=== PATIENT | female | born 1960 | race Two or more races ===

== ENCOUNTER 2021-02-08 15:15 | Outpatient (REF) | payer OTHER, SELFPAY ==
--- NOTE | ~2021-02-08 | MM_ITS ---
EXAMINATION: MM SCREENING DIGITAL BREAST TOMOSYNTHESIS, BILATERAL CLINICAL INFORMATION: Screening. Asymptomatic. The lifetime risk of breast cancer based on the Tyrer-Cuzick Model is 4%. COMPARISON: Mammography: 12/29/2019, 12/23/2018, 11/23/2017 TECHNIQUE: Digital breast tomosynthesis is performed in both the craniocaudal and mediolateral oblique views along with computer-aided detection (CAD). Synthesized 2D images are generated from the tomosynthesis. FINDINGS: The breasts are almost entirely fatty (ACR BI-RADS breast composition Category a). There are no significant masses, abnormal calcifications, or other abnormalities. There is dermal lesion again seen overlying the posterior inferior left breast. Background stromal and fibroglandular densities are stable. The axilla are unremarkable. No significant changes. MM/MM tomosynthesis screening BI IMPRESSION: No mammographic evidence of malignancy. ASSESSMENT: BI-RADS 2: Benign RECOMMENDATION: Routine annual mammography screening. This patient's information was entered into a reminder system with a target due date for their next mammogram.
== END 2021-02-08 15:16 | disposition home or self-care (01) ==
LOC: HO.MAMMO 15:15
PROVIDERS: PCP Family Medicine; Visit Provider Family Medicine
DX: Z12.31 Encounter for screening mammogram for malignant neoplasm of breast (principal)
CPT/HCPCS: 77063; 77067

== ENCOUNTER 2021-08-21 09:47 | Outpatient (REF) | payer OTHER, SELFPAY ==
--- NOTE | 2021-08-21 09:51 | EMG_ITS ---
This is a 61-year-old woman with tingling in the left upper extremity. Neurological examination is normal. IMPRESSION: Rule out carpal tunnel syndrome, rule out cervical radiculopathy. Nerve conduction EMG study: Early carpal tunnel syndrome on the left. Normal EMG of the left C5-T1 innervated muscles. MD JACOBO Mora/SHAVON / [id number]
== END 2021-08-21 09:48 | disposition home or self-care (01) ==
LOC: HO.NEURO 09:47
PROVIDERS: PCP Family Medicine; Visit Provider Family Medicine
DX: M50.30 Other cervical disc degeneration, unspecified cervical region (principal); E11.9 Type 2 diabetes mellitus without complications; R20.0 Anesthesia of skin
CPT/HCPCS: 95885; 95910

== ENCOUNTER → 2022-01-06 13:12 | Outpatient (BNVA) | payer OTHER, SELFPAY | PROVIDERS: PCP Family Medicine; Visit Provider Physician Assistant | DX: Z01.818 Encounter for other preprocedural examination (principal); K21.9 Gastro-esophageal reflux disease without esophagitis; Z79.899 Other long term (current) drug therapy | CPT/HCPCS: 99202 ==

== ENCOUNTER 2022-01-21 07:36 | Day surgery (SDC) | payer OTHER, SELFPAY ==
--- NOTE | 2022-01-20 10:02 | P.CONAN_ITS ---
Documented by User: Ciara Abdullahi NP 01/20/22 10:03 HPI - Anesthesia Eval Consult details Narrative: 61yo F for Colonoscopy PMFSH Active Problems Active Problems: All Active Problems (Updated 01/06/22 @ 14:52 by Luba Yeager PA-C) Acid reflux (Acute) Encounter for screening colonoscopy (Acute) Past Medical History Medical History (Updated 01/21/22 @ 09:38 by Rubina Brambila RN) Diabetes Family History Family History Father Liver disease Alcoholic Mother Diabetes Kidney disease Surgical History Surgical History History of back surgery History of hysterectomy with bilateral oophorectomy Hx of appendectomy Hx of cholecystectomy Hx of tonsillectomy Social History Social History Household Members: Family Alcohol intake: current Alcohol intake frequency: holidays/special occasions only Patient Tobacco Use Status: Never used Tobacco Use of substances other than those prescribed or required for medical reasons: No Are you DNR?: No Advance Directives: No Advance Directives Information Provided: Yes Patient : No Meds Allergies Allergy/AdvReac Type Severity Reaction Status Date / Time cat dander [CATS] Allergy Unknown SNEEZING Verified 01/06/22 13:18 DUST Allergy Unknown ITCHY Uncoded 03/29/20 16:43 EYES, SNEEZING FRUIT Allergy Unknown ITCHY Uncoded 03/29/20 16:43 THROAT RAGWEED Allergy Unknown SNEEZING/ Uncoded 03/29/20 16:43 ITCHY EYES Home Medications Medication Instructions Recorded Confirmed Last Taken Type bupropion HCl 200 mg tablet,12 hr 200 mg PO BID 01/06/22 Unknown History sustained-release cholecalciferol (vitamin D3) 25 25 mcg PO DAILY 01/06/22 Unknown History mcg (1,000 unit) capsule dulaglutide 0.75 mg/0.5 mL 0.75 mg subcut QWEEK 01/06/22 Unknown History [facility] enalapril maleate 5 mg tablet 5 mg PO DAILY 01/06/22 Unknown History famotidine 20 mg tablet 20 mg PO DAILY 01/06/22 Unknown History loratadine 10 mg tablet 10 mg PO DAILY 01/06/22 Unknown History metformin 500 mg tablet,extended 1,000 mg PO BID 01/06/22 Unknown History release 24 hr oxybutynin chloride 15 mg 15 mg PO DAILY 01/06/22 Unknown History tablet,extended release 24 hr pravastatin 40 mg tablet 40 mg PO DAILY 01/06/22 Unknown History Exam Exam Date and Time: January 20, 2022 1002 Assessment and Plan Assessment Anesthesia Assessment: Chart Reviewed Documented by User: Sara Gimenez MD 01/21/22 09:44 HPI - Anesthesia Eval Consult details Narrative: 61yo F for EGD, Colonoscopy PMFSH Active Problems Active Problems: All Active Problems (Updated 01/06/22 @ 14:52 by Luba Yeager PA-C) Acid reflux (Acute) Encounter for screening colonoscopy (Acute) HTN Diabetes Anxiety/Depression VANDANA, on CPAP Environmental allergies Overactive bladder Increased BMI Past Medical History Medical History (Updated 01/21/22 @ 09:38 by Rubina Brambila RN) Diabetes Family History Family History Father Liver disease Alcoholic Mother Diabetes Kidney disease Family history of problems with anesthesia: No Surgical History Surgical History History of back surgery History of hysterectomy with bilateral oophorectomy Hx of appendectomy Hx of cholecystectomy Hx of tonsillectomy History of Problems with Anesthesia: Yes (Slow awakening after one of her surgeries) Social History Social History Household Members: Family Alcohol intake: current Alcohol intake frequency: holidays/special occasions only Patient Tobacco Use Status: Never used Tobacco Use of substances other than those prescribed or required for medical reasons: No Are you DNR?: No Advance Directives: No Advance Directives Information Provided: Yes Patient : No Meds Allergies Allergy/AdvReac Type Severity Reaction Status Date / Time cat dander [CATS] Allergy Unknown SNEEZING Verified 01/06/22 13:18 DUST Allergy Unknown ITCHY Uncoded 03/29/20 16:43 EYES, SNEEZING FRUIT Allergy Unknown ITCHY Uncoded 03/29/20 16:43 THROAT RAGWEED Allergy Unknown SNEEZING/ Uncoded 03/29/20 16:43 ITCHY EYES Home Medications Medication Instructions Recorded Confirmed Last Taken Type bupropion HCl 200 mg tablet,12 hr 200 mg PO BID 01/06/22 Unknown History sustained-release cholecalciferol (vitamin D3) 25 25 mcg PO DAILY 01/06/22 Unknown History mcg (1,000 unit) capsule dulaglutide 0.75 mg/0.5 mL 0.75 mg subcut QWEEK 01/06/22 Unknown History subcutaneous pen injector (Trulicity) enalapril maleate 5 mg tablet 5 mg PO DAILY 01/06/22 Unknown History famotidine 20 mg tablet 20 mg PO DAILY 01/06/22 Unknown History loratadine 10 mg tablet 10 mg PO DAILY 01/06/22 Unknown History metformin 500 mg tablet,extended 1,000 mg PO BID 01/06/22 Unknown History release 24 hr oxybutynin chloride 15 mg 15 mg PO DAILY 01/06/22 Unknown History tablet,extended release 24 hr pravastatin 40 mg tablet 40 mg PO DAILY 01/06/22 Unknown History Exam Height,Weight and Vital Signs: Height 5 ft 5 in Weight 111.13 kg Vital Signs Temp Pulse Resp BP Pulse Ox O2 Del Method 01/21/22 08:36 97.0 F 76 18 125/60 96 Room Air Pertinent Lab Results Pertinent Lab Results: Lab Results 01/21/22 Range/Units 08:43 POC Glucose 110 (60-115) mg/dL Airway Mallampati Class: II (narrow palate with overcrowding of teeth) Neck ROM: Full Loose/Missing/Broken Teeth: No (Per patient) Heart: RRR Lungs: CTAB Assessment and Plan Assessment Anesthesia Assessment: Anesthesia Plan Discussed Final Anesthetic Review Family History of Problems with Anesthesia: No History of Problems with Anesthesia: Yes (Slow awakening after one of her surgeries) NPO: Yes ASA Class: III Final Preanesthetic Review: No Changes in Pt Med Stat, Meds/Allgs Chart Reviewed, Consent Obtained/Reviewed and Anes Risks/Benef Reviewed Patient Risk: Intermediate Procedure Risk: Low Assessment/Block/Sedation in SS: Assess/Block/Sedation-SS Anesthetic Plan Anesthetic Plan: MAC: Disposition: Standard PACU
[2022-01-21 08:36] VITALS: BP 125/60; PULSE 76; RESP 18; TEMP 36.1; O2SAT 96; BMI 40.7
[2022-01-21 08:54] LABS: Glucose, Whole Blood 110 mg/dL (60-115)
[2022-01-21] MEDS: Lactated Ringers 1,000 ML 100 ML IVCONT (09:03)
--- NOTE | 2022-01-21 09:11 | MHC.SHP ---
Pre-Procedural Eval Section A Date of Service: 01/21/22 The patient is an INPATIENT: No Changes since office visit: Yes Patient answered all questions; No Cold of Flu in the past 2 weeks, No New Medical Problems and No Changes in Medication The History & Physical has been completed within 30 days and I have reviewed it.: Yes Section B Chief Complaint: screening reflux Allergies: Allergies Allergy/AdvReac Type Severity Reaction Status Date / Time cat dander [CATS] Allergy Unknown SNEEZING Verified 01/06/22 13:18 DUST Allergy Unknown ITCHY Uncoded 03/29/20 16:43 EYES, SNEEZING FRUIT Allergy Unknown ITCHY Uncoded 03/29/20 16:43 THROAT RAGWEED Allergy Unknown SNEEZING/ Uncoded 03/29/20 16:43 ITCHY EYES Plan I have reviewed the history and physical and performed a pertinent physical examination on my patient. No changes have occurred unless specified.
--- NOTE | 2022-01-21 09:18 | P.BOP_ITS ---
Brief Operative Note Date of Service: 01/21/22 Pre-op diagnosis: Colon cancer screening, GERD Post-op diagnosis: other (GERD, Gastritis, antral erosion, colon polyps, diverticulosis, hemorrhoids) Procedure: FLEXIBLE TRANSORAL UPPER GASTROINTESTINAL ENDOSCOPY WITH BIOPSIES AND COLONOSCOPY TILL CECUM WITH BIOPSIES, SNARE POLYPECTOMY AND SUBMUCOSAL INJECTION UPPER ENDOSCOPY Consent: Indications for the procedure and potential complications of bleeding, perforation, reaction to medications and missed diagnosis were discussed with the patient and informed consent was obtained. Instrument: Olympus GIF H 190 mid size upper endoscope Monitoring: Vital signs and clinical assessment, continuous EKG monitoring, Pulse oximetry, Carbon Dioxide monitoring and blood pressure monitoring were done throughout the procedure. Procedure: The patient was placed in the left lateral decubitis position and pre-procedure medications were administered and a bite block was placed. The endoscope was inserted into the mouth and advanced under direct vision to the third part of duodenum. A careful inspection was made as the upper endoscope was withdrawn including a retroflexed examination of the proximal stomach; Findings and interventions are described below. Findings: Larynx: Normal Esophagus: Tortuous esophagus with increased tertiary contractions without stricture or ring. GE junction at 36 cms.. No esophagitis or Almendarez's. Stomach: A 5 mm chronic appearing erosions in the pre-pyloric area with edematous folds - biopsied. Mild gastric erythema. Biopsies were obtained. Grade 2 flap valve on retroflexed examination of the cardia. Duodenum: Normal bulb and descending duodenum Intervention: Biopsies as noted above COLONOSCOPY PROCEDURE NOTE Consent: Indications for the procedure and potential complications of bleeding, perforation, reaction to medications and missed diagnosis were discussed with the patient and informed consent was obtained. Instrument: Olympus PCF H 190 L variable stiffness pediatric colonoscope Monitoring: Vital signs and clinical assessment, intermittent blood pressure monitoring, continuous EKG monitoring, Pulse oximetry and Carbon Dioxide monitoring were done throughout the procedure. Colon withdrawl time was 20 minutes. Procedure: The patient was placed in the left lateral decubitis position and pre-procedure medications were administered. After a digital rectal examination of the ano-rectum, the video colonoscope was inserted into the rectum and advanced through the colon to the cecum. The colonoscope was slowly withdrawn in a retrograde panoramic fashion and the colon mucosa was carefully examined including a retroflexed view of the rectum. Findings and interventions are described below. Procedure Difficulty: : Without difficulty Findings: Terminal Ileum: Not evaluated Cecum: Normal Ascending Colon: A 12 mm flat polyp raised with 3 cc of normal saline and removed with a stiff snare. Transverse Colon: A 2 cms sessile polyp in the midtransverse colon removed with a hot snare. A 4-5 mm sessile polyp removed with a cold biopsy. Descending Colon: Normal Sigmoid Colon: Moderate diverticulosis Rectum: Normal Ano-rectum: Perianal skin tags Colon preparation: Good Impression and Post Procedure Diagnosis: Endoscopy Findings: ESOPHAGUS: Tortuous esophagus with increased tertiary contractions without stricture or ring. GE junction at 36 cms.. No esophagitis or Almendarez's. STOMACH: A 5 mm chronic appearing erosions in the pre-pyloric area with edematous folds - biopsied. Mild gastric erythema. Biopsies were obtained. Colonoscopy Findings: Three small to medium sized polyps removed Moderate diverticulosis seen in the sigmoid colon Plan: Await pathology results Patient has an appointment on 02/14/22 in the GI Clinic with IRINEO Childs. Consider Barium swallow for evaluation of refractory GERD. Repeat Colonoscopy interval based on path results - in 3 years if polyps are adenomatous and 10 years if polyps are hyperplastic. Above findings were reviewed with the patient and GERD, colon polyps and diverticulosis handouts were given in the discharge area Surgeon: Lion Bernal MD Anesthesia: MAC Was an Seat Cover Installer used for this Procedure?: Yes Seat Cover Installer: Ciera Gore Estimated blood loss (mL): 0 Pathology: other (A. gastric antrum bxs, R/O H. pylori B. gastric erosion bxs C. ascending colon polyp D. transverse colon polyps (2)) Condition: stable Disposition: PACU
[2022-01-21 11:14] VITALS: BP 115/57; PULSE 91; RESP 16; TEMP 37.3; O2SAT 96
[2022-01-21 11:29] VITALS: BP 113/63; PULSE 75; RESP 16; O2SAT 96
[2022-01-21 11:44] VITALS: BP 133/64; PULSE 72; RESP 16; TEMP 37.3; O2SAT 96
--- NOTE | 2022-01-21 17:23 | W.PM.OPN ---
Operative Note Operative Note Date of Service: 01/21/22 Narrative: Pre-op diagnosis: Colon cancer screening, GERD Post-op diagnosis:?other (GERD, Gastritis, antral erosion, colon polyps, diverticulosis, hemorrhoids) Procedure: FLEXIBLE TRANSORAL UPPER GASTROINTESTINAL ENDOSCOPY WITH BIOPSIES AND COLONOSCOPY TILL CECUM WITH BIOPSIES, SNARE POLYPECTOMY AND SUBMUCOSAL INJECTION UPPER ENDOSCOPY Consent:?Indications for the procedure and potential complications of bleeding, perforation, reaction to medications and missed diagnosis were discussed with the patient and informed consent was obtained. Instrument:?Olympus GIF H 190 mid size upper endoscope Monitoring: Vital signs and clinical assessment, continuous EKG monitoring, Pulse oximetry, Carbon Dioxide monitoring and blood pressure monitoring were done throughout the procedure. Procedure:?The patient was placed in the left lateral decubitis position and pre-procedure medications were administered and a bite block was placed. The endoscope was inserted into the mouth and advanced under direct vision to the third part of duodenum. A careful inspection was made as the upper endoscope was withdrawn including a retroflexed examination of the proximal stomach; Findings and interventions are described below. Findings: Larynx:? Normal Esophagus:?Tortuous esophagus with increased tertiary contractions without stricture or ring.? GE junction at 36 cms.. No esophagitis or Almendarez's. Stomach:?A 5 mm chronic appearing erosions in the pre-pyloric area with edematous folds - biopsied. Mild gastric erythema. Biopsies were obtained. Grade 2 flap valve on retroflexed examination of the cardia. Duodenum:?Normal bulb and descending duodenum Intervention:?Biopsies as noted above COLONOSCOPY PROCEDURE NOTE Consent:?Indications for the procedure and potential complications of bleeding, perforation, reaction to medications and missed diagnosis were discussed with the patient and informed consent was obtained. Instrument:?Olympus PCF H 190 L variable stiffness pediatric colonoscope Monitoring:?Vital signs and clinical assessment, intermittent blood pressure monitoring, continuous EKG monitoring, Pulse oximetry and Carbon Dioxide monitoring were done throughout the procedure. Colon withdrawl time was 20 minutes. Procedure:?The patient was placed in the left lateral decubitis position and pre-procedure medications were administered. After a digital rectal examination of the ano-rectum, the video colonoscope was inserted into the rectum and advanced through the colon to the cecum. The colonoscope was slowly withdrawn in a retrograde panoramic fashion and the colon mucosa was carefully examined including a retroflexed view of the rectum. Findings and interventions are described below. Procedure Difficulty:?: Without difficulty Findings: Terminal Ileum: Not evaluated Cecum:? Normal Ascending Colon:??A 12 mm flat polyp raised with 3 cc of normal saline and removed with a stiff snare. Transverse Colon:??A 2 cms sessile polyp in the midtransverse colon removed with a hot snare.? A 4-5 mm sessile polyp removed with a cold biopsy. Descending Colon:? Normal Sigmoid Colon:??Moderate diverticulosis Rectum:??Normal Ano-rectum:??Perianal skin tags Colon preparation: Good Impression and Post Procedure Diagnosis: Endoscopy Findings: ESOPHAGUS: Tortuous esophagus with increased tertiary contractions without stricture or ring.? GE junction at 36 cms.. No esophagitis or Almendarez's. STOMACH: A 5 mm chronic appearing erosions in the pre-pyloric area with edematous folds - biopsied. Mild gastric erythema. Biopsies were obtained. Colonoscopy Findings: Three small to medium sized polyps removed Moderate diverticulosis seen in the sigmoid colon Plan: Await pathology results Patient has an appointment on 02/14/22 in the GI Clinic with IRINEO Childs. Consider Barium swallow for evaluation of refractory GERD. Repeat Colonoscopy interval based on path results - in 3 years if polyps are adenomatous and 10 years if polyps are hyperplastic. Above findings were reviewed with the patient and GERD, colon polyps and diverticulosis handouts were given in the discharge area Surgeon: Lion Bernal MD Anesthesia:?MAC Was an Assistant Technician used for this Procedure?:?Yes Assistant Technician:?Ciera Gore Estimated blood loss (mL):?0 Pathology:?other (A. gastric antrum bxs, R/O H. pylori? B. gastric erosion bxs? C. ascending colon polyp? D. transverse colon polyps (2)) Condition:?stable Disposition:?PACU
== END 2022-01-21 12:21 ==
LOC: HO.SSS 07:36
PROVIDERS: PCP Family Medicine; Visit Provider Internal Medicine Gastroenterology
PROC: (CPT 45385; principal; 2022-01-21 09:20)
DX: Z12.11 Encounter for screening for malignant neoplasm of colon (principal); D12.2 Benign neoplasm of ascending colon; D12.3 Benign neoplasm of transverse colon; K57.30 Diverticulosis of large intestine without perforation or abscess without bleeding; K64.8 Other hemorrhoids; K64.4 Residual hemorrhoidal skin tags; K21.9 Gastro-esophageal reflux disease without esophagitis; K29.50 Unspecified chronic gastritis without bleeding; K25.4 Chronic or unspecified gastric ulcer with hemorrhage; G47.33 Obstructive sleep apnea (adult) (pediatric); I10 Essential (primary) hypertension; E11.9 Type 2 diabetes mellitus without complications; Z79.84 Long term (current) use of oral hypoglycemic drugs; Z79.899 Other long term (current) drug therapy; Z90.49 Acquired absence of other specified parts of digestive tract; Z91.09 Other allergy status, other than to drugs and biological substances
CPT/HCPCS: 45385; 45380; 45381; 43239; 82947; 88305; 88342

== ENCOUNTER 2022-02-27 14:18 | Outpatient (REF) | payer OTHER, SELFPAY ==
--- NOTE | ~2022-02-27 | MM_ITS ---
EXAMINATION: MM SCREENING DIGITAL BREAST TOMOSYNTHESIS, BILATERAL CLINICAL INFORMATION: Screening. Asymptomatic. The lifetime risk of breast cancer based on the Tyrer-Cuzick Model is 4%. COMPARISON: Mammography: 02/08/2021, 12/29/2019, 12/23/2018 TECHNIQUE: Digital breast tomosynthesis is performed in both the craniocaudal and mediolateral oblique views along with computer-aided detection (CAD). Synthesized 2D images are generated from the tomosynthesis. FINDINGS: The breasts are almost entirely fatty (ACR BI-RADS breast composition Category a). There is a small circumscribed nodule central posterior 9:00 right breast more conspicuous when compared with prior studies, possibly a tiny cyst or intramammary node. Margins are smooth. Finding new from 2019. Patient will be recalled for targeted ultrasound. The remainder of the breasts show normal background stromal markings similar to prior studies. No architectural abnormality. No abnormal calcifications. There is a dermal lesion overlying the posterior inferior left breast. The axilla are unremarkable. MM/MM tomosynthesis screening BI IMPRESSION: Right: -Small circumscribed nodule posterior central 9:00, possibly tiny cyst or intramammary node. Left: -No mammographic evidence of malignancy. ASSESSMENT: BI-RADS 0: Incomplete - Need Additional Imaging Evaluation RECOMMENDATION: 1. Targeted ultrasound right breast. 2. Radiology department staff will contact the patient for additional imaging. This patient's information was entered into a reminder system with a target due date for their next mammogram.
== END 2022-02-27 14:19 | disposition home or self-care (01) ==
LOC: HO.MAMMO 14:18
PROVIDERS: PCP Family Medicine; Visit Provider Family Medicine
DX: Z12.31 Encounter for screening mammogram for malignant neoplasm of breast (principal)
CPT/HCPCS: 77063; 77067

== ENCOUNTER 2022-03-06 14:33 | Outpatient (REF) | payer OTHER, SELFPAY ==
--- NOTE | ~2022-03-06 | US_ITS ---
EXAMINATION: US DIAGNOSTIC ULTRASOUND BREAST, RIGHT CLINICAL INFORMATION: Right breast question nodule 9:00 position. COMPARISON: Mammography of February 27, 2022 and studies dating back to October 10, 2015. TECHNIQUE: Ultrasound of the breast is performed with real-time fields scale imaging and color Doppler. FINDINGS: There is no focal suspicious finding. There is no solid mass, architectural abnormality, duct ectasia, or edema in the soft tissue planes. Results are discussed with the patient at time of visit. US/US breast RT limited IMPRESSION: No corresponding ultrasound findings to correlate with mammographic finding. Recommend 6 month follow-up right breast mammogram. ASSESSMENT: BI-RADS 3: Probably Benign RECOMMENDATION: Diagnostic mammography in 6 months. This patient's information was entered into a reminder system with a target due date for their next mammogram.
== END 2022-03-06 14:34 | disposition home or self-care (01) ==
LOC: HO.MAMMO 14:33
PROVIDERS: PCP Family Medicine; Visit Provider Family Medicine
DX: N63.15 Unspecified lump in the right breast, overlapping quadrants (principal)
CPT/HCPCS: 76642

== ENCOUNTER → 2022-04-29 09:32 | Outpatient (BNVA) | payer OTHER, SELFPAY | PROVIDERS: PCP Family Medicine; Visit Provider Orthopaedic Surgery | DX: M65.342 Trigger finger, left ring finger (principal); M65.332 Trigger finger, left middle finger; G56.02 Carpal tunnel syndrome, left upper limb | CPT/HCPCS: 99202; J1100 ==

== ENCOUNTER 2022-09-05 09:19 | Outpatient (REF) | payer OTHER, SELFPAY | END 2022-09-05 09:20 | disposition home or self-care (01) | LOC: HO.SH 09:19 | PROVIDERS: Visit Provider Family Medicine | DX: Z01.118 Encounter for examination of ears and hearing with other abnormal findings (principal); H90.3 Sensorineural hearing loss, bilateral; H93.12 Tinnitus, left ear | CPT/HCPCS: 92557; 92567; 92588 ==

== ENCOUNTER 2022-09-05 09:54 | Outpatient (REF) | payer OTHER, SELFPAY ==
--- NOTE | ~2022-09-05 | MM_ITS ---
EXAMINATION: MM DIAGNOSTIC DIGITAL BREAST TOMOSYNTHESIS, RIGHT CLINICAL INFORMATION: The circumscribed nodule central posterior 9:00 right breast for short interval follow-up. No ultrasound correlate identified on previous imaging. The lifetime risk of breast cancer based on the Tyrer-Cuzick Model is 4%. COMPARISON: Mammography: 02/27/2022, 02/08/2021, right ultrasound 03/06/2022. TECHNIQUE: Digital breast tomosynthesis is performed in both the craniocaudal and mediolateral oblique views along with computer-aided detection (CAD). Synthesized 2D images are generated from the tomosynthesis. FINDINGS: There are scattered areas of fibroglandular density (ACR BI-RADS breast composition Category b). Small oval smooth nodule posterior 9:00 position is similar to prior exam. Preliminary results provided to the patient by the technologist. MM/MM tomosynthesis diagnostic RT IMPRESSION: No significant changes from prior exam. ASSESSMENT: BI-RADS 3: Probably Benign RECOMMENDATION: Diagnostic mammography at time of annual bilateral exam, due in 6 months. This patient's information was entered into a reminder system with a target due date for their next mammogram.
== END 2022-09-05 09:55 | disposition home or self-care (01) ==
LOC: HO.MAMMO 09:54
PROVIDERS: PCP Family Medicine; Visit Provider Family Medicine
DX: N63.15 Unspecified lump in the right breast, overlapping quadrants (principal)
CPT/HCPCS: 77061; 77065

== ENCOUNTER → 2022-12-15 09:16 | Outpatient (BNVA) | payer OTHER, SELFPAY | PROVIDERS: PCP Family Medicine; Referring Provider Family Medicine; Visit Provider Internal Medicine | DX: R07.2 Precordial pain (principal); E11.9 Type 2 diabetes mellitus without complications | CPT/HCPCS: 93005; 99202 ==

== ENCOUNTER → 2023-01-20 14:38 | Outpatient (REF) | payer OTHER, SELFPAY ==
--- NOTE | 2023-01-20 14:41 | CA_ITS ---
Transthoracic Echocardiogram Patient (Last, First, Middle): Sylvia Nicole, Gender: Female Date of : 1960 Age: 62 Procedure Date: 01/20/2023 Procedure Type: Transthoracic Echocardiogram Location: OP Height: 162.56 cm Weight: 88.45 kg BSA: 1.94 m2 Heart Rate: 86 bpm BP: 124 / 62 mmHg City Assessor: SB Referring MD: Ozzy Wong MD Solar Pv Installer: Darius Vargas MD Symptoms: I25.10 - Atherosclerotic heart disease of [place] coronary artery without... Study Quality: Fair but adequate ECG Rhythm: Sinus Conclusions: - 1. Normal LV ejection fraction at 55-60% with impaired relaxation filling pattern with suggestion of wall motion abnormality in the RCA territory 2. Normal cardiac valvular Doppler 3. No gross pericardial effusion Findings Left Ventricle Normal left ventricular size, thickness, and systolic function. The visually estimated ejection fraction is between 55-60%. Spectral Doppler is indicative of an impaired relaxation filling pattern. E/E prime ratio is between 8 and 15 consistent with indeterminate filling pressures. Peak GLS is -16.8%, which is mildly reduced. Wall Motion Rest Echo Findings The basal inferior, basal inferoseptal, and basal inferolateral segments are hypokinetic. All other scored wall segments showed normal motion. Right Ventricle Normal right ventricular cavity size and systolic function. Atria The left atrium is normal in size. Interatrial shunt cannot be excluded. The right atrium was not well visualized. Aortic Valve The aortic valve was not well visualized. The aortic valve structure and function is likely normal. There is no aortic valve stenosis. There is no aortic valve regurgitation. Mitral Valve Normal mitral valve structure and function. There is trace mitral valve regurgitation. There is no mitral valve stenosis. Pulmonic Valve The pulmonic valve was not well visualized. Tricuspid Valve Likely normal tricuspid valve structure and function. Tricuspid regurgitation envelope is inadequate for calculation of right ventricular systolic pressure. Normal right atrial pressure. Great Vessels All visible segments of the aorta are normal in size. The pulmonary artery was not well visualized. Venous The inferior vena cava is normal in size and collapses greater than 50% with inspiration. Pericardium/Pleural There is no evidence of pericardial effusion. Prior Study Comparison No prior study available for comparison. Measurements 2D Linear Measurements IVSd: 1.27 0.6-0.9/0.6-1.0 cm LVIDd: 4.49 3.9-5.3/4.2-5.9 cm LVIDd Index: 2.31 2.4-3.2/2.2-3.1 cm/m2 LVIDs: 2.99 2.0-3.6 cm LVPWd: 1.03 0.7-1.1 cm LA Diam: 4.00 2.7-3.8/3.0-4.0 cm LAIDs Index: 2.06 1.5-2.3 cm/m2 LV Mass: 231.43 67-162/88-224 g LV Mass Index: 119.29 43-95/49-115 g/m2 LVOT Diam: 2.20 3.0+(-)1.3 cm 2D Systolic Function EF 4C: 63.20 >55% EF 2C: 55.80 >55% EF BiP: 59.30 >55% Mitral Valve MV Pk E: 0.59 MV PK A: 0.71 MV Decel Time: 149.00 E/A: 0.80 E'Lateral: 7.83 E'Medial: 5.66 E/E' Med: 10.40 E/E' Lat: 7.50 PHT: 44.00 MVA PHT: 5.00 Decel Bulloch: 3.98 Aortic Valve AoV Pk Juan: 1.31 AoV Pk Grad: 7.00 LATISHA: 3.10 LVOT LVOT Pk Juan: 1.02 LVOT Mn Juan: 0.68 LVOT VTI: 0.20 LVOT Pk Grad: 4.00 LVOT Mn Grad: 2.00 LVOT Diam: 2.20 LVOT Area: 3.80 Diastolic Function MV Pk E: 0.59 MV Pk A: 0.71 E/A: 0.80 E'Medial: 5.66 E/E' Med: 10.40 E' Laterial: 7.83 E/E' Lat: 7.50 Right Ventricle TAPSE (mm): 19.40 TVS' Juan: 13.20 Tricuspid Valve RA Press: 3.00 Great Vessels Aorta Sinus of Valsalva: 3.00 2.0-3.5 cm Ao Asc: 3.30 2.1-3.4 cm Pulmonary Valve PV Pk Juan: 1.02 Peak PV Grad: 4.00 Updated in Other Vendor System with Status of Final Darius Vargas MD electronically signed on 01/21/2023 10:46:10 AM with status of Final
== END ==
LOC: HO.CARD 14:38
PROVIDERS: PCP Family Medicine; Visit Provider Internal Medicine
DX: I25.10 Atherosclerotic heart disease of native coronary artery without angina pectoris (principal); R07.2 Precordial pain
CPT/HCPCS: 93306; 93356

== ENCOUNTER → 2023-01-20 14:41 | Outpatient (BNV) | payer OTHER, SELFPAY | PROVIDERS: PCP Family Medicine; Visit Provider Internal Medicine Cardiovascular Disease | DX: I25.10 Atherosclerotic heart disease of native coronary artery without angina pectoris (principal) | CPT/HCPCS: 93306 ==

== ENCOUNTER → 2023-02-09 11:56 | Outpatient (REF) | payer OTHER, SELFPAY ==
--- NOTE | 2023-02-09 11:59 | CA_ITS ---
Acquisition Time: 2023-02-09 12:33:58 Total Exercise Time: 00:05:16 Test Indications: CP Medications: SEE H Protocol: PIYUSH Max HR: 162 BPM 102% of Pred: 158 BPM Max BP: 182/060 mmHG Max Work Load: 7.0 METS Exercise stress test exercise 5 min 16 sec of Piyush protocool achieving 99% MPHR, without anginal symptoms, without arrhythmias, with normotensive response to exercise, without EKG changes. Echo imags obtained by tech at rest and immediately post peak exercise. Definity contrast used. Test reviewed with Dr. Wong. Referred By: Ozzy Wong Overread By: Cristina Tucker
== END ==
LOC: HO.CARD 11:56
PROVIDERS: PCP Family Medicine; Visit Provider Internal Medicine
DX: R07.2 Precordial pain (principal)
CPT/HCPCS: 93350; Q9957

== ENCOUNTER → 2023-02-09 11:59 | Outpatient (BNV) | payer OTHER, SELFPAY | PROVIDERS: PCP Family Medicine; Visit Provider Nurse Practitioner | DX: R07.9 Chest pain, unspecified (principal) | CPT/HCPCS: 93016; 93018; 93350; 93352 ==

== ENCOUNTER 2023-03-02 14:16 | Outpatient (AMB) | payer OTHER, SELFPAY ==
[2023-03-02 14:46] VITALS: BP 128/62; PULSE 82; O2SAT 98; BMI 33.0
--- NOTE | 2023-03-02 14:46 | MHC.OFFVIS ---
Intake Vital Signs 03/02/23 14:46 Height 5 ft 4 in Weight 192 lb 3.889 oz BMI 33.0 BP 128/62 Blood Pressure Location Lt brachial Position Sitting Pulse 82 Pulse Source Pulse Oximeter Pulse Oximetry (%) 98 Oxygen Delivery Method Room Air Intake Visit Reasons: follow up after testing per HS Allergies cat dander [CATS] Allergy (Unknown, Verified 03/02/23 14:47) SNEEZING DUST Allergy (Unknown, Uncoded 03/02/23 14:47) ITCHY EYES, SNEEZING FRUIT Allergy (Unknown, Uncoded 03/02/23 14:47) ITCHY THROAT RAGWEED Allergy (Unknown, Uncoded 03/02/23 14:47) SNEEZING/ ITCHY EYES Medication List - Last Reconciled 03/02/23 by Lin Slater NP-C bupropion HCl 200 mg PO BID cholecalciferol (vitamin D3) 25 mcg PO DAILY dulaglutide (Trulicity) 0.75 mg subcut QWEEK enalapril maleate 5 mg PO DAILY famotidine 20 mg PO DAILY glipizide ER 10 mg PO BID loratadine 10 mg PO DAILY metformin ER 1,000 mg PO BID naproxen 500 mg PO BID oxybutynin chloride ER 15 mg PO DAILY pravastatin 40 mg PO DAILY HPI follow up after testing per HS HPI Details Sylvia is a 62-year-old female with past medical history of diabetes, hyperlipidemia, obstructive sleep apnea who reported chest discomfort on last visit and underwent a stress test and echocardiogram. She now presents for follow-up. Today she reports that since her last visit her GI reflux medication was changed to twice daily and her symptoms have resolved. She strongly believes that it was related to reflux and not cardiac. She has no exertional chest discomfort. She denies shortness of breath, palpitations, dizziness, presyncope, syncope, PND, orthopnea or edema. She is taking her medications as directed. 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 Review of Systems Const All systems reviewed & are unremarkable except as noted in HPI and below Card Details: Prior chest discomfort has resolved Physical Exam Vital Signs: Last Vital Signs Pulse 82 03/02/23 14:46 BP 128/62 03/02/23 14:46 Pulse Ox 98 03/02/23 14:46 Oxygen Delivery Method Room Air 03/02/23 14:46 BMI result Body Mass Index 33.0 Const General: cooperative, healthy appearing, comfortable and no acute distress Orientation/consciousness: patient oriented x3 Neck Neck: Yes normal visual inspection Resp Effort & Inspection: normal respiratory effort Auscultation: clear to auscultation bilaterally, no crackles, no rales, no rhonchi and no wheezes Cardio Jugular venous distension: no JVD Rate: regular rate Rhythm: regular rhythm Heart sounds: S1 normal heart sound present, S2 normal heart sound present, no gallops, no murmurs and no rubs Neuro General: patient oriented x3 Extrem General: Yes normal to inspection and No no pedal edema Psych Appearance: grossly normal Mental Status: mental status grossly normal Speech and movement: Normal speech and movement present Assessment & Plan Assessment & Plan (1) Precordial chest pain: Code(s): R07.2 - Precordial pain Plan: Report of anterior chest discomfort on last visit. Mostly occurring in a laying down position. No exertional chest discomfort. EKG without ischemic findings. She underwent a echocardiogram on 01/20/2023 showing EF 55-60%, wall motion abnormality in the RCA territory, however when reviewed by Dr. Wong he was not convinced of this finding. Stress echocardiogram done on 02/09/2023 showed exercise just over 5 minutes with no symptoms and no EKG changes, no overt wall motion abnormalities noted on echo imaging. Today she reports that her reflux medication was changed to b.i.d. and her symptoms have since resolved. She believes the reflux was the cause of her symptom. No anginal sounding symptoms at present. Cardiac risk factor modification reviewed including need for good cholesterol and diabetic control. Weight loss recommended. Emergency care if ever needed for symptoms not relieved with rest. Cardiology follow-up in 6 months, sooner if needed (2) Acid reflux: Code(s): K21.9 - Gastro-esophageal reflux disease without esophagitis Plan: Followed by GI. Currently asymptomatic (3) Diabetes: Code(s): E11.9 - Type 2 diabetes mellitus without complications Plan: Hemoglobin A1c goal less than 7 (4) Abnormal echocardiogram findings without diagnosis: Code(s): R93.1 - Abnormal findings on diagnostic imaging of heart and coronary circulation Plan: As above Coding Level of Care Code Est Pt Level 3 (54401) Diagnoses Precordial chest pain R07.2 Acid reflux K21.9 Diabetes E11.9 Abnormal echocardiogram findings without diagnosis R93.1 Time Spent (min) 22 Comment Chart review, documentation, interview, assessment
== END 2023-03-02 15:03 | disposition home or self-care (01) ==
PROVIDERS: PCP Family Medicine; Referring Provider Family Medicine; Visit Provider Nurse Practitioner Family
DX: R07.2 Precordial pain (principal); K21.9 Gastro-esophageal reflux disease without esophagitis; E11.9 Type 2 diabetes mellitus without complications; R93.1 Abnormal findings on diagnostic imaging of heart and coronary circulation
CPT/HCPCS: 99213

== ENCOUNTER → 2023-03-02 14:16 | Outpatient (BNVA) | payer OTHER, SELFPAY | PROVIDERS: PCP Family Medicine; Referring Provider Family Medicine; Visit Provider Nurse Practitioner Family | DX: R07.2 Precordial pain (principal); R93.1 Abnormal findings on diagnostic imaging of heart and coronary circulation; K21.9 Gastro-esophageal reflux disease without esophagitis; E11.9 Type 2 diabetes mellitus without complications | CPT/HCPCS: 99212 ==

== ENCOUNTER 2023-03-23 14:48 | Outpatient (REF) | payer OTHER, SELFPAY ==
--- NOTE | ~2023-03-23 | MM_ITS ---
EXAMINATION: MM DIAGNOSTIC DIGITAL BREAST TOMOSYNTHESIS, BILATERAL CLINICAL INFORMATION: 6 month (second follow-up) follow-up for 4 mm oval circumscribed mass right breast approximate 9-10 o'clock axis, posterior one third. Patient also due for bilateral screening exam. COMPARISON: Mammography: Most recently 09/05/2022, 02/27/2022, 02/08/2021, and dating back to 2019. Ultrasound right breast 03/06/2022. TECHNIQUE: Digital breast tomosynthesis is performed in both the craniocaudal and mediolateral oblique views along with computer-aided detection (CAD). Synthesized 2D images are generated from the tomosynthesis. FINDINGS: There are scattered areas of fibroglandular density (ACR BI-RADS breast composition Category b). There is a stable oval isodense circumscribed 4 mm mass at the 9 to 10:00 position right breast, posterior one third, stable over one year and most likely a benign cyst or small intramammary lymph node. Otherwise, no suspicious masses, suspicious grouped calcifications, or areas of architectural distortion are evident in either breast. The parenchymal pattern is unchanged. MM/MM tomosynthesis diagnostic BI IMPRESSION: There are no significant changes from prior study. No findings suspicious for malignancy. Probably benign 4 mm oval mass right breast 9-10 o'clock axis, posterior one third. Recommend 1 year follow-up examination to ensure stability. No suspicious findings in the left breast. ASSESSMENT: BI-RADS BI-RADS 3 - Probably benign finding(s) - 12 month follow-up suggested RECOMMENDATION: 1 year F/U Results were provided to the patient at time of visit by the technologist. This patient's information was entered into a reminder system with a target due date for their next mammogram.
== END 2023-03-23 14:49 | disposition home or self-care (01) ==
LOC: HO.MAMMO 14:48
PROVIDERS: PCP Family Medicine; Visit Provider Family Medicine
DX: N63.15 Unspecified lump in the right breast, overlapping quadrants (principal)
CPT/HCPCS: 77062; 77066

== ENCOUNTER → 2023-03-23 15:00 | Outpatient (BNV) | payer OTHER, SELFPAY | PROVIDERS: PCP Family Medicine; Visit Provider Radiology Diagnostic Radiology | DX: N60.01 Solitary cyst of right breast (principal) | CPT/HCPCS: 77062; 77066 ==

== ENCOUNTER 2023-07-07 | Outpatient (REF) | payer OTHER, SELFPAY | END 2023-07-07 00:01 | disposition home or self-care (01) | LOC: HO.HHCLNP | PROVIDERS: Visit Provider Family Medicine | DX: R14.0 Abdominal distension (gaseous) (principal); R12 Heartburn | CPT/HCPCS: 87338 ==

== ENCOUNTER 2023-07-08 08:10 | Outpatient (REF) | payer OTHER, SELFPAY ==
[2023-07-08 09:14] LABS: Cholesterol 177 mg/dL (<200); HDL Cholesterol 48 mg/dL (>40); LDL Cholesterol Calculated 81 mg/dL (<100); Triglycerides 241 mg/dL (<150)
[2023-07-08 09:17] LABS: Alanine Aminotransferase 15 U/L (0-31); Albumin Level 4.1 g/dL (3.5-5.0); Alkaline Phosphatase 71 U/L (39-117); Anion Gap 11 (12-20); Aspartate Amino Transferase 12 U/L (5-31); Bilirubin Total 0.2 mg/dL (0.0-1.0); Blood Urea Nitrogen 16 mg/dL (9-16); Calcium 9.2 mg/dL (8.4-10.2); Carbon Dioxide 25 mmol/L (22-29); Chloride 108 mmol/L (96-108); Estimated Glomerular Filt Rate > 60; Glucose Random 142 mg/dL (60-115); Potassium 3.8 mmol/L (3.3-5.1); Sodium 140 mmol/L (135-145)
[2023-07-08 09:34] LABS: TSH reflex Free T4 0.88 uIU/mL (0.32-4.0)
[2023-07-08 09:50] LABS: Folate 8.3 ng/mL (> or = 4.0)
[2023-07-08 09:53] LABS: Reflex LDLD? No
[2023-07-08 09:59] LABS: Creatinine Urine 66.16 mg/dL
[2023-07-09 14:53] LABS: Vitamin B12 864 pg/mL (200-900)
== END 2023-07-08 08:11 | disposition home or self-care (01) ==
LOC: HO.XRAY 08:10
PROVIDERS: PCP Family Medicine; Visit Provider Family Medicine
DX: M54.2 Cervicalgia (principal); M25.512 Pain in left shoulder; G89.29 Other chronic pain; E11.42 Type 2 diabetes mellitus with diabetic polyneuropathy
CPT/HCPCS: 36415; 72040; 80053; 80061; 82043; 82570; 82607; 82746; 84443

== ENCOUNTER 2023-08-24 09:52 | Outpatient (REF) | payer OTHER, SELFPAY ==
[2023-08-24 11:00] LABS: MANUAL DIFF FLAG NO
[2023-08-24 11:10] LABS: Basophils Absolute Auto 0.1 X10*3/uL (0.0-0.2); Eosinophils Absolute Auto 0.3 X10*3/uL (0.0-0.4); Eosinophils Percent Auto 6.4 % (0-4); Hematocrit 38.1 % (37.0-47.0); Hemoglobin 12.3 g/dl (12.0-16.0); Imm Gran Abs Auto 0.02 X10*3/uL (0.00-0.03); Imm Gran Pct Auto 0.4 % (0.0-0.4); Lymphocytes Absolute Auto 1.9 X10*3/uL (1.2-4.9); Mean Corpuscular HGB Conc 32.3 g/dl (31.0-35.0); Mean Corpuscular Hemoglobin 30.2 pg (27.0-33.0); Mean Corpuscular Volume 93.6 fL (80.0-98.0); Mean Platelet Volume 10.5 fL (9.4-12.3); Monocytes Absolute Auto 0.4 X10*3/uL (0.1-1.2); Monocytes Percent Auto 8.4 % (2-11); Neutrophils Absolute Auto 2.3 x10*3/uL (2.0-8.3); Neutrophils Percent Auto 45.8 % (45-73); Platelet Count 216 X10*3/uL (160-400); Red Blood Count 4.07 X10*6/uL (4.20-5.50); Red Cell Distribution Width 13.1 % (11.0-16.0)
== END 2023-08-24 09:53 | disposition home or self-care (01) ==
LOC: HO.LAB 09:52
PROVIDERS: PCP Family Medicine; Visit Provider Physician Assistant
DX: K21.9 Gastro-esophageal reflux disease without esophagitis (principal); R14.0 Abdominal distension (gaseous); E11.9 Type 2 diabetes mellitus without complications; R68.81 Early satiety
CPT/HCPCS: 36415; 85025; 99212

== ENCOUNTER 2023-08-24 09:52 | Outpatient (AMB) | payer OTHER, SELFPAY ==
[2023-08-24 09:54] VITALS: BP 145/66; PULSE 86; BMI 33.7
--- NOTE | 2023-08-24 09:54 | MHC.OFFVIS ---
Intake Vital Signs 08/24/23 09:54 Height 5 ft 4 in Weight 196 lb 3.382 oz BMI 33.7 BP 145/66 H Blood Pressure Location Lt brachial Position Sitting Pulse 86 Intake Visit Reasons: abdominal bloating/GERD Intake Note: pt its her in the office for a f/up for abdominal bloating/ GERD pt its its still having the abdominal bloating. Template Inspector Required: No Accompanied by: Self / Same As Patient Allergies cat dander [CATS] Allergy (Unknown, Verified 03/02/23 14:47) SNEEZING DUST Allergy (Unknown, Uncoded 03/02/23 14:47) ITCHY EYES, SNEEZING FRUIT Allergy (Unknown, Uncoded 03/02/23 14:47) ITCHY THROAT RAGWEED Allergy (Unknown, Uncoded 03/02/23 14:47) SNEEZING/ ITCHY EYES Medication List - Last Reconciled 08/24/23 by MARYAM GannonC bupropion HCl 200 mg PO BID cholecalciferol (vitamin D3) 25 mcg PO DAILY dulaglutide (Trulicity) 0.75 mg subcut QWEEK enalapril maleate 5 mg PO DAILY famotidine 20 mg PO DAILY glipizide ER 10 mg PO BID loratadine 10 mg PO DAILY metformin ER 1,000 mg PO BID methenamine hippurate 1 g PO BID oxybutynin chloride ER 15 mg PO DAILY pravastatin 40 mg PO DAILY HPI HPI Comments History of Present Illness Details A 63 y/o female with hx gerd-she was taking ppi- sx had improved-ppi that discontinued by [facility] about 1 year ago- switched to pepcid 20 mg bid, has not been helpful- dietary modifications. She has heartburn, more frequent-- bloating- she does eat rice and beans - early saiety Trulicity- seems to have adjusted over the year No Vomiting, fever or chills Bowels fairly normal Reviewed EGD/ colon report/ path- recommendations Due for colonoscopy 2024- hx polps [facility] Medical History Diabetes High cholesterol VANDANA (obstructive sleep apnea) Surgical History History of back surgery Hx of appendectomy History of hysterectomy with bilateral oophorectomy Hx of cholecystectomy Hx of tonsillectomy Family History Father Liver disease Alcoholic Mother Diabetes Kidney disease Social History Household Members: Family Alcohol intake: current Alcohol intake frequency: holidays/special occasions only Patient Tobacco Use Status: Never used Tobacco Current occupational status: employed 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 Review of Systems Const All systems reviewed & are unremarkable except as noted in HPI and below Card Denies chest pain and Denies dyspnea Resp Denies dyspnea GI Denies abdominal pain, Denies hematochezia, Denies change in bowel habits, Reports early satiety, Reports heartburn, Reports nausea and Denies vomiting Physical Exam Vital Signs: Last Vital Signs Pulse 86 08/24/23 09:54 BP 145/66 H 08/24/23 09:54 BMI result Body Mass Index 33.7 Const General: cooperative, healthy appearing, comfortable and no acute distress Orientation/consciousness: patient oriented x3 Limitations: no limitations Eyes Sclerae: sclerae normal Resp Effort & Inspection: normal respiratory effort and able to speak in complete sentences Auscultation: clear to auscultation bilaterally, no rales, no rhonchi and no wheezes Cardio Rate: regular rate Rhythm: regular rhythm Heart sounds: S1 normal heart sound present and S2 normal heart sound present GI Palpation (GI): Soft to palpation and nontender Auscultation: normal bowel sounds Skin General skin exam: no rashes or lesions noted Neuro General: patient oriented x3 Extrem General: Yes full ROM Psych Appearance: grossly normal and well kempt Mental Status: mental status grossly normal Speech and movement: Clear speech present Affect: normal affect Attitude: cooperative Thought process: Normal thought process present Thought content: Normal thought content present Insight: Good insight present (Psych) Results Reviewed Results Reviewed: Impression and Post Procedure Diagnosis: Endoscopy Findings: ESOPHAGUS: Tortuous esophagus with increased tertiary contractions without stricture or ring.? GE junction at 36 cms.. No esophagitis or Almendarez's. STOMACH: A 5 mm chronic appearing erosions in the pre-pyloric area with edematous folds - biopsied. Mild gastric erythema. Biopsies were obtained. Colonoscopy Findings: Three small to medium sized polyps removed Moderate diverticulosis seen in the sigmoid colon Plan: Await pathology results Patient has an appointment on 02/14/22 in the GI Clinic with IRINEO Childs. Consider Barium swallow for evaluation of refractory GERD. Repeat Colonoscopy interval based on path results - in 3 years if polyps are adenomatous and 10 years if polyps are hyperplastic. Above findings were reviewed with the patient and GERD, colon polyps and diverticulosis handouts were given in the discharge area Surgeon: Lion Bernal MD Anesthesia:?MAC Was an Mill [employer] Plate Mill used for this Procedure?:?Yes Mill Hand Plate Mill:?Ciera Gore Estimated blood loss (mL):?0 Pathology:?other (A. gastric antrum bxs, R/O H. pylori? B. gastric erosion bxs? C. ascending colon polyp? D. transverse colon polyps (2)) Condition:?stable Disposition:?PACU omar: Sylvia Nicole Age/Sex: 61/F Attending: Lion Bernal MD : 1960 Submitted by: Lion Bernal MD Copies to: Jane Zarate MD MR #: [id number] Status: [facility] [place] Collected: 01/21/22 Location: [facility] Received: 01/21/22 Diagnosis A. Stomach, antrum, biopsy: Antral-type and oxyntic mucosa with mild chronic inactive inflammation; no Helicobacter organisms seen. B. Stomach, erosion, biopsy: Chronic active erosive gastritis; no Helicobacter organism seen. C. Colon, ascending, polypectomy: Fragments of tubular adenoma; negative for high-grade dysplasia or carcinoma. D. Colon, transverse, polypectomies (2): Tubular adenomas; negative for high-grade dysplasia or carcinoma. Clinical History Pre-Op Dx: Colon cancer screening, reflux Post-Op Dx: GERD, gastritis, gastric erosion, colon polyps, diverticulosis, r/o H. pylori Microscopic Description A-D. Microscopic sections reviewed. Immunostain for H. pylori is non-reactive (A, B). Material Received A: Gastric antrum bx's, r/o H. pylori B: Gastric erosion bx's C: Ascending colon polyp D: Transverse colon polyps (2) Gross Description Received in four parts. Part A: Received in formalin labeled Gastric antrum bx's are two glistening, semitranslucent, soft, capps- pink, irregular tissue fragments, each measuring 0.25 cm. in greatest dimension, which are submitted in toto in a single cassette labeled A. Part B: Received in formalin labeled Gastric erosion bx's are two glistening, semitranslucent, soft, capps- pink, irregular and rectangular tissue fragments, measuring 0.1 and 0.35 cm. in greatest dimension, which are submitted in toto in a single cassette labeled B. Part C: Received in formalin labeled Ascending colon polyp are five glistening, semitranslucent, soft, hyperemic, capps-white and capps-pink, irregular, rectangular and papular tissue fragments, ranging from 0.2 Patient: Sylvia Nicole Age/Sex: 61/F MR#: [id number] Page 1 of 2 Assessment & Plan Assessment & Plan (1) Acid reflux: Comment: worsened with H2 magnolia vs ppi reviewed EGD/ colo-2021 Code(s): K21.9 - Gastro-esophageal reflux disease without esophagitis Plan: pantopraole 40 mg Carafate bid x 4 wks (2) Bloating: Code(s): R14.0 - Abdominal distension (gaseous) Plan: foods to avoid low FODMAP (3) Diabetes: Comment: early satiety- trulicity- Code(s): E11.9 - Type 2 diabetes mellitus without complications Plan: GES (4) Early satiety: Code(s): R68.81 - Early satiety Plan: GES Plan Pantoprazole-40 mg cararfate 1 gm bid x weeks GES Orders: Orders NM gastric emptying study Today E11.9 - Type 2 diabetes mellitus without complications, K21.9 - Gastro-esophageal reflux disease without esophagitis, R68.81 - Early satiety Complete Blood Count Auto Diff Today K21.9 - Gastro-esophageal reflux disease without esophagitis, R14.0 - Abdominal distension (gaseous), R68.81 - Early satiety Medications: New sucralfate 1 g PO BID 30 days 60 tabs 0RF pantoprazole 40 mg PO DAILY 30 days 30 tabs 6RF Patient Instructions: Pantoprazole-40 mg cararfate 1 gm bid x weeks Reflux precautions reviewed Low Fodmap CBC Encouraged to call questions concerns Coding Level of Care Code Est Pt Level 3 (20507) Diagnoses Acid reflux K21.9 Bloating R14.0 Diabetes E11.9 Early satiety R68.81 Time Spent (min) 30
== END 2023-08-24 11:31 | disposition home or self-care (01) ==
PROVIDERS: PCP Family Medicine; Visit Provider Physician Assistant
DX: K21.9 Gastro-esophageal reflux disease without esophagitis (principal); R14.0 Abdominal distension (gaseous); E11.9 Type 2 diabetes mellitus without complications; R68.81 Early satiety
CPT/HCPCS: 99213

== ENCOUNTER → 2023-09-30 08:01 | Outpatient (REF) | payer OTHER, SELFPAY ==
--- NOTE | ~2023-09-30 | NM_ITS ---
EXAMINATION: CT RADIONUCLIDE SOLID FOOD GASTRIC EMPTYING 4-HOUR STUDY CLINICAL INFORMATION: Gastroesophageal reflux disease without esophagitis. Diabetes mellitus. COMPARISON: No previous study is available for comparison. TECHNIQUE: A standard meal consisting of 4 oz of Egg Beaters brand tagged with 1.0 mCi Tc-99m Sulfur Colloid, 8 oz water and 2 slices of toast with jelly was administered orally to the patient. Images were obtained using a dual head gamma camera in the anterior and posterior projections over of the stomach immediately post ingestion and at hourly intervals up to 4 hours post ingestion. The anterior and posterior counts at each time interval were averaged using the geometric mean and expressed as percentage of the immediate post ingestion counts. FINDINGS: There is good visualization of activity in the stomach immediately post ingestion. As the study progresses, there is significantly diminished clearance of activity from the stomach. At the end of the study there is moderately severe retention of activity at 4 hours. Retention in the stomach at each time interval was: 1 hour 57% (normal 37%-90%) 2 hours 42% (normal 30%-60%) 3 hours 40% 4 hours 31% (normal 0%-10%) NM/NM gastric emptying study IMPRESSION: Abnormal study. There is moderately severe abnormal retention of solid food in the stomach at 4 hours. Gastric emptying study grading per JNMT Consensus Recommendations in 2008 (https://tech.snmjournals.org/content/36/1/44) Grade 1 (mild retention): 11-20% at 4h Grade 2 (moderate retention): 21-35% at 4h Grade 3 (severe retention): 36-50% at 4h Grade 4 (very severe retention): >50% retention at 4h
== END ==
LOC: HO.NUCMED 08:01
PROVIDERS: PCP Family Medicine; Visit Provider Physician Assistant
DX: K21.9 Gastro-esophageal reflux disease without esophagitis (principal); E11.9 Type 2 diabetes mellitus without complications; R68.81 Early satiety
CPT/HCPCS: 78264; A9541

== ENCOUNTER 2023-10-13 16:59 | Outpatient (REF) | payer OTHER, SELFPAY | END 2023-10-13 17:00 | disposition home or self-care (01) | LOC: HO.HHCLNP 16:59 | PROVIDERS: Visit Provider Family Medicine | DX: N39.0 Urinary tract infection, site not specified (principal) | CPT/HCPCS: 87086 ==

== ENCOUNTER 2023-10-19 08:23 | Outpatient (AMB) | payer OTHER, SELFPAY ==
--- NOTE | 2023-10-19 08:29 | A.OFFVIS_ITS ---
Intake Vital Signs 10/19/23 08:33 Height 5 ft 4 in Weight 180 lb BMI 30.9 BP 115/55 L Blood Pressure Location Lt brachial Position Sitting Pulse 80 Intake Visit Reasons: 2 mth follow up GERD Intake Note: Patient follow up for GERD. Patient cc: abdominal discomfort. Denies any other GI issues. 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: No Accompanied by: Self / Same As Patient Allergies cat dander [CATS] Allergy (Unknown, Verified 10/19/23 08:29) SNEEZING DUST Allergy (Unknown, Uncoded 03/02/23 14:47) ITCHY EYES, SNEEZING FRUIT Allergy (Unknown, Uncoded 03/02/23 14:47) ITCHY THROAT RAGWEED Allergy (Unknown, Uncoded 03/02/23 14:47) SNEEZING/ ITCHY EYES HPI HPI Comments History of Present Illness Details A 63 y/o female f/u with acid reflux- she saw pcp- delayed gastric emptying- Trulicity- for the p[ast 2 years- she says it helped with wt loss-but side effects are too much- she had discussed change in meds-she feels well at her wt- is open for change- she had HGA1c last wk- reports at 7.7- she has made dietary changes-she will further discuss with pcp- No other GI or general complaints There is good visualization of activity in the stomach immediately post ingestion. As the study progresses, there is significantly diminished clearance of activity from the stomach. At the end of the study there is moderately severe retention of activity at 4 hours. Retention in the stomach at each time interval was: 1 hour 57% (normal 37%-90%) 2 hours 42% (normal 30%-60%) 3 hours 40% 4 hours 31% (normal 0%-10%) NM/NM gastric emptying study IMPRESSION: Abnormal study. There is moderately severe abnormal retention of solid food in the stomach at 4 hours. [facility] Medical History (Updated 10/19/23 @ 09:12 by Luba Yeager PA-C) VANDANA (obstructive sleep apnea) High cholesterol Diabetes Surgical History History of back surgery Hx of appendectomy History of hysterectomy with bilateral oophorectomy Hx of cholecystectomy Hx of tonsillectomy Family History Father Liver disease Alcoholic Mother Diabetes Kidney disease Social History Household Members: Family Alcohol intake: current Alcohol intake frequency: holidays/special occasions only Patient Tobacco Use Status: Never used Tobacco Current occupational status: employed 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 Review of Systems Const All systems reviewed & are unremarkable except as noted in HPI and below GI Denies change in bowel habits and Denies heartburn Physical Exam Vital Signs: Last Vital Signs Pulse 80 10/19/23 08:33 BP 115/55 L 10/19/23 08:33 BMI result Body Mass Index 30.9 Const General: cooperative, healthy appearing, comfortable and no acute distress Orientation/consciousness: patient oriented x3 Limitations: no limitations Eyes Sclerae: sclerae normal Resp Effort & Inspection: normal respiratory effort and able to speak in complete sentences Cardio Rate: regular rate Rhythm: regular rhythm Heart sounds: S1 normal heart sound present GI Palpation (GI): Soft to palpation and nontender Auscultation: normal bowel sounds Skin General skin exam: no rashes or lesions noted Neuro General: patient oriented x3 Extrem General: Yes full ROM Psych Appearance: grossly normal and well kempt Mental Status: mental status grossly normal Speech and movement: Normal speech and movement present and Clear speech present Affect: normal affect Attitude: cooperative Thought process: Normal thought process present Thought content: Normal thought content present Insight: Good insight present (Psych) Judgement: Good judgement present (Psych) Results Reviewed Results Reviewed: There is good visualization of activity in the stomach immediately post ingestion. As the study progresses, there is significantly diminished clearance of activity from the stomach. At the end of the study there is moderately severe retention of activity at 4 hours. Retention in the stomach at each time interval was: 1 hour 57% (normal 37%-90%) 2 hours 42% (normal 30%-60%) 3 hours 40% 4 hours 31% (normal 0%-10%) NM/NM gastric emptying study IMPRESSION: Abnormal study. There is moderately severe abnormal retention of solid food in the stomach at 4 hours. mpression and Post Procedure Diagnosis: Endoscopy Findings: ESOPHAGUS: Tortuous esophagus with increased tertiary contractions without stricture or ring.? GE junction at 36 cms.. No esophagitis or Almendarez's. STOMACH: A 5 mm chronic appearing erosions in the pre-pyloric area with edematous folds - biopsied. Mild gastric erythema. Biopsies were obtained. Colonoscopy Findings: Three small to medium sized polyps removed Moderate diverticulosis seen in the sigmoid colon Plan: Await pathology results Patient has an appointment on 02/14/22 in the GI Clinic with IRINEO Childs. Consider Barium swallow for evaluation of refractory GERD. Repeat Colonoscopy interval based on path results - in 3 years if polyps are adenomatous and 10 years if polyps are hyperplastic. Above findings were reviewed with the patient and GERD, colon polyps and diverticulosis handouts were given in the discharge area Surgeon: Lion Bernal MD 3 year--2024 Assessment & Plan Assessment & Plan (1) Early satiety: Code(s): R68.81 - Early satiety (2) Acid reflux: Comment: reflux well controlled-reviewed EGD/ [id number] Code(s): K21.9 - Gastro-esophageal reflux disease without esophagitis (3) Diabetes: Comment: early satiety- trulicity- Code(s): E11.9 - Type 2 diabetes mellitus without complications Plan: disc w/ pcp- may benefit from endocrine- Plan Small portions See pcp- re :DM cont.ppi Reflux precaution Patient Instructions: Small portions See pcp- re :DM cont.ppi Reflux precaution Coding Level of Care Code Est Pt Level 3 (38959) Diagnoses Early satiety R68.81 Acid reflux K21.9 Diabetes E11.9 Time Spent (min) 30
[2023-10-19 08:33] VITALS: BP 115/55; PULSE 80; BMI 30.9
== END 2023-10-19 09:53 | disposition home or self-care (01) ==
PROVIDERS: PCP Family Medicine; Visit Provider Physician Assistant
DX: R68.81 Early satiety (principal); K21.9 Gastro-esophageal reflux disease without esophagitis; E11.9 Type 2 diabetes mellitus without complications
CPT/HCPCS: 99213

== ENCOUNTER → 2023-10-19 08:23 | Outpatient (BNVA) | payer OTHER, SELFPAY | PROVIDERS: PCP Family Medicine; Visit Provider Physician Assistant | DX: K21.9 Gastro-esophageal reflux disease without esophagitis (principal); R68.81 Early satiety; E11.9 Type 2 diabetes mellitus without complications | CPT/HCPCS: 99212 ==

== ENCOUNTER 2023-12-24 12:56 | Outpatient (AMB) | payer OTHER, SELFPAY ==
--- NOTE | 2023-12-24 13:06 | A.OFFVIS_ITS ---
Vital Signs 12/24/23 13:07 Height 5 ft 4 in Weight 190 lb 14.725 oz BMI 32.8 BP 120/60 Blood Pressure Location Lt brachial Position Sitting Pulse 73 Pulse Source Monitor Intake Visit Reasons: f/up Gandy Dancer Required: No Accompanied by: Self / Same As Patient Allergies cat dander [CATS] Allergy (Unknown, Verified 10/19/23 08:29) SNEEZING DUST Allergy (Unknown, Uncoded 03/02/23 14:47) ITCHY EYES, SNEEZING FRUIT Allergy (Unknown, Uncoded 03/02/23 14:47) ITCHY THROAT RAGWEED Allergy (Unknown, Uncoded 03/02/23 14:47) SNEEZING/ ITCHY EYES Medication List - Last Reconciled 12/24/23 by Ozzy Wong MD bupropion HCl SR 200 mg PO BID cholecalciferol (vitamin D3) 25 mcg PO DAILY dulaglutide (Trulicity) 0.75 mg subcut QWEEK enalapril maleate 5 mg PO DAILY glipizide ER 10 mg PO BID loratadine 10 mg PO DAILY metformin ER 1,000 mg PO BID methenamine hippurate 1 g PO BID oxybutynin chloride ER 15 mg PO DAILY pantoprazole 40 mg PO DAILY 30 days pravastatin 40 mg PO DAILY HPI Comments Details: Syliva returns for follow-up. In the past, she was seen regarding chest pain. She had an episode of chest tightness but also has a background of acid reflux. After that, resolved. Risk factors include diabetes, dyslipidemia, obstructive sleep apnea. Any case, she underwent workup with an exercise stress test and that was unremarkable. She states she has got absolutely no symptoms after that and feels great. No further chest pains. 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 Review of Systems Const Denies chills, Denies fatigue, Denies fever(s), Denies frequent falls, Denies weakness, Denies weight gain and Denies weight loss ENT Denies dizziness Card Denies chest pain, Denies leg edema, Denies lightheadedness, Denies palpitations, Denies dyspnea and Denies dyspnea on exertion Resp Denies cough, Denies dyspnea and Denies dyspnea on exertion GI Denies hematochezia Musc Denies abnormal gait, Denies muscle weakness, Denies numbness, Denies radiating pain into limb and Denies tingling Neuro Denies abnormal gait, Denies dizziness, Denies frequent falls, Denies numbness, Denies tingling and Denies weakness Endo Denies fatigue and Denies palpitations Physical Exam Vital Signs: Last Vital Signs Pulse 73 12/24/23 13:07 BP 120/60 12/24/23 13:07 BMI result Body Mass Index 32.8 Const General: comfortable and no acute distress Orientation/consciousness: patient oriented x3 HEENT Other: Unremarkable Head: Yes normal to inspection Neck Neck: Yes normal visual inspection Chest Chest palpation & inspection: normal inspection of the chest Resp Auscultation: clear to auscultation bilaterally Cardio Palpation: normal PMI Heart sounds: S1 normal heart sound present, S2 normal heart sound present, no gallops, no murmurs and no rubs GI Palpation (GI): Soft to palpation Back/Spine/Pelvis Other: unremarkable Skin General skin exam: no rashes or lesions noted Neuro General: patient oriented x3 Extrem General: Yes normal to inspection Psych Mental Status: mental status grossly normal Office Procedures EKG Details: EKG with sinus rhythm at 73/Min; no significant ST-T changes and otherwise unremarkable[place] [id number], Complete Assessment & Plan Assessment & Plan (1) Precordial chest pain: Code(s): R07.2 - Precordial pain Category: Medical Plan Studies reviewed. Preserved LVEF on echocardiogram. There is a question of RCA territory wall motion abnormality, but not convincing when I reviewed it in the past. Exercise stress echocardiogram was negative at 7 METS exercise capacity without any angina or EKG/echocardiographic evidence of ischemia. She does not have any further chest pains either. No further testing at this time. If any recurrence of symptoms, advised to contact us. Otherwise, mainly risk factor modification. Coding Level of Care Code Est Pt Level 3 (45818) Diagnoses Precordial chest pain R07.2 CPT Codes EKG - CPT: 29346-[id number], Complete ([id number])
[2023-12-24 13:07] VITALS: BP 120/60; PULSE 73; BMI 32.8
== END 2023-12-24 13:23 | disposition home or self-care (01) ==
PROVIDERS: PCP Family Medicine; Visit Provider Internal Medicine
DX: R07.2 Precordial pain (principal)
CPT/HCPCS: 93010; 99213

== ENCOUNTER → 2023-12-24 12:56 | Outpatient (BNVA) | payer OTHER, SELFPAY | PROVIDERS: PCP Family Medicine; Visit Provider Internal Medicine | DX: R07.2 Precordial pain (principal) | CPT/HCPCS: 93005; 99212 ==

== ENCOUNTER 2024-02-22 08:50 | Outpatient (AMB) | payer OTHER, SELFPAY ==
--- NOTE | 2024-02-22 08:52 | A.OFFVIS_ITS ---
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 Patient reports a month ago is when she noticed the cyst on the volar aspect of her left wrist. She expresses sharp pains would shoot up her palm with palpitations. Symptoms have improved since she noticed the cyst. Denies recent injury to left wrist, swelling, numbness, and tingling. Allergies cat dander [CATS] Allergy (Unknown, Verified 02/22/24 08:55) SNEEZING DUST Allergy (Unknown, Uncoded 02/22/24 08:55) ITCHY EYES, SNEEZING FRUIT Allergy (Unknown, Uncoded 02/22/24 08:55) ITCHY THROAT RAGWEED Allergy (Unknown, Uncoded 02/22/24 08:55) SNEEZING/ ITCHY EYES HPI Comments Details: Patient is a 63-year-old female who presents for evaluation of left volar wrist ganglion, ongoing for approximately 1 month. Patient reports that over the last few weeks, the cyst had grown in size and grown significantly more painful in the volar radial right wrist into the palm, but over approximately the last week her pain has decreased and she has noticed the size of the cyst going down as well. The patient inquires about any further treatment options available to her at this time. Patient denies any numbness or tingling in her hands. 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 Neuro: Median, ulnar, radial nerves motor and sensory intact and sensation is normal to the tips of all digits. Vascular: Cap refill brisk Pain: Patient reports very mild tenderness to palpation of the volar wrist ganglion in the surrounding area of the radial left wrist ROM: Range of motion of the left hand and wrist full and intact Patient is able to make a closed fist Good finger cross Skin: No lacerations or abrasions. General: No ecchymosis, erythema, or evidence of infection. There is a approximately 0.5 cm mass noted on the radial and volar aspect of the left wrist, firm to palpation, mildly tender Psych: Appears grossly normal Affect normal Attitude cooperative Assessment & Plan Assessment & Plan (1) Ganglion cyst of volar aspect of left wrist: Code(s): M67.432 - Ganglion, left wrist Category: Medical Plan 1. Left Volar wrist ganglion Ongoing for approximately 1 month At this time, patient is informed that there are 2 treatment options available if she is seeking intervention, namely aspiration or surgery Patient reports that she would like to proceed with aspiration prior to any surgical intervention Unfortunately, due to the radial and volar location of this wrist ganglion, patient is informed that she will need to see Dr. Zambrano for aspiration Patient is also provided with Coban at this time to provide gentle compression to the volar wrist ganglion in order to prevent increase in size or potentially decreased size of the mass Patient is advised to continue with conservative management, namely rest, ice, elevation, and [id number] pain medication for any symptoms she is experiencing Patient is amenable to this plan Patient will follow-up in 3-[address] Zambrano for discussion of further treatment options for volar wrist ganglion, sooner with any acute concerns Coding Level of Care Code New Pt Level 3 (88768) Diagnoses Ganglion cyst of volar aspect of left wrist M67.432
== END 2024-02-22 09:27 | disposition home or self-care (01) ==
PROVIDERS: PCP Family Medicine
DX: M67.432 Ganglion, left wrist (principal)
CPT/HCPCS: 99203

== ENCOUNTER → 2024-02-22 08:50 | Outpatient (BNVA) | payer OTHER, SELFPAY | PROVIDERS: PCP Family Medicine | DX: M67.432 Ganglion, left wrist (principal) | CPT/HCPCS: 99202 ==

== ENCOUNTER 2024-03-01 15:49 | Outpatient (REF) | payer OTHER, SELFPAY ==
--- NOTE | ~2024-03-01 | US_ITS ---
EXAMINATION: US ABDOMEN LIMITED CLINICAL INFORMATION: Painful lump on right upper quadrant. COMPARISON: Ultrasound kidneys 12/06/2021. TECHNIQUE: Real-time imaging of the palpable lump in the right upper quadrant. . FINDINGS: No mass or fluid collection to correspond to patient indicate site of palpable lump. US/US abdomen limited IMPRESSION: No mass or fluid collection to correspond to patient indicate site of palpable lump. Electronically signed by: Leta Cabral MD 03/21/2024 06:07 PM EDT
== END 2024-03-01 15:50 | disposition home or self-care (01) ==
LOC: HO.US 15:49
PROVIDERS: PCP Family Medicine; Visit Provider Family Medicine
DX: R19.01 Right upper quadrant abdominal swelling, mass and lump (principal)
CPT/HCPCS: 76705

== ENCOUNTER 2024-03-21 09:29 | Outpatient (AMB) | payer OTHER, SELFPAY ==
--- NOTE | 2024-03-21 09:34 | A.OFFVIS_ITS ---
Intake Visit Reasons: New Prob - Right thumb pain Intake Note: Sylvia is a 63 year old right hand dominant female who presents today for a new problem visit with complaints of right thumb pain that started approximately one week ago. Patient reports sharp pain and swelling at the base of her thumb. She has tried to wrap her thumb for compression but this did not relieve any of her pain. She has difficulty with lifting, grasping, and gripping objects such as opening a water bottle. She expresses difficulty and pain when she brings her thumb in closer to her palm. She has been unable to wear her ring on her thumb due to the swelling. Tylenol and ibuprofen does not offer any relief. Hx of injection in left wrist. Denies numbness, tingling and recent injury. Allergies cat dander [CATS] Allergy (Unknown, Verified 03/21/24 09:43) SNEEZING DUST Allergy (Unknown, Uncoded 03/21/24 09:43) ITCHY EYES, SNEEZING FRUIT Allergy (Unknown, Uncoded 03/21/24 09:43) ITCHY THROAT RAGWEED Allergy (Unknown, Uncoded 03/21/24 09:43) SNEEZING/ ITCHY EYES HPI HPI New Prob - Right thumb pain: Details: Patient is a 63-year-old female who presents for evaluation of right thumb pain, ongoing for approximately 1 week. The patient reports that this pain has been associated with with locking and catching of the right thumb . Patient reports the pain is primarily located on the volar aspect of the right thumb, primarily at the base of the level of the A1 nomi. Patient denies any numbness or tingling in the right upper extremity. No other acute complaints or concerns at this time. 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 Neuro: normal sensation of the tips of all digits of the right hand at this time Vascular: Cap refill brisk Pain: Tenderness to palpation over the A1 nomi of the right thumb noted Pain associated with visible and palpable locking and catching of the right thumb ROM: There is visible and palpable locking and catching of the right thumb in flexion Patient is able to make a closed fist and extend all other digits of the right hand fully without difficulty Skin: No lacerations or abrasions. General: No ecchymosis, erythema, or evidence of infection. Psych: Appears grossly normal Affect normal Attitude cooperative Office Procedures Tendon Injection Tendon Injection Details: Right trigger thumb injection [id number] Tendon Sheath Injection All charges added?: Procedure code (CPT) selection complete Assessment & Plan Assessment & Plan (1) Trigger thumb, right thumb: Code(s): M65.311 - Trigger thumb, right thumb Category: Medical Plan 1. Trigger thumb, right I educated the patient about this condition, as well as the treatment options, including but not limited to conservative management, nonoperative, or operative treatment The patient would like to proceed with a steroid injection at this time The risks and benefits of a steroid injection including but not limited to risk of damage to blood vessels, nerves, tendons, infection, skin bleaching, failure to improve symptoms, increased pain, and possible need for further injections or other intervention were discussed with the patient and the patient wishes to proceed with the steroid injection. Once consent was obtained, I sterilely prepped the area over the A1 nomi of the flexor tendon sheath of the right thumb. I then injected the flexor tendon sheath with a combination of 1 mL of dexamethasone (4mg/ml), and 1% lidocaine. The patient tolerated the procedure well with no complications. If the patient continues to have locking and catching 4-6 weeks following this injection, they may call to schedule appointment to discuss alternative treatment options Follow-up prn Coding Level of Care Code Est Pt Level 3 (71587) Diagnoses Trigger thumb, right thumb M65.311 CPT Codes Tendon Injection - Tendon Injection 1: [id number] Tendon Sheath Injection ([id number])
== END 2024-03-21 10:25 | disposition home or self-care (01) ==
PROVIDERS: PCP Family Medicine
DX: M65.311 Trigger thumb, right thumb (principal)
CPT/HCPCS: 20550; 99213

== ENCOUNTER → 2024-03-21 09:29 | Outpatient (BNVA) | payer OTHER, SELFPAY | PROVIDERS: PCP Family Medicine | DX: M65.311 Trigger thumb, right thumb (principal) | CPT/HCPCS: 20550; 99212; J1100 ==

== ENCOUNTER 2024-03-25 09:02 | Outpatient (REF) | payer OTHER, SELFPAY ==
[2024-03-25 11:49] LABS: Appearance Urine Clear; Color Urine Yellow; Glucose Urine UA Negative (Negative); Leukocyte Esterase Urine Trace (Negative); Nitrite Urine Negative (Negative); Specific Gravity - Urine 1.015 (1.005-1.025); UMIC TRIGGER UACC YES; Urine Blood Negative (Negative); Urine Ketones Negative (Negative); Urine Protein Negative (Neg-Trace)
[2024-03-25 12:02] LABS: Bacteria Urine 2+ (None Seen); Hyaline Casts Urine 0-2 /LPF (0-2); RBC Urine 0-2 /HPF (0-2); Squamous Epithelial Cell Urine 0-2 /HPF (0-2); WBC Urine 0-5 /HPF (0-5)
[2024-03-25 12:08] LABS: Estimated Average Glucose 177 mg/dL; Hemoglobin A1c % 7.8 % (<6.0)
[2024-03-25 12:39] LABS: Alanine Aminotransferase 17 U/L (0-31); Albumin Level 4.1 g/dL (3.5-5.0); Alkaline Phosphatase 83 U/L (39-117); Anion Gap 12 (12-20); Aspartate Amino Transferase 12 U/L (5-31); Bilirubin Total 0.3 mg/dL (0.0-1.0); Blood Urea Nitrogen 13 mg/dL (9-16); Calcium 9.4 mg/dL (8.4-10.2); Carbon Dioxide 26 mmol/L (22-29); Chloride 106 mmol/L (96-108); Cholesterol 164 mg/dL (<200); Estimated Glomerular Filt Rate > 60; Glucose Random 143 mg/dL (60-115); HDL Cholesterol 57 mg/dL (>40); LDL Cholesterol Calculated 81 mg/dL (<100); Potassium 4.2 mmol/L (3.3-5.1); Sodium 140 mmol/L (135-145); Total Protein 6.8 g/dL (6.5-8.0); Triglycerides 131 mg/dL (<150)
[2024-03-25 12:49] LABS: Reflex LDLD? No
[2024-03-25 12:52] LABS: TSH reflex Free T4 0.71 uIU/mL (0.32-4.0)
== END 2024-03-25 09:03 | disposition home or self-care (01) ==
LOC: HO.HHCL 09:02
PROVIDERS: Referring Provider Student in an Organized Health Care Education/Training Program; Visit Provider Family Medicine
DX: E11.42 Type 2 diabetes mellitus with diabetic polyneuropathy (principal); E78.5 Hyperlipidemia, unspecified; R23.2 Flushing; R35.1 Nocturia
CPT/HCPCS: 36415; 80053; 80061; 81001; 83036; 84443

== ENCOUNTER 2024-03-28 12:53 | Outpatient (REF) | payer OTHER, SELFPAY ==
--- NOTE | ~2024-03-28 | MM_ITS ---
EXAMINATION: MM DIAGNOSTIC DIGITAL BREAST TOMOSYNTHESIS, BILATERAL CLINICAL INFORMATION: Final (fourth) follow-up for small circumscribed nodule central posterior 9:00 right breast. Also due for yearly. COMPARISON: Mammography: 03/23/2023, 09/05/2022, 02/27/2022 (BI-RADS 0), 02/08/2021, 12/29/2019, 12/23/2018 TECHNIQUE: Digital breast tomosynthesis is performed in both the craniocaudal and mediolateral oblique views along with computer-aided detection (CAD). Synthesized 2D images are generated from the tomosynthesis. In addition, a full field 3-D left ML view was also obtained. FINDINGS: The breasts are almost entirely fatty (ACR BI-RADS breast composition Category a). The small subcentimeter circumscribed nodule posterior central right breast at 9:00 is stable, also demonstrating a reniform shape with fatty hilum, consistent with an intramammary lymph node. This is benign. No further follow-up required. There is also a stable small 3 mm oval density in the anterior retroareolar region right breast which is also unchanged, benign. There are no suspicious masses, suspicious grouped calcifications, or areas of architectural distortion in either breast. The parenchymal pattern is stable from prior exams. There is no skin or axillary abnormality. MM/MM tomosynthesis diagnostic BI IMPRESSION: -No findings suspicious for malignancy in either breast. -Posterior subcentimeter nodule at 9:00 right breast is unchanged and benign, likely intramammary lymph node. No further follow up recommended. -Recommend the patient resume routine annual screening. ASSESSMENT: BI-RADS BI-RADS 2 - Benign Findings RECOMMENDATION: 1 year F/U Results were provided to the patient at time of visit by the technologist. This patient's information was entered into a reminder system with a target due date for their next mammogram. Electronically signed by: Ho Tucker MD 03/28/2024 01:41 PM EDT
== END 2024-03-28 12:54 | disposition home or self-care (01) ==
LOC: HO.MAMMO 12:53
PROVIDERS: PCP Family Medicine; Visit Provider Family Medicine
DX: R92.2 Inconclusive mammogram (principal)
CPT/HCPCS: 77062; 77066

== ENCOUNTER → 2024-03-28 13:00 | Outpatient (BNV) | payer OTHER, SELFPAY | PROVIDERS: PCP Family Medicine; Visit Provider Radiology Diagnostic Radiology | DX: R92.2 Inconclusive mammogram (principal) | CPT/HCPCS: 77062; 77066 ==

== ENCOUNTER 2024-09-19 08:41 | Outpatient (REF) | payer OTHER, SELFPAY ==
--- NOTE | ~2024-09-19 | US_ITS ---
CLINICAL HISTORY: TENDER MASS EPIGASTRIC AREA; ? LIPOMA VS SEBACEOUS CYST Soft tissue ultrasound of the epigastric area Comparison: None FINDINGS: Images were obtained in the area of clinical concern. In this region, the soft tissue shows normal appearing heterogeneous echotexture. There is no discrete mass or acoustic shadowing. There is no fluid collection identified. IMPRESSION: Normal ultrasound findings. If clinically warranted, further evaluation with MRI may be of benefit. This document has been electronically signed by: Alverto Gracia MD on 09/20/2024 15:27:31
--- OUTSIDE RECORDS SUMMARY | 2024-09-19 09:02 | XMS_ITS | Encounter Summary ---
Author Organization [employer] Address [address] [facility] 7 [place] [address] Care Team Providers Care Hazardous Materials Tanker Driver Name Role Phone Jane Zarate MD Primary Care Provider [phone] Reason for Visit * Reason Onset Date Comments Appointment Request 09/12/2024 Encounter Details Date Type Department Care Team ([facility] Contact Info) Description 09/12/2024 Telephone [facility] [address] [place], [place] [phone] Jane Zarate MD [address] [place], [place] [phone] Appointment Request Social History Tobacco Use Types Packs/Day Years Used Date Smoking Tobacco: Never Passive Smoke Exposure: Never Smokeless Tobacco: Never Alcohol Answer Date Recorded Frequency of Alcohol Consumption Not on file 05/10/2024 Average Number of Drinks Not on file 024 Frequency of Binge Drinking Not on file 04/13 Score 0 05/10/2024 Depression Answer Date Recorded Patient Health Questionnaire-9 Score 7 05/10/2024 Patient Health Questionnaire-9 Score 7 05/10/2024 Last PHQ-9: Questionnaire Data Not on file 1 Housing Stability Answer Date Recorded What is your housing situation today? I have linda villarreal 03/24/[address] you li ve. Do you have problems with any of the following? None of the above 03/24/2024 Food Insecurity Answer Date Recorded Within the past 12 months, y ou worried that your food would run out before you got money to buy more: Never True 03/24/2024 Within the past 12 months,th e food you bought just didn't last and you didn't have enough money to get more: Never True 06/2024 Transportation Answer Date Recorded In the past 12 months, has l ack of transportation kept you from medical appts, meetings, work or from getting things needed for daily living? No 03/24/2024 Utilities Answer Date Recorded In the past 12 months, has t he electric, gas, oil or water company threatened to shut off services in your home? No 03/24/2024 Depression Answer Date Recorded Patient Health Questionnaire-2 Score 2 05/10/2024 Internet Access Answer Date Recorded Internet Access Q1 Yes 03/24/2024 Internet Access Q2 Not on file 03/24/2024 Comments Unknown Sex and Gender Information Value Date Recorded Sex Assigned at Female 05/12/2022 10:14 AM EDT Legal Sex Female 10:14 AM EDT Gender Identity Female 05/12/2022 10:14 AM EDT Sexual Orientation Straight 05/12/2022 10 :14 AM EDT documented as of this encounter Miscellaneous Notes * Telephone Encounter - Chaim Zamora - 09/12/2024 4:41 PM EST TC from pt wanting to rescheduled visit with Mikey . Pt had to cancel for 09/19 because has a ultrasound scheduled same day and time. documented in this encounter Plan of Treatment Upcoming Encounters Date Type Department Care Team (Late st Contact Info) Description 11/22/2024 3:15 PM EDT Office Visit [facility] [address] [place] [address] Jane Zarate MD [address] [place] [address] 11/23/2024 9:00 AM EDT Office Visit [facility] [address] [place], [place] [phone] Yane Joseph [address] [place], [place] [phone] documented as of this encounter Visit Diagnoses Not on filedocumented in this encounter Additional Health Concerns Assessment Noted Time PHQ-9 Depression Total Score: 7 05/10/20 24 1:16 PM EDT documented as of this encounter Care Teams Hazardous Materials Tanker Driver Relationship Specialty Start Date End Date Jane Zarate MD [address] [place] [address] PCP - General Family Medicine 06/24/12 documented as of this encounter
--- OUTSIDE RECORDS SUMMARY | 2024-09-19 09:02 | XMS_ITS | Encounter Summary ---
Author Organization [employer] Address [address] [facility] [address] [place] [address] Care Team Providers Care Java Engineer Name Role Phone Jane Zarate MD Primary Care Provider [phone] Encounter Details Date Type Department Care Team ([facility] st Contact Info) Description 09/13/2024 Telephone [facility]INE [address] [place], [place] [phone] Jane Zarate MD [address] [place], [place] [phone] Social History Tobacco Use Types Packs/Day Years [...] encounter Miscellaneous Notes * Telephone Encounter - Payal Anguiano - 09/13/2024 10:31 AM EST Pharmacy [facility] attempted outreach call on 09/13/24 for CDTM - Diabetes appointment; however, unable to reach patient. LVM for patient to contact Payal Anguiano at [phone]. documented in this encounter Plan of Treatment Upcoming Encounters Date Type Department Care Team (Late st Contact Info) Description 11/22/2024 3:15 PM EDT Office Visit [facility] MED[facility]INE [address] [place], [place] [phone] Jane Zarate MD [address] [place] [address] 11/23/2024 9:00 AM EDT Office Visit [facility] [address] [place], [place] [phone] Yane Joseph [address] [place], [place] [phone] documented as of this encounter Visit Diagnoses Not on filedocumented in this encounter Additional Health Concerns Assessment Noted Time PHQ-9 Depression Total Score: 7 05/10/20 24 1:16 PM EDT documented as of this encounter Care Teams Java Engineer Relationship Specialty Start Date End Date Jane Zarate MD [address] [place] [address] PCP - General Family Medicine 06/24/12 documented as of this encounter
--- OUTSIDE RECORDS SUMMARY | 2024-09-19 09:02 | XMS_ITS | Encounter Summary ---
Author Organization [employer] Address [address] [facility] 7 [place] [address] Care Team Providers Care Ware Finisher Name Role Phone Jane Zarate MD Primary Care Provider [phone] Reason for Visit * Reason Onset Date Comments may recall 09/13/2024 Encounter Details Date Type Department Care Team ([facility] Contact Info) Description 09/13/2024 Telephone [facility] [address] [place], [place] [phone] Jane Zarate MD [address] [place], [place] [phone] may recall Social History Tobacco Use Types Packs/Day Years [...] encounter Miscellaneous Notes * Telephone Encounter - Leyda Pendleton MA - 09/13/2024 10:23 AM EST ..Telephone call to patient to schedule a recall appointment. No answer, Left voicemail to return call to clinic.. Recall letter sent. Visit type: Office Visit Appointment notes: dm due: November With: Tessa Please schedule appointment above if patient returns call documented in this encounter Plan of Treatment Upcoming Encounters Date Type Department Care Team (Late st Contact Info) Description 11/22/2024 3:15 PM EDT Office Visit [facility] [address] [place] [address] Jane Zarate MD [address] [place] [address] 11/23/2024 9:00 AM EDT Office Visit [facility] [address] [place], [place] [phone] Yane Joseph [address] [place], [place] [phone] documented as of this encounter Visit Diagnoses Not on filedocumented in this encounter Additional Health Concerns Assessment Noted Time PHQ-9 Depression Total Score: 7 05/10/20 24 1:16 PM EDT documented as of this encounter Care Teams Ware Finisher Relationship Specialty Start Date End Date Jane Zarate MD [address] [place] [address] PCP - General Family Medicine 06/24/12 documented as of this encounter
--- OUTSIDE RECORDS SUMMARY | 2024-09-19 09:02 | XMS_ITS | Encounter Summary ---
Author Organization [employer] [facility] Address [address] [place] [address] 7 [place] [address] Care Team Providers Care Supervisor Blast Furnace Name Role Phone Jane Zarate MD Primary Care Provider [phone] Encounter Details Date Type Department Care Team (Late Contact Info) Description 06/27/2022 Orders Only [facility] [address] [place] [phone] Rosalind Suarez, RN Social History Tobacco Use Types Packs/Day Years Used Date Smoking Tobacco: Never Assessed Depression Answer Date Recorded Patient Health Questionnaire-9 Score 9 06/30/2022 Depression Answer Date Recorded Patient Health Questionnaire-2 Score 4 06/30/2022 Comments Unknown Sex and Gender Information Value Date Recorded Sex Assigned at Female 05/12/2022 10:14 AM EDT Legal Sex Female 10:14 AM EDT Gender Identity Female 05/12/2022 10:14 AM EDT Sexual Orientation Straight 05/12/2022 10 :14 AM EDT COVID-19 Exposure Response Date Recorded In the last 10 days, have yo u been in contact with someone who was confirmed or suspected to have Coronavirus/COVID-19? No / Unsure 06/30/2022 2:10 PM EST documented as of this encounter Plan of Treatment Upcoming Encounters Date Type Department Care Team (Late st Contact Info) Description 11/22/2024 3:15 PM EDT Office Visit [facility] [address] [place] [address] [phone] Jane Zarate MD [address] [place] [address] [phone] 11/23/2024 9:00 AM EDT Office Visit [facility] [address] [place] [address] [phone] Yane Joseph [address] [place] [address] documented as of this encounter Visit Diagnoses Not on filedocumented in this encounter Care Teams Supervisor Blast Furnace Relationship Specialty Start Date End Date Jane Zarate MD [address] [place] [address] [phone] PCP - General Family Medicine 06/24/12 documented as of this encounter
--- OUTSIDE RECORDS SUMMARY | 2024-09-19 09:02 | XMS_ITS | Encounter Summary ---
Author Organization [employer] Address [address] [facility] 7 [place] [address] Care Team Providers Care Enrollment Clerk Name Role Phone Jane Zarate MD Primary Care Provider [phone] Reason for Visit * Reason Comments Med Refill Encounter Details Date Type Department Care Team ([facility] st Contact Info) Description 09/05/2024 Refill [facility] [address] [place], [place] [phone] Jane Zarate MD [address] [place] [address] Social History Tobacco Use Types Packs/Day Years [...] AM EDT documented as of this encounter Plan of Treatment Upcoming Encounters Date Type Department Care Team (Late st Contact Info) Description 11/22/2024 3:15 PM EDT Office Visit [facility] [address] [place] [phone] Jane Zarate MD [address] [place] [phone] 11/23/2024 9:00 AM EDT Office Visit [facility] [address] [place] [address] [phone] Yane Joseph [address] [place], [place] [phone] documented as of this encounter Visit Diagnoses Not on filedocumented in this encounter Additional Health Concerns Assessment Noted Time PHQ-9 Depression Total Score: 7 05/10/20 24 1:16 PM EDT documented as of this encounter Care Teams Enrollment Clerk Relationship Specialty Start Date End Date Jane Zarate MD [address] [place] [phone] PCP - General Family Medicine 06/24/12 documented as of this encounter
--- OUTSIDE RECORDS SUMMARY | 2024-09-19 09:02 | XMS_ITS | Clinical Summary ---
Author Organization [employer] Address [address] [place] [address] 7 [place] [address] Care Team Providers Care Tenterer Name Role Phone Jane Zarate MD Primary Care Provider [phone] Allergies Active Allergy Reactions Criticality Noted Date Comments Nitrofurantoin Rash Low 03/24/2024 Medications Blood Pressure Monitor kit 10/11/19 22 Active glucose blood (FREESTYLE LITE) test strip Check BG once or twice daily 11/19/19 19 Active Probiotic, Lactobacillus , capsule Active oxybutynin XL (Ditropan-XL) 15 MG 24 hr tablet Take 1 tablet by mouth 1 (one) time each day. Active Blood Glucose Monitoring Suppl (FreeStyle Lite) w/Device kit Check by fingerstick route once Active FreeStyle lancets 1 each by Other route if needed. Check BG once or twice daily Active cephalexin (Keflex) 250 MG capsule Take 250 mg by mouth if needed each day. 03/11/20 23 Active estradiol (Estrace) 0.1 MG/GM vaginal cream 01/29/20 23 Active pantoprazole (ProtoNix) 40 MG EC tablet Take 40 mg by mouth before breakfast. 01/20/20 24 Active loratadine (Claritin) 10 MG tablet TAKE 1 TABLET BY MOUTH ONCE A DAY NEEDED 30 tablet 10 03/22/20 24 Active buPROPion SR (Wellbutrin SR) 200 MG 12 hr tablet TAKE 1 TABLET BY MOUTH TWICE A DAY 60 tablet 3 04/27/20 24 Active cholecalcifer ol (Vitamin D-3) 25 MCG (1000 UT) capsule TAKE 1 CAPSULE BY MOUTH EVERY DAY 30 capsule 3 08/02/19 25 Active enalapril (Vasotec) 5 MG tablet TAKE 1 TABLET (5MG) BY ORAL ROUTE EVERY DAY 30 tablet 2 08/22/19 25 Active metFORMIN XR (Glucophage-X R) 500 MG 24 hr tablet TAKE 2 TABLETS BY MOUTH TWICE A DAY WITH MORNING AND EVENING MEAL 120 tablet 2 08/22/19 25 Active Dulaglutide (Trulicity) 0.75 MG/0.5ML solution auto-injector Indications:T ype 2 diabetes mellitus with diabetic polyneuropath y, without long-term current use of insulin (CMS/HCC) Inject 0.75 mg under the skin 1 (one) time per week. 2 mL 11 08/24/19 25 Active pioglitazone (Actos) 15 MG tablet Take 1 tablet (15 mg) by mouth Once per day. 30 tablet 11 08/24/19 25 026 Active pravastatin (Pravachol) 40 MG tablet TAKE 1 TABLET BY MOUTH AT BEDTIME 30 tablet 3 09/06/19 25 Active dulaglutide (Trulicity) 1.5 MG/0.5ML solution pen-injector Inject 1.5 mg under the skin 1 (one) time per week. 4 each 11 01/08/20 24 025 Discontinued(Me d list cleanup (will not trigger notification to Pharmacy)) pravastatin (Pravachol) 40 MG tablet TAKE 1 TABLET BY MOUTH AT BEDTIME 30 tablet 4 03/22/20 24 025 Discontinued metFORMIN XR (Glucophage-X R) 500 MG 24 hr tablet TAKE 2 TABLETS BY MOUTH TWICE A DAY WITH MORNING AND EVENING MEAL 120 tablet 3 04/27/20 24 025 Discontinued enalapril (Vasotec) 5 MG tablet TAKE 1 TABLET (5MG) BY ORAL ROUTE EVERY DAY 30 tablet 3 04/27/20 24 025 Discontinued glipiZIDE XL (Glucotrol XL) 10 MG 24 hr tablet take 1 tablet by oral route 2 times every day 180 tablet 3 05/10/20 24 025 Discontinued(Me d list cleanup (will not trigger notification to Pharmacy)) chlorhexidine (Peridex) 0.12 % solution Use 15 mL in the mouth or throat if needed for wound care for up to 14 days. 473 mL 08/25/19 025 chlorhexidine (Peridex) 0.12 % solution Use 15 mL in the mouth or throat if needed for wound care for up to 14 days. 473 mL 08/25/19 025 Active Problems Problem Noted Date Diagnosed Date Epigastric mass 08/24/2024 Assessment & Plan (08/28/2024 12:47 PM EST): - US evaluation for characterization Subcutaneous cyst 05/20/2024 Assessment & Plan (05/20/2024 12:19 PM EST): - on her abdomen, left side - about 1 cm in size - likely benign. Agreed to monitor conservatively Facial flushing 03/25/2024 Assessment & Plan (03/25/2024 8:53 AM EDT): Seems very likely her symptoms are associated w allergic reaction however very localized to head and neck Overall improving since stopped med but w ongoing bothersome sensation in her face as flushing sometimes Pt is 63 y of age,s/p hysterectomy and denies experiencing menopause symptoms ever. -Loratadine taking daily for seasonal allergies -advised hydration -trial w Triamcinolone cream in neck specially BID for no more than 7 days -advised to get done labs requested by her PCP in 01/2024 including Chem and I added TSH today -if no improves will need to consider symptoms as possible vasomotor and or rheumatologic in order but does not have all concerning symptoms as dermatomyositis so low in the differential at this time -alarm signs and symptoms discussed Skin rash 03/25/2024 Nocturia 03/25/2024 Assessment & Plan (03/25/2024 8:53 AM EDT): Urine dipstick today only LE small rest neg -sent UA w reflex to cx -will call pt w results -f w uriologist 04/26/2024 Delayed gastric emptying 02/10/2024 Assessment & Plan (08/24/2024 12:51 PM EST): - Gastric emptying study on 10/05/23 showed moderately severe food retention in stomach, > 50% after 4 hours in a setting of GLP-1 RA for diabetes mellitus - discontinued GLP-1 RA in October 2023, restarted in January 2024 at lower dose. Continue current treatment with caution. Assessment & Plan (05/10/2024 2:48 PM EDT): - Gastric emptying study on 10/05/23 showed moderately severe food retention in stomach, > 50% after 4 hours in a setting of GLP-1 RA for diabetes mellitus - discontinued GLP-1 RA in October 2023, restarted in January 2024 at lower dose. Continue current treatment with caution. Assessment & Plan (02/10/2024 5:57 AM EDT): - Gastric emptying study on 10/05/23 showed moderately severe food retention in stomach, > 50% after 4 hours in a setting of GLP-1 RA for diabetes mellitus - discontinued GLP-1 RA in October 2023 - Ganglion cyst of wrist, left 02/10/2024 Assessment & Plan (02/10/2024 3:42 PM EDT): - patient has tried conservative management and now requests an evaluation and treatment by a specialist - she requests a referral to [address] [place] [address] in [place] Tubular adenoma 07/08/2023 Assessment & Plan (07/08/2023 5:33 PM EST): - tubular adenoma seen in last colonoscopy in January [address] Bernal - follow up in 5 years GERD (gastroesophageal reflux disease) Assessment & Plan (02/10/2024 6:00 AM EDT): - following with [facility] [place] EGD in January 2022 showed inflammatory changes - omeprazole was ineffective - currently prescribed pantoprazole 40 mg daily, famotidine 20mg bid, and sucralfate 1 g bid - continue current treatment plan - Assessment & Plan (10/25/2023 3:40 PM EDT): - following with [facility] - omeprazole was ineffective - currently taking famotidine 20mg bid - continue current treatment plan - EGD in January 2022 showed inflammatory changes - most recent ROSA is suggestive of gastroparesis vs. GLP-1 agonist side effect - avoid irritants Assessment & Plan (07/08/2023 5:35 PM EST): - omeprazole was ineffective - currently taking famotidine 20mg bid - continue current treatment plan - EGD in January 2022 showed inflammatory changes - avoid irritants - refer back to GI Bilateral carpal tunnel syndrome 07/05/2022 Assessment & Plan (07/05/2022 7:41 AM EST): Continue wrist brace at night and activity modification. Continue judicious use of NSAIDs Pt is followed by hand specialist Degenerative disc disease, cervical 07/05/2022 Lumbar degenerative disc disease 07/05/2022 History of syphilis 06/14/2022 DO (stress urinary incontinence, female) 2021 Assessment & Plan (08/24/2024 12:51 PM EST): -Following with [facility], last seen on April 2024 -Mid-urethral sling in May 2022 Assessment & Plan (05/10/2024 2:50 PM EDT): -Following with [facility], last seen on April 2024 -Mid-urethral sling in May 2022 Assessment & Plan (02/10/2024 6:06 AM EDT): -Following with [facility], last seen on 11/10/23 -Mid-urethral sling in May 2022 Assessment & Plan (10/25/2023 3:41 PM EDT): -Followed by urologist, last seen on 08/21/23 -Mid-urethral sling in 2021 -Tried mirabegron, which was ineffective -Continue oxybutynin XL 15 mg daily Assessment & Plan (07/07/2023 6:08 AM EST): -Followed by urologist, last seen on 03/11/23 -Mid-urethral sling in 2021 -Tried mirabegron, which was ineffective -Continue oxybutynin XL 15 mg daily Assessment & Plan (04/04/2023 5:41 PM EDT): -Followed by urologist, last seen on 03/11/23 -Mid-urethral sling in 2021 -Tried mirabegron, which was ineffective -Continue oxybutynin XL 15 mg daily Assessment & Plan (07/05/2022 7:55 AM EST): -4 vaginal births -05/26/22 midurethral sling History of neurosyphilis 06/14/2022 Assessment & Plan (04/04/2023 5:40 PM EDT): -Hx positive TP-PA, RPR non-reactive - pt denied previous Dx and Tx -Evaluated and treated by neurologist -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 -02/05/21, both TP-PA and RPR were negative Overactive bladder 07/19/2018 Assessment & Plan (08/24/2024 12:51 PM EST): -Following with [facility], last seen in April 2024 -Tried mirabegron, which was ineffective -Continue oxybutynin XL 15 mg daily Assessment & Plan (05/10/2024 2:50 PM EDT): -Following with [facility], last seen in April 2024 -Tried mirabegron, which was ineffective -Continue oxybutynin XL 15 mg daily Assessment & Plan (02/10/2024 6:00 AM EDT): -Following with [facility], last seen in October 2023 -Tried mirabegron, which was ineffective -Continue oxybutynin XL 15 mg daily Assessment & Plan (10/25/2023 3:47 PM EDT): -Followed by urologist, last seen in Aug 2023 -Tried mirabegron, which was ineffective -Continue oxybutynin XL 15 mg daily Assessment & Plan (07/07/2023 6:09 AM EST): -Followed by urologist, last seen on 03/05/23 -Tried mirabegron, which was ineffective -Continue oxybutynin XL 15 mg daily Assessment & Plan (04/04/2023 5:29 PM EDT): -Followed by urologist, last seen on 03/05/23 -Tried mirabegron, which was ineffective -Continue oxybutynin XL 15 mg daily Assessment & Plan (07/05/2022 7:46 AM EST): -Followed by urologist, last seen on 05/26/22 -Tried mirabegron, which was ineffective -Continue oxybutynin XL 15 mg daily Peripheral venous insufficiency 12/02/2016 Status post tonsillectomy 09/02/2016 Vitamin D deficiency 05/05/2016 Hypertension 10/22/2015 Assessment & Plan (08/24/2024 12:51 PM EST): - Goal BP < 140/90 per JNC-8 and < 130/80 (Tx threshold 130/80) per ACC/AHA guideline - Treatment Hx: Enalapril was started for renal protection, rather than hypertension - Continue current lifestyle modifications - Continue current medications: Enalapril 5 mg daily - Follow up in 3-6 mo, sooner if any problem arises Assessment & Plan (05/10/2024 2:47 PM EDT): - Goal BP < 140/90 per JNC-8 and < 130/80 (Tx threshold 130/80) per ACC/AHA guideline - Treatment Hx: Enalapril was started for renal protection, rather than hypertension - Continue current lifestyle modifications - Continue current medications: Enalapril 5 mg daily - Follow up in 3-6 mo, sooner if any problem arises Assessment & Plan (03/25/2024 8:54 AM EDT): Noted mild elevated BP today Reports to be compliant w her enalapril -advised to check her BP daily and bring readings to her next apt w PCP in 04/2024 Assessment & Plan (02/10/2024 6:10 AM EDT): - Goal BP < 140/90 per JNC-8 and < 130/80 (Tx threshold 130/80) per ACC/AHA guideline - Treatment Hx: Enalapril was started for renal protection, rather than hypertension - Continue current lifestyle modifications - Continue current medications: Enalapril 5 mg daily - Follow up in 3-6 mo, sooner if any problem arises Assessment & Plan (10/25/2023 3:39 PM EDT): - Goal BP < 140/90 per JNC-8 and < 130/80 (Tx threshold 130/80) per ACC/AHA guideline - Treatment Hx: Enalapril was started for renal protection, rather than hypertension - Continue current lifestyle modifications - Continue current medications: Enalapril 5 mg daily - Follow up in 3-6 mo, sooner if any problem arises Assessment & Plan (07/07/2023 6:08 AM EST): ? ? Goal BP < 140/90 per JNC-8 and < 130/80 (Tx threshold 130/80) per ACC/AHA guideline ? ? Treatment Hx: Enalapril was started due to renal protection ? ? Continue current lifestyle modifications ? ? Continue current medications: Enalapril 5 mg daily ? ? Follow up in 3-6 mo, sooner if any problem arises Assessment & Plan (04/04/2023 5:28 PM EDT): ? ? Goal BP < 140/90 per JNC-8 and < 130/80 (Tx threshold 130/80) per ACC/AHA guideline ? ? Treatment Hx: Enalapril was started due to renal protection ? ? Continue current lifestyle modifications ? ? Continue current medications: Enalapril 5 mg daily ? ? Follow up in 3-6 mo, sooner if any problem arises Assessment & Plan (07/05/2022 7:44 AM EST): ? ? Goal BP < 140/90 per JNC-8 and < 130/80 (Tx threshold 130/80) per ACC/AHA guideline ? ? Treatment Hx: Enalapril was started due to renal protection ? ? Continue current lifestyle modifications ? ? Continue current medications: Enalapril 5 mg daily ? ? Follow up in 3-6 mo, sooner if any problem arises Mixed anxiety and depressive disorder 10/22/2015 Dyslipidemia 07/10/2015 Assessment & Plan (08/24/2024 12:52 PM EST): - last lipid profile 03/25/24 - current medication: pravastatin 40 mg at bedtime - previously tried atorvastatin, but self-discontinued due to side effect (myalgia, arthralgia) - continue working on lifestyle modification Assessment & Plan (05/20/2024 12:27 PM EST): - last lipid profile 03/25/24 - current medication: pravastatin 40 mg at bedtime - previously tried atorvastatin, but self-discontinued due to side effect (myalgia, arthralgia) - continue working on lifestyle modification Assessment & Plan (02/10/2024 6:09 AM EDT): - last lipid profile 07/08/23 Total cholesterol 177; Triglyceride 241; HDL 48; LDL 81 - current medication: pravastatin 40 mg at bedtime - will discuss about intensifying statin in near future - continue working on lifestyle modification Assessment & Plan (07/08/2023 5:39 PM EST): - last lipid profile 04/08/23 TC 204; TG 201; LDL 112; LDL 52 - current medication: pravastatin 40 mg at bedtime - will discuss about intensifying statin in near future - continue working on lifestyle modification Type 2 diabetes mellitus 07/03/2015 Assessment & Plan (08/28/2024 12:46 PM EST): HgbA1C 9.6% on 08/24/24, 8.0% on 05/10/24 Continue Metformin 1000 mg bid Decrease dulaglutide (Trulicity) from 1.5 mg to 0.75 mg weekly Discontinuing glipizide XL 10 mg bid 08/24/24 Restart pioglitazone 15 mg daily, titrate up as tolerated Relative contraindication to SGLT2i due to recurrent UTI Treatment Hx: Discontinued dulaglutide (Trulicity) 3.0 mg weekly in October 2023 after abnormal gastric emptying study and GI recommendation. Restarted dulaglutide (Trulicity) at lower dose in January 2024. Work on lifestyle modifications Reviewed and updated diabetes care guideline. Last eye exam: 03/08/24, [facility]. No diabetic retinopathy Last foot exam: 08/24/24 right foot sensation is decreased compared to left side. Ingrown toenails. Last microalbumin test: Jun 2023 no microalbuminuria Last lipid profile: 03/25/24 Last dental exam: Discussed regular dental care. Assessment & Plan (05/10/2024 2:53 PM EDT): HgbA1C 8.0% on 05/10/24 Continue Metformin 1000 mg bid Continue dulaglutide (Trulicity) 1.5 mg weekly Restart glipizide XL 10 mg bid Relative contraindication to SGLT2i due to recurrent UTI Treatment Hx: Discontinued dulaglutide (Trulicity) 3.0 mg weekly in October 2023 after abnormal gastric emptying study and GI recommendation. Restarted dulaglutide (Trulicity) at lower dose in January 2024. Work on lifestyle modifications Reviewed and updated diabetes care guideline. Last eye exam: 03/08/24, [facility]. No diabetic retinopathy Last foot exam: 04/01/23 right foot sensation is decreased compared to right side. Ingrown toenails. Last microalbumin test: Jun 2023 no microalbuminuria Last lipid profile: 03/25/24 Last dental exam: Discussed regular dental care. Follow up in 3 mo or sooner if any problem arises Assessment & Plan (02/10/2024 3:43 PM EDT): HgbA1C 7.7% on 10/13/23, unchanged from 7.8% in Jun 2024 Continue Metformin 1000 mg bid Continue dulaglutide (Trulicity) 1.5 mg weekly Increase glipizide XL to 10 mg bid Relative contraindication to SGLT2i due to recurrent UTI Treatment Hx: Discontinued dulaglutide (Trulicity) 3.0 mg weekly in October 2023 after abnormal gastric emptying study and GI recommendation. Restarted dulaglutide (Trulicity) at lower dose in January 2024. Work on lifestyle modifications Reviewed and updated diabetes care guideline. Last eye exam: 03/05/23, [facility]. No diabetic retinopathy Last foot exam: 04/01/23 right foot sensation is decreased compared to right side. Ingrown toenails. Last microalbumin test: Jun 2023 no microalbuminuria Last lipid profile: Jun 2023 Last dental exam: Discussed regular dental care. Follow up in 3 mo or sooner if any problem arises Assessment & Plan (10/25/2023 3:49 PM EDT): HgbA1C 7.7% on 10/13/23, unchanged from 7.8% in Jun 2024 Continue Metformin 1000 mg bid Continue glipizide 5 mg bid Continue Trulicity to 3.0 mg weekly (may need to decrease dose due to gastroparesis) Work on lifestyle modifications Reviewed and updated diabetes care guideline. Last eye exam: 03/05/23, [facility]. No diabetic retinopathy Last foot exam: 04/01/23 right foot sensation is decreased compared to right side. Ingrown toenails. Last microalbumin test: Mar 2023 no microalbuminuria Last lipid profile: Mar 2023 Last dental exam: Discussed regular dental care. Follow up in 3 mo or sooner if any problem arises Assessment & Plan (07/08/2023 5:36 PM EST): HgbA1C 7.8% increased from 7.1% on 04/01/23 Continue Metformin 1000 mg bid Continue glipizide 5 mg bid Continue Trulicity to 1.5 mg weekly Work on lifestyle modifications Reviewed and updated diabetes care guideline. Last eye exam: 03/05/23, [facility]. No diabetic retinopathy Last foot exam: 04/01/23 right foot sensation is decreased compared to right side. Ingrown toenails. Last microalbumin test: Mar 2023 no microalbuminuria Last lipid profile: Mar 2023 Last dental exam: Discussed regular dental care. Follow up in 3 mo or sooner if any problem arises Assessment & Plan (04/04/2023 5:36 PM EDT): HgbA1C 7.1% on 04/01/23, improved from 7.4% Continue Metformin 1000 mg bid Continue glipizide 5 mg bid Continue Trulicity to 1.5 mg weekly Reviewed and updated diabetes care guideline. Last eye exam: 03/05/23, [facility]. No diabetic retinopathy Last foot exam: 04/01/23 right foot sensation is decreased compared to right side. Ingrown toenails. Last microalbumin test: 11/07/21 UACR 5 Last lipid profile: 02/05/21 Last dental exam: Discussed regular dental care. Follow up in 3 mo or sooner if any problem arises Assessment & Plan (07/05/2022 8:00 AM EST): HgbA1C 7.4%, increased Continue Metformin 1000 mg bid Continue glipizide 5 mg bid Increase Trulicity to 1.5 mg weekly Reviewed and updated diabetes care guideline. Last eye exam: 03/04/22, [facility]. No diabetic retinopathy Last foot exam: 03/13/22 Last microalbumin test: 11/07/21 UACR 5 Last lipid profile: 02/05/21 Last dental exam: Discussed regular dental care. Dermoid cyst of scalp 03/22/2015 Recurrent urinary tract infection 12/20/2014 Assessment & Plan (08/24/2024 12:51 PM EST): -Following with [facility], last seen in April 2024 -UTI symptoms: urge, freq, dysuria. No heamturia or fever. -Most recent available culture Klebsiella pneumoniae in January 2023, treated with ciprofloxacin. -Treated with fosfomycin in April 2024. Patient is scheduled for CT scan to evaluate urinary tract abnormality. -Previously tried postcoital prophylaxis with nitrofurantoin, stopped due to heartburn; -metenamine [id number] initially effective, developed multiple breakthrough UTI -Restarted methenamine bid in January 2022 with good result (with cranberry tablet) initially, but she started having breakthrough UTIs. -Continue cephalexin 250 mg after sex -Continue estrace cream twice a week -Last US in November 2021 no stone, hydronephrosis -Last cystoscopy in January 2022, normal Assessment & Plan (05/20/2024 12:26 PM EST): -Following with [facility], last seen in April 2024 -UTI symptoms: urge, freq, dysuria. No heamturia or fever. -Most recent available culture Klebsiella pneumoniae in January 2023, treated with ciprofloxacin. -Treated with fosfomycin in April 2024. Patient is scheduled for CT scan to evaluate urinary tract abnormality. -Previously tried postcoital prophylaxis with nitrofurantoin, stopped due to heartburn; -metenamine initially effective, developed multiple breakthrough UTI -Restarted methenamine bid in January 2022 with good result (with cranberry tablet) initially, but she started having breakthrough UTIs. -Continue cephalexin 250 mg after sex -Continue estrace cream twice a week -Last US in November 2021 no stone, hydronephrosis -Last cystoscopy in January 2022, normal Assessment & Plan (02/10/2024 6:05 AM EDT): -Following with [facility], last seen in October 2023 -UTI symptoms: urge, freq, dysuria. No heamturia or fever. -Most recent culture-confirmed UTI Klebsiella pneumoniae in January 2023, treated with ciprofloxacin. -Previously tried postcoital prophylaxis with nitrofurantoin, stopped due to heartburn; -metenamine initially effective, developed multiple breakthrough UTI -Restarted methenamine bid in January 2022 with good result (with cranberry tablet) -Continue methenamine with cranberry or vitamin C (stop when on other antibiotics) -Continue cephalexin 250 mg after sex -Continue estrace cream twice a week -Last US in November 2021 no stone, hydronephrosis -Last cystoscopy in January 2022, normal Assessment & Plan (10/25/2023 3:46 PM EDT): -Followed by urologist, last seen on 08/21/23 -UTI symptoms: urge, freq, dysuria. No heamturia or fever. -Most recent UTI Klebsiella pneumoniae, treated with ciprofloxacin. -Previously tried postcoital prophylaxis with nitrofurantoin, stopped due to heartburn; -metenamine initially effective, developed multiple breakthrough UTI -Restarted methenamine bid in January 2022 with good result -Continue methenamine with cranberry or vitamin C (stop when on other antibiotics) -Continue cephalexin 250 mg after sex -Continue estrace cream twice a week -Last US in November 2021 no stone, hydronephrosis -Last cystoscopy in January 2022, normal Assessment & Plan (07/07/2023 6:09 AM EST): -Followed by urologist, last seen on 03/05/23 -UTI symptoms: urge, freq, dysuria. No heamturia or fever. -Most recent UTI Klebsiella pneumoniae, treated with ciprofloxacin. -Previously tried postcoital prophylaxis with nitrofurantoin, stopped due to heartburn; -metenamine initially effective, developed multiple breakthrough UTI -Restarted methenamine bid in January 2022 with good result -Continue methenamine with cranberry (stop when on other antibiotics) -Continue cephalexin 250 mg after sex -Last US in November 2021 no stone, hydronephrosis -Last cystoscopy in January 2022, normal Assessment & Plan (04/04/2023 5:33 PM EDT): -Followed by urologist, last seen on 03/05/23 -UTI symptoms: urge, freq, dysuria. No heamturia or fever. -Most recent UTI Klebsiella pneumoniae, treated with ciprofloxacin. -Previously tried postcoital prophylaxis with nitrofurantoin, stopped due to heartburn; -metenamine initially effective, developed multiple breakthrough UTI -Restarted methenamine bid in January 2022 with good result -Continue methenamine with cranberry (stop when on other antibiotics) -Continue cephalexin 250 mg after sex -Last US in November 2021 no stone, hydronephrosis -Last cystoscopy in January 2022, normal Assessment & Plan (07/05/2022 7:54 AM EST): -Followed by urologist, last seen on 05/28/22 -UTI symptoms: urge, freq, dysuria. No heamturia or fever. -Treatment Hx: nitrofurantoin with intercourse, stopped due to heartburn; metenamine initially effective, developed multiple breakthrough UTI -Restarted methenamine bid in January 2022 with good result -Continue methenamine with cranberry (stop when on other antibiotics) -Last US in November 2021 no stone, hydronephrosis -Last cystoscopy in January 2022, normal Allergic rhinitis 06/01/2013 Ingrowing toenail 08/17/2012 Eczema 04/16/2012 VANDANA (obstructive sleep apnea) 04/16/2012 Assessment & Plan (08/24/2024 12:50 PM EST): - sleep study in Apr 2023 did not show VANDANA. Dx PLMD. - patient has been using CPAP for many years - patient had another sleep study and has upcoming appointment with sleep medicine clinic Assessment & Plan (05/10/2024 2:47 PM EDT): - sleep study in Apr 2023 did not show VANDANA. Dx PLMD. - patient has been using CPAP for many years - patient had another sleep study and has upcoming appointment with sleep medicine clinic Assessment & Plan (02/10/2024 6:10 AM EDT): - sleep study in Apr 2023 did not show VANDANA. Dx PLMD. - patient has been using CPAP for many years - will check with sleep medicine clinic provider whether patient can use CPAP Assessment & Plan (10/25/2023 3:38 PM EDT): - sleep study in Apr 2023 did not show VANDANA. Dx PLMD. - patient has been using CPAP for many years - will check with sleep medicine clinic provider whether patient can use CPAP Assessment & Plan (04/04/2023 5:28 PM EDT): Continue CPAP Assessment & Plan (07/05/2022 7:40 AM EST): Continue CPAP History of cholecystectomy 10/03/2009 History of hysterectomy 04/16/1999 Assessment & Plan (04/04/2023 5:41 PM EDT): - indication AUB - 1998 Encounters Date Type Department Care Team Description 09/15/2024 Telephone [facility] MEDICINE [address] [place] [phone] Jane Zarate MD Appointment Request 09/13/2024 Telephone [facility] MED[facility]INE [address], [place] [phone] Jane Zarate MD 09/13/2024 Telephone [facility] MED[facility]INE [address], [place] [address] Jane Zarate MD may 09/12/2024 Telephone [facility] [address] [facility] [place] [address] Jane Zarate MD Appointment Request 09/05/2024 Refill [facility] [address] [place] [address] Jane Zarate MD 08/30/2024 Telephone [facility] [address] [facility] [place] [address] Jane Zarate MD 08/25/2024 8:00 AM EST Office Visit [facility] DENTAL [address] [place] [address] [phone] Yane Joseph 08/24/2024 9:00 AM EST Office Visit [facility] [place] [address] Jane Zarate MD VANDANA (obstructive sleep apnea) (Primary Dx); Primary hypertension; DO (stress urinary incontinence, female); Recurrent urinary tract infection; Overactive bladder; Delayed gastric emptying; Type 2 diabetes mellitus with diabetic polyneuropathy, without long-term current use of insulin ([facility]); Dyslipidemia; Epigastric mass; Dietary counseling; Exercise counseling; Class 1 obesity due to excess calories with serious comorbidity and body mass index (BMI) of 31.0 to 31.9 in adult 08/24/2024 Travel 08/22/2024 Refill [facility] [address] [facility] [place] [address] Jane Zarate MD 08/18/2024 Telephone [facility] [address] [facility] [place] [address] Leyda Pendleton MA chart prep 08/17/2024 8:00 AM EST Office Visit [facility] DENTAL [address] [place] [address] [phone] Yane Joseph 08/01/2024 Refill [facility] [address] [facility] [place] [address] Jane Zarate MD 07/18/2024 Telephone [facility] MEDICINE [address], [place] [phone] Jane Zarate MD Nurse Triage 07/04/2024 Telephone [facility] MEDICINE [address] [place] [address] Jane Zarate MD Nurse Triage from Last 3 Months Immunizations Name Administration Dates Next Due Hep A, Adult 06/20/2014,06/23/2003 Hep B, adult 06/20/2014,02/14/2014,06/01/2013 Influenza injectable quadriv alent IIV4 with preservative 05/18/2018,06/30/2017,05/05/2016,07/10 Influenza injectable quadriv alent preservative free 03/31/2023,04/23/2022,04/17/2021,04/16,04/20/2019 Influenza, IIV3, injectable 06/20/2014, 1 Influenza, Split (incl. toya fied surface antigen) 06/01/2013,04/16/2012 Influenza, seasonal, injecta ble, preservative free 05/10/2024 Pfizer Covid-19 Vaccine 12+ 07/07/2023,0 12/05/2021,04/17/2021,09/09,08/20/2020 Pfizer Covid-19 Vaccine 12+ Bivalent 04/23/2022 Pneumococcal Conjugate PCV 20 07/07/2023 Pneumococcal Polysaccharide PPSV23 06/20/2014, TD (adult), 2 Lf tetanus tox oid, preservative free, adsorbed 01/03/1999 Tdap 07/07/2023,06/01/2013 Zoster, Recombinant 12/18/2020,04/16/2020 Social History Tobacco Use Types Packs/Day Years Used Date Smoking Tobacco: Never Passive Smoke Exposure: Never Smokeless Tobacco: Never Tobacco Cessation:Counseling Given: Not Answered Alcohol Answer Date Recorded Frequency of Alcohol [...] Orientation Straight 05/12/2022 10 :14 AM EDT Last Filed Vital Signs Vital Sign Reading Time Taken Comments Blood Pressure 124/64 08/25/2024 8:01 AM EST Pulse 83 08/25/2024 8:01 AM EST Temperature 35.7 ??C (96.2 ??F) 08/24/2024 9:07 AM ES T Respiratory Rate 15 08/24/2024 9:07 AM EST Oxygen Saturation 99% 08/24/2024 9:07 AM EST Inhaled Oxygen Concentration - - Weight 83 kg (183 lb) 08/24/2024 9:07 AM EST Height 162.7 cm (5' 4.07 ) 05/10/2024 1:18 PM ED T Body Mass Index 31.34 05/10/2024 1:18 PM EDT Plan of Treatment Upcoming Encounters Date Type Department Care Team (Late st Contact Info) Description 11/22/2024 3:15 PM EDT Office Visit [facility] MEDICINE [address], [place] [phone] Jane Zarate MD [address] [place], [place] [phone] 11/23/2024 9:00 AM EDT Office Visit [facility] [address] [place], [place] [phone] Yane Joseph [address] [place], [place] [phone] Health Maintenance Due Date Last Done Comments CT Colonography 1960 FIT DNA/Cologuard 1960 FIT 1960 FOBT 1960 Sigmoidoscopy 1960 COVID-19 Vaccine ( season) 2024 07/07/2023, 04/23/2022, 12/05/2021, Additional history exists Diabetes: Urine Protein Screening 07/08/2024 07/08/2023, 11/07/2021, 02/05/2021, Additional history exists Dental Prophylaxis 09/01/2024 02/29/2024, 0 08/27/2023, 01/19/2023, Additional history exists Dental X-Ray: Full Mouth 09/10/2024 09/09/2021, 06/13 Dental Oral Exam 11/04/2024 05/05/2024, 04/2023, 03/10/2022, Additional history exists Diabetes: Hemoglobin A1C 11/21/2024 025, 05/10/2024, 03/25/2024, Additional history exists Dental X-Ray: Bitewings 03/01/2025 02/29/20 24, 01/19/2023, 09/09/2021, Additional history exists Lipid Panel 03/25/2025 03/25/2024, 06/13, 02/05/2021 Mammogram 03/28/2025 03/28/2024, 03/13, 09/05/2022, Additional history exists Alcohol/Substance Use Screening 05/10/2025 05/10/2024 Depression Screening 05/10/2025 05/10/2024, 05/10/20 SDOH Screening 05/10/2025 05/10/2024 Diabetes: Foot Exam 08/24/2025 08/24/2024, 08/24/2024, 08/24/2024, Additional history exists Tobacco Screening 08/28/2025 08/28/2024 Eye Exam 04/16/2026 04/16/2024 Colonoscopy 01/21/2027 01/21/2022, 01/21/2022 Colorectal Cancer Screening 01/21/2027 DTaP/Tdap/Td Vaccines (3 - Td or Tdap) 07/07/2033 07/07/2023, 06/01/2013, 01/03/1999 RSV Patients and Patients Aged 60 years or older (1 - 1-dose 75+ series) 2035 Hepatitis A Vaccines Aged Out 06/20/2014, 06/23/20 03 No longer eligible based on patient's age to complete this topic Hepatitis B Vaccines Completed 06/20/2014, 02/14/2014, 06/01/2013 Zoster Vaccines Completed 12/18/2020, 04/16/2020 HIV Screening Completed 02/05/2021 Hepatitis C Screening Completed 02/05/2021 Pneumococcal Vaccine: 50+ Years Completed 07/07/2023, 06/20/2014, 01/27/2002 Influenza Vaccine Completed 05/10/2024, , 04/23/2022, Additional history exists HIB Vaccines Aged Out No longer eligi ble based on patient's age to complete this topic HPV Vaccines Aged Out No longer eligi ble based on patient's age to complete this topic IPV Vaccines Aged Out No longer eligi ble based on patient's age to complete this topic Meningococcal Vaccine Aged Out No valdo estela eligible based on patient's age to complete this topic RSV under 20 months Aged Out No longe r eligible based on patient's age to complete this topic Rotavirus Vaccines Aged Out No longer eligible based on patient's age to complete this topic Procedures Procedure Name Priority Date/Time Associated Diagnosis Comments CASE PRESENTATION, DETAILED AND EXTENSIVE TREATMENT PLANNING Routine 08/25/2024 8:00 AM EST LR PERIODONTAL SCALING AND ROOT PLANING - 1 TO 3 TEETH PER QUADRANT Routine 08/25/2024 8:00 AM EST UR PERIODONTAL SCALING AND ROOT PLANING - 1 TO 3 TEETH PER QUADRANT Routine 08/25/2024 8:00 AM EST POCT GLYCOSYLATED HEMOGLOBIN (HGB A1C) Routine 08/24/2024 9:08 AM EST Type 2 diabetes mellitus with diabetic polyneuropathy, without long-term current use of insulin ([facility]/HCC) POCT GLUCOSE Routine 08/24/2024 9:07 AM EST Type 2 diabetes mellitus with diabetic polyneuropathy, without long-term current use of insulin (CMS/HCC) CASE PRESENTATION, DETAILED AND EXTENSIVE TREATMENT PLANNING Routine 08/17/2024 8:00 AM EST LL PERIODONTAL SCALING AND ROOT PLANING - 1 TO 3 TEETH PER QUADRANT Routine 08/17/2024 8:00 AM EST UL PERIODONTAL SCALING AND ROOT PLANING - 1 TO 3 TEETH PER QUADRANT Routine 08/17/2024 8:00 AM EST PERIODIC ORAL EVALUATION - ESTABLISHED PATIENT Routine 05/05/2024 8:00 AM EDT DIABETES EYE EXAM Routine 04/16/2024 BI MAMMOGRAM DIAGNOSTIC TOMOSYNTHESIS BILATERAL Routine 03/28/2024 1:00 PM EDT LIPID PANEL WITH REFLEX TO DIRECT LDL Routine 03/25/2024 9:05 AM EDT Type 2 diabetes mellitus with diabetic polyneuropathy, without long-term current use of insulin ([facility]) Dyslipidemia PROPHYLAXIS - ADULT Routine 02/29/2024 8 :00 AM EDT BITEWINGS - 4 RADIOGRAPHIC IMAGES Routine 02/29/2024 8:00 AM EDT ALBUMIN, RANDOM URINE W/CREATININE Routine 07/08/2023 8:21 AM EST Type 2 diabetes mellitus with diabetic polyneuropathy, without long-term current use of insulin (CMS/HCC) HM COLONOSCOPY Routine 01/21/2022 INTRAORAL - COMPLETE SERIES OF RADIOGRAPHIC IMAGES Routine 09/09/2021 12:00 AM EST ZZZ HISTORICAL HEPATITIS C AB W/REFL TO HCV RNA, QN, PCR Routine 02/05/2021 8:50 AM EDT HIV 1/2 ANTIGEN/ANTIBODY, FOURTH GENERATION W/RFL Routine 02/05/2021 8:50 AM EDT from Last 3 Months or Most Recently Relevant to Health Maintenance Results * (ABNORMAL) POCT glycosylated hemoglobin (Hgb A1c) (08/24/2024 9:08 AM EST) Hemoglobin A1C 9.5(A) 4.0 - 6.0 % QC Media Lot # [id number] Lot# Expiration Date Blood Capillary blood specimen / Unknown 08/24/2024 9:08 AM EST us Jane Zarate MD POINT OF CARE TEST ENTER/EDIT OR DERABLES Edited Result - Final * (ABNORMAL) POCT glucose manually resulted (08/24/2024 9:07 AM EST) Glucose Blood, POC 287(A) 60 - 200 mg/dL QC Media Lot # [id number] Lot# Expiration Date Blood Capillary blood specimen / Unknown 08/24/2024 9:07 AM EST us Jane Zarate MD POINT OF CARE TEST ENTER/EDIT OR DERABLES Edited Result - Final * Hm Diabetes Eye Exam (04/16/2024) Eye Exam Normal Normal 04/16/2024 [facility] Provider HEALTH MAINTENANCE Final Result * BI Mammogram Diagnostic Tomosynthesis Bilateral (03/28/2024 1:00 PM EDT) Anatomical Region Laterality Modality Breast Bilateral Mammography 03/28/2024 1:00 PM EDT Narrative 03/28/2024 1:44 PM EDT ? [place] [facility] ? [address] ?[place] [address] ? Mammography Report ? Signed ? Patient: Corey,Sylvia ?MR#: [id number] ? : 1960 ?Acct:[id number] ? Age/Sex: 63 / F ?ADM Date: 03/28/24 ? Loc: HO.MAMMO ? Attending Dr: Jane Zarate MD ? Ordering Physician: Jane Zarate MD ?Results: 2Benign F ?? indings ? Date of Service: 03/28/24 ?Follow Up: 1 Year From Orig ?? inal Mammogram ? Procedure(s): MM tomosynthesis diagnostic BI ?? Accession Number(s): [id number] ? cc: Jane Zarate MD ? EXAMINATION: ?? MM DIAGNOSTIC DIGITAL BREAST TOMOSYNTHESIS, BILATERAL ? CLINICAL INFORMATION: ? Final (fourth) follow-up for small circumscribed nodule central ?? posterior 9:00 right breast. Also due for yearly. ? COMPARISON: ?? Mammography: 03/23/2023, 09/05/2022, 02/27/2022 (BI-RADS 0), 02/08/2021, ?? 12/29/2019, 12/23/2018 ? TECHNIQUE: ?? Digital breast tomosynthesis is performed in both the craniocaudal and ?? mediolateral oblique views along with computer-aided detection (CAD). ?? Synthesized 2D images are generated from the tomosynthesis. In ?? addition, a full field 3-D left ML view was also obtained. ? FINDINGS: ?? The breasts are almost entirely fatty (ACR BI-RADS breast composition ?? Category a). ? The small subcentimeter circumscribed nodule posterior central right ?? breast at 9:00 is stable, also demonstrating a reniform shape with ?? fatty hilum, consistent with an intramammary lymph node. This is ?? benign. No further follow-up required. There is also a stable small 3 ?? mm oval density in the anterior retroareolar region right breast which ?? is also unchanged, benign. ? There are no suspicious masses, suspicious grouped calcifications, or ?? areas of architectural distortion in either breast. The parenchymal ?? pattern is stable from prior exams. There is no skin or axillary ?? abnormality. ? MM/MM tomosynthesis diagnostic BI ?? IMPRESSION: ?? -No findings suspicious for malignancy in either breast. ? -Posterior subcentimeter nodule at 9:00 right breast is unchanged and ?? benign, likely intramammary lymph node. No further follow up ?? recommended. ? -Recommend the patient resume routine annual screening. ? ASSESSMENT: ? BI-RADS BI-RADS 2 - Benign Findings ? RECOMMENDATION: ?? 1 year F/U ? Results were provided to the patient at time of visit by the ?? technologist. ? This patient's information was entered into a reminder system with a ?? target due date for their next mammogram. ? Electronically signed by: ??Ho Tucker MD ??03/28/2024 01:41 PM EDT RP ? Dictated By: ?Ho Tucker MD ? Signed By: ?<Electronically signed by Ho Tucker MD in OV> ?03/28/24 1341 ? DD/ 1300 ? TD/TT: 03/28/24 1320 ? Landman: ? Procedure Note Ren, Sonya - 03/28/2024 [facility] [address] [place] [address] Mammography Report Signed Patient: Sylvia NicoleMR#: [id number] : 1960Acct:[id number] Age/Sex: 63 / FADM Date: 03/28/24 Loc: HO.MAMMO Attending Dr: Jane Zarate MD Ordering Physician: Jane Zarate MDResults: 2Benign F indings Date of Service: 03/28/24Follow Up: 1 Year From Orig inal Mammogram Procedure(s): MM tomosynthesis diagnostic BI Accession Number(s): [id number] cc: Jane Zarate MD EXAMINATION: MM DIAGNOSTIC DIGITAL BREAST TOMOSYNTHESIS, BILATERAL CLINICAL INFORMATION: Final (fourth) follow-up for small circumscribed nodule central posterior 9:00 right breast. Also due for yearly. COMPARISON: Mammography: 03/23/2023, 09/05/2022, 02/27/2022 (BI-RADS 0), 02/08/2021, 12/29/2019, 12/23/2018 TECHNIQUE: Digital breast tomosynthesis is performed in both the craniocaudal and mediolateral oblique views along with computer-aided detection (CAD). Synthesized 2D images are generated from the tomosynthesis. In addition, a full field 3-D left ML view was also obtained. FINDINGS: The breasts are almost entirely fatty (ACR BI-RADS breast composition Category a). The small subcentimeter circumscribed nodule posterior central right breast at 9:00 is stable, also demonstrating a reniform shape with fatty hilum, consistent with an intramammary lymph node. This is benign. No further follow-up required. There is also a stable small 3 mm oval density in the anterior retroareolar region right breast which is also unchanged, benign. There are no suspicious masses, suspicious grouped calcifications, or areas of architectural distortion in either breast. The parenchymal pattern is stable from prior exams. There is no skin or axillary abnormality. MM/MM tomosynthesis diagnostic BI IMPRESSION: -No findings suspicious for malignancy in either breast. -Posterior subcentimeter nodule at 9:00 right breast is unchanged and benign, likely intramammary lymph node. No further follow up recommended. -Recommend the patient resume routine annual screening. ASSESSMENT: BI-RADS BI-RADS 2 - Benign Findings RECOMMENDATION: 1 year F/U Results were provided to the patient at time of visit by the technologist. This patient's information was entered into a reminder system with a target due date for their next mammogram. Electronically signed by: Ho Tucker MD 03/28/2024 01:41 PM EDT RP Workstation: [employer] Dictated By: Ho Tucker MD Signed By: <Electronically signed by Ho Tucker MD in OV> 03/28/24 1341 DD/ 1300 TD/TT: 03/28/24 1320 Landman: us Jane Zarate MD IMG BI PROCEDURES Edited Result - Final * Lipid Panel with Reflex to Direct LDL (03/25/2024 9:05 AM EDT) Triglycerides 131 <150 mg/dL [facility] Comment:Desirable Triglyceri de: less than 150 mg/dLBorderline High Triglyceride 150-199 mg/dLHigh Triglyceride: 200-499 mg/dLVery High Triglyceride: greater than or equal to 5OO mg/dL Cholesterol 164 <200 mg/dL [facility] Comment:Desirable Cholestero l: less than 200 mg/dLBorderline High Cholesterol: 200-239 mg/dLHigh Cholesterol: greater than 239 mg/dL LDL Cholesterol Calculated 81 <100 mg/dL [facility] Comment:Desirable LDL: less than 100 mg/dLNear Optimal/Above Optimal LDL: 110- 129 mg/dLBorderline High LDL: 130-159 mg/dLHigh LDL: 160-189 mg/dLVery High LDL: greater than or equal to 190 mg/dL HDL Cholesterol 57 >40 mg/dL [facility] Comment:Desirable HDL: great er than 40 mg/dL Note: This HDL assay may give artificially low results in patients with liver disease. Blood 03/25/2024 9:05 AM EDT 03/25/2024 11:48 AM EDT us Jane Zarate MD LAB BLOOD ORDERABLES Final Resul t [facility] [address] [place] [phone] * Albumin, Random Urine W/Creatinine (07/08/2023 8:21 AM EST) Creatinine, Urine 66.16 mg/dL [facility] Microalbumin Urine 6.0 mg/L [facility] Microalbum Creatinine Ratio Ur 9.0 <30 ug/mg cr [facility] Comment:Albumin/Creatinine R atio Reference Ranges: Normal: < 30 ug/mg creatinine Microalbuminuria: 30 - 300 ug/mg creatinineClinical Albuminuria: > 300 ug/mg creatinine Urine 07/08/2023 8:21 AM EST 07/08/2023 9:10 AM EST Jane Zarate MD LAB URINE ORDERABLES Final Resul t [facility] [address] [place] [phone] * Hm Colonoscopy (01/21/2022) Pathologist [facility] Colonoscopy Normal Normal Comment:tubular adenoma 01/21/2022 Historical Provider HEALTH MAINTENANCE Final Result * HEPATITIS C AB W/REFL TO HCV RNA, QN, PCR (02/05/2021 8:50 AM EDT) HEPATITIS C ANTIBODY NON-REACT JULIA NON-REACT JULIA [facility] INDEX 0.01 <1.00 [facility] Comment: ?? HCV antibody was non-reactive. There is no laboratory ?? evidence of HCV infection. ?? In most cases, no further action is required. However, if recent HCV exposure is suspected, a test for HCV RNA (test code 12173) is suggested. ?? For additional information please refer to http://education.[employer]/faq/HGK81m3 (This link is being provided for informational/ educational purposes only.) ?? 02/05/2021 8:50 AM EDT Jane Zarate MD HISTORICAL/NON ORDERABLE LABS Fi nal Result Performing Organization Address [facility] de Phone Number [facility] [address] * HIV 1/2 ANTIGEN/ANTIBODY,FOURTH GENERATION W/RFL (02/05/2021 8:50 AM EDT) HIV-1/2 ANTIGEN AND ANTIBODIES, 4TH GENERATION W/ REFLEX NON-REACT JULIA NON-REACT JULIA [facility] Comment: HIV-1 antigen and HIV-1/HIV-2 antibodies were not detected. There is no laboratory evidence of HIV infection. ?? PLEASE NOTE: This information has been disclosed to you from records whose confidentiality may be protected by state law. ??If your state requires such protection, then the state law prohibits you from making any further disclosure of the information without the specific written consent of the person to whom it pertains, or as otherwise permitted by law. A general authorization for the release of medical or other information is NOT sufficient for this purpose. ? For additional information please refer to http://education.[employer]/faq/AWF173 (This link is being provided for informational/ educational purposes only.) ? The performance of this assay has not been clinically validated in patients less than 2 years old. ?? 02/05/2021 8:50 AM EDT Jane Zarate MD LAB BLOOD ORDERABLES Final Resul t Performing Organization Address [facility] de Phone Number [facility] [address] from Last 3 Months or Most Recently Relevant to Health Maintenance Insurance [facility] - HSN PARTIAL (MEDICAID) [facility] Care Teams Tenterer Relationship Specialty Start Date End Date Jane Zarate MD [address] [place] [phone] PCP - General Family Medicine 06/24/12
--- OUTSIDE RECORDS SUMMARY | 2024-09-19 09:02 | XMS_ITS | Encounter Summary ---
Author Organization [employer] Address [address] [facility] 7 [place] [address] Care Team Providers Care Telecommunications Line Mechanic Name Role Phone Jane Zarate MD Primary Care Provider Reason for Visit * Reason Onset Date Comments Appointment Request 09/15/2024 Encounter Details Date Type Department Care Team ([facility] Contact Info) Description 09/15/2024 Telephone [facility] MEDICINE [address] [place], [place] [phone] Jane Zarate MD [address] [place], [place] [phone] Appointment Request Social History Tobacco Use Types [...] encounter Miscellaneous Notes * Telephone Encounter - Sulma Wynn - 09/15/2024 2:26 PM EST Patient called in requesting to r/s appointment for CDTM. documented in this encounter Plan of Treatment Upcoming Encounters Date Type Department Care Team (Late st Contact Info) Description 11/22/2024 3:15 PM EDT Office Visit [facility] MEDIC[facility] [address] [place] [phone] Jane Zarate MD [address] [place] [address] 11/23/2024 9:00 AM EDT Office Visit [facility] [address] [place], [place] [phone] Yane Joseph [address] [place], [place] [phone] documented as of this encounter Visit Diagnoses Not on filedocumented in this encounter Additional Health Concerns Assessment Noted Time PHQ-9 Depression Total Score: 7 05/10/20 24 1:16 PM EDT documented as of this encounter Care Teams Telecommunications Line Mechanic Relationship Specialty Start Date End Date Jane Zarate MD [address] [place] [phone] PCP - General Family Medicine 06/24/12 documented as of this encounter
--- OUTSIDE RECORDS SUMMARY | 2024-09-19 09:02 | XMS_ITS | Encounter Summary ---
Author Organization [employer] [facility] Address [address] [place] [address] [address] [address] Care Team Providers Care Captain Fishing Vessel Name Role Phone Jane Zarate MD Primary Care Provider [phone] Encounter Details Date Type Department Care Team (Late Contact Info) Description 06/12/2022 Telephone [facility] MEDICINE [address] [place] [address] [phone] Jane Zarate MD [address] [place] [phone] Social History Tobacco Use Types Packs/Day Years Used Date Smoking Tobacco: Never Assessed Comments Unknown Sex and Gender Information Value Date Recorded Sex Assigned at Female 05/12/2022 10:14 AM EDT Legal Sex Female 10:14 AM EDT Gender Identity Female 05/12/2022 10:14 AM EDT Sexual Orientation Straight 05/12/2022 10 :14 AM EDT documented as of this encounter Plan of Treatment Upcoming Encounters Date Type Department Care Team ([facility] Contact Info) Description 11/22/2024 3:15 PM EDT Office Visit [facility] MEDICINE [address] [place] [address] [phone] Jane Zarate MD [address] [place] [address] [phone] 11/23/2024 9:00 AM EDT Office Visit [facility] [address] [place] [phone] Yane Joseph [address] [place], [place] [phone] documented as of this encounter Visit Diagnoses Not on filedocumented in this encounter Care Teams Captain Fishing Vessel Relationship Specialty Start Date End Date Jane Zarate MD [address] [place] [address] PCP - General Family Medicine 06/24/12 documented as of this encounter
--- OUTSIDE RECORDS SUMMARY | 2024-09-19 09:02 | XMS_ITS | Encounter Summary ---
Author Organization [employer] [facility] Address [address] [place] [address] [address] [place] [address] Care Team Providers Care Community Reinvestment Act Officer Name Role Phone Jane Zarate MD Primary Care Provider [phone] Encounter Details Date Type Department Care Team (Latest Contact Info) Description 07/25/2019 Abstract [facility] CONVERSIONS Dental, Provider, DDS Social History Tobacco Use Types Packs/Day Years [...] Upcoming Encounters Date Type Department Care Team ( st Contact Info) Description 11/22/2024 3:15 PM EDT Office Visit [facility] MEDICINE [address] [place] [address] Jane Zarate MD [address] [place] [address] 11/23/2024 9:00 AM EDT Office Visit [facility] [address] [place], [place] [phone] Yane Joseph 91 [place], [place] [phone] documented as of this encounter Visit Diagnoses Not on filedocumented in this encounter Care Teams Community Reinvestment Act Officer Relationship Specialty Start Date End Date Jane Zarate MD [address] [place] [address] PCP - General Family Medicine 06/24/12 documented as of this encounter
--- OUTSIDE RECORDS SUMMARY | 2024-09-19 09:02 | XMS_ITS | Encounter Summary ---
Author Organization [employer] Address [address] [facility] 7 [place] [address] Care Team Providers Care Clinical Recruiter Name Role Phone Jane Zarate MD Primary Care Provider Encounter Details Date Type Department Care Team ([facility] st Contact Info) Description 01/08/2024 Orders Only [facility] MEDICINE 230 [place], [place] [phone] Jane Zarate MD [address] [place], [place] [phone] Social History Tobacco Use Types Packs/Day Years Used Date Smoking Tobacco: Never Passive Smoke Exposure: Never Smokeless Tobacco: Never Depression Answer Date Recorded Patient Health Questionnaire-9 Score 0 10/13/2023 Patient Health Questionnaire-9 Score 0 10/13/2023 Last PHQ-9: Questionnaire Data Not on file 0 10/13/2023 Housing Stability Answer Date Recorded What is your housing situation today? I have linda villarreal 05/06/[address] you li ve. Do you have problems with any of the following? None of the above 05/06/2023 Food Insecurity Answer Date Recorded Within the past 12 months, y ou worried that your food would run out before you got money to buy more: Never True 05/06/2023 Within the past 12 months,th e food you bought just didn't last and you didn't have enough money to get more: Never True Transportation Answer Date Recorded In the past 12 months, has l ack of transportation kept you from medical appts, meetings, work or from getting things needed for daily living? No 05/06/2023 Utilities Answer Date Recorded In the past 12 months, has t he electric, gas, oil or water company threatened to shut off services in your home? No 05/06/2023 Depression Answer Date Recorded Patient Health Questionnaire-2 Score 0 10/13/2023 Comments Unknown Sex and Gender Information Value [...] 11/22/2024 3:15 PM EDT Office Visit [facility] MEDICINE 230 [place], [place] [phone] Jane Zarate MD [address] [place] [phone] 11/23/2024 9:00 AM EDT Office Visit [facility] 91 [place], [place] [phone] Dre Josephine 91 [place], [place] [phone] documented as of this encounter Visit Diagnoses Not on filedocumented in this encounter Additional Health Concerns Assessment Noted Time PHQ-9 Depression Total Score: 0 10/13/19 24 1:55 PM EDT documented as of this encounter Care Teams Clinical Recruiter Relationship Specialty Start Date End Date Jane Zarate MD [address] [place] [phone] PCP - General Family Medicine 06/24/12 documented as of this encounter
--- OUTSIDE RECORDS SUMMARY | 2024-09-19 09:02 | XMS_ITS | Encounter Summary ---
Author Organization [employer] [facility] Address [address] [place] [address] [facility] [place] [address] Care Team Providers Care Student Services Representative Name Role Phone Jane Zarate MD Primary Care Provider [phone] Encounter Details Date Type Department Care Team (Latest Contact Info) Description 09/09/2021 Abstract [facility] CONVERSIONS Dental, Provider, DDS Social History [...] 11/22/2024 3:15 PM EDT Office Visit [facility] MEDICINE [address] [place] [address] Jane Zarate MD 230 [place] [address] 11/23/2024 9:00 AM EDT Office Visit [facility] 91 [place], [place] [phone] Yane Joseph 91 [place], [place] [phone] documented as of this encounter Visit Diagnoses Not on filedocumented in this encounter Care Teams Student Services Representative Relationship Specialty Start Date End Date Jane Zarate MD [address] [place] [phone] PCP - General Family Medicine 06/24/12 documented as of this encounter
--- OUTSIDE RECORDS SUMMARY | 2024-09-19 09:02 | XMS_ITS | Encounter Summary ---
Author Organization [employer] Address 75 [facility] 7 [place] [address] Care Team Providers Care Strategic Partnership Specialist Name Role Phone Jane Zarate MD Primary Care Provider Encounter Details Date Type Department Care Team ([facility] st Contact Info) Description 01/07/2024 Orders Only [facility] MEDICINE [address] [place], [place] [phone] Jane Zarate MD 230 [place], [place] [phone] Social History Tobacco Use Types Packs/Day Years [...] Description 11/22/2024 3:15 PM EDT Office Visit [facility] MEDICINE [address] [place], [place] [phone] Jane Zarate MD [address] [place] [address] 11/23/2024 9:00 AM EDT Office Visit [facility] 91 [place], [place] [phone] Dre Josephine 91 [place], [place] [phone] documented as of this encounter Visit Diagnoses Not on filedocumented in this encounter Additional Health Concerns Assessment Noted Time PHQ-9 Depression Total Score: 0 10/13/19 24 1:55 PM EDT documented as of this encounter Care Teams Strategic Partnership Specialist Relationship Specialty Start Date End Date Jane Zarate MD [address] [place] [address] PCP - General Family Medicine 06/24/12 documented as of this encounter
--- OUTSIDE RECORDS SUMMARY | 2024-09-19 09:02 | XMS_ITS | Encounter Summary ---
Author Organization [employer] Address 75 [facility] 7 [place] [address] Care Team Providers Care Cleat Thrower Name Role Phone Jane Zarate MD Primary Care Provider [phone] Encounter Details Date Type Department Care Team ([facility] st Contact Info) Description 08/30/2024 Telephone [facility] MEDICINE 230 [place], [place] [phone] Jane Zarate MD [address] [place], [place] [phone] Social History Tobacco Use Types Packs/Day Years [...] * Telephone Encounter - Payal Anguiano - 08/30/2024 10:07 AM EST Pharmacy [facility] attempted outreach call on 08/30/24 for CDTM - Diabetes appointment; however, unable to reach patient. LVM for patient to contact Payal Anguiano at [phone]. documented in this encounter Plan of Treatment Upcoming Encounters Date Type Department Care Team (Late st Contact Info) Description 11/22/2024 3:15 PM EDT Office Visit [facility] MEDICINE [address] [place], [place] [phone] Jane Zarate MD [address] [place] [address] 11/23/2024 9:00 AM EDT Office Visit [facility] 91 [place], [place] [phone] Yane Joseph 91 [place], [place] [phone] documented as of this encounter Visit Diagnoses Not on filedocumented in this encounter Additional Health Concerns Assessment Noted Time PHQ-9 Depression Total Score: 7 05/10/20 24 1:16 PM EDT documented as of this encounter Care Teams Cleat Thrower Relationship Specialty Start Date End Date Jane Zarate MD [address] [place] [address] PCP - General Family Medicine 06/24/12 documented as of this encounter
--- OUTSIDE RECORDS SUMMARY | 2024-09-19 09:03 | XMS_ITS | Encounter Summary ---
Author Organization [employer] Address 75 [facility] 7 [place] [address] Care Team Providers Care Electroencephalographic Technologist Name Role Phone Jane Zarate MD Primary Care Provider [phone] Reason for Visit * Reason Onset Date Comments Medication Question 11/05/2023 Encounter Details Date Type Department Care Team ([facility] Contact Info) Description 11/05/2023 Telephone [facility] MEDICINE 230 [place], [place] [phone] Jane Zarate MD [address] [place], [place] [phone] Medication Question Social History Tobacco Use Types Packs/Day Years [...] encounter Miscellaneous Notes * Telephone Encounter - Clemente Tavarez RN - 11/05/2023 10:06 AM EDT FYI * Telephone Encounter - Regulo Sahu - 11/05/2023 9:38 AM EDT Tc from patient calling to inform the provider was advised by Gastro to discontinue the medication dulaglutide (Trulicity) 3 MG/0.5ML solution pen- injector and to increase the dosage on the glipiZIDEXL (Glucotrol XL) 5 MG 24 hr tablet documented in this encounter Plan of Treatment Upcoming Encounters Date Type Department Care Team (Late st Contact Info) Description 11/22/2024 3:15 PM EDT Office Visit [facility] MEDICINE [address] [place] [address] Jane Zarate MD [address] [place] [address] 11/23/2024 9:00 AM EDT Office Visit [facility] 91 [place], [place] [phone] Yane Joseph [address] [place], [place] [phone] documented as of this encounter Visit Diagnoses Not on filedocumented in this encounter Additional Health Concerns Assessment Noted Time PHQ-9 Depression Total Score: 0 10/13/19 24 1:55 PM EDT documented as of this encounter Care Teams Electroencephalographic Technologist Relationship Specialty Start Date End Date Jane Zarate MD [address] [place] [address] PCP - General Family Medicine 06/24/12 documented as of this encounter
--- OUTSIDE RECORDS SUMMARY | 2024-09-19 09:03 | XMS_ITS | Encounter Summary ---
Author Organization [employer] Address [address] [facility] 7t [place] [address] Care Team Providers Care Shooting Gallery Operator Name Role Phone Jane Zarate MD Primary Care Provider [phone] Encounter Details Date Type Department Care Team (Late st Contact Info) Description 05/23/2024 Abstract [facility] MEDICINE [address] [place], [place] [phone] Leyda Pendleton [place] Social History Tobacco Use Types Packs/Day Years [...] Description 11/22/2024 3:15 PM EDT Office Visit [facility] MEDICINE [address] [place] [address] Jane Zarate MD 230 [place] [address] 11/23/2024 9:00 AM EDT Office Visit [facility] [address] [place] [address] [phone] Yane Joseph 91 [place], [place] [phone] documented as of this encounter Procedures Procedure Name Priority Date/Time Associated Diagnosis Comments DIABETES EYE EXAM Routine 04/16/2024 documented in this encounter Results * Diabetes Eye Exam (04/16/2024) Eye Exam Normal Normal 04/16/2024 Historical Provider HEALTH MAINTENANCE Final Result documented in this encounter Visit Diagnoses Not on filedocumented in this encounter Additional Health Concerns Assessment Noted Time PHQ-9 Depression Total Score: 7 05/10/20 24 1:16 PM EDT documented as of this encounter Care Teams Shooting Gallery Operator Relationship Specialty Start Date End Date Jane Zarate MD [address] [place] [address] PCP - General Family Medicine 06/24/12 documented as of this encounter
--- OUTSIDE RECORDS SUMMARY | 2024-09-19 09:03 | XMS_ITS | Clinical Summary ---
Author Organization [facility] Address [address] [place] [address] Phone Care Team Providers Care Fishing Boat Captain Name Role Phone Physician, No Pcp Primary Care Provider Unavaila ble Surgical History Surgery Date Site/Laterality Comments OTHER SURGICAL HISTORY 11/01/2020 N/A PROCEDURE: [place] LAPAROSCOPIC APPENDECTOMY; COMMENT: By Dr. Perico Pressley [facility] HYSTERECTOMY 04/16/1999 PROCEDURE: HISTORICAL HYSTERECTOMY; COMMENT: with oopherectomy CHOLECYSTECTOMY 10/03/2009 PROCEDURE: HISTORICAL CHOLECYSTECTOMY; COMMENT: with Dr. Bueno TONSILLECTOMY PROCEDURE: HISTORICAL TONSILLECTOMY Medical History Medical History Date Comments Obstructive sleep apnea of adult DX:Obstructive sleep apnea of adult Eczema DX:Eczema Anxiety and depression DX:Anxiet y and depression Diabetes mellitus, type 2 (CMS/HCC) DX:Diabetes mellitus, type 2 (HCC) Dyslipidemia DX:Dyslipidemia History of neurosyphilis DX:Hist ory of neurosyphilis Hypertension DX:Hypertension Vitamin D deficiency DX:Vitamin D deficiency Overactive bladder DX:Overactive bladder Venous insufficiency DX:Venous i nsufficiency Social History Tobacco Use Types Packs/Day Years Used Date Smoking Tobacco: Former Smokeless Tobacco: Never Alcohol Use Standard Drinks/Week Comments Not Currently 0 (1 standard drink = 0.6 oz pur e alcohol) Comments Unknown Sex and Gender Information Value Date Recorded Sex Assigned at Not on file Legal Sex Female 8:50 PM EST Gender Identity Not on file Sexual Orientation Not on file Obstetrics History Plan of Treatment Health Maintenance Due Date Last Done Comments Breast Cancer Screening 1960 Diabetes: Annual Foot Exam 1970 Diabetes: Annual Retina Eye Exam 1970 Cervical Cancer Screening: Pap Smear 1981 Cholesterol Screening (Lipid Panel) 06/14/2022 Colorectal Cancer Screening: Colonoscopy 06/14/2022 Hepatitis C Screening 06/14/2022 Social Influencers of Health Screening 06/14/2022 COVID-19 Vaccine ( season) 2024 07/07/2023, 04/23/2022, 12/05/2021, Additional history exists Diabetes: Annual Urine Albumin-Creatinine Ratio (uACR) 06/02/2024 Diabetes: Blood Sugar Control Test (HGBA1C) 11/08/2024 05/10/2024, 03/25/2024 Diabetes: Annual GFR (Glomerular Filtration Rate) 03/25/2025 03/25/2024 Hypertension/CHF/CAD Annual BMP Blood Test 03/25/2025 03/25/2024 Depression Screening 05/10/2025 05/10/2024 DTaP,Tdap,and Td Vaccines (4 - Td or Tdap) 07/07/2033 07/07/2023, 06/01/2013, 01/03/1999 RSV Immunization Patients 60+ Years Old (1 - 1-dose 75+ series) 2035 Hepatitis A Vaccines Aged Out 06/20/2014, 06/23/20 03 No longer eligible based on patient's age to complete this topic Hepatitis B Vaccines Completed 06/20/2014, 02/14/2014, 06/01/2013 Zoster Vaccines Completed 12/18/2020, 04/16/2020 HIV Screening Completed 02/05/2021 Pneumococcal Vaccine: 50+ Years Completed 07/07/2023, 06/20/2014, 01/27/2002 Pneumococcal Vaccine: Pediatrics (0 to 5 Years) and At-Risk Patients (6 to 64 Years) Aged Out 07/07/2023, 06/20/2014, 01/27/2002 No longer eligible based on patient's age to complete this topic Influenza Vaccine Completed 05/10/2024, , 04/23/2022, Additional history exists HIB Vaccines Aged Out No longer eligi ble based on patient's age to complete this topic HPV Vaccines Aged Out No longer eligi ble based on patient's age to complete this topic IPV Vaccines Aged Out No longer eligi ble based on patient's age to complete this topic MMR Vaccines Aged Out No longer eligi ble based on patient's age to complete this topic Meningococcal ACWY Vaccine Aged Out N o longer eligible based on patient's age to complete this topic Meningococcal B Vacine Aged Out No lo nger eligible based on patient's age to complete this topic RSV Immunization Patients Under 20 months Aged Out No longer eligible based on patient's age to complete this topic Varicella Vaccines Aged Out No longer eligible based on patient's age to complete this topic Insurance MEDICAID - [place] Advance Directives Documents on File Type Date Recorded Patient Volunteer Specialist Expl anation Health Care Decision (hx) 10/27/2016 AD ARNOLD DIRECTIVE Health Care Decision (hx) 10/27/2016 AD ARNOLD DIRECTIVE Health Care Decision (hx) 10/27/2016 AD ARNOLD DIRECTIVE Health Care Decision (hx) 10/27/2016 AD ARNOLD DIRECTIVE Health Care Decision (hx) 10/27/2016 AD ARNOLD DIRECTIVE Care Teams Fishing Boat Captain Relationship Specialty Start Date End Date Physician, No Pcp PCP - General 05/31/24
--- OUTSIDE RECORDS SUMMARY | 2024-09-19 09:03 | XMS_ITS | Encounter Summary ---
Author Organization [employer] Address [address] [facility] 7 [place] [address] Care Team Providers Care Pathology Tech Name Role Phone Jane Zarate MD Primary Care Provider [phone] Encounter Details Date Type Department Care Team ([facility] st Contact Info) Description 09/17/2023 Orders Only [facility] [address] [place], [place] [phone] Jane Zarate MD [address] [place], [place] [phone] Type 2 diabetes mellitus with diabetic polyneuropathy, without long-term current use of insulin ([facility]) Social History Tobacco Use Types Packs/Day Years Used Date Smoking Tobacco: Never Passive Smoke Exposure: Never Smokeless Tobacco: Never Depression Answer Date Recorded Patient Health Questionnaire-9 Score 9 06/30/2022 Housing Stability Answer Date Recorded What is [...] Description 11/22/2024 3:15 PM EDT Office Visit [facility] [address] [place] [address] Jane Zarate MD [address] [place] [address] 11/23/2024 9:00 AM EDT Office Visit [facility] [address] [place] [address] Yane Joseph [address] [place] [address] documented as of this encounter Procedures Procedure Name Priority Date/Time Associated Diagnosis Comments NM GASTRIC EMPTYING SOLID Routine 09/30/2023 12:15 PM EDT documented in this encounter Results * NM Gastric Emptying Solid (09/30/2023 12:15 PM EDT) Anatomical Region Laterality Modality Body Nuclear Medicine 09/30/2023 12:1 5 PM EDT Narrative 10/05/2023 11:33 AM EDT ? [facility] ?[address] ?[place] [address] ?Nuclear Medicine Report ? Signed ? Patient: Corey,Sylvia ?MR#: [id number] ? : 1960 ?Acct:[id number] ? Age/Sex: 63 / F ?ADM Date: 03/20/24 ? Loc: HO.NUCMED ? Attending Dr: Luba Yeager PA-C ? Ordering Physician: Luba Yeager PA-C ?? Date of Service: 09/30/23 ?? Procedure(s): NM gastric emptying study ?? Accession Number(s): [id number] ? cc: Luba Yeager PA-C; Jane Zarate MD ? EXAMINATION: ?? NM RADIONUCLIDE SOLID FOOD GASTRIC EMPTYING 4-HOUR STUDY ? CLINICAL INFORMATION: ?? Gastroesophageal reflux disease without esophagitis. Diabetes mellitus. ? COMPARISON: ?? No previous study is available for comparison. ? TECHNIQUE: ?? A standard meal consisting of 4 oz of Egg Beaters brand tagged with 1.0 ?? mCi Tc-99m Sulfur Colloid, 8 oz water and 2 slices of toast with jelly ?? was administered orally to the patient. Images were obtained using a ?? dual head gamma camera in the anterior and posterior projections over ?? of the stomach immediately post ingestion and at hourly intervals up to ?? 4 hours post ingestion. The anterior and posterior counts at each time ?? interval were averaged using the geometric mean and expressed as ?? percentage of the immediate post ingestion counts. ? FINDINGS: ?? There is good visualization of activity in the stomach immediately post ?? ingestion. As the study progresses, there is significantly diminished ?? clearance of activity from the stomach. At the end of the study there ?? is moderately severe retention of activity at 4 hours. ? Retention in the stomach at each time interval was: ?? 1 hour 57% (normal 37%-90%) ?? 2 hours 42% (normal 30%-60%) ?? 3 hours 40% ?? 4 hours 31% (normal 0%-10%) ? NM/NM gastric emptying study ?? IMPRESSION: ?? Abnormal study. There is moderately severe abnormal retention of solid ?? food in the stomach at 4 hours. ? Gastric emptying study grading per JNMT Consensus Recommendations in ?? 2007 (https://tech.snmjournals.org/content/36/1/44) ? Grade 1 (mild retention): 11-20% at 4h ?? Grade 2 (moderate retention): 21-35% at 4h ?? Grade 3 (severe retention): 36-50% at 4h ?? Grade 4 (very severe retention): >50% retention at 4h ? Dictated By: ?Fletcher Dobson MD ? Signed By: ?<Electronically signed by Fletcher Dobson MD in OV> ? 10/05/23 1129 ? DD/ ? TD/TT: ? Marketing Database Analyst: RR ? Procedure Note Donotmariinterpreter, Image - 10/05/[address] [address] Nuclear Medicine Report Signed Patient: Sylvia NicoleMR#: [id number] : 1960Acct:[id number] Age/Sex: 63 / FADM Date: 09/30/23 Loc: [facility] Attending Dr: Luba Yeager PA-C Ordering Physician: Luba Yeager PA-C Date of Service: 09/30/23 Procedure(s): NM gastric emptying study Accession Number(s): [id number] cc: Luba Yeager PA-C; Jane Zarate MD EXAMINATION: NM RADIONUCLIDE SOLID FOOD GASTRIC EMPTYING 4-HOUR STUDY CLINICAL INFORMATION: Gastroesophageal reflux disease without esophagitis. Diabetes mellitus. COMPARISON: No previous study is available for comparison. TECHNIQUE: A standard meal consisting of 4 oz of Egg Beaters brand tagged with 1.0 mCi Tc-99m Sulfur Colloid, 8 oz water and 2 slices of toast with jelly was administered orally to the patient. Images were obtained using a dual head gamma camera in the anterior and posterior projections over of the stomach immediately post ingestion and at hourly intervals up to 4 hours post ingestion. The anterior and posterior counts at each time interval were averaged using the geometric mean and expressed as percentage of the immediate post ingestion counts. FINDINGS: There is good visualization of activity in the stomach immediately post ingestion. As the study progresses, there is significantly diminished clearance of activity from the stomach. At the end of the study there is moderately severe retention of activity at 4 hours. Retention in the stomach at each time interval was: 1 hour 57% (normal 37%-90%) 2 hours 42% (normal 30%-60%) 3 hours 40% 4 hours 31% (normal 0%-10%) NM/NM gastric emptying study IMPRESSION: Abnormal study. There is moderately severe abnormal retention of solid food in the stomach at 4 hours. Gastric emptying study grading per JNMT Consensus Recommendations in 2008 (https://tech.snmjournals.org/content/36//44) Grade 1 (mild retention): 11-20% at 4h Grade 2 (moderate retention): 21-35% at 4h Grade 3 (severe retention): 36-50% at 4h Grade 4 (very severe retention): >50% retention at 4h Dictated By: Fletcher Dobson MD Signed By: <Electronically signed by Fletcher Dobson MD inOV> 10/05/23 1129 DD/ 1215 TD/TT: Marketing Database Analyst: ALEXANDRA [facility] External Provider IMG NM PROCEDURES Edited Result - Final documented in this encounter Visit Diagnoses Diagnosis Type 2 diabetes mellitus with diabetic polyneuropathy, without long-term current use of insulin ([facility]) documented in this encounter Additional Health Concerns Assessment Noted Time PHQ-9 Depression Total Score: 9 06/30/20 22 3:13 PM EST documented as of this encounter Care Teams Pathology Tech Relationship Specialty Start Date End Date Jane Zarate MD [address] [place] [phone] PCP - General Family Medicine 06/24/12 documented as of this encounter
--- OUTSIDE RECORDS SUMMARY | 2024-09-19 09:03 | XMS_ITS | Encounter Summary ---
Author Organization [employer] Address [address] [facility] 7[address] [place] [address] Care Team Providers Care Business Unit Manager Name Role Phone Jane Zarate MD Primary Care Provider [phone] Encounter Details Date Type Department Care Team (Latest Contact Info) Description 08/24/2024 Travel Social History Tobacco Use Types Packs/Day Years [...] Description 11/22/2024 3:15 PM EDT Office Visit [facility] [address] [place] [phone] Jane Zarate MD [address] [place] [phone] 11/23/2024 9:00 AM EDT Office Visit [facility] [address] [place], [place] [phone] Yane Joseph [address] [place], [place] [phone] documented as of this encounter Visit Diagnoses Not on filedocumented in this encounter Additional Health Concerns Assessment Noted Time PHQ-9 Depression Total Score: 7 05/10/20 24 1:16 PM EDT documented as of this encounter Care Teams Business Unit Manager Relationship Specialty Start Date End Date Jane Zarate MD [address] [place] [phone] PCP - General Family Medicine 06/24/12 documented as of this encounter
--- OUTSIDE RECORDS SUMMARY | 2024-09-19 09:03 | XMS_ITS | Encounter Summary ---
Author Organization [email or web address] [facility] Address [address] [place] [address] [address] [place] [address] Care Team Providers Care Dish Network Installer Name Role Phone Jane Zarate MD Primary Care Provider [phone] Reason for Referral * Consultation (Urgent) - Authorized Specialty Diagnoses / Procedures Referred By Flory doyle Referred To Contact Pharmacy Diagnoses Type 2 diabetes mellitus with diabetic polyneuropathy, without long-term current use of insulin ([facility]) Jane Zarate MD [address] [place] [address] Phone: tel: fax: Referral ID Status Reason Start Date Expiration Date Visits Requested Visits Authorized [id number] Authorized Consult and Treat 08/28/2024 08/28/2025 6 6 Scheduling Instructions Worsening A1C. Gastroparesis, so GLP1 is the lowest dose. Restarted Actos. Stopped glipizide. On max metformin. Patient does not want to use insulin. * Imaging (Routine) - Authorized Specialty Diagnoses / Procedures Referred By Flory doyle Referred To Contact Radiology Diagnoses Epigastric mass Procedures US Abdomen Limited(Soft Tissue) Jane Zarate MD [address] [place] [address] Phone: tel: fax: [address] Phone: tel: fax: Referral ID Status Reason Start Date Expiration Date V isits Requested Visits Authorized [id number] Authorized 08/28/2024 08/28/2025 1 1 Encounter Details Date Type Department Care Team (Late st Contact Info) Description 08/24/2024 9:00 AM EST Office Visit [facility] [address] [place] [address] Jane Zarate MD [address] [place], [place] [phone] VANDANA (obstructive sleep apnea) (Primary Dx); Primary hypertension; DO (stress urinary incontinence, female); Recurrent urinary tract infection; Overactive bladder; Delayed gastric emptying; Type 2 diabetes mellitus with diabetic polyneuropathy, without long-term current use of insulin ([facility]); Dyslipidemia; Epigastric mass; Dietary counseling; Exercise counseling; Class 1 obesity due to excess calories with serious comorbidity and body mass index (BMI) of 31.0 to 31.9 in adult Social History Tobacco Use Types Packs/Day Years [...] AM EDT documented as of this encounter Last Filed Vital Signs Vital Sign Reading Time Taken Comments Blood Pressure 126/62 08/24/2024 9:24 AM EST Pulse 104 08/24/2024 9:07 AM EST Temperature 35.7 ??C (96.2 ??F) 08/24/2024 9:07 AM ES T Respiratory Rate 15 08/24/2024 9:07 AM EST Oxygen Saturation 99% 08/24/2024 9:07 AM EST Inhaled Oxygen Concentration - - Weight 83 kg (183 lb) 08/24/2024 9:07 AM EST Height - - Body Mass Index 31.34 05/10/2024 1:18 PM EDT documented in this encounter Progress Notes * Jane Zarate MD - 08/24/2024 9:00 AM EST Subjective Sylvia Nicole is a 64 y.o. female who has hypertension, diabetes mellitus type 2, and UI, and patient presents for follow up of chronic conditions. Background: Our last encounter was 05/10/2024. Due to worsening A1C, restarted glipizide. She stated she had a CT scan on 05/09/24 and has a follow up appointment with urologist. Interval history: She has been seeing [facility] dentist. We received a fax from her urologist that she missed appointment in June. Abd / pelvis CT scan on 05/09/24 Findings: Homogeneously calcified nodules at the lung bases are consistent with old granulomatous disease. Three-vessel coronary artery calcification is noted. The hepatic attenuation is diffusely diminished, consistent with fatty infiltration. This limits evaluation for masses. Cholecystectomy sequelae are noted. No evidence of biliary obstruction is seen. The unenhanced spleen, pancreas and adrenal glands are unremarkable. The kidneys are normal in position and size. No renal or ureteral calculi are identified and there is no hydronephrosis. Coarse stranding in the perinephric fat is unchanged, consistent with scarring. The minimally distended urinary bladder appears unremarkable. Mild atherosclerotic calcification of the abdominal aorta is noted. No aneurysm is seen. No developing lymphadenopathy is noted. There is no ascites. The uterus is absent. No evidence of bowel obstruction is seen. Appendectomy sequelae are noted. No abnormal perienteric or pericolonic fat stranding is seen. A small fat-containing periumbilical hernia is unchanged. A 4 x 1.6 x 5.4 cm lipoma is seen within the right anterolateral chest wall, unchanged. Lumbar spondylosis and degenerative disc disease is noted. There is a minimal, grade 1 degenerative anterolisthesis at L4-5, unchanged. Impression: 1. No evidence of urinary tract calculus or obstruction. 2. Decompressed urinary bladder. 3. Three-vessel coronary artery calcification. Today: Pt reports she has not been taking her type 2 diabetes medication because it causes her to have diarrhea. Pt also does not like the insulin injections because she feels like it leaves bumps on her skin and reports she feels good without the injection. Pt also noted her field adjuster told her to stop taking her insulin injections. Pt notes she only eats when she???s hungry and that???s not often. Pt says she will stop breathing while she's eating and feel like she???s choking but there???s no food in the way. Pt also notes shedoesn???t know what to do about her sugar being high, because her glucose will go up even when she eats a cabbage. Pt denies drinking juice or soda. Pt has agreed on decreasing her Trulicity dosage to try and help to reduce her nausea. Pt takes her BP at home once a week, but doesn't recall the numbers. She has agreed to start keeping a record as her measurements. Pt reports having a bump on her abdomen that is painful on palpation. Pt notes she gets cramps whenshe bends down. Review of Systems Constitutional: Negative for activity change, appetite change and fever. Respiratory: Negative for shortness of breath. Cardiovascular: Negative for chest pain. Objective Vitals: 08/24/24 0907 08/24/24 0924 BP: (!) 140/75 126/62 Pulse: 104 Resp: 15 Temp: 96.2 ??F (35.7 ??C) TempSrc: Temporal SpO2: 99% Weight: 183 lb (83 kg) Physical Exam Constitutional: General: She is not in acute distress. Appearance: Normal appearance. She is not ill-appearing. HENT: Head: Normocephalic and atraumatic. Mouth/Throat: Mouth: Mucous membranes are moist. Eyes: Extraocular Movements: Extraocular movements intact. Pupils: Pupils are equal, round, and reactive to light. Cardiovascular: Rate and Rhythm: Normal rate and regular rhythm. Pulses: Dorsalis pedis pulses are 2+ on the right side and 2+ on the left side. Posterior tibial pulses are 2+ on the right side and 2+ on the left side. Heart sounds: No murmur heard. Pulmonary: Effort: Pulmonary effort is normal. No respiratory distress. Breath sounds: Normal breath sounds. No wheezing or rhonchi. Musculoskeletal: Right foot: No deformity or Charcot foot. Left foot: No deformity or Charcot foot. Feet: Right foot: Protective Sensation: 4 sites tested. 4 sites sensed. Skin integrity: Skin integrity normal. No ulcer. Toenail Condition: Right toenails are normal. Left foot: Protective Sensation: 4 sites tested. 4 sites sensed. Skin integrity: Skin integrity normal. No ulcer. Toenail Condition: Left toenails are normal. Comments: Normal monofilament exam. Normal vibratory sensation by tuning fork test. Slightly decreased sensation in right foot compared to left. Spider veins. Skin: General: Skin is warm. Neurological: Mental Status: She is alert. Mental status is at baseline. Psychiatric: Mood and Affect: Mood normal. Result: Lab Results Component Value Date NA 140 03/25/2024 K 4.2 03/25/2024 CL 106 03/25/2024 CO2 26 03/25/2024 BUN 13 03/25/2024 CREATININE 0.68 03/25/2024 EGFR >60 03/25/2024 GLUCOSE 143 (H) 03/25/2024 TOTALBILIRUB 0.3 03/25/2024 AST 12 03/25/2024 ALT 17 03/25/2024 TOTPROTEIN 6.8 03/25/2024 ALB 4.1 03/25/2024 ALP 83 03/25/2024 Lab Results Component Value Date TRIG 131 03/25/2024 CHOL 164 03/25/2024 LDLCHOLCAL 81 03/25/2024 HDL 57 03/25/2024 Lab Results Component Value Date HGBA1C 9.5 (A) 08/24/2024 MICROALBUR 6.0 07/08/2023 CREATUR 66.16 07/08/2023 MICROALBCREU 9.0 07/08/2023 Lab Results Component Value Date WBC 5.0 08/24/2023 HGB 12.3 08/24/2023 HCT 38.1 08/24/2023 PLT 216 08/24/2023 MCV 93.6 08/24/2023 The 10-year ASCVD risk score (Júnior JUAREZ, et al., 2019) is: 10.5% Values used to calculate the score: Age: 64 years Sex: Female Is Non- : No Diabetic: Yes Tobacco smoker: No Systolic Blood Pressure: 124 mmHg Is BP treated: Yes HDL Cholesterol: 57 mg/dL Total Cholesterol: 164 mg/dL Screening and Health Care Maintenance: PHQ-2/9 Score: Patient Health Questionnaire-9 Score: 7 (05/10/2024 1:16 PM) Patient Health Questionnaire-2 Score: 2 (05/10/2024 1:16 PM) Thoughts that you would be better off or hurting yourself in some way: Not at all (05/10/2024 1:16 PM) PAYAL-7 Score: PAYAL-7 Total Score: 4 (05/10/2024 1:16 PM) Health Maintenance Due Topic Date Due COVID-19 Vaccine ( season) 2024 Diabetes: Urine Protein Screening 07/08/2024 Diabetes: Hemoglobin A1C 11/21/2024 Assessment/Plan Problem List Items Addressed This Visit Overactive bladder -Following with [facility], last seen in April 2024 -Tried mirabegron, which was ineffective -Continue oxybutynin XL 15 mg daily Dyslipidemia - last lipid profile 03/25/24 - current medication: pravastatin 40 mg at bedtime - previously tried atorvastatin, but self-discontinued due to side effect (myalgia, arthralgia) - continue working on lifestyle modification Hypertension - Goal BP < 140/90 per JNC-8 and < 130/80 (Tx threshold 130/80) per ACC/AHA guideline - Treatment Hx: Enalapril was started for renal protection, rather than hypertension - Continue current lifestyle modifications - Continue current medications: Enalapril 5 mg daily - Follow up in 3-6 mo, sooner if any problem arises VANDANA (obstructive sleep apnea) - Primary - sleep study in Apr 2023 did not show VANDANA. Dx PLMD. - patient has been using CPAP for many years - patient had another sleep study and has upcoming appointment with sleep medicine clinic Recurrent urinary tract infection -Following with [facility], last seen in April 2024 -UTI symptoms: urge, freq, dysuria. No heamturia or fever. -Most recent available culture Klebsiella pneumoniae in January 2023, treated with ciprofloxacin. -Treated with fosfomycin in April 2024. Patient is scheduled for CT scan to evaluate urinary tract abnormality. -Previously tried postcoital prophylaxis with nitrofurantoin, stopped due to heartburn; -metenamine [id number] initially effective, developed multiple breakthrough UTI -Restarted methenamine bid in January 2022 with good result (with cranberry tablet) initially, but shestarted having breakthrough UTIs. -Continue cephalexin 250 mg after sex -Continue estrace cream twice a week -Last US in November 2021 no stone, hydronephrosis -Last cystoscopy in January 2022, normal Type 2 diabetes mellitus ([facility]/H[facility]) HgbA1C 9.6% on 08/24/24, 8.0% on 05/10/24 [...] diabetes care guideline. Last eye exam: 03/08/24, [facility]. No diabetic retinopathy Last foot exam: 08/24/24 right foot sensation is decreased compared to left side. Ingrown toenails. Last microalbumin test: Jun 2023 no microalbuminuria Last lipid profile: 03/25/24 Last dental exam: Discussed regular dental care. Relevant Medications Dulaglutide (Trulicity) 0.75 MG/0.5ML solution auto-injector Other Relevant Orders POCT glucose manually resulted (Completed) POCT glycosylated hemoglobin (Hgb A1c) (Completed) Referral to Pharmacy CDTM DO (stress urinary incontinence, female) -Following with [facility], last seen on April 2024 -Mid-urethral sling in May 2022 Delayed gastric emptying - Gastric emptying study on 10/05/23 showed moderately severe food retention in stomach, > 50% after 4 hours in a setting of GLP-1 RA for diabetes mellitus - discontinued GLP-1 RA in October 2023, restarted in January 2024 at lower dose. Continue current treatment with caution. Epigastric mass - US evaluation for characterization Relevant Orders US Abdomen Limited(Soft Tissue) Other Visit Diagnoses Dietary counseling Exercise counseling Class 1 obesity due to excess calories with serious comorbidity and body mass index (BMI) of 31.0 to 31.9 in adult Allergies Allergen Reactions Macrobid [Nitrofurantoin] Rash Current Outpatient Medications Medication Instructions Blood Glucose Monitoring Suppl (FreeStyle Lite) w/Device kit Does not apply, Check by fingerstick route once Blood Pressure Monitor kit Does not apply buPROPion SR (Wellbutrin SR) 200 MG 12 hr tablet TAKE 1 TABLET BY MOUTH TWICE A DAY cephalexin (KEFLEX) 250 mg, Oral, Daily PRN chlorhexidine (Peridex) 0.12 % solution 15 mL, Mouth/Throat, As needed chlorhexidine (Peridex) 0.12 % solution 15 mL, Mouth/Throat, As needed cholecalciferol (Vitamin D-3) 25 MCG (1000 UT) capsule TAKE 1 CAPSULE BY MOUTH EVERY DAY enalapril (Vasotec) 5 MG tablet TAKE 1 TABLET (5MG) BY ORAL ROUTE EVERY DAY estradiol (Estrace) 0.1 MG/GM vaginal cream No dose, route, or frequency recorded. FreeStyle lancets 1 each, Other, As needed, Check BG once or twice daily glucose blood (FREESTYLE LITE) test strip Check BG once or twice daily loratadine (Claritin) 10 MG tablet TAKE 1 TABLET BY MOUTH ONCE A DAY NEEDED metFORMIN XR (Glucophage-XR) 500 MG 24 hr tablet TAKE 2 TABLETS BY MOUTH TWICE A DAY WITH MORNING AND EVENING MEAL oxybutynin XL (Ditropan-XL) 15 MG 24 hr tablet 1 tablet, Oral, Daily pantoprazole (PROTONIX) 40 mg, Oral, Daily before breakfast pioglitazone (ACTOS) 15 mg, Oral, Daily pravastatin (PRAVACHOL) 40 mg, Oral, Nightly Probiotic, Lactobacillus, capsule No dose, route, or frequency recorded. Trulicity 0.75 mg, Subcutaneous, Weekly Follow-up: 3 months for DM or sooner if any problem arises. Scribe Attestation: IMónica, am serving as a scribe to document services personally performed by Jane Zarate MD, based on the patient's response to questions by provider and provides statements to me. documented in this encounter Miscellaneous Notes * Assessment & Plan Note - Mónica Vargas MA - 08/24/2024 12:52 PM EST Associated Problem(s): Dyslipidemia - last lipid profile 03/25/24 - current medication: pravastatin 40 mg at bedtime - previously tried atorvastatin, but self-discontinued due to side effect (myalgia, arthralgia) - continue working on lifestyle modification * Assessment & Plan Note - Mónica Vargas MA - 08/24/2024 12:51 PM EST Associated Problem(s): DO (stress urinary incontinence, female) -Following with [facility], last seen on April 2024 -Mid-urethral sling in May 2022 * Assessment & Plan Note - Mónica Vargas MA - 08/24/2024 12:51 PM EST Associated Problem(s): Recurrent urinary tract infection -Following with [facility], last seen in April 2024 -UTI symptoms: urge, freq, dysuria. No heamturia or fever. -Most recent available culture Klebsiella pneumoniae in January 2023, treated with ciprofloxacin. -Treated with fosfomycin in April 2024. Patient is scheduled for CT scan to evaluate urinary tract abnormality. -Previously tried postcoital prophylaxis with nitrofurantoin, stopped due to heartburn; -metenamine [id number] initially effective, developed multiple breakthrough UTI -Restarted methenamine bid in January 2022 with good result (with cranberry tablet) initially, but shestarted having breakthrough UTIs. -Continue cephalexin 250 mg after sex -Continue estrace cream twice a week -Last US in November 2021 no stone, hydronephrosis -Last cystoscopy in January 2022, normal * Assessment & Plan Note - Mónica Vargas MA - 08/24/2024 12:51 PM EST Associated Problem(s): Overactive bladder -Following with [facility], last seen in April 2024 -Tried mirabegron, which was ineffective -Continue oxybutynin XL 15 mg daily * Assessment & Plan Note - Mónica Vargas MA - 08/24/2024 12:51 PM EST Associated Problem(s): Delayed gastric emptying - Gastric emptying study on 10/05/23 showed moderately severe food retention in stomach, > 50% after 4 hours in a setting of GLP-1 RA for diabetes mellitus - discontinued GLP-1 RA in October 2023, restarted in January 2024 at lower dose. Continue current treatment with caution. * Assessment & Plan Note - Mónica Vargas MA - 08/24/2024 12:51 PM EST Associated Problem(s): Hypertension - Goal BP < 140/90 per JNC-8 and < 130/80 (Tx threshold 130/80) per ACC/AHA guideline - Treatment Hx: Enalapril was started for renal protection, rather than hypertension - Continue current lifestyle modifications - Continue current medications: Enalapril 5 mg daily - Follow up in 3-6 mo, sooner if any problem arises * Assessment & Plan Note - Mónica Vargas MA - 08/24/2024 12:50 PM EST Associated Problem(s): VANDANA (obstructive sleep apnea) - sleep study in Apr 2023 did not show VANDANA. Dx PLMD. - patient has been using CPAP for many years - patient had another sleep study and has upcoming appointment with sleep medicine clinic * Assessment & Plan Note - Mónica Vargas MA - 08/24/2024 9:38 AM ESTAssociated Problem(s): Epigastric mass - US evaluation for characterization * Assessment & Plan Note - Mónica Vargas MA - 08/24/2024 9:12 AM ESTAssociated Problem(s): Type 2 diabetes mellitus (CMS/HCC) HgbA1C 9.6% on 08/24/24, 8.0% on 05/10/24 [...] diabetes care guideline. Last eye exam: 03/08/24, [facility]. No diabetic retinopathy Last foot exam: 08/24/24 right foot sensation is decreased compared to left side. Ingrown toenails. Last microalbumin test: Jun 2023 no microalbuminuria Last lipid profile: 03/25/24 Last dental exam: Discussed regular dental care. documented in this encounter Plan of Treatment Upcoming Encounters Date Type Department Care Team (Late st Contact Info) Description 11/22/2024 3:15 PM EDT Office Visit [facility] [address] [place] [address] Jane Zarate MD [address] [place] [phone] 11/23/2024 9:00 AM EDT Office Visit [facility] [address] [place] [address] Yane Joseph [address] [place] [address] Scheduled Orders Name Type Priority Associated Diagnoses Orde r Schedule US Abdomen Limited(Soft Tissue) Imaging Routine Epigastric mass Expected: 08/28/2024, Expires: 08/28/2025 Scheduled Referrals Name Type Priority Associated Diagnoses Orde r Schedule Referral to Pharmacy CDTM Outpatient Referral Urgent Type 2 diabetes mellitus with diabetic polyneuropathy, without long-term current use of insulin ([facility]) Ordered: 08/28/2024 documented as of this encounter Procedures Procedure Name Priority Date/Time Associated Diagnosis Comments POCT GLYCOSYLATED HEMOGLOBIN (HGB A1C) Routine 08/24/2024 9:08 AM EST Type 2 diabetes mellitus with diabetic polyneuropathy, without long-term current use of insulin ([facility]) POCT GLUCOSE Routine 08/24/2024 9:07 AM EST Type 2 diabetes mellitus with diabetic polyneuropathy, without long-term current use of insulin ([facility]) documented in this encounter Results * (ABNORMAL) POCT glycosylated hemoglobin (Hgb [...] Media Lot # [id number] Lot# Expiration Date ,025 Blood Capillary blood specimen / Unknown 08/24/2024 9:07 AM EST us Jane Zarate MD POINT OF CARE TEST ENTER/EDIT OR DERABLES Edited Result - Final documented in this encounter Visit Diagnoses Diagnosis VANDANA (obstructive sleep apnea)- Primary Obstructive sleep apnea (adult) (pediatric) Primary hypertension Unspecified essential hypertension DO (stress urinary incontinence, female) Recurrent urinary tract infection Urinary tract infection, site not specified Overactive bladder Hypertonicity of bladder Delayed gastric emptying Dyspepsia and other specified disorders of function of stomach Type 2 diabetes mellitus with diabetic polyneuropathy, without long-term current use of insulin ([facility]) Dyslipidemia Other and unspecified hyperlipidemia Epigastric mass Abdominal or pelvic swelling, mass, or lump, epigastric Dietary counseling Dietary surveillance and counseling Exercise counseling Class 1 obesity due to excess calories with serious comorbidity and body mass index (BMI) of 31.0 to 31.9 in adult documented in this encounter Additional Health Concerns Assessment Noted Time PHQ-9 Depression Total Score: 7 05/10/20 24 1:16 PM EDT documented as of this encounter Care Teams Dish Network Installer Relationship Specialty Start Date End Date Jane Zarate MD [address] [place] [phone] PCP - General Family Medicine 06/24/12 documented as of this encounter
--- OUTSIDE RECORDS SUMMARY | 2024-09-19 09:03 | XMS_ITS | Encounter Summary ---
Author Organization [employer] [facility] Address [address] [place] [address] 7 [place] [address] Care Team Providers Care Manager Camp Name Role Phone Jane Zarate MD Primary Care Provider [phone] Encounter Details Date Type Department Care Team (Late st Contact Info) Description 03/31/2023 Abstract [facility] [address] [place] [phone] Jane Zarate MD [address] [place] [phone] Social History Tobacco Use Types Packs/Day Years [...] Description 11/22/2024 3:15 PM EDT Office Visit [facility] [address] [place] [address] [phone] Jane Zarate MD [address] [place] [phone] 11/23/2024 9:00 AM EDT Office Visit [facility] [address] [place], [place] [phone] Yane Joseph [address] [place], [place] [phone] documented as of this encounter Procedures Procedure Name Priority Date/Time Associated Diagnosis Comments HM COLONOSCOPY Routine 01/21/2022 documented in this encounter Results * Hm Colonoscopy (01/21/2022) Colonoscopy Normal Normal us Lion Bernal MD HEALTH MAINTENANCE Edited Resul t - Final documented in this encounter Visit Diagnoses Not on filedocumented in this encounter Additional Health Concerns Assessment Noted Time PHQ-9 Depression Total Score: 9 06/30/20 22 3:13 PM EST documented as of this encounter Care Teams Manager Camp Relationship Specialty Start Date End Date Jane Zarate MD [address] [place] [phone] PCP - General Family Medicine 06/24/12 documented as of this encounter
--- OUTSIDE RECORDS SUMMARY | 2024-09-19 09:03 | XMS_ITS | Encounter Summary ---
Author Organization [employer] Address [address] [facility] 7 [place] [address] Care Team Providers Care Automobile Club Information Clerk Name Role Phone Jane Zarate MD Primary Care Provider [phone] Reason for Visit * Reason Onset Date Comments Nurse Triage 07/04/2024 Encounter Details Date Type Department Care Team ([facility] st Contact Info) Description 07/04/2024 Telephone [facility] MEDICINE 230 [place], [place] [phone] Jane Zarate MD 230 [place], [place] [phone] Nurse Triage Social History Tobacco Use Types Packs/Day Years [...] encounter Miscellaneous Notes * Telephone Encounter - Caren Jose RN - 07/04/2024 11:31 AM EST Triage call Pt describes several episodes, the last being 07/03/24, where Pt stops breathing, has awhistle kind of sound , then needs assist to stand up and someone pushes on Pt stomach to initiate breathing again. Pt denies cough, KEVEN sx. Neg for fever. Pt is advised to seek evaluation at [facility]. Pt agrees with disposition and will follow up once evaluated. Protocol Used: Breathing Difficulty (Adult) Protocol-Based Disposition: Go to Office or Video Visit Now Video visit not offered Positive Triage Question: * Patient wants to be seen * All higher-acuity triage questions were negative Care Advice Discussed: * Reasons To Call Back - Severe difficulty breathing occurs - Fever more than 100.4 F (38.0 C) - You become worse * Telephone Encounter - Brianna Beltran - 07/04/2024 11:20 AM EST Symptom: Breathing Trouble Outcome: Schedule an urgent appointment (within 1 hour) or talk to a nurse or provider soon Reason: Caller denied all higher acuity questions The caller accepted this outcome. documented in this encounter Plan of Treatment Upcoming Encounters Date Type Department Care Team (Late st Contact Info) Description 11/22/2024 3:15 PM EDT Office Visit [facility] MEDICINE 230 [place], [place] [phone] Jane Zarate MD 230 [place], [place] [phone] 11/23/2024 9:00 AM EDT Office Visit [facility] [address] [place], [place] [phone] Yane Joseph 91 [place], [place] [phone] documented as of this encounter Visit Diagnoses Not on filedocumented in this encounter Additional Health Concerns Assessment Noted Time PHQ-9 Depression Total Score: 7 05/10/20 24 1:16 PM EDT documented as of this encounter Care Teams Automobile Club Information Clerk Relationship Specialty Start Date End Date Jane Zarate MD [address] [place] [address] [phone] PCP - General Family Medicine 06/24/12 documented as of this encounter
--- OUTSIDE RECORDS SUMMARY | 2024-09-19 09:03 | XMS_ITS | Encounter Summary ---
Author Organization [facility] Address [address] [place] [address] 7 [place] [address] Care Team Providers Care Gas Plant Worker Name Role Phone Jane Zarate MD Primary Care Provider [phone] Encounter Details Date Type Department Care Team ([facility] Contact Info) Description 01/19/2023 Orders Only [facility] MEDICINE 230 [place], [place] [phone] Jane Zarate MD 230 [place] [address] Degenerative disc disease, cervical (Primary Dx); VANDANA (obstructive sleep apnea) Social History Tobacco Use Types Packs/Day Years [...] suspected to have Coronavirus/COVID-19? No / Unsure 01/19/2023 1:59 PM EDT documented as of this encounter Plan of Treatment Upcoming Encounters Date Type Department Care Team ([facility] Contact Info) Description 11/22/2024 3:15 PM EDT Office Visit [facility] MEDICINE [address] [place] [address] Jane Zarate MD [address] [place] [address] 11/23/2024 9:00 AM EDT Office Visit [facility] DENTAL 91 [place], [place] [phone] Yane Joseph 91 [place], [place] [phone] documented as of this encounter Visit Diagnoses Diagnosis Degenerative disc disease, cervical- Primary VANDANA (obstructive sleep apnea) Obstructive sleep apnea (adult) (pediatric) documented in this encounter Additional Health Concerns Assessment Noted Time PHQ-9 Depression Total Score: 9 06/30/20 22 3:13 PM EST documented as of this encounter Care Teams Gas Plant Worker Relationship Specialty Start Date End Date Jane Zarate MD 230 [place] [address] PCP - General Family Medicine 06/24/12 documented as of this encounter
--- OUTSIDE RECORDS SUMMARY | 2024-09-19 09:03 | XMS_ITS | Encounter Summary ---
Author Organization [employer] Address [address] [place] [address] 7 [place] [address] Care Team Providers Care Ed Teacher Name Role Phone Jane Zarate MD Primary Care Provider [phone] Reason for Visit * Reason Comments Scaling And Root Planing Encounter Details Date Type Department Care Team ([facility] st Contact Info) Description 08/25/2024 8:00 AM EST Office Visit [facility] DENTAL 91 [place], [place] [phone] Yane Joseph 91 [place], [place] [phone] Social History Tobacco Use Types Packs/Day Years [...] Pulse 83 08/25/2024 8:01 AM EST Temperature - - Respiratory Rate - - Oxygen Saturation - - Inhaled Oxygen Concentration - - Weight - - Height - - Body Mass Index - - documented in this encounter Progress Notes * Yane Joseph - 08/25/2024 8:00 AM EST Patient ID: Sylvia Nicole is a 64 y.o. female. Time Out: Date: 08/25/2024 Location: [facility] Tooth: UR and LR Procedure: Scaling and Root Planing Verified the above with patient, bus assistant, and provider. Confirmed via patient's chart, intraorally and by radiographs. Assistant Corporate Secretary: not applicable Treatment Provided Dental procedures in this visit D4342 - PERIODONTAL SCALING AND ROOT PLANING - 1 TO 3 TEETH PER QUADRANT UR (Completed) Service provider: Yane Joseph Billdennis provider: Damian Gamble BDS D4342 - PERIODONTAL SCALING AND ROOT PLANING - 1 TO 3 TEETH PER QUADRANT LR (Completed) Service provider: Yane Joseph Billdennis provider: Damian Gamble BDS D9450 - CASE PRESENTATION, DETAILED AND EXTENSIVE TREATMENT PLANNING (Completed) Service provider: Yane Joseph Billing provider: Damian Gamble BDS Instruments Used: Ultrasonic Scalers, Hand Scalers, and Prophy angle Calculus: Light Plaque: Light Stain: Light Bleeding: Moderate Gingiva: inflamed OH: Fair OCS: trauma L side palate, see photo Pt stated no pain. May have burned tissue, pt unsure HNE: neg findings Oral hygiene instructions provided to patient including brushing technique and flossing. Recommendations: Floss daily, Chlorhexidine Recall Frequency: 3 mo NV: Hygienist: Yane Joseph RDH Cosigned by Damian Gamble BDS at 08/25/2024 5:21 PM EST documented in this encounter Miscellaneous Notes * Addendum Note - Damian Gamble BDS - 08/25/2024 8:00 AM ESTAddended by: DAMIAN GAMBLE on: 08/25/2024 05:22 PM Modules accepted: Orders documented in this encounter Plan of Treatment Upcoming Encounters Date Type Department Care Team (Late st Contact Info) Description 11/22/2024 3:15 PM EDT Office Visit [facility] MEDICINE 230 [place] [address] Jane Zarate MD 230 [place] [address] 11/23/2024 9:00 AM EDT Office Visit [facility] [address] [place] [address] [phone] Yane Joseph [address] [place] [address] [phone] documented as of this encounter Procedures Procedure Name Priority Date/Time Associated Diagnosis Comments LR PERIODONTAL SCALING AND ROOT PLANING - 1 TO 3 TEETH PER QUADRANT Routine 08/25/2024 8:00 AM EST UR PERIODONTAL SCALING AND ROOT PLANING - 1 TO 3 TEETH PER QUADRANT Routine 08/25/2024 8:00 AM EST CASE PRESENTATION, DETAILED AND EXTENSIVE TREATMENT PLANNING Routine 08/25/2024 8:00 AM EST documented in this encounter Visit Diagnoses Not on filedocumented in this encounter Additional Health Concerns Assessment Noted Time PHQ-9 Depression Total Score: 7 05/10/20 24 1:16 PM EDT documented as of this encounter Care Teams Ed Teacher Relationship Specialty Start Date End Date Jane Zarate MD [address] [place] [phone] PCP - General Family Medicine 06/24/12 documented as of this encounter
--- OUTSIDE RECORDS SUMMARY | 2024-09-19 09:03 | XMS_ITS | Encounter Summary ---
Author Organization [employer] Address [address] [facility] 7 [place] [address] Care Team Providers Care Meat Puller Name Role Phone Jane Zarate MD Primary Care Provider [phone] Reason for Visit * Reason Comments Med Refill Encounter Details Date Type Department Care Team ([facility] st Contact Info) Description 08/22/2024 Refill [facility] MEDICINE 230 [place], [place] [phone] Jane Zarate MD 230 [place] [address] Social History Tobacco Use Types Packs/Day Years [...] Description 11/22/2024 3:15 PM EDT Office Visit [facility] MEDICINE [address] [place] [phone] Jane Zarate MD [address] [place] [address] 11/23/2024 9:00 AM EDT Office Visit [facility] [address] [place] [address] [phone] Yane Joseph 91 [place], [place] [phone] documented as of this encounter Visit Diagnoses Not on filedocumented in this encounter Additional Health Concerns Assessment Noted Time PHQ-9 Depression Total Score: 7 05/10/20 24 1:16 PM EDT documented as of this encounter Care Teams Meat Puller Relationship Specialty Start Date End Date Jane Zarate MD [address] [place] [phone] PCP - General Family Medicine 06/24/12 documented as of this encounter
--- OUTSIDE RECORDS SUMMARY | 2024-09-19 09:03 | XMS_ITS | Encounter Summary ---
Author Organization [employer] [facility] Address [address] [place] [address], [place] [address] Care Team Providers Care Broth Setter Name Role Phone Jane Zarate MD Primary Care Provider [phone] Encounter Details Date Type Department Care Team ([facility] Contact Info) Description 09/05/2022 Abstract [facility] MEDICINE [address] [place] [phone] ProviderBaltazar MD Social History Tobacco Use Types Packs/Day Years [...] Encounters Date Type Department Care Team (Late Contact Info) Description 11/22/2024 3:15 PM EDT Office Visit [facility] MEDICINE [address] [place] [address] Jane Zarate MD 230 [place] [address] 11/23/2024 9:00 AM EDT Office Visit [facility] [address] [place] [address] aYne Joseph [address] [place] [address] documented as of this encounter Visit Diagnoses Not on filedocumented in this encounter Additional Health Concerns Assessment Noted Time PHQ-9 Depression Total Score: 9 06/30/20 22 3:13 PM EST documented as of this encounter Care Teams Broth Setter Relationship Specialty Start Date End Date Jane Zarate MD [address] [place] [address] PCP - General Family Medicine 06/24/12 documented as of this encounter
--- OUTSIDE RECORDS SUMMARY | 2024-09-19 09:03 | XMS_ITS | Encounter Summary ---
Author Organization [employer] [facility] Address [address] [place] [address] 7[place] [address] Care Team Providers Care Parking Lot Supervisor Name Role Phone Jane Zarate MD Primary Care Provider [phone] Reason for Visit * Reason Comments Med Refill Encounter Details Date Type Department Care Team (Late Contact Info) Description 09/20/2022 Refill [facility] MEDICINE [address] [place] [address] [phone] Jane Zarate MD [address] [place] [address] [phone] Gastroesophageal reflux disease, unspecified whether esophagitis present Social History Tobacco Use Types Packs/Day Years [...] Upcoming Encounters Date Type Department Care Team ([facility] Contact Info) Description 11/22/2024 3:15 PM EDT Office Visit [facility] MEDICINE [address] [place] [address] [phone] Jane Zarate MD [address] [place] [address] [phone] 11/23/2024 9:00 AM EDT Office Visit [facility] DENTAL 91 [place], [place] [phone] Yane Joseph 91 [place], [place] [phone] documented as of this encounter Visit Diagnoses Diagnosis Gastroesophageal reflux disease, unspecified whether esophagitis present documented in this encounter Additional Health Concerns Assessment Noted Time PHQ-9 Depression Total Score: 9 06/30/20 22 3:13 PM EST documented as of this encounter Care Teams Parking Lot Supervisor Relationship Specialty Start Date End Date Jane Zarate MD [address] [place] [address] PCP - General Family Medicine 06/24/12 documented as of this encounter
--- OUTSIDE RECORDS SUMMARY | 2024-09-19 09:03 | XMS_ITS | Encounter Summary ---
Author Organization [facility] Address [address] [place] [address] 7 [place] [address] Care Team Providers Care Hoisting Machine Operator Name Role Phone Jane Zarate MD Primary Care Provider [phone] Encounter Details Date Type Department Care Team (Late Contact Info) Description 09/17/2022 Orders Only [facility] MEDICINE [address] [place] [address] [phone] Jane Zarate MD [address] [place] [address] [phone] Asymmetrical sensorineural hearing loss (Primary Dx) Social History Tobacco Use Types Packs/Day Years [...] Description 11/22/2024 3:15 PM EDT Office Visit [facility] MEDICINE [address] [place] [address] [phone] Jane Zarate MD [address] [place] [address] [phone] 11/23/2024 9:00 AM EDT Office Visit [facility] 91 [place], [place] [phone] Yane Joseph 91 [place], [place] [phone] documented as of this encounter Visit Diagnoses Diagnosis Asymmetrical sensorineural hearing loss- Primary Sensorineural hearing loss, asymmetrical documented in this encounter Additional Health Concerns Assessment Noted Time PHQ-9 Depression Total Score: 9 06/30/20 22 3:13 PM EST documented as of this encounter Care Teams Hoisting Machine Operator Relationship Specialty Start Date End Date Jane Zarate MD 230 [place] [address] PCP - General Family Medicine 06/24/12 documented as of this encounter
== END 2024-09-19 08:42 | disposition home or self-care (01) ==
LOC: HO.HMGCX 08:41
PROVIDERS: PCP Family Medicine; Visit Provider Family Medicine
DX: R19.06 Epigastric swelling, mass or lump (principal)
CPT/HCPCS: 76705

== ENCOUNTER → 2024-09-19 08:53 | Outpatient (BNV) | payer OTHER, SELFPAY | PROVIDERS: PCP Family Medicine; Visit Provider Nuclear Medicine | DX: R19.06 Epigastric swelling, mass or lump (principal) | CPT/HCPCS: 76705 ==

== ENCOUNTER 2024-10-21 08:54 | Outpatient (REF) | payer OTHER, SELFPAY ==
--- OUTSIDE RECORDS SUMMARY | 2024-10-21 09:08 | XMS_ITS | Encounter Summary ---
Author Organization [employer] [facility] Address [address] [place] [address] 7[place], [place] [address] Care Team Providers Care Domestic Cleaner Name Role Phone Jane Zarate MD Primary Care Provider [phone] Mikey Johnson PharmD Unavailable [phone] Encounter Details Date Type Department Care Team (Late st Contact Info) Description 06/12/2022 Telephone [facility] MEDICINE [address] [place] [address] Jane Zarate MD [address] [place] [address] Social History Tobacco Use Types Packs/Day Years [...] Care Team (Late st Contact Info) Description 11/14/2024 3:30 PM EDT Medication Management [facility] MEDICINE [address] [place] [address] Mikey Johnson, PharmD [address] [place] [address] 11/22/2024 3:15 PM EDT Office Visit [facility] MEDICINE [address] [place] [phone] Jane Zartae MD 230 [place] [address] 11/23/2024 9:00 AM EDT Office Visit [facility] D[facility]AL 91 [place], [place] [phone] Yane Joseph 91 [place], [place] [phone] documented as of this encounter Visit Diagnoses Not on filedocumented in this encounter Care Teams Domestic Cleaner Relationship Specialty Start Date End Date Jane Zarate MD 230 [place] [address] PCP - General Family Medicine 06/24/12 Mikey Johnson, FarhanaD [address] [place] [phone] Pharmacist Internal Medicine 10/17/24 documented as of this encounter
--- OUTSIDE RECORDS SUMMARY | 2024-10-21 09:08 | XMS_ITS | Encounter Summary ---
Author Organization [employer] [facility] Address [address] [place] [address] 7 [place] [address] Care Team Providers Care Cuffer Name Role Phone Jane Zarate MD Primary Care Provider [phone] Mikey Johnson PharmD Unavailable [phone] Encounter Details Date Type Department Care Team (Latest Contact Info) Description 09/09/2021 Abstract [facility] CONVERSIONS Dental, Provider, DDS Social History [...] Care Team ( st Contact Info) Description 11/14/2024 3:30 PM EDT Medication Management [facility] MEDICINE [address] [place] [phone] Mikey Johnson, PharmD 230 [place] [address] 11/22/2024 3:15 PM EDT Office Visit [facility] MEDICINE [address] [place] [address] Jane Zarate MD 230 [place] [address] 11/23/2024 9:00 AM EDT Office Visit [facility] DENTAL 91 [place], [place] [phone] Yane Joseph 91 [place], [place] [phone] documented as of this encounter Visit Diagnoses Not on filedocumented in this encounter Care Teams Cuffer Relationship Specialty Start Date End Date Jane Zarate MD 230 [place], [place] [phone] PCP - General Family Medicine 06/24/12 Mikey Johnson, FarhanaD 230 [place], [place] [phone] Pharmacist Internal Medicine 10/17/24 documented as of this encounter
--- OUTSIDE RECORDS SUMMARY | 2024-10-21 09:08 | XMS_ITS | Encounter Summary ---
Author Organization [employer] [facility] Address [address] [place] [address] 7 [place] [address] Care Team Providers Care Assessment Specialist Name Role Phone Jane Zarate MD Primary Care Provider [phone] Mikey Johnson PharmD Unavailable [phone] Encounter Details Date Type Department Care Team ([facility] Contact Info) Description 06/27/2022 Orders Only [facility] MEDICINE [address] [place] [address] [phone] Rosalind Suarez, RN Social History Tobacco Use [...] Upcoming Encounters Date Type Department Care Team ([facility] Contact Info) Description 11/14/2024 3:30 PM EDT Medication Management [facility] MEDICINE 230 [facility], [place] [phone] Mikey Johnson, PharmD 230 [place] [address] 11/22/2024 3:15 PM EDT Office Visit [facility] MEDICINE [address] [place] [phone] Jane Zarate MD [address] [place] [address] 11/23/2024 9:00 AM EDT Office Visit [facility] DENTAL [address] [place] [address] [phone] Yane Joseph 91 [place], [place] [phone] documented as of this encounter Visit Diagnoses Not on filedocumented in this encounter Care Teams Assessment Specialist Relationship Specialty Start Date End Date Jane Zarate MD [address] [place] [address] PCP - General Family Medicine 06/24/12 Mikey Johnson, PharmD [address] [place] [address] Pharmacist Internal Medicine 10/17/24 documented as of this encounter
--- OUTSIDE RECORDS SUMMARY | 2024-10-21 09:08 | XMS_ITS | Encounter Summary ---
Author Organization [employer] [facility] Address [address] [place] [address] 7 [place] [address] Care Team Providers Care Reed Repairer Name Role Phone Jane Zarate MD Primary Care Provider [phone] Mikey Johnson PharmD Unavailable [phone] Encounter Details Date Type Department Care Team (Latest Contact Info) Description 07/25/2019 Abstract [facility] CONVERSIONS Dental, Provider, DDS Social History Tobacco [...] Description 11/14/2024 3:30 PM EDT Medication Management [facility] MEDICINE [address] [place] [address] Mikey Johnson, PharmD 230 [place] [address] 11/22/2024 3:15 PM EDT Office Visit [facility] MEDICINE [address] [place] [address] Jane Zarate MD 230 [place] [address] 11/23/2024 9:00 AM EDT Office Visit [facility] 91 [place], [place] [phone] Yane Joseph 91 [place], [place] [phone] documented as of this encounter Visit Diagnoses Not on filedocumented in this encounter Care Teams Reed Repairer Relationship Specialty Start Date End Date Jane Zarate MD 230 [place], [place] [phone] PCP - General Family Medicine 06/24/12 Mikey Johnson, FarhanaD 230 [place], [place] [phone] Pharmacist Internal Medicine 10/17/24 documented as of this encounter
--- OUTSIDE RECORDS SUMMARY | 2024-10-21 09:09 | XMS_ITS | Clinical Summary ---
Author Organization [facility] Address [address] [place] [address] Phone Care Team Providers Care Field Care Coordinator Name Role Phone Physician, No Pcp Primary Care Provider Unavaila ble Encounters Date Type Department Care Team Description 10/04/2024 Lab Requisition [facility] - Main Lab [address] [facility] [place] [id number] Lennie Qiu NP Frequency of micturition from Last 3 Months Surgical History Surgery Date Site/Laterality Comments OTHER SURGICAL HISTORY 11/01/2020 N/A PROCEDURE: [place] LAPAROSCOPIC APPENDECTOMY; COMMENT: By Dr. Perico Pressley [facility] HYSTERECTOMY 04/16/1999 PROCEDURE: HISTORICAL HYSTERECTOMY; COMMENT: with oopherectomy CHOLECYSTECTOMY 10/03/2009 PROCEDURE: HISTORICAL CHOLECYSTECTOMY; COMMENT: with Dr. Bueno TONSILLECTOMY PROCEDURE: HISTORICAL TONSILLECTOMY Medical History Medical History Date Comments Obstructive sleep apnea of adult DX:Obstructive sleep apnea of adult Eczema DX:Eczema Anxiety and depression DX:Anxiet y and depression Diabetes mellitus, type 2 (C MS/HCC V24, CMS/HCC V28) DX:Diabetes mellitus, type 2 (HCC) Dyslipidemia DX:Dyslipidemia [...] Tdap) 07/07/2033 07/07/2023, 06/01/2013, 01/03/1999 RSV Immunization Adult Patients (1 - 1-dose 75+ series) 2035 Hepatitis A Vaccines Aged Out 06/20/2014, 06/23/20 No longer eligible based on patient's age [...] age to complete this topic Meningococcal B Vaccine Aged Out No l onger eligible based on patient's age to complete this topic RSV Immunization Patients Under 20 months Aged Out No longer eligible based on patient's age to complete this topic Varicella Vaccines Aged Out No longer eligible based on patient's age to complete this topic Procedures Procedure Name Priority Date/Time Associated Diagnosis Comments BACTERIAL IDENTIFICATION AND SUSCEPTIBILITY, AEROBIC Routine 10/03/2024 12:00 AM EDT Frequency of micturition from Last 3 Months Results * (ABNORMAL) Bacterial identification and susceptibility, aerobic (10/03/2024 12:00 AM EDT) Pathologist [facility] Culture, Bacterial ID and Sensitivity Escherichia coli(A) WILLIAM 10/05/2024 10:25 AM EDT [facility] Other Urine specimen from urethra / Unknown 10/03/2024 10/04/2024 9:40 AM EDT Narrative Organism Antibiotic Method Susceptibility Escherichia coli Amoxicillin/Clavulanate WILLIAM <=2 ug/ml: Susceptible Escherichia coli Ampicillin/Sulbactam WILLIAM <=2 ug/ml: Susceptible Escherichia coli Piperacillin/Tazobactam WILLIAM <=4 ug/ml: Susceptible Escherichia coli Cefazolin (Urine) WILLIAM <=1 ug/ml: Susceptible Escherichia coli Cefoxitin WILLIAM <=4 ug/ml: Susceptible Escherichia coli Ceftazidime WILLIAM <=0.5 ug/ml: Susceptible Escherichia coli Ceftriaxone WILLIAM <=0.25 ug/ml: Susceptible Escherichia coli Cefepime WILLIAM <=0.12 ug/ml: Susceptible Escherichia coli Meropenem WILLIAM <=0.25 ug/ml: Susceptible Escherichia coli Amikacin WILLIAM 2 ug/ml: Susceptible Escherichia coli Gentamicin WILLIAM <=1 ug/ml: Susceptible Escherichia coli Ciprofloxacin WILLIAM <=0.06 ug/ml: Susceptible Escherichia coli Levofloxacin WILLIAM <=0.12 ug/ml: Susceptible Escherichia coli Nitrofurantoin WILLIAM 32 ug/ml: Susceptible Escherichia coli Trimethoprim/Sulfamethoxazole WILLIAM <=20 ug/ml: Susceptible us Lennie Qiu INFORMATION DIRECTOR LAB MICROBIOLOGY - GENERA L ORDERABLES Final Result [facility] LAB [address] [place] [address], [place] [phone] from Last 3 Months Insurance MEDICAID - [place] [facility] [employer] PLAN Advance Directives Documents on File Type Date Recorded Patient Plate Stacker Hand Expl anation Health Care Decision (hx) 10/27/2016 AD ARNOLD DIRECTIVE Health Care Decision (hx) 10/27/2016 AD ARNOLD DIRECTIVE Health Care Decision (hx) 10/27/2016 AD ARNOLD DIRECTIVE Health Care Decision (hx) 10/27/2016 AD ARNOLD DIRECTIVE Health Care Decision (hx) 10/27/2016 AD ARNOLD DIRECTIVE Care Teams Field Care Coordinator Relationship Specialty Start Date End Date Physician, No Pcp PCP - General 05/31/24
--- OUTSIDE RECORDS SUMMARY | 2024-10-21 09:09 | XMS_ITS | Encounter Summary ---
Author Organization [employer] Address [address] [facility] 7 [place] [address] Care Team Providers Care Vehicle Service Attendant Name Role Phone Jane Zarate MD Primary Care Provider [phone] Mikey Johnson PharmD Unavailable [phone] Reason for Visit * Reason Onset Date Comments Nurse Triage 07/04/2024 Encounter Details Date Type Department Care Team (Late st Contact Info) Description 07/04/[address] [facility] [address] [place], [place] [phone] Jane Zarate MD [address] [place], [place] [phone] Nurse Triage Social History Tobacco Use Types [...] Pt is advised to seek evaluation at [facility]. Pt agrees with disposition and will follow [...] 3:30 PM EDT Medication Management [facility] [address] [place] [phone] Mikey Johnson, PharmD [address] [place] [phone] 11/22/2024 3:15 PM EDT Office Visit [facility] [address] [place] [phone] Jane Zarate MD [address] [place] [address] [phone] 11/23/2024 9:00 AM EDT Office Visit [facility] [address] [place], [place] [phone] Yane Joseph [address] [place], [place] [phone] documented as of this encounter Visit Diagnoses Not on filedocumented in this encounter Additional Health Concerns Assessment Noted Time PHQ-9 Depression Total Score: 7 05/10/20 24 1:16 PM EDT documented as of this encounter Care Teams Vehicle Service Attendant Relationship Specialty Start Date End Date Jane Zarate MD [address] [place] [address] [phone] PCP - General Family Medicine 06/24/12 Mikey Johnson, PharmD [address] [place] [address] [phone] Pharmacist Internal Medicine 10/17/24 documented as of this encounter
--- OUTSIDE RECORDS SUMMARY | 2024-10-21 09:09 | XMS_ITS | Encounter Summary ---
Author Organization [facility] Address [address] [place] [address] 7 [place] [address] Care Team Providers Care Floor Sander Name Role Phone Jane Zarate MD Primary Care Provider [phone] Mikey Johnson PharmD Unavailable [phone] Encounter Details Date Type Department Care Team (Late Contact Info) Description 09/17/2022 Orders Only [facility] MED[facility]INE [address] [place] [address] [phone] Jane Zarate MD [address] [place] [address] [phone] Asymmetrical sensorineural hearing loss (Primary Dx) Social [...] Department Care Team (Late Contact Info) Description 11/14/2024 3:30 PM EDT Medication Management [facility] [address] [place] [address] [phone] Mikey Johnson, PharmD [address] [place] [address] 11/22/2024 3:15 PM EDT Office Visit [facility] [address] [place] [address] Jane Zarate MD [address] [place] [phone] 11/23/2024 9:00 AM EDT Office Visit [facility] [address] [place], [place] [phone] Opal Yane [address] [place], [place] [phone] documented as of this encounter Visit Diagnoses Diagnosis Asymmetrical sensorineural hearing loss- Primary Sensorineural hearing loss, asymmetrical documented in this encounter Additional Health Concerns Assessment Noted Time PHQ-9 Depression Total Score: 9 06/30/20 22 3:13 PM EST documented as of this encounter Care Teams Floor Sander Relationship Specialty Start Date End Date Jane Zarate MD [address] [place] [phone] PCP - General Family Medicine 06/24/12 Mikey Johnson, PharmD [address] [place] [address] [phone] Pharmacist Internal Medicine 10/17/24 documented as of this encounter
--- OUTSIDE RECORDS SUMMARY | 2024-10-21 09:09 | XMS_ITS | Encounter Summary ---
Author Organization [employer] Address [address] [facility] [address] [place] [address] Care Team Providers Care Aircraft Delivery Checker Name Role Phone Jane Zarate MD Primary Care Provider Mikey Johnson PharmD Unavailable [phone] Encounter Details Date Type Department Care Team (Late st Contact Info) Description 05/23/2024 Abstract [facility] [address] [place] [address] Leyda Pendleton [place] Social History Tobacco Use [...] Description 11/14/2024 3:30 PM EDT Medication Management [facility] [address] [place] [phone] Mikey Johnson, PharmD [address] [place] [phone] 11/22/2024 3:15 PM EDT Office Visit [facility] [address] [place] [phone] Jane Zarate MD [address] [place] [address] 11/23/2024 9:00 AM EDT Office Visit [facility] [address] [place] [address] [phone] Yane Joseph [address] [place], [place] [phone] documented as of this encounter Procedures Procedure Name Priority Date/Time Associated Diagnosis Comments DIABETES EYE EXAM Routine 04/16/2024 documented in this encounter Results * Diabetes Eye Exam (04/16/2024) Eye Exam Normal Normal 04/16/2024 us Historical Provider HEALTH MAINTENANCE Final Result documented in this encounter Visit Diagnoses Not on filedocumented in this encounter Additional Health Concerns Assessment Noted Time PHQ-9 Depression Total Score: 7 05/10/20 24 1:16 PM EDT documented as of this encounter Care Teams Aircraft Delivery Checker Relationship Specialty Start Date End Date Jane Zarate MD [address] [place] [address] PCP - General Family Medicine 06/24/12 Mikey Johnson, Bakari [address] [place] [address] Pharmacist Internal Medicine 10/17/24 documented as of this encounter
--- OUTSIDE RECORDS SUMMARY | 2024-10-21 09:09 | XMS_ITS | Clinical Summary ---
Author Organization [employer] Address [address] [place] [address] 7 [place] [address] Care Team Providers Care Chopped Strand Operator Name Role Phone Jane Zarate MD Primary Care Provider [phone] Mikey Johnson PharmD Unavailable [phone] Allergies Active Allergy Reactions Criticality Noted Date Comments Nitrofurantoin Rash Low 03/24/2024 Medications Blood Pressure Monitor kit 10/11/19 22 Active Probiotic, Lactobacillus , capsule Active oxybutynin XL (Ditropan-XL) 15 MG 24 hr tablet Take 1 tablet by mouth 1 (one) time each day. Active cephalexin (Keflex) 250 MG capsule Take 250 mg by mouth if needed each day. 03/11/20 23 Active estradiol (Estrace) 0.1 MG/GM vaginal cream 01/29/20 23 Active pantoprazole (ProtoNix) 40 MG EC tablet Take 40 mg by mouth before breakfast. 01/20/20 24 Active loratadine (Claritin) 10 MG tablet TAKE 1 TABLET BY MOUTH ONCE A DAY NEEDED 30 tablet 10 03/22/20 24 Active cholecalcifer ol (Vitamin D-3) 25 [...] y, without long-term current use of insulin ([facility]) Inject 0.75 mg under the skin 1 (one) time per week. 2 mL 08/24/19 25 Active pravastatin (Pravachol) 40 MG tablet TAKE 1 TABLET BY MOUTH AT BEDTIME 30 tablet 3 09/06/19 25 Active buPROPion SR (Wellbutrin SR) 200 MG 12 hr tablet TAKE 1 TABLET BY MOUTH TWICE A DAY 60 tablet 09/21/19 25 Active Cranberry (RA Cranberry) 500 MG capsule Take 1 capsule by mouth Once per day. 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, without long-term current use of insulin ([facility]) Use to test blood sugar two times daily 100 each 10/18/19 25 Active Blood Glucose Monitoring Suppl (FreeStyle [place] Lite) w/Device kitIndication s:Type 2 diabetes mellitus with diabetic polyneuropath y, without long-term current use of insulin ([facility]) Use to test blood sugar two times daily 1 kit 10/18/19 25 Active pioglitazone (Actos) 30 MG tabletIndicat ions:Type 2 diabetes mellitus with diabetic polyneuropath y, without long-term current use of insulin ([facility]/HCC) Take 1 tablet (30 mg) by mouth Once per day. 30 tablet 10/18/19 25 026 Active Cyanocobalami n (Vitamin B12) [address] under the tongue. Take 1 tablet daily (Purchases OTC) Active MAGNESIUM GLUCONATE PO Take by mouth. Take 1 tablet daily (Purchases OTC- unknown strength) Active glucose blood (FREESTYLE LITE) test strip Check BG once or twice daily 11/19/19 19 025 Discontinued(Du plicate order (will not trigger notification to Pharmacy)) Blood Glucose Monitoring Suppl (FreeStyle Lite) w/Device kit Check by fingerstick route once 025 Discontinued(Du plicate order (will not trigger notification to Pharmacy)) FreeStyle lancets 1 each by Other route if needed. Check BG once or twice daily 025 Discontinued(Du plicate order (will not trigger notification to Pharmacy)) pioglitazone (Actos) 15 MG tablet Take 1 tablet (15 mg) by mouth Once per day. 30 tablet 08/24/19 025 Discontinued(Do se adjustment) glipiZIDE XL (Glucotrol XL) 10 MG 24 hr tablet Take 10 mg by mouth Once per day. 10/15/19 025 Discontinued(Me d list cleanup (will not trigger notification to Pharmacy)) Active Problems Problem Noted Date Diagnosed Date [...] specialist - she requests a referral to [address] [place] [address] in [place] Tubular adenoma 07/08/2023 Assessment & Plan (07/08/2023 5:33 PM EST): - tubular adenoma seen in last colonoscopy in January [address] Bernal - follow up in 5 years GERD (gastroesophageal reflux disease) Assessment & Plan (02/10/2024 6:00 AM EDT): - following with [facility] - EGD in January 2022 showed inflammatory changes - omeprazole was ineffective - currently prescribed pantoprazole 40 mg daily, famotidine 20mg bid, and sucralfate 1 g bid - continue current treatment plan - Assessment & Plan (10/25/2023 3:40 PM EDT): - following with [facility] - omeprazole was ineffective - currently [...] (08/24/2024 12:51 PM EST): -Following with [facility], last seen in April 2024 -Tried mirabegron, which was ineffective -Continue oxybutynin XL 15 mg daily Assessment & Plan (05/10/2024 2:50 PM EDT): -Following with [facility], last seen in April 2024 -Tried mirabegron, which was ineffective -Continue oxybutynin XL 15 mg daily Assessment & Plan (02/10/2024 6:00 AM EDT): -Following with [facility], last seen in October 2023 -Tried [...] diabetes care guideline. Last eye exam: 03/08/24, [facility]. No diabetic retinopathy Last foot exam: [...] diabetes care guideline. Last eye exam: 03/08/24, [facility]. No diabetic retinopathy Last foot exam: [...] diabetes care guideline. Last eye exam: 03/05/23, [facility]. No diabetic retinopathy Last foot exam: [...] diabetes care guideline. Last eye exam: 03/05/23, [facility]. No diabetic retinopathy Last foot [...] diabetes care guideline. Last eye exam: 03/05/23, [facility]. No diabetic retinopathy Last foot [...] diabetes care guideline. Last eye exam: 03/05/23, [facility]. No diabetic retinopathy Last foot exam: [...] diabetes care guideline. Last eye exam: 03/04/22, [facility]. No diabetic retinopathy Last foot exam: 03/13/22 Last microalbumin test: 11/07/21 UACR 5 Last lipid profile: 02/05/21 Last dental exam: Discussed regular dental care. Dermoid cyst of scalp 03/22/2015 Recurrent urinary tract infection 12/20/2014 Assessment & Plan (08/24/2024 12:51 PM EST): -Following with [facility], last seen in April 2024 -UTI [...] Plan (05/20/2024 12:26 PM EST): -[facility] in April 2024 -UTI symptoms: [...] Plan (02/10/2024 6:05 AM EDT): -[facility] in October 2023 -UTI symptoms: [...] with intercourse, stopped due to heartburn; metenamine [id number] initially effective, developed multiple breakthrough UTI -Restarted [...] Encounters Date Type Department Care Team Description 10/17/2024 Travel 09/19/2024 Orders Only [facility] [address] Jane Zarate MD 09/19/2024 Refill [facility] [address] Jane Zarate MD 09/15/2024 Telephone [facility] [place] [address] Jane Zarate MD Appointment Request 09/13/2024 Telephone [facility] [address] Jane Zarate MD 09/13/2024 Telephone [facility] [address] Jane Zarate MD may recall 09/12/2024 Telephone [facility] [address] Jane Zarate MD Appointment Request 09/05/2024 Refill [facility] [address] Jane Zarate MD 08/30/2024 Telephone [facility] [address] Jane Zarate MD 08/25/2024 8:00 AM EST Office Visit [facility] [address] [place] [phone] Yane [place] 08/24/2024 9:00 AM EST Office Visit [facility] [place] [address] Jane Zarate MD VANDANA (obstructive sleep apnea) (Primary Dx); Primary hypertension; DO (stress urinary incontinence, female); Recurrent urinary tract infection; Overactive bladder; Delayed gastric emptying; Type 2 diabetes mellitus with diabetic polyneuropathy, without long-term current use of insulin ([facility]); Dyslipidemia; Epigastric mass; Dietary counseling; Exercise counseling; Class 1 obesity due to excess calories with serious comorbidity and body mass index (BMI) of 31.0 to 31.9 in adult 08/24/2024 Travel 08/22/2024 Refill [facility] [address] [place], [place] [phone] Jane Zarate MD 08/18/2024 Telephone [facility] [address] [place], [place] [phone] Leyda Pendleton [place] chart prep 08/17/2024 8:00 AM EST Office Visit [facility] [address] [place] [address] [phone] Yane [place] 08/01/2024 Refill [facility] [address] [place] [address] Jane Zarate MD from Last 3 Months Immunizations Name Administration [...] Description 11/14/2024 3:30 PM EDT Medication Management [facility] [address] [place] [phone] Mikey Johnson, PharmD [address] [place] [phone] 11/22/2024 3:15 PM EDT Office Visit [facility] [address] [place] [address] Jane Zarate MD [address] [place] [address] 11/23/2024 9:00 AM EDT Office Visit [facility] [address] [place], [place] [phone] Yane [place] [address] [place] [address] Health Maintenance Due Date Last Done Comments [...] Additional history exists Dental X-Ray: [facility]ings 03/01/2025 02/29/20, 01/19/2023, 09/09/2021, Additional history exists Lipid Panel [...] Procedure Name Priority Date/Time Associated Diagnosis Comments US ABDOMEN LIMITED Routine 09/20/2024 3: 27 PM EDT CASE PRESENTATION, DETAILED AND EXTENSIVE TREATMENT PLANNING [...] polyneuropathy, without long-term current use of insulin ([facility]) POCT GLUCOSE Routine 08/24/2024 9:07 AM EST Type 2 diabetes mellitus with diabetic polyneuropathy, without long-term current use of insulin ([facility]) CASE PRESENTATION, DETAILED AND EXTENSIVE TREATMENT PLANNING [...] without long-term current use of insulin (CMS/HCC) Dyslipidemia PROPHYLAXIS - ADULT Routine 02/29/2024 8 :00 AM EDT BITEWINGS - 4 RADIOGRAPHIC IMAGES Routine 02/29/2024 8:00 AM EDT ALBUMIN, RANDOM URINE W/CREATININE Routine 07/08/2023 8:21 AM EST Type 2 diabetes mellitus with diabetic polyneuropathy, without long-term current use of insulin (CMS/HCC) COLONOSCOPY Routine 01/21/2022 INTRAORAL - COMPLETE SERIES OF RADIOGRAPHIC IMAGES Routine 09/09/2021 12:00 AM EST ZZZ HISTORICAL HEPATITIS C AB W/REFL TO HCV RNA, QN, PCR Routine 02/05/2021 8:50 AM EDT HIV 1/2 ANTIGEN/ANTIBODY, FOURTH GENERATION W/RFL Routine 02/05/2021 8:50 AM EDT from Last 3 Months or Most Recently Relevant to Health Maintenance Results * US Abdomen Limited (09/20/2024 3:27 PM EDT) Anatomical Region Laterality Modality Abdomen Ultrasound 09/20/2024 3:27 PM EDT Narrative 09/20/2024 3:28 PM EDT ? [facility] ?[address] ? [place] [address] ? Ultrasound Report ? Signed ? Patient: Corey,Sylvia ?MR#: [id number] ? : 1960 ?Acct:[id number] ? Age/Sex: 64 / F ?ADM Date: 03/10/25 ? Loc: HO.HMGCX ? Attending Dr: Jane Zarate MD ? Ordering Physician: Jane Zarate MD ?? Date of Service: 09/19/24 ?? Procedure(s): US abdomen limited ?? Accession Number(s): [id number] ? cc: Jane Zarate MD ? CLINICAL HISTORY: TENDER MASS EPIGASTRIC AREA; ? LIPOMA VS SEBACEOUS CYST ? Soft tissue ultrasound of the epigastric area ? Comparison: None ? FINDINGS: ? Images were obtained in the area of clinical concern. ? In this region, the soft tissue shows normal appearing heterogeneous ?? echotexture. ? There is no discrete mass or acoustic shadowing. There is no fluid ?? collection identified. ? IMPRESSION: ? Normal ultrasound findings. ? If clinically warranted, further evaluation with MRI may be of benefit. ? This document has been electronically signed by: Alverto Gracia MD on ?? 09/20/2024 15:27:31 ? Dictated By: ?Alverto Gracia MD ? Signed By: ?<Electronically signed by Alverto Gracia MD in OV> ? 09/20/24 1527 ? DD/ 1527 ? TD/TT: 09/20/247 ? Mechanics Supervisor: ? Procedure Note Ren, Image - 09/20/2024 [facility] [address] [place] [address] [place] [address] Ultrasound Report Signed Patient: Tete Nicole#: [id number] : 1960Acct:[id number] Age/Sex: 64 / FADM Date: 09/19/24 Loc: HO.HMGCX Attending Dr: Jane Zarate MD Ordering Physician: Jane Zarate MD Date of Service: 09/19/24 Procedure(s): US abdomen limited Accession Number(s): [id number] cc: Jane Zarate MD CLINICAL HISTORY: TENDER MASS EPIGASTRIC AREA; ? LIPOMA VS SEBACEOUS CYST Soft tissue ultrasound of the epigastric area Comparison: None FINDINGS: Images were obtained in the area of clinical concern. In this region, the soft tissue shows normal appearing heterogeneous echotexture. There is no discrete mass or acoustic shadowing. There is no fluid collection identified. IMPRESSION: Normal ultrasound findings. If clinically warranted, further evaluation with MRI may be of benefit. This document has been electronically signed by: Alverto Gracia MD on 09/20/2024 15:27:31 Dictated By: Alverto Gracia MD Signed By: <Electronically signed by Alverto Gracia MD in OV> 09/20/24 1527 DD/ 1527 TD/TT: 09/20/24 1527 Mechanics Supervisor: Result [facility] Jane Zarate MD IMG US PROCEDURES Final Result * (ABNORMAL) POCT glycosylated hemoglobin (Hgb A1c) (08/24/2024 9:08 AM EST) Hemoglobin A1C 9.5(A) 4.0 - 6.0 % QC Media Lot # [id number] Lot# Expiration Date Blood Capillary blood specimen / Unknown 08/24/2024 9:08 AM EST Jane Zarate MD POINT OF CARE TEST [...] Exam (04/16/2024) Eye Exam Normal Normal 04/16/2024 Result [facility] Baltazar Kimbrough MD HEALTH MAINTENANCE Final Result * BI Mammogram Diagnostic Tomosynthesis Bilateral (03/28/2024 1:00 PM EDT) Anatomical Region Laterality Modality Breast Bilateral Mammography 03/28/2024 1:00 PM EDT Narrative 03/28/2024 1:44 PM EDT ? [facility] ? [address] ?[place] [address] ? Mammography Report ? Signed ? Patient: Corey,Sylvia ?MR#: [id number] ? : 1960 ?Acct:[id number] ? Age/Sex: 63 / F ?ADM Date: 03/28/24 ? Loc: HO.MAMMO ? Attending Dr: Jane Zarate MD ? Ordering Physician: Jane Zarate MD ?Results: 2Benign F ?? indings ? Date of Service: 03/28/24 ?Follow Up: 1 Year From Orig ?? inal Mammogram ? Procedure(s): MM tomosynthesis diagnostic BI ?? Accession Number(s): [id number] ? cc: Jane Zarate MD ? EXAMINATION: [...] DD/ 1300 ? TD/TT: 03/28/24 1320 ? Mechanics Supervisor: ? Procedure Note Ren, Image - 03/28/2024 [facility] [address] [place], [place] [address] Mammography Report Signed Patient: Sylvia NicoleMR#: [id number] : 1960Acct:[id number] Age/Sex: 63 / FADM Date: 03/28/24 Loc: HO.MAMMO Attending Dr: Jane Zarate MD Ordering Physician: Jane Zarate MDResults: 2Benign F indings Date of Service: 03/28/24Follow Up: 1 Year From [facility] Mammogram Procedure(s): MM tomosynthesis diagnostic BI Accession Number(s): [id number] cc: Jane Zarate MD EXAMINATION: MM DIAGNOSTIC [...] Ho Tucker MD 03/28/2024 01:41 PM EDT Dictated By: Ho Tucker MD Signed By: <Electronically signed by Ho Tucker MD in OV> 03/28/24 1341 DD/ 1300 TD/TT: 03/28/24 1320 Mechanics Supervisor: Jane Zarate MD IM BI PROCEDURES Edited Result - Final * Lipid Panel with Reflex to Direct LDL (03/25/2024 9:05 AM EDT) Triglycerides 131 <150 mg/dL [facility] Comment:Desirable Triglyceri de: less than 150 mg/dLBorderline High Triglyceride 150-199 mg/dLHigh Triglyceride: 200-499 mg/dLVery High Triglyceride: greater than or equal to 5OO mg/dL Cholesterol 164 <200 mg/dL [facility] Comment:Desirable Cholestero l: less than 200 mg/dLBorderline High Cholesterol: 200-239 mg/dLHigh Cholesterol: greater than 239 mg/dL LDL Cholesterol Calculated 81 <100 mg/dL [facility] Comment:Desirable LDL: less than 100 mg/dLNear Optimal/Above Optimal LDL: 110- 129 mg/dLBorderline High LDL: 130-159 mg/dLHigh LDL: 160-189 mg/dLVery High LDL: greater than or equal to 190 mg/dL HDL Cholesterol 57 >40 mg/dL [facility] Comment:Desirable HDL: great er than 40 mg/dL Note: This HDL assay may give artificially low results in patients with liver disease. Blood 03/25/2024 9:05 AM EDT 03/25/2024 11:48 AM EDT Jane Zarate MD LAB BLOOD ORDERABLES Final Resul t Performing Organization Address [facility] Co de Phone Number [facility] [address] [place] [phone] * Albumin, Random Urine W/Creatinine (07/08/2023 8:21 AM EST) Creatinine, Urine 66.16 mg/dL [facility] Microalbumin Urine 6.0 mg/L [facility] Microalbum Creatinine Ratio Ur 9.0 <30 ug/mg cr [facility] Comment:Albumin/Creatinine R atio Reference Ranges: Normal: < 30 ug/mg creatinine Microalbuminuria: 30 - 300 ug/mg creatinineClinical Albuminuria: > 300 ug/mg creatinine Urine 07/08/2023 8:21 AM EST 07/08/2023 9:10 AM EST Jane Zarate MD LAB URINE ORDERABLES Final Resul t Performing Organization Address [facility] Co de Phone Number [facility] [address] [place] [phone] * Hm Colonoscopy (01/21/2022) Colonoscopy Normal Normal Comment:tubular adenoma 01/21/2022 Historical [...] a test for HCV RNA (test code 48892) is suggested. ?? For additional information please refer to http://education.[employer]/faq/RBM03j5 (This link is being provided for informational/ educational purposes only.) ?? 02/05/2021 8:50 AM EDT Jane Zarate MD HISTORICAL/NON ORDERABLE LABS Fi nal Result Performing Organization Address [facility] de Phone Number [facility] [address] * HIV 1/2 ANTIGEN/ANTIBODY,FOURTH GENERATION W/RFL (02/05/2021 8:50 AM EDT) HIV-1/2 ANTIGEN AND ANTIBODIES, 4TH GENERATION W/ REFLEX NON-REACT JULIA NON-REACT JULIA [facility] Comment: HIV-1 antigen and HIV-1/HIV-2 [...] ? For additional information please refer to http://education.[employer]/faq/URN299 (This link is being provided for informational/ educational purposes only.) ? The performance of this assay has not been clinically validated in patients less than 2 years old. ?? 02/05/2021 8:50 AM EDT Jane Zarate MD LAB BLOOD ORDERABLES Final Resul t Performing Organization Address [facility] de Phone Number [facility] [address] from Last 3 Months or Most Recently Relevant to Health Maintenance Insurance [facility] PARTIAL (MEDICAID) [facility] Care Teams Chopped Strand Operator Relationship Specialty Start Date End Date Jane Zarate MD [address] [place] [address] PCP - General Family Medicine 06/24/12 Mikey Johnson, FarhanaD [address] [place] [address] Pharmacist Internal Medicine 10/17/24
--- OUTSIDE RECORDS SUMMARY | 2024-10-21 09:09 | XMS_ITS | Encounter Summary ---
Author Organization [employer] [facility] Address [address] [place] [address] [place], [place] [address] Care Team Providers Care Vertical Boring Mill Operator Name Role Phone Jane Zarate MD Primary Care Provider [phone] Mikey Johnson PharmD Unavailable [phone] Reason for Visit * Reason Comments Med Refill Encounter Details Date Type Department Care Team (Late Contact Info) Description 09/20/2022 Refill [facility] [address] [place] [address] Jane Zarate MD [address] [place], [place] [phone] Gastroesophageal reflux disease, unspecified whether esophagitis present [...] Description 11/14/2024 3:30 PM EDT Medication Management [facility] [address] [place], [place] [phone] Mikey Johnson, PharmD [address] [place] [phone] 11/22/2024 3:15 PM EDT Office Visit [facility] [address] [place] [address] Jane Zarate MD [address] [place] [address] 11/23/2024 9:00 AM EDT Office Visit [facility] [address] [place], [place] [phone] Yane [place] [address] [place], [place] [phone] documented as of this encounter Visit Diagnoses Diagnosis Gastroesophageal reflux disease, unspecified whether esophagitis present documented in this encounter Additional Health Concerns Assessment Noted Time PHQ-9 Depression Total Score: 9 06/30/20 22 3:13 PM EST documented as of this encounter Care Teams Vertical Boring Mill Operator Relationship Specialty Start Date End Date Jane Zarate MD [address] [place] [phone] PCP - General Family Medicine 06/24/12 Mikey Johnson, FarhanaD [address] [place] [phone] Pharmacist Internal Medicine 10/17/24 documented as of this encounter
--- OUTSIDE RECORDS SUMMARY | 2024-10-21 09:09 | XMS_ITS | Encounter Summary ---
Author Organization [id number] Address [address] [facility] 7 [place] [address] Care Team Providers Care Lining Strap Closer Name Role Phone Jane Zarate MD Primary Care Provider [phone] Mikey Johnson PharmD Unavailable [phone] Encounter Details Date Type Department Care Team (Late st Contact Info) Description 01/08/[address] [facility] [address] [place], [place] [phone] Jane Zarate MD [address] [place] [address] Social History Tobacco Use Types Packs/Day Years [...] Description 11/14/2024 3:30 PM EDT Medication Management [facility] [address] [place] [phone] Mikey Johnson PharmD [address] [place] [phone] 11/22/2024 3:15 PM EDT Office Visit [facility] [address] [place] [phone] Jane Zarate MD [address] [place] [phone] 11/23/2024 9:00 AM EDT Office Visit [facility] [address] [place] [address] [phone] Yane Joseph [address] [place] [address] [phone] documented as of this encounter Visit Diagnoses Not on filedocumented in this encounter Additional Health Concerns Assessment Noted Time PHQ-9 Depression Total Score: 0 10/13/19 24 1:55 PM EDT documented as of this encounter Care Teams Lining Strap Closer Relationship Specialty Start Date End Date Jane Zarate MD [address] [place] [phone] PCP - General Family Medicine 06/24/12 Mikey Johnson, PharmD [address] [place] [phone] Pharmacist Internal Medicine 10/17/24 documented as of this encounter
--- OUTSIDE RECORDS SUMMARY | 2024-10-21 09:09 | XMS_ITS | Encounter Summary ---
Author Organization [employer] Address [address] [place] [address] 7t [place] [address] Care Team Providers Care Claim Rep Name Role Phone Jane Zarate MD Primary Care Provider [phone] Mikey Johnson PharmD Unavailable [phone] Encounter Details Date Type Department Care Team (Late Contact Info) Description 01/19/2023 Orders Only [facility] [address] [place], [place] [phone] Jane Zarate MD 230 [place] [address] Degenerative disc disease, cervical (Primary Dx); VANDANA [...] Description 11/14/2024 3:30 PM EDT Medication Management [facility] [address] [place] [address] Mikey Johnson, Bakari [address] [place] [address] 11/22/2024 3:15 PM EDT Office Visit [facility] [address] [place] [address] Jane Zarate MD [address] [place], [place] [phone] 11/23/2024 9:00 AM EDT Office Visit [facility] [address] [place] [address] [phone] Yane Joseph 91 [place], [place] [phone] documented as of this encounter Visit Diagnoses Diagnosis Degenerative disc disease, cervical- Primary VANDANA (obstructive sleep apnea) Obstructive sleep apnea (adult) (pediatric) documented in this encounter Additional Health Concerns Assessment Noted Time PHQ-9 Depression Total Score: 9 06/30/20 22 3:13 PM EST documented as of this encounter Care Teams Claim Rep Relationship Specialty Start Date End Date Jane Zarate MD [address] [place] [address] PCP - General Family Medicine 06/24/12 Mikey Johnson, Bakari [address] [place] [address] Pharmacist Internal Medicine 10/17/24 documented as of this encounter
--- OUTSIDE RECORDS SUMMARY | 2024-10-21 09:09 | XMS_ITS | Encounter Summary ---
Author Organization [employer] Address [address] [facility] 7 [place] [address] Care Team Providers Care Power Press Supervisor Name Role Phone Jane Zarate MD Primary Care Provider [phone] Mikey Johnson PharmD Unavailable [phone] Encounter Details Date Type Department Care Team (Late st Contact Info) Description 01/07/2024 Orders Only [facility] MED[facility]INE 230 [place], [place] [phone] Jane Zarate MD 230 [place] [address] Social History Tobacco Use Types Packs/Day Years [...] Description 11/14/2024 3:30 PM EDT Medication Management [facility] MED[facility]INE [address] [place] [address] Mikey Johnson PharmD [address] [place] [address] 11/22/2024 3:15 PM EDT Office Visit [facility]INE [address] [place] [address] Jane Zarate MD [address] [place] [address] 11/23/2024 9:00 AM EDT Office Visit [facility] [address] [place] [address] [phone] Yane Joseph [address] [place] [address] [phone] documented as of this encounter Visit Diagnoses Not on filedocumented in this encounter Additional Health Concerns Assessment Noted Time PHQ-9 Depression Total Score: 0 10/13/19 24 1:55 PM EDT documented as of this encounter Care Teams Power Press Supervisor Relationship Specialty Start Date End Date Jane Zarate MD [address] [place] [address] PCP - General Family Medicine 06/24/12 Mikey Johnson, PharmD [address] [place] [address] Pharmacist Internal Medicine 10/17/24 documented as of this encounter
--- OUTSIDE RECORDS SUMMARY | 2024-10-21 09:09 | XMS_ITS | Encounter Summary ---
Author Organization [employer] Address [address] [facility] 7 [place] [address] Care Team Providers Care Sales Representative Girls' Apparel Name Role Phone Jane Zarate MD Primary Care Provider [phone] Mikey Johnson PharmD Unavailable [phone] Encounter Details Date Type Department Care Team (Late st Contact Info) Description 09/17/2023 Orders Only [facility]INE 230 [place], [place] [phone] Jane Zarate MD 230 [place] [address] Type 2 diabetes mellitus with diabetic polyneuropathy, without long-term current use of insulin ([facility]) Social History Tobacco Use Types Packs/Day Years [...] Description 11/14/2024 3:30 PM EDT Medication Management [address] [address] Mikey Johnson, PharmD [address] [place] [address] 11/22/2024 3:15 PM EDT Office Visit [facility] MED[facility] [address] [place] [address] Jane Zarate MD [address] [place] [address] [phone] 11/23/2024 9:00 AM EDT Office Visit [facility] [address] [place] [address] [phone] Yane Joseph 91 [place], [place] [phone] documented as of this encounter Procedures Procedure Name Priority Date/Time Associated Diagnosis Comments NM GASTRIC EMPTYING SOLID Routine 09/30/2023 12:15 PM EDT documented in this encounter Results * NM Gastric Emptying Solid (09/30/2023 12:15 PM EDT) Anatomical Region Laterality Modality Body Nuclear Medicine 09/30/2023 12:1 5 PM EDT Narrative 10/05/2023 11:33 AM EDT ? [facility] ?[address] ?[place] [address] ?Nuclear Medicine Report ? Signed ? Patient: Corey,Sylvia ?MR#: [id number] ? : 1960 ?Acct:[id number] ? Age/Sex: 63 / F ?ADM Date: 09/30/23 ? Loc: HO.NUCMED ? Attending Dr: Luba Yeager PA-C ? Ordering Physician: Luba Yeager PA-C ?? Date of Service: 09/30/23 ?? Procedure(s): NM gastric emptying study ?? Accession Number(s): [id number] ? cc: Luba Yeager PA-C; Jane Zarate [...] by Fletcher Dobson MD in OV> ? // 1129 ? DD/ 1215 ? TD/TT: ? County Commissioner: RR ? Procedure Note Donotuseinterpreter, Image - 10/05/2023 [place] [address] Nuclear Medicine Report Signed Patient: Tete Nicole#: [id number] : 1960Acct:[id number] Age/Sex: 63 / FADM Date: 09/30/23 Loc: [place] Attending Dr: Luba Yeager PA-C Ordering Physician: Luba Yeager PA-C Date of Service: 09/30/23 Procedure(s): NM gastric emptying study Accession Number(s): [id number] cc: Luba Yeager PA-C; Jane Zarate MD [...] grading per JNMT Consensus Recommendations in 2008 (https://tech.snmjournals.org/content/36/44) Grade 1 (mild retention): 11-20% at 4h Grade 2 (moderate retention): 21-35% at 4h Grade 3 (severe retention): 36-50% at 4h Grade 4 (very severe retention): >50% retention at 4h Dictated By: Fletcher Dobson MD Signed By: <Electronically signed by Fletcher Dobson MD inOV> 10/05/23 1129 DD/ 1215 TD/TT: County Commissioner: ALEXANDRA [facility] External Provider IMG NM PROCEDURES Edited Result - Final documented in this encounter Visit Diagnoses Diagnosis Type 2 diabetes mellitus with diabetic polyneuropathy, without long-term current use of insulin ([facility]) documented in this encounter Additional Health Concerns Assessment Noted Time PHQ-9 Depression Total Score: 9 06/30/20 22 3:13 PM EST documented as of this encounter Care Teams Sales Representative Girls' Apparel Relationship Specialty Start Date End Date Jane Zarate MD 230 [place] [address] PCP - General Family Medicine 06/24/12 Mikey Johnson, Bakari 230 [place] [address] Pharmacist Internal Medicine 10/17/24 documented as of this encounter
--- OUTSIDE RECORDS SUMMARY | 2024-10-21 09:09 | XMS_ITS | Encounter Summary ---
Author Organization [employer] Address [address] [place] [address] Care Team Providers Care Building Construction Foreman Name Role Phone Physician, No Pcp Primary Care Provider Unavaila ble Encounter Details Date Type Department Care Team (Late st Contact Info) Description 10/04/2024 Lab Requisition [facility] - Main Lab [address] [facility] [place] [phone] Lennie Qiu NP [address] [facility] [address] [place] [address] Frequency of micturition Social History Tobacco Use Types Packs/Day Years Used Date Smoking Tobacco: Former Smokeless Tobacco: Never Alcohol Use Standard Drinks/Week Comments Not Currently 0 (1 standard drink = 0.6 oz pur e alcohol) Comments Unknown Sex and Gender Information Value Date Recorded Sex Assigned at Not on file Legal Sex Female 8:50 PM EST Gender Identity Not on file Sexual Orientation Not on file documented as of this encounter Plan of Treatment Not on file documented as of this encounter Procedures Procedure Name Priority Date/Time Associated Diagnosis Comments BACTERIAL IDENTIFICATION AND SUSCEPTIBILITY, AEROBIC Routine 10/03/2024 12:00 AM EDT Frequency of micturition documented in this encounter Results * (ABNORMAL) Bacterial identification and susceptibility, aerobic (10/03/2024 12:00 AM EDT) Culture, Bacterial ID and Sensitivity Escherichia coli(A) WILLIAM 10/05/2024 10:25 AM EDT [facility] Other Urine specimen from urethra / [...] WILLIAM <=20 ug/ml: Susceptible us Lennie Qiu [facility] MICROBIOLOGY - GENERA L ORDERABLES Final Result [facility] [address] [place] [address], documented in this encounter Visit Diagnoses Diagnosis Frequency of micturition Urinary frequency documented in this encounter Care Teams Building Construction Foreman Relationship Specialty Start Date End Date Physician, No Pcp PCP - General 05/31/24 documented as of this encounter
--- OUTSIDE RECORDS SUMMARY | 2024-10-21 09:09 | XMS_ITS | Encounter Summary ---
Author Organization [employer] Address [address] [facility] 7 [place] [address] Care Team Providers Care Proof Operator Name Role Phone Jane Zarate MD Primary Care Provider [phone] Mikey Johnson PharmD Unavailable [phone] Reason for Visit * Reason Onset Date Comments Appointment Request 09/12/2024 Encounter Details Date Type Department Care Team (Late st Contact Info) Description 09/12/2024 Telephone [facility] [address] [place], [place] [phone] Jane Zarate MD [address] [place], [place] [phone] Appointment Request Social History Tobacco Use Types [...] Description 11/14/2024 3:30 PM EDT Medication Management [facility] [address] [place] [address] Mikey Johnson, PharmD 230 [place] [address] 11/22/2024 3:15 PM EDT Office Visit [facility] [address] [place] [address] Jane Zarate MD 230 [place] [address] 11/23/2024 9:00 AM EDT Office Visit [facility] 91 [place], [place] [phone] Yane Joseph 91 [place], [place] [phone] documented as of this encounter Visit Diagnoses Not on filedocumented in this encounter Additional Health Concerns Assessment Noted Time PHQ-9 Depression Total Score: 7 05/10/20 24 1:16 PM EDT documented as of this encounter Care Teams Proof Operator Relationship Specialty Start Date End Date Jane Zarate MD [address] [place], [place] [phone] PCP - General Family Medicine 06/24/12 Mikey Johnson, FarhanaD [address] [place] [address] Pharmacist Internal Medicine 10/17/24 documented as of this encounter
--- OUTSIDE RECORDS SUMMARY | 2024-10-21 09:09 | XMS_ITS | Encounter Summary ---
Author Organization [employer] Address [address] [facility] 7t [place] [address] Care Team Providers Care Criminal Defense Lawyer Name Role Phone Jane Zarate MD Primary Care Provider [phone] Mikey Johnson PharmD Unavailable [phone] Encounter Details Date Type Department Care Team (Latest Contact Info) Description 10/17/2024 Travel Social History Tobacco Use Types Packs/Day [...] Description 11/14/2024 3:30 PM EDT Medication Management [facility] [address] [place] [address] Mikey Johnson, PharmD [address] [place] [address] 11/22/2024 3:15 PM EDT Office Visit [facility] [address] [place] [address] Jane Zarate MD [address] [place] [address] 11/23/2024 9:00 AM EDT Office Visit [facility] [address] [place] [address] [phone] Yane Joseph 91 [place], [place] [phone] documented as of this encounter Visit Diagnoses Not on filedocumented in this encounter Additional Health Concerns Assessment Noted Time PHQ-9 Depression Total Score: 7 05/10/20 24 1:16 PM EDT documented as of this encounter Care Teams Criminal Defense Lawyer Relationship Specialty Start Date End Date Jane Zarate MD [address] [place] [address] PCP - General Family Medicine 06/24/12 Mikey Johnson, PharmD [address] [place] [address] Pharmacist Internal Medicine 10/17/24 documented as of this encounter
--- OUTSIDE RECORDS SUMMARY | 2024-10-21 09:09 | XMS_ITS | Encounter Summary ---
Author Organization [employer] [facility] Address [address] [place] [address] 7 [place] [address] Care Team Providers Care Fitter And Turner Name Role Phone Jane Zarate MD Primary Care Provider [phone] Mikey Johnson PharmD Unavailable [phone] Encounter Details Date Type Department Care Team ([facility] Contact Info) Description 09/05/2022 Abstract [facility] [address] [place] [address] Provider, MD Baltazar Social History Tobacco Use Types Packs/Day Years [...] Description 11/14/2024 3:30 PM EDT Medication Management [facility] [address] [place] [address] [phone] Mikey Johnson, PharmD 230 [place] [address] 11/22/2024 3:15 PM EDT Office Visit [facility] [address] [place] [address] Jane Zarate MD [address] [place] [address] 11/23/2024 9:00 AM EDT Office Visit [facility] 91 [place], [place] [phone] Yane Joseph 91 [place], [place] [phone] documented as of this encounter Visit Diagnoses Not on filedocumented in this encounter Additional Health Concerns Assessment Noted Time PHQ-9 Depression Total Score: 9 06/30/20 22 3:13 PM EST documented as of this encounter Care Teams Fitter And Turner Relationship Specialty Start Date End Date Jane Zarate MD [address] [place] [address] PCP - General Family Medicine 06/24/12 Mikey Johnson, FarhanaD [address] [place] [address] Pharmacist Internal Medicine 10/17/24 documented as of this encounter
--- OUTSIDE RECORDS SUMMARY | 2024-10-21 09:09 | XMS_ITS | Encounter Summary ---
Author Organization [employer] Address [address] [facility] 7 [place] [address] Care Team Providers Care Utility Operator Name Role Phone Jane Zarate MD Primary Care Provider [phone] Mikey Johnson PharmD Unavailable [phone] Reason for Visit * Reason Onset Date Comments Medication Question 11/05/2023 Encounter Details Date Type Department Care Team (Late st Contact Info) Description 11/05/2023 Telephone [facility] 230 [place], [place] [phone] Jane Zarate MD 230 [place], [place] [phone] Medication Question Social History Tobacco Use Types [...] Description 11/14/2024 3:30 PM EDT Medication Management [facility] [address] [place] [address] Mikey Johnson, FarhanaD 230 [place] [address] 11/22/2024 3:15 PM EDT Office Visit [facility] [address] [place] [address] Jane Zarate MD [address] [place] [address] 11/23/2024 9:00 AM EDT Office Visit [facility] D[facility] 91 [place], [place] [phone] Yane Joseph 91 [place], [place] [phone] documented as of this encounter Visit Diagnoses Not on filedocumented in this encounter Additional Health Concerns Assessment Noted Time PHQ-9 Depression Total Score: 0 10/13/19 24 1:55 PM EDT documented as of this encounter Care Teams Utility Operator Relationship Specialty Start Date End Date Jane Zarate MD 230 [place] [address] PCP - General Family Medicine 06/24/12 Mikey Johnson, Bakari [address] [place] [address] Pharmacist Internal Medicine 10/17/24 documented as of this encounter
--- OUTSIDE RECORDS SUMMARY | 2024-10-21 09:09 | XMS_ITS | Encounter Summary ---
Author Organization [employer] [facility] Address [address] [place] [address] 7[place] [address] Care Team Providers Care Wallpaper Hanger Name Role Phone Jane Zarate MD Primary Care Provider [phone] Mikey Johnson PharmD Unavailable [phone] Encounter Details Date Type Department Care Team (Late Contact Info) Description 03/31/2023 Abstract [facility] MEDICINE [address] [place] [address] Jane Zarate MD 230 [place] [address] Social History Tobacco Use Types Packs/Day Years [...] Description 11/14/2024 3:30 PM EDT Medication Management [facility]INE 230 [place], [place] [phone] Mikey Johnson, PharmD 230 [place] [address] 11/22/2024 3:15 PM EDT Office Visit [facility] MED[facility]INE 230 [place], [place] [phone] Jane Zarate MD 230 [place] [address] 11/23/2024 9:00 AM EDT Office Visit [facility] 91 [place], [place] [phone] Yane Joseph 91 [place], [place] [phone] documented as of this encounter Procedures Procedure Name Priority Date/Time Associated Diagnosis Comments COLONOSCOPY Routine 01/21/2022 documented in this encounter Results * Hm Colonoscopy (01/21/2022) Colonoscopy Normal Normal us Lion Bernal MD HEALTH MAINTENANCE Edited Resul t - Final documented in this encounter Visit Diagnoses Not on filedocumented in this encounter Additional Health Concerns Assessment Noted Time PHQ-9 Depression Total Score: 9 06/30/20 22 3:13 PM EST documented as of this encounter Care Teams Wallpaper Hanger Relationship Specialty Start Date End Date Jane Zarate MD [address] [place] [address] [phone] PCP - General Family Medicine 06/24/12 Mikey Johnson, PharmD [address] [place] [address] [phone] Pharmacist Internal Medicine 10/17/24 documented as of this encounter
[2024-10-21 12:25] LABS: Creatinine Urine 35.23 mg/dL
== END 2024-10-21 08:55 | disposition home or self-care (01) ==
LOC: HO.HHCL 08:54
PROVIDERS: Visit Provider Family Medicine
DX: E11.42 Type 2 diabetes mellitus with diabetic polyneuropathy (principal)
CPT/HCPCS: 82043; 82570

== ENCOUNTER 2025-02-23 10:37 | Outpatient (REF) | payer OTHER, SELFPAY ==
--- NOTE | ~2025-02-23 | XR_ITS ---
EXAMINATION: XR ELBOW 3 VIEWS LEFT HISTORY: left elbow pain, lateral. Likely epicondylitis. COMPARISON: There are no prior studies available for comparison. FINDINGS: Four views of the left elbow are submitted. Osseous mineralization is normal. There is no fracture or dislocation. The joint spaces are preserved. The soft tissues are unremarkable. There is no joint effusion. XR/XR elbow LT min 3V IMPRESSION: Unremarkable examination of the left elbow. Electronically signed by: Kvng Ivey MD 02/23/2025 11:54 AM EDT
== END 2025-02-23 10:38 | disposition home or self-care (01) ==
LOC: HO.HHCX 10:37
PROVIDERS: Visit Provider Family Medicine
DX: M25.522 Pain in left elbow (principal)
CPT/HCPCS: 73080

== ENCOUNTER → 2025-02-23 10:38 | Outpatient (BNV) | payer OTHER, SELFPAY | PROVIDERS: Visit Provider Radiology Diagnostic Radiology | DX: M25.522 Pain in left elbow (principal) | CPT/HCPCS: 73080 ==

== ENCOUNTER 2025-03-06 11:44 | Outpatient (REF) | payer OTHER, SELFPAY ==
[2025-03-07 11:51] LABS: Appearance Urine Clear; Glucose Urine UA Negative (Negative); PH 6.0 (5.0-9.0); Specific Gravity - Urine 1.020 (1.005-1.025)
== END 2025-03-06 11:45 | disposition home or self-care (01) ==
LOC: HO.HHCLNP 11:44
PROVIDERS: Visit Provider Internal Medicine
DX: R39.9 Unspecified symptoms and signs involving the genitourinary system (principal)
CPT/HCPCS: 81001; 87086

== ENCOUNTER 2025-03-07 09:20 | Outpatient (REF) | payer OTHER, SELFPAY ==
--- OUTSIDE RECORDS SUMMARY | 2025-03-06 16:00 | XMS_ITS | Encounter Summary ---
Author Organization [employer] Address [address] [place] [address] 7t [place] [address] Care Team Providers Care Rug Cleaner Name Role Phone Jane Zarate MD Primary Care Provider [phone] Mikey Johnson PharmD Unavailable [phone] Reason for Visit * Reason Comments UTI Encounter Details Date Type Department Care Team ([facility] st Contact Info) Description 03/06/2025 4:00 PM EDT Office Visit [facility] [address] [place] [address] Thania Anne MD [address] [place] [address] Acute pain of left wrist (Primary Dx); [...] 03/22/2025 3:00 PM Mikey Johnson PharmD MEDICINE [facility] documented in this encounter Plan of Treatment Upcoming Encounters Date Type Department Care Team (Late st Contact Info) Description 03/22/2025 3:00 PM EDT Medication Management [facility] [address] [place], [place] [phone] Mikey Johnson PharmD [address] [place] [phone] Scheduled Orders Name Type Priority Associated Diagnoses Orde r Schedule XR Wrist 3+ Views Left Imaging Routine Acute pain of left wrist Expected: 03/06/2025, Expires: 03/06/2026 Culture, Urine, Routine Microbiology Routine UTI symptoms Expected: 03/06/2025 (Approximate), Expires: 03/06/2026 Urinalysis, Complete, with Reflex to Culture Lab Routine UTI symptoms Expected: 03/06/2025 (Approximate), Expires: 03/06/2026 documented as of this encounter Procedures Procedure Name Priority Date/Time Associated Diagnosis Comments POCT URINALYSIS DIPSTICK Routine 03/06/2025 4:14 PM EDT UTI symptoms documented in this encounter Results * POCT urinalysis dipstick manually resulted (03/06/2025 [...] UA OK Urine 03/06/2025 4:14 PM EDT Masoodrodnima Paulson MD POINT OF CARE TEST EN TER/EDIT ORDERABLES Final Result documented in this encounter Visit Diagnoses Diagnosis Acute pain of left wrist- Primary UTI symptoms documented in this encounter Additional Health Concerns Assessment Noted Time PHQ-9 Depression Total Score: 8 11/23/19 4:13 PM EDT documented as of this encounter Care Teams Rug Cleaner Relationship Specialty Start Date End Date Jane Zarate MD [address] [place] [address] PCP - General Family Medicine 06/24/12 Mikey Johnson, FarhanaD [address] [place] [phone] Pharmacist Internal Medicine 10/17/24 documented as of this encounter
--- NOTE | ~2025-03-07 | XR_ITS ---
EXAMINATION: XR WRIST, LEFT CLINICAL INFORMATION: Acute left wrist/distal forearm pain. No history of fall. COMPARISON: None available. TECHNIQUE: PA, lateral, oblique, and scaphoid views of the left wrist. FINDINGS: No fracture, dislocation, or suspicious bone lesion. There is normal alignment. The carpal rows are intact. Mild radiocarpal joint space narrowing. Mild osteoarthrosis in the first CMC joint and STT joints. Mild negative ulnar variance. No abnormal soft tissue calcification. Soft tissues appear normal. XR/XR wrist LT min 3V IMPRESSION: No acute findings of the left wrist. Degenerative findings as detailed. Electronically signed by: Ho Tucker MD 03/07/2025 10:27 AM EDT
--- OUTSIDE RECORDS SUMMARY | 2025-03-07 09:47 | XMS_ITS | Encounter Summary ---
Author Organization [employer] Address [address] [place] [address] 7 [place] [address] Care Team Providers Care Healthcare Or Medical Name Role Phone Jane Zarate MD Primary Care Provider [phone] Mikey Johnson PharmD Unavailable [phone] Encounter Details Date Type Department Care Team (Late st Contact Info) Description 01/19/2023 Orders Only [facility] [address] [place], [place] [phone] Jane Zarate MD [address] [place], [place] [phone] Degenerative disc disease, cervical (Primary Dx); VANDANA [...] Description 03/22/2025 3:00 PM EDT Medication Management [facility] [address] [place] [address] Mikey Johnson, PharmD [address] [place] [address] documented as of this encounter Visit Diagnoses Diagnosis Degenerative disc disease, cervical- Primary VANDANA (obstructive sleep apnea) Obstructive sleep apnea (adult) (pediatric) documented in this encounter Additional Health Concerns Assessment Noted Time PHQ-9 Depression Total Score: 9 06/30/20 22 3:13 PM EST documented as of this encounter Care Teams Healthcare Or Medical Relationship Specialty Start Date End Date Jane Zarate MD [address] [place] [phone] PCP - General Family Medicine 06/24/12 Mikey Johnson, PharmD [address] [place] [phone] Pharmacist Internal Medicine 10/17/24 documented as of this encounter
--- OUTSIDE RECORDS SUMMARY | 2025-03-07 09:47 | XMS_ITS | Encounter Summary ---
Author Organization [employer] Address [address] [place] [address] 7 [place] [address] Care Team Providers Care Digital Service Engineer Name Role Phone Jane Zarate MD Primary Care Provider [phone] Mikey Johnson PharmD Unavailable [phone] Reason for Visit * Reason Onset Date Comments Call Back Request 02/23/2025 Encounter Details Date Type Department Care Team (Late st Contact Info) Description 02/23/2025 Results Follow-Up [facility] [address] [place], [place] [phone] Jane Zarate MD [address] [place], [place] [phone] XR Elbow 3+ Views Left Social History Tobacco Use Types Packs/Day Years [...] encounter Miscellaneous Notes * Telephone Encounter - Kenzie Simeon RN - 03/06/2025 9:42 AM EDT Telephone call returned to pt who is looking for XR results. Informed XR normal but that PCP thinkmaribel may have inflammation of the tendons on her arm which isn't seen in XR. Informed referral placed to [facility]. Pt reports hasn't heard from them. Provided her with their erinn number to call. Pt states will call them to make an appt. * Telephone Encounter - Daniel August - 03/06/2025 9:28 AM EDT Tc from pt requesting a call back regarding prior message Contact pt at [phone] (niuean) documented in this encounter Plan of Treatment Upcoming Encounters Date Type Department Care Team (Late st Contact Info) Description 03/22/2025 3:00 PM EDT Medication Management [facility] [address] [place] [address] Mikey Johnson, PharmD [address] [place] [address] documented as of this encounter Visit Diagnoses Not on filedocumented in this encounter Additional Health Concerns Assessment Noted Time PHQ-9 Depression Total Score: 8 11/23/19 25 4:13 PM EDT documented as of this encounter Care Teams Digital Service Engineer Relationship Specialty Start Date End Date Jane Zarate MD [address] [place] [address] PCP - General Family Medicine 06/24/12 Mikey Johnson, PharmD [address] [place] [phone] Pharmacist Internal Medicine 10/17/24 documented as of this encounter
--- OUTSIDE RECORDS SUMMARY | 2025-03-07 09:47 | XMS_ITS | Encounter Summary ---
Author Organization [employer] Address [address] [place] [address] 7 [place] [address] Care Team Providers Care Manager Environmental Health And Safety Name Role Phone Jane Zarate MD Primary Care Provider [phone] Mikey Johnson PharmD Unavailable [phone] Encounter Details Date Type Department Care Team (Late st Contact Info) Description 09/17/2023 Orders Only [facility] [address] [place], [place] [phone] Jane Zarate MD [address] [place], [place] [phone] Type 2 diabetes mellitus with diabetic polyneuropathy, without long-term current use of insulin ([facility]) Social History Tobacco Use Types [...] Description 03/22/2025 3:00 PM EDT Medication Management [facility] [address] [place] [address] [phone] Mikey Johnson, PharmD [address] [place], [place] [phone] documented as of this encounter Procedures Procedure Name Priority Date/Time Associated Diagnosis Comments NM GASTRIC EMPTYING SOLID Routine 09/30/2023 12:15 PM EDT documented in this encounter Results * NM Gastric Emptying Solid (09/30/2023 12:15 PM EDT) Anatomical Region Laterality Modality Body Nuclear Medicine 09/30/2023 12:1 5 PM EDT Narrative 10/05/2023 11:33 AM EDT [address] [address] Nuclear Medicine Report Signed Patient: Sylvia Nicole MR#: [id number] : 1960 Acct:[id number] Age/Sex: 63 / F ADM Date: 09/30/23 Loc: [facility] Attending Dr: Luba Yeager PA-C Ordering Physician: Luba Yeager PA-C Date of Service: 09/30/23 Procedure(s): NM gastric emptying study Accession Number(s): [id number] cc: Luba Yeager PA-C; Jane Zarate MD [...] grading per JNMT Consensus Recommendations in 2008 (https://tech.snmjournals.org/content/36/1/44) Grade 1 (mild retention): 11-20% at 4h Grade 2 (moderate retention): 21-35% at 4h Grade 3 (severe retention): 36-50% at 4h Grade 4 (very severe retention): >50% retention at 4h Dictated By: Fletcher Dobson MD Signed By: <Electronically signed by Fletcher Dobson MD in OV> 10/05/23 1129 DD/ 1215 TD/TT: Scale Agent: ALEXANDRA Procedure Note Donotuseinterpreter, Image - 10/05/[address] [address] Nuclear Medicine Report Signed Patient: Sylvia NicoleMR#: [id number] : 1960Acct:[id number] Age/Sex: 63 / FADM Date: 09/30/23 Loc: [facility] Attending Dr: Luba Yeager PA-C Ordering Physician: Luba Yeager PA-C Date of Service: 09/30/23 Procedure(s): PA gastric emptying study Accession Number(s): [id number] cc: Luba Yeager PA-C; Jane Zarate MD EXAMINATION: PA RADIONUCLIDE SOLID FOOD GASTRIC EMPTYING 4-HOUR STUDY [...] hours 40% 4 hours 31% (normal 0%-10%) PA/PA gastric emptying study IMPRESSION: Abnormal study. There is moderately severe abnormal retention of solid food in the stomach at 4 hours. Gastric emptying study grading per JNMT Consensus Recommendations in 2008 (https://tech.snmjournals.org/content/36/1/44) Grade 1 (mild retention): 11-20% at 4h Grade 2 (moderate retention): 21-35% at 4h Grade 3 (severe retention): 36-50% at 4h Grade 4 (very severe retention): >50% retention at 4h Dictated By: Fletcher Dobson MD Signed By: <Electronically signed by Fletcher Dobson MD inOV> 10/05/23 1129 DD/ 1215 TD/TT: Scale Agent: ALEXANDRA [facility] External Provider IMG NM PROCEDURES Edited Result - Final documented in this encounter Visit Diagnoses Diagnosis Type 2 diabetes mellitus with diabetic polyneuropathy, without long-term current use of insulin ([facility]) documented in this encounter Additional Health Concerns Assessment Noted Time PHQ-9 Depression Total Score: 9 06/30/20 22 3:13 PM EST documented as of this encounter Care Teams Manager Environmental Health And Safety Relationship Specialty Start Date End Date Jane Zarate MD [address] [place] [address] PCP - General Family Medicine 06/24/12 Mikey Johnson, FarhanaD [address] [place] [address] Pharmacist Internal Medicine 10/17/24 documented as of this encounter
--- OUTSIDE RECORDS SUMMARY | 2025-03-07 09:47 | XMS_ITS | Clinical Summary ---
Author Organization [employer] Address [address] [place] [address] 7 [place] [address] Care Team Providers Care Hospital Secretary Name Role Phone Jane Zarate MD Primary Care Provider [phone] Mikey Johnson PharmD Unavailable [phone] Allergies Active Allergy Reactions Criticality Noted Date Comments Nitrofurantoin Rash Low 03/24/2024 Medications Blood Pressure Monitor kit 10/11/19 22 Active Probiotic, Lactobacillus, capsule Active oxybutynin XL (Ditropan-XL) 15 MG 24 hr tablet Take 1 tablet by mouth 1 (one) time each day. Active cephalexin (Keflex) 250 MG capsule Take 250 mg by mouth if needed each day. 03/11/20 23 Active estradiol (Estrace) 0.1 MG/GM vaginal cream 01/29/20 23 Active pantoprazole (ProtoNix) 40 MG EC tablet Take 40 mg by mouth before breakfast. 01/20/20 24 Active Cranberry (RA Cranberry) 500 MG capsule Take 1 capsule by mouth Once per day. Purchases otc Active glucose blood (FREESTYLE LITE) test stripIndicatio ns:Type 2 diabetes mellitus with diabetic polyneuropathy , without long-term current use of insulin ([facility]) Use to test blood sugar two times daily 100 each 5 10/18/19 25 026 Active Lancets miscIndication s:Type 2 diabetes mellitus with diabetic polyneuropathy , without long-term current use of insulin ([facility]) Use to test blood sugar two times daily 100 each 5 10/18/19 25 Active Alcohol Swabs 70 % padsIndication s:Type 2 diabetes mellitus with diabetic polyneuropathy , without long-term current use of insulin ([facility]) Use to test blood sugar two times daily 100 each 5 10/18/19 25 Active Blood Glucose Monitoring Suppl (FreeStyle [place] [employer] Lite) w/Device kitIndications :Type 2 diabetes mellitus with diabetic polyneuropathy , without long-term current use of insulin ([facility]) Use to test blood sugar two times daily 1 kit 10/18/19 25 Active Cyanocobalamin (Vitamin B12) [address] under the tongue. Take 1 tablet daily (Purchases OTC) Active MAGNESIUM GLUCONATE PO Take by mouth. Take 1 tablet daily (Purchases OTC- unknown strength) Active aspirin 81 MG EC tabletIndicati ons:Type 2 diabetes mellitus with diabetic polyneuropathy , without long-term current use of insulin ([facility]) Take 1 tablet (81 mg) by mouth Once per day. 90 tablet 3 11/15/19 25 Active enalapril (Vasotec) 10 MG tabletIndicati ons:Type 2 diabetes mellitus with diabetic polyneuropathy , without long-term current use of insulin ([facility]) Take 1 tablet by mouth daily 30 tablet 11 11/15/19 25 Active pioglitazone (Actos) 45 MG tabletIndicati ons:Type 2 diabetes mellitus with diabetic polyneuropathy , without long-term current use of insulin ([facility]) Take 1 tablet (45 mg) by mouth Once per day. 30 tablet 11/15/19 25 026 Active Dulaglutide 1.5 MG/0.5ML solution auto-injectorI ndications:Typ e 2 diabetes mellitus with diabetic polyneuropathy , without long-term current use of insulin ([facility]) Inject 1.5 mg under the skin 1 (one) time per week. 2 mL 11 11/23/19 25 Active cholecalcifero l (Vitamin D-3) 25 MCG (1000 UT) capsule TAKE 1 CAPSULE BY MOUTH EVERY DAY 30 capsule 2 12/10/19 25 Active buPROPion SR (Wellbutrin SR) 200 MG 12 hr tablet TAKE 1 TABLET BY MOUTH TWICE A DAY 60 tablet 02/15/20 25 Active Allergy Relief 10 MG tablet TAKE 1 TABLET BY MOUTH ONCE A DAY NEEDED 30 tablet 9 02/18/20 25 Active pravastatin (Pravachol) 40 MG tablet Take 1 tablet (40 mg) by mouth at bedtime. 30 tablet 3 02/24/20 25 Active metFORMIN XR (Glucophage-XR ) 500 MG 24 hr tablet TAKE 2 TABLETS BY MOUTH TWICE A DAY WITH MORNING AND EVENING MEAL 120 tablet 3 03/01/20 25 Active ibuprofen 600 MG tablet Take 1 tablet (600 mg) by mouth if needed in the morning, at noon, and at bedtime for mild pain. 60 tablet 1 03/06/20 25 Active loratadine (Claritin) 10 MG tablet TAKE 1 TABLET BY MOUTH ONCE A DAY NEEDED 30 tablet 10 03/22/20 24 025 Discontinued pravastatin (Pravachol) 40 MG tablet TAKE 1 TABLET BY MOUTH AT BEDTIME 30 tablet 3 09/06/19 25 025 Discontinued(Re order (will not trigger notification to Pharmacy)) metFORMIN XR (Glucophage-XR ) 500 MG 24 hr tablet TAKE 2 TABLETS BY MOUTH TWICE A DAY WITH MORNING AND EVENING MEAL 120 tablet 1 11/19/19 25 025 Discontinued buPROPion SR (Wellbutrin SR) 200 MG 12 hr tablet TAKE 1 TABLET BY MOUTH TWICE A DAY 60 tablet 12/07/19 25 025 Discontinued ibuprofen 600 MG tablet Take 1 tablet (600 mg) by mouth if needed in the morning, at noon, and at bedtime for mild pain. 60 tablet 1 03/06/20 25 025 Discontinued Active Problems Problem Noted Date Diagnosed Date Left elbow pain 02/23/2025 Assessment & Plan (02/23/2025 2:33 PM EDT): - likely left lateral epicondylitis - activity modification - ice, judicious use of APAP / NSAIDs - refer to ortho for further evaluation and management Tubular adenoma of colon 12/02/2024 Assessment & Plan (12/02/2024 10:12 AM EDT): - tubular adenoma seen in last colonoscopy in January [address] Bernal - follow up in 5 years Epigastric mass 08/24/2024 Assessment & Plan (11/22/2024 3:56 PM EDT): - Pt had ultrasound done on 09/19/24. Mass was normal Assessment & Plan (08/28/2024 12:47 PM EST): - US evaluation for characterization Subcutaneous cyst 05/20/2024 Assessment & Plan (05/20/2024 12:19 PM EST): - on her abdomen, left side - about 1 cm in size - likely benign. Agreed to monitor conservatively Skin rash 03/25/2024 Delayed gastric emptying 02/10/2024 Assessment & Plan [...] specialist - she requests a referral to Saum[facility] Nascimento in [place] GERD (gastroesophageal reflux disease) Assessment & Plan (02/10/2024 6:00 AM EDT): - following with [facility] - EGD in January 2022 showed inflammatory changes - omeprazole was ineffective - currently prescribed pantoprazole 40 mg daily, famotidine 20mg bid, and sucralfate 1 g bid - continue current treatment plan - Assessment & Plan (10/25/2023 3:40 PM EDT): - following with [facility] - omeprazole was ineffective - currently [...] cervical 07/05/2022 Lumbar degenerative disc disease 07/05/2022 Assessment & Plan (02/23/2025 2:30 PM EDT): - refer to chiropracter History of syphilis 06/14/2022 Assessment & Plan (12/02/2024 10:11 AM EDT): - Hx positive TP-PA, RPR non-reactive - pt denied previous Dx and Tx - Neurosyphilis 2017 -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 -02/05/21, both TP-PA and RPR were negative Assessment & Plan (12/02/2024 10:09 AM EDT): >>ASSESSMENT AND PLAN FOR HISTORY OF NEUROSYPHILIS WRITTEN ON 04/04/2023 5:40 PM BY JANE ZARATE MD -Hx positive TP-PA, RPR non-reactive - pt denied previous Dx and Tx -Evaluated and treated by neurologist -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 -02/05/21, both TP-PA and RPR were negative Assessment & Plan (12/02/2024 10:09 AM EDT): >>ASSESSMENT AND PLAN FOR HISTORY OF NEUROSYPHILIS WRITTEN ON 12/02/2024 10:08 AM BY JANE ZARATE MD >>ASSESSMENT AND PLAN FOR TUBULAR ADENOMA WRITTEN ON 07/08/2023 5:33 PM BY JANE ZARATE MD - tubular adenoma seen in last colonoscopy in January [address] Bernal - follow up in 5 years DO (stress urinary incontinence, female) 2021 Assessment [...] EST): -4 vaginal births -05/26/22 midurethral sling Overactive bladder 07/19/2018 Assessment & Plan (11/22/2024 9:27 AM EDT): -Following with [facility], last seen in April 2024 -Tried mirabegron, which was ineffective -Continue oxybutynin XL 15 mg daily Assessment & Plan (08/24/2024 12:51 PM EST): -Following with [facility], last seen in April 2024 -Tried mirabegron, which was ineffective -Continue oxybutynin XL 15 mg daily Assessment & Plan (05/10/2024 2:50 PM EDT): -Following with [facility], last seen in April 2024 -Tried mirabegron, which was ineffective -Continue oxybutynin XL 15 mg daily Assessment & Plan (02/10/2024 6:00 AM EDT): -Following with [facility], last seen in October 2023 [...] deficiency 05/05/2016 Hypertension 10/22/2015 Assessment & Plan (02/23/2025 5:24 AM EDT): - Goal BP < 130/80 (Tx threshold 130/80) per ACC/AHA guideline - Treatment Hx: Enalapril was started for renal protection, rather than hypertension - Continue current lifestyle modifications - Continue current medications: Enalapril 5 mg daily Assessment & Plan (12/02/2024 9:58 AM EDT): - Goal BP < 140/90 per JNC-8 and < 130/80 (Tx threshold 130/80) per ACC/AHA guideline - Treatment Hx: Enalapril was started for renal protection, rather than hypertension - Continue current lifestyle modifications - Continue current medications: Enalapril 5 mg daily Assessment & Plan (08/24/2024 12:51 PM EST): [...] Assessment & Plan (07/07/2023 6:08 AM EST): Goal BP < 140/90 per JNC-8 and < 130/80 (Tx threshold 130/80) per ACC/AHA guideline Treatment Hx: Enalapril was started due to renal protection Continue current lifestyle modifications Continue current medications: Enalapril 5 mg daily Follow up in 3-6 mo, sooner if any problem arises Assessment & Plan (04/04/2023 5:28 PM EDT): Goal BP < 140/90 per JNC-8 and < 130/80 (Tx threshold 130/80) per ACC/AHA guideline Treatment Hx: Enalapril was started due to renal protection Continue current lifestyle modifications Continue current medications: Enalapril 5 mg daily Follow up in 3-6 mo, sooner if any problem arises Assessment & Plan (07/05/2022 7:44 AM EST): Goal BP < 140/90 per JNC-8 and < 130/80 (Tx threshold 130/80) per ACC/AHA guideline Treatment Hx: Enalapril was started due to renal protection Continue current lifestyle modifications Continue current medications: Enalapril 5 mg daily Follow up in 3-6 mo, sooner if any problem arises Mixed anxiety and depressive disorder 10/22/2015 Assessment & Plan (12/02/2024 10:14 AM EDT): - PHQ9 score 8 and GAD7 score 4 - Patient declines behavioral health service - continue bupropion Dyslipidemia 07/10/2015 Assessment & Plan (02/23/2025 5:24 AM EDT): - last lipid profile 03/25/24 - current medication: pravastatin 40 mg at bedtime - previously tried atorvastatin, but self-discontinued due to side effect (myalgia, arthralgia) - continue working on lifestyle modification Assessment & Plan (12/02/2024 9:58 AM EDT): - last lipid profile 03/25/24 - current medication: pravastatin 40 mg at bedtime - previously tried atorvastatin, but self-discontinued due to side effect (myalgia, arthralgia) - continue working on lifestyle modification Assessment & Plan (08/24/2024 12:52 PM EST): [...] 2 diabetes mellitus 07/03/2015 Assessment & Plan (02/27/2025 5:01 PM EDT): - A1c 7.6% on 02/23/25, improved from 8.6% on 11/22/24, improved from HgbA1C 9.6% on 08/24/24, 8.0% on 05/10/24 Continue Metformin 1000 mg bid Continue dulaglutide (Trulicity) 1.5 mg weekly Continue pioglitazone 45 mg daily Relative contraindication to SGLT2i due to recurrent UTI Treatment Hx: Discontinued dulaglutide (Trulicity) 3.0 mg weekly in October 2023 after abnormal gastric emptying study and GI recommendation. Restarted dulaglutide (Trulicity) at lower dose in January 2024. Discontinued glipizide due to restarting pioglitazone and increasing dulaglutide. Work on lifestyle modifications Reviewed and updated diabetes care guideline. Last eye exam: 03/08/24, [facility]. No diabetic retinopathy Last foot exam: 08/24/24 right foot sensation is decreased compared to left side. Ingrown toenails. Last microalbumin test: October 2024, very mild microalbuminuria Last lipid profile: 03/25/24 Last dental exam: Discussed regular dental care. Assessment & Plan (12/02/2024 10:07 AM EDT): - A1c 8.6% on 11/22/24, improved from HgbA1C 9.6% on 08/24/24, 8.0% on 05/10/24 Continue Metformin 1000 mg bid Increase dulaglutide (Trulicity) from .75 mg to 1.5 mg weekly Continue pioglitazone 45 mg daily Relative contraindication to SGLT2i due to recurrent UTI Treatment Hx: Discontinued dulaglutide (Trulicity) 3.0 mg weekly in October 2023 after abnormal gastric emptying study and GI recommendation. Restarted dulaglutide (Trulicity) at lower dose in January 2024. Discontinued glipizide due to restarting pioglitazone and increasing dulaglutide. Work on lifestyle modifications Reviewed and updated diabetes care guideline. Last eye exam: 03/08/24, [facility]. No diabetic retinopathy Last foot exam: 08/24/24 right foot sensation is decreased compared to left side. Ingrown toenails. Last microalbumin test: October 2024, very mild microalbuminuria Last lipid profile: 03/25/24 Last dental exam: Discussed regular dental care. Assessment & Plan (08/28/2024 12:46 PM EST): [...] diabetes care guideline. Last eye exam: 03/08/24, [facility]. No diabetic retinopathy Last foot exam: 08/24/24 [...] diabetes care guideline. Last eye exam: 03/08/24, [facility]. No diabetic retinopathy Last foot exam: 04/01/23 [...] diabetes care guideline. Last eye exam: 03/05/23, [facility]. No diabetic retinopathy Last foot exam: 04/01/23 [...] diabetes care guideline. Last eye exam: 03/05/23, [facility]. No diabetic retinopathy Last foot [...] diabetes care guideline. Last eye exam: 03/05/23, [facility]. No diabetic retinopathy Last foot [...] diabetes care guideline. Last eye exam: 03/05/23, [facility]. No diabetic retinopathy Last foot [...] diabetes care guideline. Last eye exam: 03/04/22, [facility]. No diabetic retinopathy Last foot exam: 03/13/22 Last microalbumin test: 11/07/21 UACR 5 Last lipid profile: 02/05/21 Last dental exam: Discussed regular dental care. Dermoid cyst of scalp 03/22/2015 Recurrent urinary tract infection 12/20/2014 Assessment & Plan (11/22/2024 9:27 AM EDT): -Following with [facility], last seen in April 2024 [...] in January 2022, normal Assessment & Plan (08/24/2024 12:51 PM EST): -Following with [facility], last seen in April 2024 [...] Plan (05/20/2024 12:26 PM EST): -Following with [facility], last seen in April 2024 [...] Plan (02/10/2024 6:05 AM EDT): -Following with [facility], last seen in October 2023 -UTI [...] PM EDT): - indication AUB - 1998 Resolved Problems Problem Noted Date Diagnosed Date Resolved Date Nocturia 03/25/2024 12/02/2024 Assessment & Plan (03/25/2024 8:53 AM EDT): Urine dipstick today only LE small rest neg -sent UA w reflex to cx -will call pt w results -f w uriologist 04/26/2024 Encounters Date Type Department Care Team Description 03/06/2025 4:00 PM EDT Office Visit [facility] [place] [address] Thania Anne MD Acute pain of left wrist (Primary Dx); UTI symptoms 03/06/2025 Travel 03/06/2025 Refill [facility] [address] [place] [address] Jane Zarate MD 02/28/[address] [address] Jane Zarate MD 02/23/2025 9:15 AM EDT Office Visit [address] [address] Jane Zarate MD Type 2 diabetes mellitus with diabetic polyneuropathy, without long-term current use of insulin ([facility]) (Primary Dx); Primary hypertension; Dyslipidemia; Vitamin D deficiency; Left elbow pain; Degeneration of 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 02/23/2025 Results Follow-Up [address] [address] Jane Zarate MD XR Elbow 3+ Views Left 02/23/2025 Travel 02/22/[address] [address] Jane Zarate MD 02/22/[address] [address] Jane Zarate MD chart prep 02/21/[address] [address] Jane Zarate MD Appointment Request 02/17/[address] [address] Jane Zarate MD 02/16/2025 Telephone [facility] [place] [place] [address] Jane Zarate MD Appointment Request 02/16/2025 Patient Outreach [facility] [place] [place] [address] Jane Zarate MD Pre-visit Planning (SDOH screening completed on 11/15/2024) 02/13/2025 Refill [facility] [place] [place] [address] Jane Zarate MD 01/23/2025 Refill [facility], [place] [address] Jane Zarate MD 12/27/2024 Telephone [facility] [place], [place] [address] Jane Zarate MD Trainer recall 12/19/2024 Telephone [facility], [place] [address] Jane Zarate MD Referral 12/09/2024 Refill [facility], [place] [address] Jane Zarate MD from Last 3 Months Immunizations Immunization Administration Dates Next Due Hep A, Adult 06/20/2014,06/23/2003 Hep B, adult 06/20/2014,02/14/2014,06/01/2013 Influenza injectable quadriv alent IIV4 with preservative 05/18/2018,06/30/2017,05/05/2016,07/10 Influenza injectable quadriv alent preservative free 03/31/2023,04/23/2022,04/17/2021,04/16,04/20/2019 Influenza, IIV3, injectable 06/20/2014, 1 Influenza, Split (incl. toya fied surface antigen) 06/01/2013,04/16/2012 Influenza, seasonal, injecta ble, preservative free 05/10/2024 Pfizer Covid-19 Vaccine 12+ 11/22/2024,1 09/07/2022,12/05/2021,04/17,09/09/2020,08/20/2020 Pfizer Covid-19 Vaccine 12+ Bivalent 04/23/2022 Pneumococcal [...] your housing situation today? I have linda phil 03/24/[address] you li [...] (201 lb) 03/06/2025 4:07 PM EDT Height 162.6 cm (5' 4 ) 02/23/2025 9:34 AM EDT Body Mass Index 34.5 02/23/2025 9:34 AM EDT Plan of Treatment Upcoming Encounters Date Type Department Care Team (Late st Contact Info) Description 03/22/2025 3:00 PM EDT Medication Management [facility] [address] [place] [address] Mikey Johnson, PharmD [address] [place] [address] Health Maintenance Due Date Last Done Comments CT Colonography 1960 FIT DNA/Cologuard 1960 FIT 1960 FOBT 1960 Sigmoidoscopy 1960 Dental X-Ray: Full Mouth 09/10/2024 09/09/2021, 06/13 Dental Oral Exam 11/04/2024 05/05/2024, 04/2023, 03/10/2022, Additional history exists Dental X-Ray: Bitewings 03/01/2025 02/29/20 24, 01/19/2023, 09/09/2021, Additional history exists Influenza Vaccine (#1) 2025 , 03/31/2023, 04/23/2022, Additional history exists Lipid Panel 03/25/2025 03/25/2024, 06/13, 02/05/2021 Mammogram 03/28/2025 03/28/2024, 03/13, 09/05/2022, Additional history exists Diabetes: Hemoglobin A1C 05/26/2025 025, 11/22/2024, 08/24/2024, Additional history exists Dental Prophylaxis 05/27/2025 11/23/2024, 0 02/29/2024, 08/27/2023, Additional history exists Diabetes: Foot Exam 08/24/2025 08/24/2024, 08/24/2024, 08/24/2024, Additional history exists Diabetes: Urine Protein Screening 10/21/2025 10/21/2024, 07/08/2023, 11/07/2021, Additional history exists SDOH Screening 11/15/2025 11/15/2024 Alcohol/Substance Use Screening 11/22/2025 11/22/2024 Depression Screening 11/22/2025 11/22/2024, 11/23/19 Disability Screening 11/22/2025 11/22/2024 Tobacco Screening 03/06/2026 03/06/2025 Eye Exam 04/16/2026 04/16/2024 Colonoscopy 01/21/2027 01/21/2022, [...] Vaccine: 50+ Years Completed 07/07/2023, 06/20/2014, 01/27/2002 COVID-19 Vaccine Completed 11/22/2024, , 04/23/2022, Additional history exists HIB Vaccines [...] Routine 03/06/2025 4:14 PM EDT UTI symptoms XR ELBOW 3+ VIEWS LEFT Routine 9:57 AM EDT Left elbow pain POCT GLYCOSYLATED HEMOGLOBIN (HGB A1C) Routine 02/23/2025 9:35 AM EDT Type 2 diabetes mellitus with diabetic polyneuropathy, without long-term current use of insulin ([facility]) POCT GLUCOSE Routine 02/23/2025 9:35 AM EDT Type 2 diabetes mellitus with diabetic polyneuropathy, without long-term current use of insulin ([facility]) PROPHYLAXIS - ADULT Routine 11/23/2024 9 :00 AM EDT ALBUMIN, RANDOM URINE W/CREATININE Routine 10/21/2024 8:57 AM EDT PERIODIC ORAL EVALUATION - ESTABLISHED PATIENT Routine 05/05/2024 8:00 AM EDT HM DIABETES EYE EXAM Routine 04/16/2024 BI MAMMOGRAM DIAGNOSTIC TOMOSYNTHESIS BILATERAL Routine 03/28/2024 1:00 PM EDT LIPID PANEL WITH REFLEX TO DIRECT LDL Routine 03/25/2024 9:05 AM EDT Type 2 diabetes mellitus with diabetic polyneuropathy, without long-term current use of insulin (CMS/HCC) Dyslipidemia BITEWINGS - 4 RADIOGRAPHIC IMAGES Routine 02/29/2024 8:00 AM EDT HM COLONOSCOPY Routine 01/21/2022 INTRAORAL - COMPLETE SERIES OF RADIOGRAPHIC IMAGES Routine 09/09/2021 12:00 AM EST ZZZ HISTORICAL HEPATITIS C AB W/REFL TO HCV RNA, QN, PCR Routine 02/05/2021 8:50 AM EDT HIV 1/2 ANTIGEN/ANTIBODY, FOURTH GENERATION W/RFL Routine 02/05/2021 8:50 AM EDT from Last 3 Months or Most Recently Relevant to Health Maintenance Results * POCT urinalysis dipstick manually resulted [...] CARE TEST EN TER/EDIT ORDERABLES Final Result * XR Elbow 3+ Views Left (02/23/2025 9:57 AM EDT) Anatomical Region Laterality Modality Upper Extremities, Elbow Left Radiogr aphic Imaging 02/23/2025 9:57 AM EDT Narrative 02/23/2025 11:57 AM EDT [address] [address] XRay Report Signed Patient: Sylvia Nicole MR#: [id number] : 1960 Acct:[id number] Age/Sex: 64 / F ADM Date: 02/23/25 Loc: [facility] Attending Dr: Jane Zarate MD Ordering Physician: Jane Zarate MD Date of Service: 02/23/25 Procedure(s): XR elbow LT min 3V Accession Number(s): [id number] cc: Jane Zarate MD EXAMINATION: XR ELBOW 3 VIEWS LEFT HISTORY: left elbow pain, lateral. Likely epicondylitis. COMPARISON: There are no prior studies available for comparison. FINDINGS: Four views of the left elbow are submitted. Osseous mineralization is normal. There is no fracture or dislocation. The joint spaces are preserved. The soft tissues are unremarkable. There is no joint effusion. XR/XR elbow LT min 3V IMPRESSION: Unremarkable examination of the left elbow. Electronically signed by: Kvng Ivey MD 02/23/2025 11:54 AM EDT Dictated By: Kvng Ivey MD Signed By: <Electronically signed by Kvng Ivey MD in OV> 02/23/25 1154 DD/ 0957 TD/TT: 02/23/25 1000 Home Care Chaplain: Procedure Note Donotuseinterpreter, Image - 02/23/2025 [place] [address] XRay Report Signed Patient: Sylvia NicoleMR#: [id number] : 1960Acct:[id number] Age/Sex: 64 / FADM Date: 02/23/25 [facility] Att[facility] Dr: Jane Zarate MD Ordering Physician: Jnae Zarate MD Date of Service: 02/23/25 Procedure(s): XR elbow LT min 3V Accession Number(s): [id number] cc: Jane Zarate MD EXAMINATION: XR ELBOW 3 VIEWS LEFT HISTORY: left elbow pain, lateral. Likely epicondylitis. COMPARISON: There are no prior studies available for comparison. FINDINGS: Four views of the left elbow are submitted. Osseous mineralization is normal. There is no fracture or dislocation. The joint spaces are preserved. The soft tissues are unremarkable. There is no joint effusion. XR/XR elbow LT min 3V IMPRESSION: Unremarkable examination of the left elbow. Electronically signed by: Kvng Ivey MD 02/23/2025 11:54 AM EDT RP Dictated By: Kvng Ivey MD Signed By: <Electronically signed by Kvng Ivey MD in OV> 02/23/25 1154 DD/ 0957 TD/TT: 02/23/25 1000 Home Care Chaplain: Jane Zarate MD IMG XR PROCEDURES Final Result * (ABNORMAL) POCT glycosylated hemoglobin (Hgb A1c) (02/23/2025 9:35 AM EDT) Hemoglobin A1C 7.6(A) 4.0 - 5.7 % QC Media Lot # [id number] Lot# Expiration Date Blood Capillary blood specimen / Unknown 02/23/2025 9:35 AM EDT Jane Zarate MD POINT OF CARE TEST ENTER/EDIT OR DERABLES Final Result * POCT glucose manually resulted (02/23/2025 9:35 AM EDT) Glucose Blood, POC 174 60 - 200 mg/dL QC Media Lot # [id number] Lot# Expiration Date Blood Capillary blood specimen / Unknown 02/23/2025 9:35 AM EDT Jane Zarate MD POINT OF CARE TEST ENTER/EDIT OR DERABLES Final Result * (ABNORMAL) Albumin, Random Urine W/Creatinine (10/21/2024 8:57 AM EDT) Creatinine, Urine 35.23 mg/dL [facility] Microalbumin Urine 12.0 mg/L H [facility] Microalbum Creatinine Ratio Ur 34.0(H) <30 ug/mg cr [facility] Comment:Albumin/Creatinine R atio Reference Ranges: Normal: < 30 ug/mg creatinine Microalbuminuria: 30 - 300 ug/mg creatinineClinical Albuminuria: > 300 ug/mg creatinine 10/21/2024 8:57 AM EDT 10/21/2024 11:42 AM EDT Jane Zarate MD LAB URINE ORDERABLES Final Resul t [facility] [address] [place] [address] [phone] * Hm Diabetes Eye Exam (04/16/2024) Eye Exam Normal Normal 04/16/2024 Historical Provider HEALTH MAINTENANCE Final Result * BI Mammogram Diagnostic Tomosynthesis Bilateral (03/28/2024 1:00 PM EDT) Anatomical Region Laterality Modality Breast Bilateral Mammography 03/28/2024 1:00 PM EDT Narrative 03/28/2024 1:44 PM EDT [facility] [address] [place] [address] Mammography Report Signed Patient: Sylvia Nicole MR#: [id number] : 1960 Acct:[id number] Age/Sex: 63 / F ADM Date: 03/28/24 Loc: JARON Attending Dr: Jane Zarate MD Ordering Physician: Jane Zarate MD Results: 2Benign F indings Date of Service: 03/28/24 Follow Up: 1 Year From Orig ina Mammogram Procedure(s): MM tomosynthesis diagnostic BI Accession Number(s): [id number] cc: Jane Zarate MD EXAMINATION: MM DIAGNOSTIC [...] 03/28/24 1341 DD/ 1300 TD/TT: 03/28/24 1320 Home Care Chaplain: Procedure Note Donotuseinterpreter, Image - 03/28/2024 [facility] [address] [place] [address] [place] [address] Mammography Report Signed Patient: Sylvia NicoleMR#: [id number] : 1960Acct:[id number] Age/Sex: 63 / FADM Date: 03/28/24 Loc: HO.MAMMO Attending Dr: Jane Zarate MD Ordering Physician: Jane Zarate MDResults: 2Benign F indings Date of Service: 03/28/24Follow Up: 1 Year From [facility] Mammogram Procedure(s): MM tomosynthesis diagnostic BI Accession Number(s): [id number] cc: Jane Zarate MD EXAMINATION: MM DIAGNOSTIC [...] Tucker MD 03/28/2024 01:41 PM EDT RP Dictated By: Ho Tucker MD Signed By: <Electronically signed by Ho Tucker MD in OV> 03/28/24 1341 DD/ 1300 TD/TT: 03/28/24 1320 Home Care Chaplain: Jane Zarate MD IMG BI PROCEDURES Edited Result - Final * Lipid Panel with Reflex to Direct LDL (03/25/2024 9:05 AM EDT) Triglycerides 131 <150 mg/dL [facility] Comment:Desirable Triglyceri de: less than 150 mg/dLBorderline High Triglyceride 150-199 mg/dLHigh Triglyceride: 200-499 mg/dLVery High Triglyceride: greater than or equal to 5OO mg/dL Cholesterol 164 <200 mg/dL [facility] Comment:Desirable Cholestero l: less than 200 mg/dLBorderline High Cholesterol: 200-239 mg/dLHigh Cholesterol: greater than 239 mg/dL LDL Cholesterol Calculated 81 <100 mg/dL [facility] Comment:Desirable LDL: less than 100 mg/dLNear Optimal/Above Optimal LDL: 110- 129 mg/dLBorderline High LDL: 130-159 mg/dLHigh LDL: 160-189 mg/dLVery High LDL: greater than or equal to 190 mg/dL HDL Cholesterol 57 >40 mg/dL [facility] Comment:Desirable HDL: great er than 40 mg/dL Note: This HDL assay may give artificially low results in patients with liver disease. Blood 03/25/2024 9:05 AM EDT 03/25/2024 11:48 AM EDT us Jane Zarate MD LAB BLOOD ORDERABLES Final Resul t [facility] [address] [place] [phone] * Hm Colonoscopy (01/21/2022) Colonoscopy Normal Normal Comment:tubular adenoma 01/21/2022 Historical Provider HEALTH MAINTENANCE Final Result * HEPATITIS C AB W/REFL TO HCV RNA, QN, PCR (02/05/2021 8:50 AM EDT) HEPATITIS C ANTIBODY NON-REACT JULIA NON-REACT JULIA [facility] INDEX 0.01 <1.00 [facility] Comment: HCV antibody was non-reactive. There is no laboratory evidence of HCV infection. In most cases, no further action is required. However, if recent HCV exposure is suspected, a test for HCV RNA (test code 81041) is suggested. For additional information please refer to http://[employer]/faq/XFC90p7 (This link is being provided for informational/ educational purposes only.) 02/05/2021 8:50 AM EDT Jane Zarate MD HISTORICAL/NON ORDERABLE LABS Fi nal Result [facility] [address] * HIV 1/2 ANTIGEN/ANTIBODY,FOURTH GENERATION W/RFL (02/05/2021 8:50 AM EDT) HIV-1/2 ANTIGEN AND ANTIBODIES, 4TH GENERATION W/ REFLEX NON-REACT JULIA NON-REACT JULIA [facility] Comment: HIV-1 antigen and HIV-1/HIV-2 antibodies were not detected. There is no laboratory evidence of HIV infection. PLEASE NOTE: This information has been disclosed to you from records whose confidentiality may be protected by state law. If your state requires such protection, then the state law prohibits you from making any further disclosure of the information without the specific written consent of the person to whom it pertains, or as otherwise permitted by law. A general authorization for the release of medical or other information is NOT sufficient for this purpose. For additional information please refer to http://[employer]/faq/WSV256 (This link is being provided for informational/ educational purposes only.) The performance of this assay has not been clinically validated in patients less than 2 years old. 02/05/2021 8:50 AM EDT us Jane Zarate MD LAB BLOOD ORDERABLES Final Resul t [facility] [address] [place] [address], from Last 3 Months or Most Recently Relevant to Health Maintenance [place] [address] [place] [address] 2 DENTAL - HSN PARTIAL (MEDICAID) [facility] Care Teams Hospital Secretary Relationship Specialty Start Date End Date Jane Zarate MD [address] [place] [address] PCP - General Family Medicine 06/24/12 Mikey Johnson, PharmD [address] [place] [address] Pharmacist Internal Medicine 10/17/24
--- OUTSIDE RECORDS SUMMARY | 2025-03-07 09:47 | XMS_ITS | Encounter Summary ---
Author Organization [employer] Address [address] [place] [address] 7 [place] [address] Care Team Providers Care Building Cleaner Name Role Phone Jane Zarate MD Primary Care Provider [phone] Mikey Johnson PharmD Unavailable [phone] Encounter Details Date Type Department Care Team (Late st Contact Info) Description 06/27/2022 Orders Only [facility] [address] [place] [address] Rosalind Suarez, RN Social History Tobacco Use [...] PM EST documented as of this encounter Functional Status * Over the past 2 weeks, how often have you been bothered by any of the following problems? Question Answer Date of Assessment Author Patient Health Questionnaire -2 Score 4 06/30/2022 3:13 PM EST Bhakti Pendleton [place] * Over the past 2 weeks, how often have you been bothered by any of the following problems? Question Answer Date of Assessment Author Little interest or pleasure in doing things More than half the days 06/30/2022 3:13 PM Leyda Diop MA Feeling down, depressed, or hopeless More than half the days 06/30/2022 3:13 PM Ledya Diop MA Trouble falling or staying asleep, or sleeping too much More than half the days 06/30/2022 3:13 PM Leyda Diop MA Feeling tired or having little energy Several days 06/30/2022 3:13 PM Leyda Diop MA Poor appetite or overeating Several days 06/30/2022 3:13 PM Leyda Diop MA Feeling bad about yourself - or that you are a failure or have let yourself or your family down Several days 06/30/2022 3:13 PM Leyda Diop MA Trouble concentrating on things, such as reading the newspaper or watching television Not at all 06/30/2022 3:13 PM Leyda Diop MA Moving or speaking so slowly that other people could have noticed? Or the opposite - being so fidgety or restless that you have been moving around a lot more than usual. Not at all 06/30/2022 3:13 PM Leyda Diop MA Thoughts that you would be better off or hurting yourself in some way Not at all 06/30/2022 3:13 PM Leyda Diop MA Patient Health Questionnaire-9 Score 9 06/30/2022 3:13 PM Leyda Diop MA documented as of this encounter Plan of Treatment Upcoming Encounters Date Type Department Care Team (Late st Contact Info) Description 03/22/2025 3:00 PM EDT Medication Management [facility] [address] [place] [address] Mikey Johnson, PharmD [address] [place] [address] documented as of this encounter Visit Diagnoses Not on filedocumented in this encounter Care Teams Building Cleaner Relationship Specialty Start Date End Date Jane Zarate MD [address] [place] [address] PCP - General Family Medicine 06/24/12 Mikey Johnson, FarhanaD [address] [place] [address] Pharmacist Internal Medicine 10/17/24 documented as of this encounter
--- OUTSIDE RECORDS SUMMARY | 2025-03-07 09:47 | XMS_ITS | Encounter Summary ---
Author Organization [facility] Address [address] [place] [address] 7 [place] [address] Care Team Providers Care Rag Room Supervisor Name Role Phone Jane Zarate MD Primary Care Provider [phone] Mikey Johnson PharmD Unavailable [phone] Encounter Details Date Type Department Care Team (Latest Contact Info) Description 07/25/2019 Abstract [facility] CONVERSIONS Dental, Provider, DDS Social History [...] Care Team ( st Contact Info) Description 03/22/2025 3:00 PM EDT Medication Management [facility] MEDIC[facility] [address] [place] [address] Mikey Johnson, PharmD [address] [place] [address] documented as of this encounter Visit Diagnoses Not on filedocumented in this encounter Care Teams Rag Room Supervisor Relationship Specialty Start Date End Date Jane Zarate MD [address] [place] [address] PCP - General Family Medicine 06/24/12 JohnsonMikey PharmD [address] [place] [address] Pharmacist Internal Medicine 10/17/24 documented as of this encounter
--- OUTSIDE RECORDS SUMMARY | 2025-03-07 09:47 | XMS_ITS | Clinical Summary ---
Author Organization [facility] Address [address] [place] [address] Phone Care Team Providers Care Wellness Spa Manager Name Role Phone Physician, No Pcp Primary Care Provider Unavaila ble Surgical History Surgery Date Site/Laterality Comments OTHER SURGICAL HISTORY 11/01/2020 N/A PROCEDURE: [place] LAPAROSCOPIC APPENDECTOMY; COMMENT: By Dr. Perico Pressley [facility] HYSTERECTOMY 04/16/1999 PROCEDURE: HISTORICAL HYSTERECTOMY; COMMENT: [...] complete this topic Insurance MEDICAID - [place] [facility] [employer] PLAN Advance Directives Documents on File Type Date Recorded Patient Invoice Coder Expl anation Health Care Decision (hx) 10/27/2016 AD ARNOLD DIRECTIVE Health Care Decision (hx) 10/27/2016 AD ARNOLD DIRECTIVE Health Care Decision (hx) 10/27/2016 AD ARNOLD DIRECTIVE Health Care Decision (hx) 10/27/2016 AD ARNOLD DIRECTIVE Health Care Decision (hx) 10/27/2016 AD ARNOLD DIRECTIVE Care Teams Wellness Spa Manager Relationship Specialty Start Date End Date Physician, No Pcp PCP - General 05/31/24
--- OUTSIDE RECORDS SUMMARY | 2025-03-07 09:47 | XMS_ITS | Encounter Summary ---
Author Organization [employer] Address [address] [place] [address] Care Team Providers Care Machine Operator Farmworker Name Role Phone Jane Zarate MD Primary Care Provider [phone] Mikey Johnson PharmD Unavailable [phone] Encounter Details Date Type Department Care Team (Late Contact Info) Description 06/12/2022 Telephone [facility] MEDICINE [address] [place] [address] Jane Zarate MD [address] [place] [address] Social History Tobacco Use Types Packs/Day Years [...] Department Care Team (Late Contact Info) Description 03/22/2025 3:00 PM EDT Medication Management [facility] [address] [place] [address] Mikey Johnson, PharmD [address] [place] [address] documented as of this encounter Visit Diagnoses Not on filedocumented in this encounter Care Teams Machine Operator Farmworker Relationship Specialty Start Date End Date Jane Zarate MD [address] [place] [address] PCP - General Family Medicine 06/24/12 Mikey Johnson, FarhanaD [address] [place] [address] Pharmacist Internal Medicine 10/17/24 documented as of this encounter
--- OUTSIDE RECORDS SUMMARY | 2025-03-07 09:47 | XMS_ITS | Encounter Summary ---
Author Organization [employer] Address [address] [place] [address] [place] [address] Care Team Providers Care Java Developer Name Role Phone Jane Zarate MD Primary Care Provider [phone] Mikey Johnson PharmD Unavailable [phone] Encounter Details Date Type Department Care Team (Late Contact Info) Description 03/31/2023 Abstract [facility] [address] [place] [address] [phone] Jane Zarate MD [address] [place] [phone] Social History Tobacco Use Types Packs/Day Years [...] Description 03/22/2025 3:00 PM EDT Medication Management [facility] [address] [place] [address] [phone] Mikey Johnson, PharmD [address] [place], [place] [phone] documented as of this encounter Procedures Procedure Name Priority Date/Time Associated Diagnosis Comments COLONOSCOPY Routine 01/21/2022 documented in this encounter Results * Colonoscopy (01/21/2022) Colonoscopy Normal Normal us Lion Bernal MD HEALTH MAINTENANCE Edited Resul t - Final documented in this encounter Visit Diagnoses Not on filedocumented in this encounter Additional Health Concerns Assessment Noted Time PHQ-9 Depression Total Score: 9 06/30/20 22 3:13 PM EST documented as of this encounter Care Teams Java Developer Relationship Specialty Start Date End Date Jane Zarate MD [address] [place] [address] PCP - General Family Medicine 06/24/12 Mikey Johnson, Bakari [address] [place] [address] Pharmacist Internal Medicine 10/17/24 documented as of this encounter
--- OUTSIDE RECORDS SUMMARY | 2025-03-07 09:47 | XMS_ITS | Encounter Summary ---
Author Organization [employer] Address [address] [place] [address] 7 [place] [address] Care Team Providers Care Brake [address] Freight Name Role Phone Jane Zarate MD Primary Care Provider [phone] Mikey Johnson PharmD Unavailable [phone] Reason for Visit * Reason Comments Med Refill Encounter Details Date Type Department Care Team ([facility] st Contact Info) Description 03/06/2025 Refill [facility] MED[facility]INE [address] [place], [place] [phone] Jane Zarate MD [address] [place], [place] [phone] Social History Tobacco Use Types Packs/Day Years [...] Description 03/22/2025 3:00 PM EDT Medication Management [facility] [address] [place] [address] Mikey Johnson, PharmD [address] [place] [address] documented as of this encounter Visit Diagnoses Not on filedocumented in this encounter Additional Health Concerns Assessment Noted Time PHQ-9 Depression Total Score: 8 11/23/19 25 4:13 PM EDT documented as of this encounter Care Teams [address] Freight Relationship Specialty Start Date End Date Jane Zarate MD [address] [place] [address] PCP - General Family Medicine 06/24/12 Mikey Johnson, PharmD [address] [place] [address] Pharmacist Internal Medicine 10/17/24 documented as of this encounter
--- OUTSIDE RECORDS SUMMARY | 2025-03-07 09:47 | XMS_ITS | Encounter Summary ---
Author Organization [employer] Address [address] [place] [address] 7 [place] [address] Care Team Providers Care Dead Mail Checker Name Role Phone Jane Zarate MD Primary Care Provider [phone] Mikey Johnson PharmD Unavailable [phone] Encounter Details Date Type Department Care Team (Late st Contact Info) Description 05/23/2024 Abstract [facility] MED[facility]INE [address] [place] [address] Leyda Pendleton [place] Social History Tobacco Use [...] Description 03/22/2025 3:00 PM EDT Medication Management [facility] [address] [place] [address] Mikey Johnson, PharmD [address] [place] [address] documented as of this encounter Procedures Procedure Name Priority Date/Time Associated Diagnosis Comments DIABETES EYE EXAM Routine 04/16/2024 documented in this encounter Results * Diabetes Eye Exam (04/16/2024) [facility] Signature Eye Exam Normal Normal 04/16/2024 us Historical Provider HEALTH MAINTENANCE Final Result documented in this encounter Visit Diagnoses Not on filedocumented in this encounter Additional Health Concerns Assessment Noted Time PHQ-9 Depression Total Score: 7 05/10/20 24 1:16 PM EDT documented as of this encounter Care Teams Dead Mail Checker Relationship Specialty Start Date End Date Jane Zarate MD [address] [place] [address] PCP - General Family Medicine 12/13/12 Mikey Johnson, PharmD [address] [place] [address] Pharmacist Internal Medicine 10/17/24 documented as of this encounter
--- OUTSIDE RECORDS SUMMARY | 2025-03-07 09:47 | XMS_ITS | Encounter Summary ---
Author Organization [employer] Address [address] [place] [address] 7 [place] [address] Care Team Providers Care Pressure Steamer Tender Name Role Phone Jane Zarate MD Primary Care Provider [phone] Mikey Johnson PharmD Unavailable [phone] Reason for Visit * Reason Onset Date Comments Nurse Triage 07/04/2024 Encounter Details Date Type Department Care Team (Late st Contact Info) Description 07/04/2024 Telephone [facility] MEDICINE [address] [place], [place] [phone] Jane Zarate MD [address] [place], [place] [phone] Nurse Triage Social History Tobacco Use Types [...] Pt is advised to seek evaluation at [facility]. Pt agrees with disposition and will follow [...] Description 03/22/2025 3:00 PM EDT Medication Management [facility] [address] [place] [address] Mikey Johnson, PharmD [address] [place] [address] documented as of this encounter Visit Diagnoses Not on filedocumented in this encounter Additional Health Concerns Assessment Noted Time PHQ-9 Depression Total Score: 7 05/10/20 24 1:16 PM EDT documented as of this encounter Care Teams Pressure Steamer Tender Relationship Specialty Start Date End Date Jane Zarate MD [address] [place] [address] PCP - General Family Medicine 06/24/12 Mikey Johnson, PharmD [address] [place] [address] Pharmacist Internal Medicine 10/17/24 documented as of this encounter
--- OUTSIDE RECORDS SUMMARY | 2025-03-07 09:47 | XMS_ITS | Encounter Summary ---
Author Organization [employer] Address [address] [place] [address] [address] [place] [address] Care Team Providers Care Ice Cream Van Vendor Name Role Phone Jane Zarate MD Primary Care Provider [phone] Mikey Johnson PharmD Unavailable [phone] Reason for Visit * Reason Onset Date Comments Appointment Request 02/16/2025 Encounter Details Date Type Department Care Team (Late st Contact Info) Description 02/16/2025 Telephone [facility] MEDICINE [address] [place], [place] [phone] Jane Zarate MD [address] [place], [place] [phone] Appointment Request Social History Tobacco Use Types [...] encounter Miscellaneous Notes * Telephone Encounter - Bertha Lynn - 02/16/2025 12:03 PM EDT Tc from pt requesting to reschedule appt from 02/17 due to transportation. Contact pt at [phone] documented in this encounter Plan of Treatment Upcoming Encounters Date Type Department Care Team (Late st Contact Info) Description 03/22/2025 3:00 PM EDT Medication Management [facility] MEDICINE [address] [place] [address] Mikey Johnson, PharmD [address] [place] [address] documented as of this encounter Visit Diagnoses Not on filedocumented in this encounter Additional Health Concerns Assessment Noted Time PHQ-9 Depression Total Score: 8 11/23/19 25 4:13 PM EDT documented as of this encounter Care Teams Ice Cream Van Vendor Relationship Specialty Start Date End Date Jane Zarate MD [address] [place] [address] PCP - General Family Medicine 06/24/12 Mikey Johnson, PharmD [address] [place] [address] Pharmacist Internal Medicine 10/17/24 documented as of this encounter
--- OUTSIDE RECORDS SUMMARY | 2025-03-07 09:47 | XMS_ITS | Encounter Summary ---
Author Organization [employer] Address [address] [place] [address] 7 [place] [address] Care Team Providers Care Job Press Feeder Name Role Phone Jane Zarate MD Primary Care Provider [phone] Mikey Johnson PharmD Unavailable [phone] Encounter Details Date Type Department Care Team (Latest Contact Info) Description 03/06/2025 Travel Social History Tobacco Use Types Packs/Day [...] Description 03/22/2025 3:[address] [facility] MED[facility]INE [address] [place] [address] Mikey Johnson, PharmD [address] [place] [address] documented as of this encounter Visit Diagnoses Not on filedocumented in this encounter Additional Health Concerns Assessment Noted Time PHQ-9 Depression Total Score: 8 11/23/19 25 4:13 PM EDT documented as of this encounter Care Teams Job Press Feeder Relationship Specialty Start Date End Date Jane Zarate MD [address] [place] [address] PCP - General Family Medicine 06/24/12 Mikey Johnson, PharmD [address] [place] [address] Pharmacist Internal Medicine 10/17/24 documented as of this encounter
--- OUTSIDE RECORDS SUMMARY | 2025-03-07 09:47 | XMS_ITS | Encounter Summary ---
Author Organization [employer] Address [address] [place] [address] Care Team Providers Care Damper Maker Name Role Phone Physician, No Pcp Primary Care Provider Unavaila ble Encounter Details Date Type Department Care Team (Late st Contact Info) Description 11/17/2024 Lab Requisition [facility] - Main Lab [address] [facility] [place] [phone] Lennie Qiu NP [address] [facility] [address] [place] [address] Frequency of micturition Social History Tobacco Use [...] Comments BACTERIAL IDENTIFICATION AND SUSCEPTIBILITY, AEROBIC Routine 11/16/2024 12:00 AM EDT Frequency of micturition documented in this encounter Results * Bacterial identification and susceptibility, aerobic (11/16/2024 12:00 AM EDT) Culture, Bacterial ID and Sensitivity Multiple bacterial morphotypes present consistent with either contamination or urogenital huy. Suggest repeat specimen, if clinically indicated. 11/17/2024 11:12 AM EDT [facility] Other Urine specimen from urethra / Unknown 11/16/2024 11/17/2024 10:46 AM EDT us Lennie Qiu NP LAB MICROBIOLOGY - GENERA L ORDERABLES Final Result [facility] [address] [place] [address], documented in this encounter Visit Diagnoses Diagnosis Frequency of micturition Urinary frequency documented in this encounter Care Teams Damper Maker Relationship Specialty Start Date End Date Physician, No Pcp PCP - General 05/31/24 documented as of this encounter
--- OUTSIDE RECORDS SUMMARY | 2025-03-07 09:47 | XMS_ITS | Encounter Summary ---
Author Organization [employer] Address [address] [place] [address] 7 [place] [address] Care Team Providers Care Make Up Artist Name Role Phone Jane Zarate MD Primary Care Provider [phone] Mikey Johnson PharmD Unavailable [phone] Reason for Visit * Reason Comments Med Refill Encounter Details Date Type Department Care Team ([facility] st Contact Info) Description 01/23/2025 Refill [facility] [address] [place], [place] [phone] Jane Zarate MD [address] [place], [place] [phone] Social History Tobacco Use Types Packs/Day Years [...] Description 03/22/2025 3:00 PM EDT Medication Management [facility] [address] [place] [address] Mikey Johnson, PharmD [address] [place] [address] documented as of this encounter Visit Diagnoses Not on filedocumented in this encounter Additional Health Concerns Assessment Noted Time PHQ-9 Depression Total Score: 8 11/23/19 25 4:13 PM EDT documented as of this encounter Care Teams Make Up Artist Relationship Specialty Start Date End Date Jane Zarate MD [address] [place] [address] PCP - General Family Medicine 06/24/12 Mikey Johnson, PharmD [address] [place] [address] Pharmacist Internal Medicine 10/17/24 documented as of this encounter
--- OUTSIDE RECORDS SUMMARY | 2025-03-07 09:47 | XMS_ITS | Encounter Summary ---
Author Organization [employer] Address [address] [place] [address] 7 [place] [address] Care Team Providers Care Water Treatment Plant Engineer Name Role Phone Jane Zarate MD Primary Care Provider [phone] Mikey Johnson PharmD Unavailable [phone] Reason for Visit * Reason Onset Date Comments Appointment Request 02/21/2025 Encounter Details Date Type Department Care Team (Late st Contact Info) Description 02/21/[address] [facility] [address] [place], [place] [phone] Jane Zarate MD [address] [place], [place] [phone] Appointment Request Social History Tobacco Use Types [...] encounter Miscellaneous Notes * Telephone Encounter - Zaynab Burciaga - 02/21/2025 12:43 PM EDT Tc from pt requesting to r/s CDTM appointment. Pt stated she has a appointment on that day. documented in this encounter Plan of Treatment Upcoming Encounters Date Type Department Care Team (Late st Contact Info) Description 03/22/2025 3:00 PM EDT Medication Management [facility] [address] [place] [address] Mikey Johnson, PharmD [address] [place] [address] documented as of this encounter Visit Diagnoses Not on filedocumented in this encounter Additional Health Concerns Assessment Noted Time PHQ-9 Depression Total Score: 8 11/23/19 25 4:13 PM EDT documented as of this encounter Care Teams Water Treatment Plant Engineer Relationship Specialty Start Date End Date Jane Zarate MD [address] [place] [address] PCP - General Family Medicine 06/24/12 Mikey Johnson, Bakari [address] [place] [address] Pharmacist Internal Medicine 10/17/24 documented as of this encounter
--- OUTSIDE RECORDS SUMMARY | 2025-03-07 09:47 | XMS_ITS | Encounter Summary ---
Author Organization [employer] Address [address] [place] [address] 7 [place] [address] Care Team Providers Care Tube Tester Name Role Phone Jane Zarate MD Primary Care Provider [phone] Mikey Johnson PharmD Unavailable [phone] Encounter Details Date Type Department Care Team (Late st Contact Info) Description 01/08/2024 Orders Only [facility] [address] [place], [place] [phone] Jane Zarate MD [address] [place], [place] [phone] Social History Tobacco Use Types Packs/Day Years [...] 3:00 PM EDT Medication Management [facility] [address] [place] [address] Mikey Johnson, PharmD [address] [place] [address] documented as of this encounter Visit Diagnoses Not on filedocumented in this encounter Additional Health Concerns Assessment Noted Time PHQ-9 Depression Total Score: 0 10/13/19 24 1:55 PM EDT documented as of this encounter Care Teams Tube Tester Relationship Specialty Start Date End Date Jane Zarate MD [address] [place] [address] PCP - General Family Medicine 06/24/12 Mikey Johnson, PharmD [address] [place] [address] Pharmacist Internal Medicine 10/17/24 documented as of this encounter
--- OUTSIDE RECORDS SUMMARY | 2025-03-07 09:47 | XMS_ITS | Encounter Summary ---
Author Organization [facility] Address [address] [place] [address] [address] [address] Care Team Providers Care Manager Program Name Role Phone Jane Zarate MD Primary Care Provider [phone] Mikey Johnson PharmD Unavailable [phone] Encounter Details Date Type Department Care Team (Late Contact Info) Description 09/05/2022 Abstract [facility] [address] [place] [address] [phone] Provider, MD Baltazar Social History Tobacco Use [...] Upcoming Encounters Date Type Department [facility] Description 03/22/2025 3:00 PM EDT Medication Management [facility] 230 [place], [place] [phone] Mikey Johnson, PharmD 230 [place] [address] documented as of this encounter Visit Diagnoses Not on filedocumented in this encounter Additional Health Concerns Assessment Noted Time PHQ-9 Depression Total Score: 9 06/30/20 22 3:13 PM EST documented as of this encounter Care Teams Manager Program Relationship Specialty Start Date End Date Jane Zarate MD 230 [place] [address] PCP - General Family Medicine 06/24/12 Mikey Johnson PharmD 230 [place] [address] Pharmacist Internal Medicine 10/17/24 documented as of this encounter
--- OUTSIDE RECORDS SUMMARY | 2025-03-07 09:47 | XMS_ITS | Encounter Summary ---
Author Organization [employer] Address [address] [place] [address] [address] [address] Care Team Providers Care Cleaning Machine Operator Name Role Phone Jane Zarate MD Primary Care Provider [phone] Mikey Johnson PharmD Unavailable [phone] Encounter Details Date Type Department Care Team (Late Contact Info) Description 09/17/2022 Orders Only [facility] [address] [place] [address] [phone] Jane Zarate MD [address] [place] [address] [phone] Asymmetrical sensorineural hearing loss (Primary Dx) Social [...] Description 03/22/2025 3:00 PM EDT Medication Management [facility] [address] [place] [address] [phone] Mikey Johnson, PharmD [address] [place] [address] documented as of this encounter Visit Diagnoses Diagnosis Asymmetrical sensorineural hearing loss- Primary Sensorineural hearing loss, asymmetrical documented in this encounter Additional Health Concerns Assessment Noted Time PHQ-9 Depression Total Score: 9 06/30/20 22 3:13 PM EST documented as of this encounter Care Teams Cleaning Machine Operator Relationship Specialty Start Date End Date Jane Zarate MD 230 [place] [address] PCP - General Family Medicine 06/24/12 Mikey Johnson, Bakari 230 [place] [address] Pharmacist Internal Medicine 10/17/24 documented as of this encounter
--- OUTSIDE RECORDS SUMMARY | 2025-03-07 09:47 | XMS_ITS | Encounter Summary ---
Author Organization [employer] Address [address] [place] [address] Care Team Providers Care Caddy/Caddie Supervisor Name Role Phone Physician, No Pcp Primary Care Provider Unavaila ble Encounter Details Date Type Department Care Team (Late st Contact Info) Description 10/04/2024 Lab Requisition [facility] [address] [facility] [place] [phone] Lennie Qiu NP [address] [facility] [address] [place] [address] Frequency of micturition Social History Tobacco Use [...] Escherichia coli(A) WILLIAM 10/05/2024 10:25 AM EDT [facility] Other Urine specimen from urethra [...] WILLIAM <=20 ug/ml: Susceptible us Lennie Qiu DIRECT MARKETING MANAGER LAB MICROBIOLOGY - GENERA L ORDERABLES Final Result [facility] [address] [place] [address], documented in this encounter Visit Diagnoses Diagnosis Frequency of micturition Urinary frequency documented in this encounter Care Teams Caddy/Caddie Supervisor Relationship Specialty Start Date End Date Physician, No Pcp PCP - General 05/31/24 documented as of this encounter
--- OUTSIDE RECORDS SUMMARY | 2025-03-07 09:47 | XMS_ITS | Encounter Summary ---
Author Organization [employer] Address [address] [place] [address] 7 [place] [address] Care Team Providers Care Day Care Worker Name Role Phone Jane Zarate MD Primary Care Provider [phone] Mikey Johnson PharmD Unavailable [phone] Reason for Visit * Reason Onset Date Comments Referral 12/19/2024 Encounter Details Date Type Department Care Team (Late st Contact Info) Description 12/19/2024 Telephone [facility] [address] [place], [place] [phone] Jane Zarate MD [address] [place], [place] [phone] Referral Social History Tobacco Use Types Packs/Day Years [...] encounter Miscellaneous Notes * Telephone Encounter - Lynsey Valera - 12/19/2024 2:10 PM EDT Tc from pt requesting change referral facility. New Location: [address] [place] [address] [facility] Referral: [facility] documented in this encounter Plan of Treatment Upcoming Encounters Date Type Department Care Team (Late st Contact Info) Description 03/22/2025 3:00 PM EDT Medication Management [facility] [address] [place] [address] Mikey Johnson, PharmD [address] [place] [address] documented as of this encounter Visit Diagnoses Not on filedocumented in this encounter Additional Health Concerns Assessment Noted Time PHQ-9 Depression Total Score: 8 11/23/19 25 4:13 PM EDT documented as of this encounter Care Teams Day Care Worker Relationship Specialty Start Date End Date Jane Zarate MD [address] [place] [address] PCP - General Family Medicine 06/24/12 Mikey Johnson, FarhanaD [address] [place] [address] Pharmacist Internal Medicine 10/17/24 documented as of this encounter
--- OUTSIDE RECORDS SUMMARY | 2025-03-07 09:47 | XMS_ITS | Encounter Summary ---
Author Organization [employer] Address [address] [place] [address] 7 [place] [address] Care Team Providers Care Brake Tester Name Role Phone Jane Zarate MD Primary Care Provider [phone] Mikey Johnson PharmD Unavailable [phone] Reason for Visit * Reason Onset Date Comments Medication Question 11/05/2023 Encounter Details Date Type Department Care Team (Late st Contact Info) Description 11/05/2023 Telephone [facility] [address] [place], [place] [phone] Jane Zarate MD [address] [place], [place] [phone] Medication Question Social History Tobacco Use Types [...] PM EDT Medication Management [facility] [address] [place] [address] Mikey Johnson, PharmD [address] [place] [address] documented as of this encounter Visit Diagnoses Not on filedocumented in this encounter Additional Health Concerns Assessment Noted Time PHQ-9 Depression Total Score: 0 10/13/19 24 1:55 PM EDT documented as of this encounter Care Teams Brake Tester Relationship Specialty Start Date End Date Jane Zarate MD 230 [place], [place] [phone] PCP - General Family Medicine 06/24/12 Mikey Johnson, FarhanaD [address] [place] [address] Pharmacist Internal Medicine 10/17/24 documented as of this encounter
--- OUTSIDE RECORDS SUMMARY | 2025-03-07 09:47 | XMS_ITS | Encounter Summary ---
Author Organization [employer] [facility] Address [address] [place] [address] 7 [place] [address] Care Team Providers Care Government Relations Director Name Role Phone Jane Zarate MD Primary Care Provider [phone] Mikey Johnson PharmD Unavailable [phone] Encounter Details Date Type Department Care Team (Latest Contact Info) Description 09/09/[address] [facility] Dental, Provider, DDS Social History [...] 03/22/2025 3:00 PM EDT Medication Management [facility] [address] [place] [address] Mikey Johnson, PharmD [address] [place] [address] documented as of this encounter Visit Diagnoses Not on filedocumented in this encounter Care Teams Government Relations Director Relationship Specialty Start Date End Date Jane Zarate MD [address] [place] [address] PCP - General Family Medicine 06/24/12 Mikey Johnson, PharmD [address] [place] [address] Pharmacist Internal Medicine 10/17/24 documented as of this encounter
--- OUTSIDE RECORDS SUMMARY | 2025-03-07 09:47 | XMS_ITS | Encounter Summary ---
Author Organization [employer] Address [address] [place] [address] 7 [place] [address] Care Team Providers Care Principal Systems Architect Name Role Phone Jane Zarate MD Primary Care Provider [phone] Mikey Johnson PharmD Unavailable [phone] Encounter Details Date Type Department Care Team (Late st Contact Info) Description 01/07/2024 Orders Only [facility] 230 [place], [place] [phone] Jane Zarate MD 230 [place], [place] [phone] Social History Tobacco Use Types Packs/Day Years [...] Description 03/22/2025 3:00 PM EDT Medication Management [facility] [address] [place] [address] Mikey Johnson, PharmD [address] [place] [address] documented as of this encounter Visit Diagnoses Not on filedocumented in this encounter Additional Health Concerns Assessment Noted Time PHQ-9 Depression Total Score: 0 10/13/19 24 1:55 PM EDT documented as of this encounter Care Teams Principal Systems Architect Relationship Specialty Start Date End Date Jane Zarate MD [address] [place] [address] PCP - General Family Medicine 06/24/12 Mikey Johnson, PharmD [address] [place] [address] Pharmacist Internal Medicine 10/17/24 documented as of this encounter
--- OUTSIDE RECORDS SUMMARY | 2025-03-07 09:47 | XMS_ITS | Encounter Summary ---
Author Organization [employer] Address [address] [place] [address] Care Team Providers Care Manager Union Name Role Phone Jane Zarate MD Primary Care Provider [phone] Mikey Johnson PharmD Unavailable [phone] Reason for Visit * Reason Comments Med Refill Encounter Details Date Type Department Care Team (Late Contact Info) Description 09/20/2022 Refill [facility] 230 [place], [place] [phone] Jane Zarate MD [address] [place], [place] [phone] Gastroesophageal reflux disease, unspecified whether esophagitis present [...] Description 03/22/2025 3:00 PM EDT Medication Management [facility] 230 [place], [place] [phone] Mikey Johnson, PharmD [address] [place] [address] documented as of this encounter Visit Diagnoses Diagnosis Gastroesophageal reflux disease, unspecified whether esophagitis present documented in this encounter Additional Health Concerns Assessment Noted Time PHQ-9 Depression Total Score: 9 06/30/20 22 3:13 PM EST documented as of this encounter Care Teams Manager Union Relationship Specialty Start Date End Date Jane Zarate MD [address] [place] [address] PCP - General Family Medicine 06/24/12 Mikey Johnson, Bakari [address] [place] [address] Pharmacist Internal Medicine 10/17/24 documented as of this encounter
== END 2025-03-07 09:21 | disposition home or self-care (01) ==
LOC: HO.HHCX 09:20
PROVIDERS: PCP Family Medicine; Visit Provider Internal Medicine
DX: M25.532 Pain in left wrist (principal)
CPT/HCPCS: 73110

== ENCOUNTER → 2025-03-07 09:31 | Outpatient (BNV) | payer OTHER, SELFPAY | PROVIDERS: PCP Family Medicine; Visit Provider Radiology Diagnostic Radiology | DX: M25.532 Pain in left wrist (principal) | CPT/HCPCS: 73110 ==

== ENCOUNTER 2025-03-09 14:52 | Outpatient (AMB) | payer OTHER, SELFPAY ==
--- OUTSIDE RECORDS SUMMARY | 2025-03-06 16:00 | XMS_ITS | Encounter Summary ---
Author Organization [employer] Address [address] [place] [address] 7t [place] [address] Care Team Providers Care Third Hand Name Role Phone Jane Zarate MD Primary Care Provider [phone] Mikey Johnson PharmD Unavailable [phone] Reason for Visit * Reason Comments UTI Encounter Details Date Type Department Care Team ([facility] st Contact Info) Description 03/06/2025 4:00 PM EDT Office Visit [facility] [address] [place] [address] Thania Anne MD [address] [place] [address] Acute pain of left wrist (Primary Dx); UTI symptoms Social History Tobacco Use Types Packs/Day Years Used Date Smoking Tobacco: Never Passive Smoke Exposure: Never Smokeless Tobacco: Never Tobacco Cessation:Counseling Given: Not Answered Alcohol Answer Date Recorded Frequency of Alcohol Consumption Not on file 05/10/2024 Average Number of Drinks Not on file 024 Frequency of Binge Drinking Not on file 04/13 Score 0 05/10/2024 Depression Answer Date Recorded Patient Health Questionnaire-9 Score 8 11/22/2024 Patient Health Questionnaire-9 Score 8 11/22/2024 Last PHQ-9: Questionnaire Data Not on file 0 11/22/2024 Housing Stability Answer Date Recorded What is [...] Date Recorded Patient Health Questionnaire-2 Score 2 11/22/2024 Internet Access Answer Date Recorded Internet Access [...] Sign Reading Time Taken Comments Blood Pressure 121/86 03/06/2025 4:07 PM EDT Pulse 69 03/06/2025 4:07 PM EDT Temperature 36.7 C (98 F) 03/06/2025 4:07 PM EDT Respiratory Rate 18 03/06/2025 4:07 PM EDT Oxygen Saturation 98% 03/06/2025 4:07 PM EDT Inhaled Oxygen Concentration - - Weight 91.2 kg (201 lb) 03/06/2025 4:07 PM EDT Height - - Body Mass Index 34.5 02/23/2025 9:34 AM EDT documented in this encounter Progress Notes * Thania Anne MD - 03/06/2025 4:00 PM EDT ADY Nicole is a 64 y.o. female patient of Jane Zarate MD who presents for urinary frequency andleft wrist pain. HPI Sylvia has frequent urinary tract infections and incontinence, and she started having urinary frequency and nocturia more than 1 week ago. She was concerned it might be a UTI so she started taking amoxicillin. Her symptoms improved, but she came in today because she wanted to see if it is a UTI. She has some low back pain but no fever, nausea. She is also concerned about some left wrist pain she has had for 1-2 weeks. Pain is quite severe and is not relieved with Tylenol Arthritis. She has been using a wrist splint and that provides some relief. She does not recall any falls. She saw Dr. Zarate for this last week and Dr. Zarate orderedan elbow xray which was normal. She also sent an Ortho referral for Sylvia, but she does not have an appointment until 04/26/25. Review of Systems Constitutional: Negative for chills and fever. Gastrointestinal: Negative for abdominal distention and constipation. Genitourinary: Positive for difficulty urinating (chronically s/p sling), flank pain and frequency.Negative for decreased urine volume, dysuria and urgency. Musculoskeletal: Positive for arthralgias (left wrist). OBJECTIVE Vitals: 03/06/25 1607 BP: 121/86 BP Location: Left arm Patient Position: Sitting BP Cuff Size: Adult Pulse: 69 Resp: 18 Temp: 98 ??F (36.7 ??C) TempSrc: Temporal SpO2: 98% Weight: 201 lb (91.2 kg) Physical Exam Constitutional: Appearance: She is not toxic-appearing. HENT: Head: Normocephalic. Pulmonary: Effort: Pulmonary effort is normal. Musculoskeletal: General: Swelling (mild swelling dorsum of left foot) and tenderness (ulnar side of left distal forearm/proximal wrist) present. Left elbow: Normal range of motion. No tenderness. Skin: Capillary Refill: Capillary refill takes less than 2 seconds. Neurological: General: No focal deficit present. Mental Status: She is alert. Psychiatric: Mood and Affect: Mood normal. Behavior: Behavior normal. Assessment/Plan Assessment/Plan Diagnoses and all orders for this visit: UTI symptoms: Today's UA is normal but she has taken amoxicillin x 1 week. Told her I would send urine for CX on the off chance there is an infection. I also sent her a order for UA with reflex Cx with copy to PCP Dr. Zarate for her to do when she has symptoms in the future. - POCT urinalysis dipstick manually resulted - Culture, Urine, Routine; Future - Urinalysis, Complete, with Reflex to Culture; Future Acute pain of left wrist - XR Wrist 3+ Views Left; Future - ibuprofen 600 MG tablet; Take 1 tablet (600 mg) by mouth if needed in the morning, at noon, and at bedtime for mild pain. Future Appointments Date Time Provider Department Center 03/22/2025 3:00 PM Mikey Johnson PharmD MEDICINE [facility] documented in this encounter Plan of Treatment Upcoming Encounters Date Type Department Care Team (Late st Contact Info) Description 03/22/2025 3:00 PM EDT Medication Management [facility] MED[facility] [address] [place] [address] [phone] Mikey Johnson PharmD [address] [place] [phone] documented as of this encounter Procedures Procedure Name Priority Date/Time Associated Diagnosis Comments XR WRIST 3+ VIEWS LEFT Routine 03/07/2025 9:07 AM EDT Acute pain of left wrist URINALYSIS, COMPLETE, WITH REFLEX TO CULTURE Routine 03/06/2025 4:20 PM EDT UTI symptoms CULTURE, URINE, ROUTINE Routine 03/06/2025 4:20 PM EDT UTI symptoms POCT URINALYSIS DIPSTICK Routine 03/06/2025 4:14 PM EDT UTI symptoms documented in this encounter Results * XR Wrist 3+ Views Left (03/07/2025 9:07 AM EDT) Anatomical Region Laterality Modality Upper Extremities, Wrist Left Radiogr aphic Imaging 03/07/2025 9:07 AM EDT Narrative 03/07/2025 10:29 AM EDT [address] [address] XRay Report Signed Patient: Sylvia Nicole MR#: [id number] : 1960 Acct:[id number] Age/Sex: 64 / F ADM Date: 03/07/25 Loc: [facility] Attending Dr: Thania Anne MD Ordering Physician: Thania Anne MD Date of Service: 03/07/25 Procedure(s): XR wrist LT min 3V Accession Number(s): [id number] cc: Thania Anne MD; Jane Zarate MD EXAMINATION: XR WRIST, LEFT CLINICAL INFORMATION: Acute left wrist/distal forearm pain. No history of fall. COMPARISON: None available. TECHNIQUE: PA, lateral, oblique, and scaphoid views of the left wrist. FINDINGS: No fracture, dislocation, or suspicious bone lesion. There is normal alignment. The carpal rows are intact. Mild radiocarpal joint space narrowing. Mild osteoarthrosis in the first CMC joint and STT joints. Mild negative ulnar variance. No abnormal soft tissue calcification. Soft tissues appear normal. XR/XR wrist LT min 3V IMPRESSION: No acute findings of the left wrist. Degenerative findings as detailed. Electronically signed by: Ho Tucker MD 03/07/2025 10:27 AM EDT Dictated By: Ho Tucker MD Signed By: <Electronically signed by Ho Tucker MD in OV> 03/07/25 1027 DD/ 0907 TD/TT: 03/07/25 0915 [employer]at[employer] Installer: Procedure Note Donotuseinterpreter, Image - 03/07/2025 [place] [address] XRay Report Signed Patient: Sylvia NicoleMR#: [id number] : 1960Acct:[id number] Age/Sex: 64 / FADM Date: 03/07/25 Loc: [facility] Attending Dr: Thania Anne MD Ordering Physician: Thania Anne MD Date of Service: 03/07/25 Procedure(s): XR wrist LT min 3V Accession Number(s): [id number] cc: Thania Anne MD; Jane Zarate MD EXAMINATION: XR WRIST, LEFT CLINICAL INFORMATION: Acute left wrist/distal forearm pain. No history of fall. COMPARISON: None available. TECHNIQUE: PA, lateral, oblique, and scaphoid views of the left wrist. FINDINGS: No fracture, dislocation, or suspicious bone lesion. There is normal alignment. The carpal rows are intact. Mild radiocarpal joint space narrowing. Mild osteoarthrosis in the first CMC joint and STT joints. Mild negative ulnar variance. No abnormal soft tissue calcification. Soft tissues appear normal. XR/XR wrist LT min 3V IMPRESSION: No acute findings of the left wrist. Degenerative findings as detailed. Electronically signed by: Ho Tucker MD 03/07/2025 10:27 AM EDT RP Dictated By: Ho Tucker MD Signed By: <Electronically signed by Ho Tucker MD in OV> 03/07/25 1027 DD/ 0907 TD/TT: 03/07/25 0915 [employer] Installer: us Thania Anne MD IMG XR PROCEDURES Final Resul t * Urinalysis, Complete, with Reflex to Culture (03/06/2025 4:20 PM EDT) Color Urine Yellow [facility] Appearance Urine Clear [facility] PH 6.0 5.0 - 9.0 [facility] Glucose Urine UA Negative Negative mg/dL [facility] Urine Blood Negative Negative [facility] Specific [place] - Urine 1.020 1.005 - 1.025 [facility] Urine Protein Negative Neg-Trace mg/dL [facility] Urine Ketones Negative Negative mg/dL [facility] Nitrite Urine Negative Negative [facility] Leukocyte Esterase Urine Negative Negative [facility] RBC Urine 0-2 0 - 2 /HPF [facility] Urine WBC 0-5 0 - 5 /HPF [facility] Urine Squamous Epithelial Cell 0-2 0 - 2 /HPF [facility] Urine Bacteria None Seen None Seen [facility] Hyaline Casts, Urine 0-2 0 - 2 /LPF [facility] Urine 03/06/2025 4:20 PM EDT 03/07/2025 11:47 AM EDT Narrative [facility] - 03/07/2025 11:54 AM EDT Urine, Clean Catch Thania Anne MD LAB URINE ORDERABLES Final Re sult Performing Organization Address [facility] Co de Phone Number [facility] [address] [place] [phone] * Culture, Urine, Routine (03/06/2025 4:20 PM EDT) Urine Urine specimen obtained by clean catch procedure / Unknown 03/06/2025 4:20 PM EDT 03/07/2025 11:47 AM EDT Comment:UACC Narrative [facility] - 03/08/2025 12:07 PM EDT Urine Culture Report Result Urine Culture < 10,000 cfu/ml Specimen Source: Urine clean catch Thania Anne MD LAB MICROBIOLOGY - GENERAL OR DERABLES Final Result Performing Organization Address [facility] Co de Phone Number [facility] [address] [place] [phone] * POCT urinalysis dipstick manually resulted (03/06/2025 4:14 PM EDT) Color, UA Yellow Clarity, UA Clear Glucose, UA Negative Bilirubin, UA Negative Ketones, UA Negative Spec Grav, UA 1.020 Blood, UA Negative Negative, None Detected pH, UA 6.0 Protein, UA Negative Urobilinogen, UA 0.2 Leukocytes, UA Negative Negative, Rare, Trace Nitrite, UA Negative Negative, None Detected Appearance, UA OK Urine 03/06/2025 4:14 PM EDT Germain Paulson MD POINT OF CARE TEST EN TER/EDIT ORDERABLES Final Result documented in this encounter Visit Diagnoses Diagnosis Acute pain of left wrist- Primary UTI symptoms documented in this encounter Additional Health Concerns Assessment Noted Time PHQ-9 Depression Total Score: 8 11/23/19 4:13 PM EDT documented as of this encounter Care Teams Third Hand Relationship Specialty Start Date End Date Jane Zarate MD [address] [place] [address] PCP - General Family Medicine 06/24/12 Mikey Johnson, Bakari [address] [place] [address] Pharmacist Internal Medicine 10/17/24 documented as of this encounter
--- NOTE | 2025-03-09 14:54 | MHC.OFFVIS ---
Vital Signs 03/09/25 15:01 Height 5 ft 4 in Weight 193 lb BMI 33.1 BP 112/51 L Blood Pressure Location Lt brachial Position Sitting Pulse 90 Pulse Oximetry (%) 97 Oxygen Delivery Method Room Air Intake Visit Reasons: GERD/MED REFILLS Intake Note: Patient complex follow up for GERD/med refills. Luba salas saira was 10/19/2023. Patient cc: urine incontinence. Denies any other GI issues. Construction Pit Worker Required: No Accompanied by: Self / Same As Patient Allergies cat dander (CATS) Allergy (Unknown, Verified 03/09/25 14:54) SNEEZING DUST Allergy (Unknown, Uncoded 03/21/24 09:43) ITCHY EYES, SNEEZING FRUIT Allergy (Unknown, Uncoded 03/21/24 09:43) ITCHY THROAT RAGWEED Allergy (Unknown, Uncoded 03/21/24 09:43) SNEEZING/ ITCHY EYES Medication List - Last Reconciled 03/09/25 by Maribeth Marino CNP bisacodyl (Dulcolax (bisacodyl)) 20 mg (4 x 5 mg) PO ONCE 1 day bupropion HCl SR 200 mg PO BID cephalexin 250 mg PO DAILY cholecalciferol (vitamin D3) 25 mcg PO DAILY dulaglutide (Trulicity) 1.5 mg subcut QWEEK enalapril maleate 5 mg PO DAILY estradiol 0.01%(0.1mg/gram) vaginal fluconazole mg PO glipizide ER 10 mg PO BID loratadine 10 mg PO DAILY metformin ER 1,000 mg PO BID methenamine hippurate 1 g PO BID oxybutynin chloride ER 15 mg PO DAILY pantoprazole 40 mg PO DAILY pioglitazone (Actos) 45 mg PO DAILY polyethylene glycol 3350 (Miralax) 238 grams PO ONCE 1 day pravastatin 40 mg PO DAILY HPI HPI GERD/MED REFILLS: Details: Patient is a 64-year-old female with PMH of VANDANA, hyperlipidemia and diabetes. Last visit with IRINEO Pérez 10/19/2023 for acid reflux The patient presents for a medication refill related to gastroesophageal reflux disease (GERD). The patient reports reliance on pantoprazole 40 mg once in the morning without food, which effectively controls symptoms when taken consistently. Symptoms, including burning sensation and choking at night, recurred severely when the medication was not taken for about a week, particularly affecting sleep quality. GERD symptoms have been documented previously, and an upper endoscopy in January 2022 confirmed the diagnosis, along with gastritis and stomach erosions. The patient acknowledges the chronic nature of this condition and dependence on proton pump inhibitors (PPIs), desiring symptom control. Weight gain or systemic symptoms are not reported. The patient also notes a history of feeling persistently full, bloating, and discomfort prior to a gastric emptying study in September 2024 that demonstrated delayed gastric emptying. These symptoms have improved since. There are no significant swallowing issues aside from a single episode of food impaction approximately 8 months ago, which resolved without recurrence. Regarding bowel habits, the patient has daily bowel movements without diarrhea, constipation, or blood in stool. Regarding the upcoming repeat colonoscopy scheduled for March 17, 2025, the patient has a history of precancerous polyps identified and removed in 2021, including one greater than 10 mm. A repeat colonoscopy was recommended due to the size and nature of the polyps. The patient is concerned about these findings but understands the rationale. Urinary symptoms of frequent urination during nighttime are reported, which have recently been bothersome. She is currently on prophylactic antibiotics. The patient denies nausea, vomiting, or new abdominal pain. Past medical history is notable for Type 2 diabetes. Anxiety about the upcoming procedures is noted but is being addressed. Social hx: -rare ETOH use approx 1x/year -denies recreational drug use -former-smoker, cessation 20 years ago - family hx as below -denies personal hx of CA PFSH Medical History (Updated 03/09/25 @ 15:52 by Maribeth Marino CNP) Urinary frequency Gastroparesis VANDANA (obstructive sleep apnea) High cholesterol Diabetes Surgical History History of back surgery Hx of appendectomy History of hysterectomy with bilateral oophorectomy Hx of cholecystectomy Hx of tonsillectomy Family History Father Liver disease Alcoholic Mother Diabetes Kidney disease Social History Household Members: Family Alcohol intake: current Alcohol intake frequency: holidays/special occasions only Patient Tobacco Use Status: Never used Tobacco Current occupational status: employed 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 Review of Systems Const Reports as per HPI ENT Reports as per HPI Card Reports as per HPI Resp Reports as per [facility] GI Reports as per [facility] Reports as per HPI Physical Exam Const General: healthy appearing, no acute distress and well developed Nutritional Appearance: average body habitus Orientation/consciousness: patient oriented x3 HEENT Head: Yes normal to inspection, Yes normocephalic and Yes atraumatic Face and sinus: Yes normal facial exam Eyes General: appearance normal, both eyes and all related structures Neck Neck: Yes normal visual inspection Resp Effort & Inspection: normal respiratory effort, able to speak in complete sentences, no tracheal deviation and symmetric chest movement Neuro General: patient oriented x3 Gait exam (Neuro): Normal gait present Psych Appearance: grossly normal Mental Status: mental status grossly normal Speech and movement: Normal speech and movement present Affect: normal affect Attitude: cooperative Thought process: Normal thought process present Thought content: Normal thought content present Insight: Good insight present (Psych) Judgement: Good judgement present (Psych) Assessment & Plan Assessment & Plan (1) Acid reflux: Comment: 01/21/22 EGD- GERD, gastritis, gastric erosion, No H. pylori Code(s): K21.9 - Gastro-esophageal reflux disease without esophagitis Category: Medical Qualifiers: Esophagitis presence: without esophagitis Qualified Code(s): K21.9 - Gastro-esophageal reflux disease without esophagitis Plan: Established history of GERD with documented evidence of reflux on prior upper endoscopy, along with continued symptom control on pantoprazole. Additional Testing: pt requesting repeat upper endoscopy at time of colonoscopy. Believe this is reasonable given gastritis and erosion history Medication Management: Refill pantoprazole 40 mg daily. Consider tapering to the lowest effective dose long-term, pending follow-up. Lifestyle Recommendations: Emphasize adherence to medications, dietary modifications (avoiding acidic/spicy foods, reducing large meals before bed), and elevating the head of the bed if nocturnal symptoms recur. Encourage regular follow-up. Follow-Up: Post-procedure appointment to reassess medication efficacy and determine any new symptoms. (2) Encounter for screening colonoscopy: Comment: 01/21/22 colonoscopy complete with good prep-Moderate diverticulosis, 12 mm Tubular adenomas to ascending; <10mm TA to transverse x2. Recommendations for repeat in 3 years. Due Code(s): Z12.11 - Encounter for screening for malignant neoplasm of colon Category: Medical Plan: Documented history of polypectomy in January 2022 Additional Testing: Scheduled colonoscopy on March 17, 2025, for continued surveillance. Medication Management: Confirmed patient has colonoscopy prep medications and understands instructions. (3) Gastroparesis: Code(s): K31.84 - Gastroparesis Category: Medical Plan: Gastric emptying study in September 2024 confirmed delayed emptying, corresponding to prior symptoms of bloating/fullness. Current symptoms have resolved. Additional Testing: None at this time. Medication Management: Continue current management; pending changes in symptoms. Lifestyle Recommendations: Gradual meal intake, low-fat meals, and close monitoring for recurrence of bloating or discomfort. Patients should report any weight loss, nausea, or vomiting. Follow-Up: Reevaluation if symptoms reappear or worsen. (4) Urinary frequency: Code(s): R35.0 - Frequency of micturition Category: Medical Plan: The patient reports recent recurrent nocturia, waking every two hours to urinate. Additional Testing: as planned per PCP Medication Management: continue antibiotics Lifestyle Recommendations: Encourage fluid restrictions in the evening, monitor for infection symptoms, and establish voiding log for further insights. Follow-Up: as per PCP Plan Follow-up after endoscopy or sooner as needed Time: I spent a total of 30 minutes on the date of encounter which includes: Preparing to see the patient (reviewed previous documentation, test results and medical history) Performing a medically appropriate exam and/or evaluation Ordering medications, tests, and procedures Documenting clinical information in the health record Medications: Refilled bisacodyl (Dulcolax (bisacodyl)) the day before colonoscopy take 2 pills at 12pm and 2 pills at 5pm with plenty of water 20 mg (4 x 5 mg) PO ONCE 4 tabs 0RF colonoscopy prep 1 day pantoprazole 40 mg PO DAILY 90 tabs 2RF Coding Level of Care Code Established Pt Est Pt Level 3 (14192) Patient Type Established Diagnoses Gastroesophageal reflux disease without esophagitis K21.9 Esophagitis presence: without esophagitis Encounter for screening colonoscopy Z12.11 Gastroparesis K31.84 Urinary frequency R35.0
[2025-03-09 15:01] VITALS: BP 112/51; PULSE 90; O2SAT 97; BMI 33.1
--- OUTSIDE RECORDS SUMMARY | 2025-03-09 15:31 | XMS_ITS | Encounter Summary ---
Author Organization [employer] Address [address] [place] [address] 7 [place] [address] Care Team Providers Care Information Systems Manager Name Role Phone Jane Zarate MD Primary Care Provider [phone] Mikey Johnson PharmD Unavailable [phone] Encounter Details Date Type Department Care Team (Late st Contact Info) Description 06/27/2022 Orders Only [facility] [address] [place] [address] Rosalind Suarez, RN Social History Tobacco Use [...] 06/30/2022 3:13 PM Leyda Diop [place] Trouble falling or staying asleep, [...] Description 03/22/2025 3:00 PM EDT Medication Management [facility] [address] [place] [address] Mikey Johnson, PharmD [address] [place] [address] documented as of this encounter Visit Diagnoses Not on filedocumented in this encounter Care Teams Information Systems Manager Relationship Specialty Start Date End Date Jane Zarate MD [address] [place] [address] PCP - General Family Medicine 06/24/12 Mikey Johnson, FarhanaD [address] [place] [phone] Pharmacist Internal Medicine 10/17/24 documented as of this encounter
--- OUTSIDE RECORDS SUMMARY | 2025-03-09 15:31 | XMS_ITS | Encounter Summary ---
Author Organization [facility] Address [address] [place] [address] [address] [place] [address] Care Team Providers Care License And Permit Specialist Name Role Phone Jane Zarate MD Primary Care Provider [phone] Mikey Johnson PharmD Unavailable [phone] Encounter Details Date Type Department Care Team (Latest Contact Info) Description 09/09/2021 Abstract [facility] CONVERSIONS Dental, Provider, DDS Social [...] Description 03/22/2025 3:00 PM EDT Medication Management [facility] [address] [place] [address] Mikey Johnson, PharmD [address] [place] [address] documented as of this encounter Visit Diagnoses Not on filedocumented in this encounter Care Teams License And Permit Specialist Relationship Specialty Start Date End Date Jane Zarate MD [address] [place] [address] PCP - General Family Medicine 06/24/12 Mikey Johnson, PharmD [address] [place] [address] Pharmacist Internal Medicine 10/17/24 documented as of this encounter
--- OUTSIDE RECORDS SUMMARY | 2025-03-09 15:31 | XMS_ITS | Encounter Summary ---
Author Organization [employer] Address [address] [place] [address] [address] [place] [address] Care Team Providers Care International Project Manager Name Role Phone Jane Zarate MD Primary Care Provider [phone] Mikey Johnson PharmD Unavailable [phone] Reason for Visit * Reason Onset Date Comments Appointment Request 02/16/2025 Encounter Details Date Type Department Care Team (Late st Contact Info) Description 02/16/2025 Telephone [facility] [address] [place], [place] [phone] Jane Zarate MD [address] [place], [place] [phone] Appointment Request Social History Tobacco Use Types [...] 02/17 due to transportation. Contact pt at [phone] documented in this encounter Plan of Treatment Upcoming Encounters Date Type Department Care Team (Late st Contact Info) Description 03/22/2025 3:00 PM EDT Medication Management [facility] [address] [place] [address] Mikey Johnson, PharmD [address] [place] [address] documented as of this encounter Visit Diagnoses Not on filedocumented in this encounter Additional Health Concerns Assessment Noted Time PHQ-9 Depression Total Score: 8 11/23/19 25 4:13 PM EDT documented as of this encounter Care Teams International Project Manager Relationship Specialty Start Date End Date Jane Zarate MD [address] [place] [address] PCP - General Family Medicine 06/24/12 Mikey Johnson, PharmD [address] [place] [phone] Pharmacist Internal Medicine 10/17/24 documented as of this encounter
--- OUTSIDE RECORDS SUMMARY | 2025-03-09 15:31 | XMS_ITS | Encounter Summary ---
Author Organization [employer] Address [address] [place] [address] [address] [place] [address] Care Team Providers Care Port Patrol Officer Name Role Phone Jane Zarate MD Primary Care Provider [phone] Mikey Johnson PharmD Unavailable [phone] Reason for Visit * Reason Onset Date Comments Appointment Request 02/21/2025 Encounter Details Date Type Department Care Team (Late st Contact Info) Description 02/21/2025 Telephone [facility] [address] [place], [place] [phone] Jane Zarate MD [address] [place], [place] [phone] Appointment Request Social History Tobacco Use Types [...] Description 03/22/2025 3:00 PM EDT Medication Management [facility] [address] [place] [address] Mikey Johnson, PharmD [address] [place] [address] documented as of this encounter Visit Diagnoses Not on filedocumented in this encounter Additional Health Concerns Assessment Noted Time PHQ-9 Depression Total Score: 8 11/23/19 25 4:13 PM EDT documented as of this encounter Care Teams Port Patrol Officer Relationship Specialty Start Date End Date Jane Zarate MD [address] [place] [address] PCP - General Family Medicine 06/24/12 Mikey Johnson, Bakari [address] [place] [address] Pharmacist Internal Medicine 10/17/24 documented as of this encounter
--- OUTSIDE RECORDS SUMMARY | 2025-03-09 15:31 | XMS_ITS | Encounter Summary ---
Author Organization [facility] [facility] Address [address] [place] [address] 7 [place] [address] Care Team Providers Care Car Barn Laborer Name Role Phone Jane Zarate MD Primary Care Provider [phone] Mikey Johnson PharmD Unavailable [phone] Encounter Details Date Type Department Care Team (Latest Contact Info) Description 07/25/2019 Abstract [facility] CONVERSIONS Dental, Provider, DDS Social History Tobacco [...] 3:00 PM EDT Medication Management [facility]INE [address] [place] [address] Mikey Johnson, PharmD [address] [place] [address] documented as of this encounter Visit Diagnoses Not on filedocumented in this encounter Care Teams Car Barn Laborer Relationship Specialty Start Date End Date Jane Zarate MD [address] [place] [address] PCP - General Family Medicine 06/24/[address]Mikey PharmD [address] [place] [phone] Pharmacist Internal Medicine 10/17/24 documented as of this encounter
--- OUTSIDE RECORDS SUMMARY | 2025-03-09 15:31 | XMS_ITS | Encounter Summary ---
Author Organization [employer] Address [address] [place] [address] [address] [place] [address] Care Team Providers Care Senior Security Analyst Name Role Phone Jane Zarate MD Primary Care Provider [phone] Mikey Johnson PharmD Unavailable [phone] Encounter Details Date Type Department Care Team (Late st Contact Info) Description 09/17/2023 Orders Only [facility] [address] [place], [place] [phone] Jane Zarate MD [address] [place], [place] [phone] Type 2 diabetes mellitus with diabetic polyneuropathy, without long-term current use of insulin ([facility]) Social History Tobacco Use Types Packs/Day Years [...] Description 03/22/2025 3:00 PM EDT Medication Management [facility] [address] [place] [phone] Mikey Johnson, PharmD [address] [place], [place] [phone] documented as of this encounter Procedures Procedure Name Priority Date/Time Associated Diagnosis Comments NM GASTRIC EMPTYING SOLID Routine 09/30/2023 12:15 PM EDT documented in this encounter Results * NM Gastric Emptying Solid (09/30/2023 12:15 PM EDT) Anatomical Region Laterality Modality Body Nuclear Medicine 09/30/2023 12:1 5 PM EDT Narrative 10/05/2023 11:33 AM EDT [address] [address] Nuclear Medicine Report Signed Patient: Sylvia Nicole MR#: [id number] : 1960 Acct:[id number] Age/Sex: 63 / F ADM Date: 09/30/23 Loc: [facility] Attending Dr: Luba Yeager PA-C Ordering Physician: Luba Yeager PA-C Date of Service: 09/30/23 Procedure(s): NM gastric emptying study Accession Number(s): [id number] cc: Luba Yeager PA-C; Jane Zarate MD [...] in OV> 10/05/23 1129 DD/ 1215 TD/TT: Compress Trucker: ALEXANDRA Procedure Note Donotuseinterpreter, Image - 10/05/[address] [address] Nuclear Medicine Report Signed Patient: Sylvia NicoleMR#: [id number] : 1960Acct:[id number] Age/Sex: 63 / FADM Date: 09/30/23 Loc: [facility] Attending Dr: Luba Yeager PA-C Ordering Physician: Luba Yeager PA-C Date of Service: 09/30/23 Procedure(s): NH gastric emptying study Accession Number(s): [id number] cc: Luba Yeager PA-C; Jane Zarate MD EXAMINATION: NH RADIONUCLIDE SOLID FOOD GASTRIC EMPTYING 4-HOUR STUDY [...] hours 40% 4 hours 31% (normal 0%-10%) NH/NH gastric emptying study IMPRESSION: Abnormal study. There [...] MD inOV> 10/05/23 1129 DD/ 1215 TD/TT: Compress Trucker: ALEXANDRA [facility] External Provider IMG NM PROCEDURES Edited Result - Final documented in this encounter Visit Diagnoses Diagnosis Type 2 diabetes mellitus with diabetic polyneuropathy, without long-term current use of insulin ([facility]) documented in this encounter Additional Health Concerns Assessment Noted Time PHQ-9 Depression Total Score: 9 06/30/20 22 3:13 PM EST documented as of this encounter Care Teams Senior Security Analyst Relationship Specialty Start Date End Date Jane Zarate MD [address] [place] [address] PCP - General Family Medicine 06/24/12 Mikey Johnson, FarhanaD [address] [place] [address] Pharmacist Internal Medicine 10/17/24 documented as of this encounter
--- OUTSIDE RECORDS SUMMARY | 2025-03-09 15:31 | XMS_ITS | Clinical Summary ---
Author Organization [employer] Address [address] [place] [address] 7 [place] [address] Care Team Providers Care Solaris Administrator Name Role Phone Jane Zarate MD Primary Care Provider [phone] Mikey Johnson PharmD Unavailable [phone] Allergies Active Allergy Reactions Criticality Noted Date [...] , without long-term current use of insulin ([facility]) Use to test blood sugar two times daily 100 each 5 10/18/19 25 026 Active Lancets miscIndication s:Type 2 diabetes mellitus with diabetic polyneuropathy , without long-term current use of insulin ([facility]) Use to test blood sugar two times daily 100 each 5 10/18/19 25 Active Alcohol Swabs 70 % padsIndication s:Type 2 diabetes mellitus with diabetic polyneuropathy , without long-term current use of insulin ([facility]) Use to test blood sugar two times daily 100 each 5 10/18/19 25 Active Blood Glucose Monitoring Suppl (FreeStyle [place] Lite) w/Device kitIndications :Type 2 diabetes mellitus with diabetic polyneuropathy , without long-term current use of insulin ([facility]) Use to test blood sugar two times [...] , without long-term current use of insulin ([facility]) Take 1 tablet (81 mg) by mouth Once per day. 90 tablet 3 11/15/19 25 Active enalapril (Vasotec) 10 MG tabletIndicati ons:Type 2 diabetes mellitus with diabetic polyneuropathy , without long-term current use of insulin ([facility]) Take 1 tablet by mouth daily 30 tablet 11 11/15/19 25 Active pioglitazone (Actos) 45 MG tabletIndicati ons:Type 2 diabetes mellitus with diabetic polyneuropathy , without long-term current use of insulin ([facility]) Take 1 tablet (45 mg) by mouth Once per day. 30 tablet 11/15/19 25 026 Active Dulaglutide 1.5 MG/0.5ML solution auto-injectorI ndications:Typ e 2 diabetes mellitus with diabetic polyneuropathy , without long-term current use of insulin ([facility]) Inject 1.5 mg under the skin 1 (one) time per week. 2 mL 11/23/19 25 Active buPROPion SR (Wellbutrin SR) 200 [...] MEAL 120 tablet 3 03/01/20 25 Active cholecalcifero l (Vitamin D-3) 25 MCG (1000 UT) capsule TAKE 1 CAPSULE BY MOUTH EVERY DAY 30 capsule 1 03/07/20 25 Active ibuprofen 600 MG tablet Take [...] DAY 60 tablet 12/07/19 25 025 Discontinued cholecalcifero l (Vitamin D-3) 25 MCG (1000 UT) capsule TAKE 1 CAPSULE BY MOUTH EVERY DAY 30 capsule 2 12/10/19 25 025 Discontinued ibuprofen 600 MG tablet [...] specialist - she requests a referral to [address] [place] [address] in [place] GERD (gastroesophageal reflux disease) Assessment & Plan (02/10/2024 6:00 AM EDT): - following with [facility] - EGD in January 2022 showed inflammatory changes - omeprazole was ineffective - currently prescribed pantoprazole 40 mg daily, famotidine 20mg bid, and sucralfate 1 g bid - continue current treatment plan - Assessment & Plan (10/25/2023 3:40 PM EDT): - following with [facility] - omeprazole was [...] Plan (11/22/2024 9:27 AM EDT): -Following with [facility], last seen in April 2024 -Tried mirabegron, which was ineffective -Continue oxybutynin XL 15 mg daily Assessment & Plan (08/24/2024 12:51 PM EST): -Following with [facility], last seen in April 2024 -Tried mirabegron, which was ineffective -Continue oxybutynin XL 15 mg daily Assessment & Plan (05/10/2024 2:50 PM EDT): -Following with [facility], last seen in April 2024 -Tried mirabegron, which was ineffective -Continue oxybutynin XL 15 mg daily Assessment & Plan (02/10/2024 6:00 AM EDT): -Following with [facility], last seen in October 2023 [...] diabetes care guideline. Last eye exam: 03/08/24, Given Eye care. No diabetic retinopathy Last foot exam: 08/24/24 [...] diabetes care guideline. Last eye exam: 03/08/24, Given Eye [facility]. No diabetic retinopathy Last foot exam: [...] diabetes care guideline. Last eye exam: 03/08/24, Given Eye care. No diabetic retinopathy Last foot exam: 08/24/24 [...] diabetes care guideline. Last eye exam: 03/08/24, Given Eye care. No diabetic retinopathy Last foot [...] diabetes care guideline. Last eye exam: 03/05/23, Given Eye care. No diabetic retinopathy Last foot [...] diabetes care guideline. Last eye exam: 03/05/23, Given Eye care. No diabetic retinopathy Last foot [...] diabetes care guideline. Last eye exam: 03/05/23, Given Eye care. No diabetic retinopathy Last foot [...] diabetes care guideline. Last eye exam: 03/05/23, Given Eye care. No diabetic retinopathy Last foot [...] diabetes care guideline. Last eye exam: 03/04/22, Given Eye [facility]. No diabetic retinopathy Last foot exam: 03/13/22 Last microalbumin test: 11/07/21 UACR 5 Last lipid profile: 02/05/21 Last dental exam: Discussed regular dental care. Dermoid cyst of scalp 03/22/2015 Recurrent urinary tract infection 12/20/2014 Assessment & Plan (11/22/2024 9:27 AM EDT): -Following with [facility], last seen in April 2024 [...] Plan (08/24/2024 12:51 PM EST): -Following with [facility], last seen in April 2024 [...] Plan (05/20/2024 12:26 PM EST): -Following with [facility], last seen in April 2024 [...] Plan (02/10/2024 6:05 AM EDT): -Following with [facility], last seen in October 2023 [...] with intercourse, stopped due to heartburn; metenamine [id number] initially effective, developed multiple breakthrough UTI -Restarted [...] Encounters Date Type Department Care Team Description 03/09/2025 Results Follow-Up [facility] [address] [place], [place] [phone] Thania Anne MD XR Wrist 3+ Views Left 03/06/2025 4:00 PM EDT Office Visit [facility] [address] [place] [address] Thania Anne MD Acute pain of left wrist (Primary Dx); UTI symptoms 03/06/2025 Travel 03/06/2025 Refill [facility] [address] [place] [address] Jane Zarate MD 02/28/[address] [address] Jane Zarate MD 02/23/2025 9:15 AM EDT Office Visit [address] [address] Jane Zarate MD Type 2 diabetes mellitus with diabetic polyneuropathy, without long-term current use of insulin ([facility]) (Primary Dx); Primary hypertension; Dyslipidemia; Vitamin D deficiency; Left elbow pain; Degeneration of 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 02/23/2025 Results Follow-Up [address] [address] Jane Zarate MD XR Elbow 3+ Views Left 02/23/2025 Travel 02/22/[address] [address] Jane Zarate MD 02/22/[address], [place] [address] Jane Zarate MD chart prep 02/21/2025 Telephone [facility] [place], [place] [address] Jane Zarate MD Appointment Request 02/17/2025 Refill [facility] [place], [place] [address] Jane Zarate MD 02/16/2025 Telephone [facility] [place], [place] [address] Jane Zarate MD Appointment Request 02/16/2025 Patient Outreach [facility] [place], [place] [address] Jane Zarate MD Pre-visit Planning (SDOH screening completed on 11/15/2024) 02/13/2025 Refill [facility] [place] [address] Jane Zarate MD 01/23/2025 Refill [facility] [place] [address] Jane Zarate MD 12/27/2024 Telephone [facility] [place], [place] [address] Jane Zarate MD [place] recall 12/19/2024 Telephone [facility] [place] [address] Jane Zarate MD Referral 12/09/2024 Refill [facility] [place] [place] [address] Jane Zarate MD from Last 3 Months [...] Description 03/22/2025 3:00 PM EDT Medication Management [facility] [address] [place] [address] Mikey Johnson, PharmD [address] [place] [address] Health Maintenance Due Date Last Done Comments [...] Comments XR WRIST 3+ VIEWS LEFT Routine 9:07 AM EDT Acute pain of left [...] polyneuropathy, without long-term current use of insulin ([facility]) POCT GLUCOSE Routine 02/23/2025 9:35 AM EDT Type 2 diabetes mellitus with diabetic polyneuropathy, without long-term current use of insulin (CMS/HCC) PROPHYLAXIS - ADULT Routine 11/23/2024 9 :00 [...] Recently Relevant to Health Maintenance Results * XR Wrist 3+ Views Left (03/07/2025 9:07 AM EDT) Anatomical Region Laterality Modality Upper Extremities, Wrist Left Radiogr aphic Imaging 03/07/2025 9:07 AM EDT Narrative 03/07/2025 10:29 AM EDT [address] [address] XRay Report Signed Patient: Sylvia Nicole MR#: [id number] : 1960 Acct:[id number] Age/Sex: 64 / F ADM Date: 03/07/25 Loc: ISRAELX Attending Dr: Thania Anne MD Ordering Physician: Thania Anne MD Date of Service: 03/07/25 Procedure(s): XR wrist LT min 3V Accession Number(s): [id number] cc: Thania Anne MD; Jane Zarate MD [...] 03/07/25 1027 DD/ 0907 TD/TT: 03/07/25 0915 Soda Tester: Procedure Note Donotuseinterpreter, Image - 03/07/2025 [place] [address] XRay Report Signed Patient: Sylvia NicoleMR#: [id number] : 1960Acct:[id number] Age/Sex: 64 / FADM Date: 03/07/25 [facility]: Thania Anne MD Ordering Physician: Thania Anne MD Date of Service: 03/07/25 Procedure(s): XR wrist LT min 3V Accession Number(s): [id number] cc: Thania Anne MD; Jane Zarate MD [...] 03/07/25 1027 DD/ 0907 TD/TT: 03/07/25 0915 Soda Tester: us Thania Anne MD IMG XR PROCEDURES Final Resul t * Urinalysis, Complete, with Reflex to Culture (03/06/2025 4:20 PM EDT) Color Urine Yellow [facility] Appearance Urine Clear [facility] PH 6.0 5.0 - 9.0 [facility] Glucose Urine UA Negative Negative mg/dL [facility] Urine Blood Negative Negative [facility] Specific [place] - Urine 1.020 1.005 - 1.025 [facility] Urine Protein Negative Neg-Trace mg/dL [facility] Urine Ketones Negative Negative mg/dL [facility] Nitrite Urine Negative Negative [facility] Leukocyte Esterase Urine Negative Negative [facility] RBC Urine 0-2 0 - 2 /HPF [facility] Urine WBC 0-5 0 - 5 /HPF [facility] Urine Squamous Epithelial Cell 0-2 0 - 2 /HPF [facility] Urine Bacteria None Seen None Seen [facility] Hyaline Casts, Urine 0-2 0 - 2 /LPF [facility] Urine 03/06/2025 4:20 PM EDT 03/07/2025 11:47 AM EDT [facility] - 03/07/2025 11:54 AM EDT Urine, Clean Catch Thania Anne MD LAB URINE ORDERABLES Final Re sult Performing Organization Address [facility] Co de Phone Number [facility] [address] [place] [phone] * Culture, Urine, Routine (03/06/2025 4:20 PM EDT) Urine Urine specimen obtained by clean catch procedure / Unknown 03/06/2025 4:20 PM EDT 03/07/2025 11:47 AM EDT Comment:UACC Narrative [facility] - 03/08/2025 12:07 PM EDT Urine Culture Report Result Urine Culture < 10,000 cfu/ml Specimen Source: Urine clean catch Thania Anne MD LAB MICROBIOLOGY - GENERAL OR DERABLES Final Result Performing Organization Address [facility] de Phone Number [facility] [address] [place] [phone] * POCT urinalysis dipstick manually resulted [...] AM EDT Narrative 02/23/2025 11:57 AM EDT [address] [address] XRay Report Signed Patient: Sylvia Nicole MR#: [id number] : 1960 Acct:[id number] Age/Sex: 64 / F ADM Date: 02/23/25 Loc: HO.CX Attending Dr: Jane Zarate MD Ordering Physician: Jane Zarate MD Date of Service: 02/23/25 Procedure(s): XR elbow LT min 3V Accession Number(s): [id number] cc: Jane Zarate MD EXAMINATION: XR ELBOW [...] of the left elbow. Electronically signed by: vKng Ivey MD 02/23/2025 11:54 AM EDT Dictated By: Kvng Ivey MD Signed By: <Electronically signed by Kvng Ivey MD in OV> 02/23/25 1154 DD/ 0957 TD/TT: 02/23/25 1000 Soda Tester: Procedure Note Donotuseinterpreter, Image - 02/23/[address] [address] XRay Report Signed Patient: Syvlia NicoleMR#: [id number] : 1960Acct:[id number] Age/Sex: 64 / FADM Date: 02/23/25 Loc: HO.HHCX Attending Dr: Jane Zarate MD Ordering Physician: Jane Zarate MD Date of Service: 02/23/25 Procedure(s): XR elbow LT min 3V Accession Number(s): [id number] cc: Jane Zarate MD EXAMINATION: XR ELBOW [...] 02/23/25 1154 DD/ 0957 TD/TT: 02/23/25 1000 Soda Tester: Jane Zarate MD IMG XR PROCEDURES Final [...] 8:57 AM EDT) Creatinine, Urine 35.23 mg/dL [facility] Microalbumin Urine 12.0 mg/L H [facility] Microalbum Creatinine Ratio Ur 34.0(H) <30 ug/mg cr [facility] Comment:Albumin/Creatinine R atio Reference Ranges: Normal: < 30 ug/mg creatinine Microalbuminuria: 30 - 300 ug/mg creatinineClinical Albuminuria: > 300 ug/mg creatinine 10/21/2024 8:57 AM EDT 10/21/2024 11:42 AM EDT Jane Zarate MD LAB URINE ORDERABLES Final Resul t [facility] [address] [place] [phone] * Hm Diabetes Eye Exam (04/16/2024) Eye Exam Normal Normal 04/16/2024 Historical Provider HEALTH MAINTENANCE Final Result * BI Mammogram Diagnostic Tomosynthesis Bilateral (03/28/2024 1:00 PM EDT) Anatomical Region Laterality Modality Breast Bilateral Mammography 03/28/2024 1:00 PM EDT Narrative 03/28/2024 1:44 PM EDT [facility] [address] [place] [address] Mammography Report Signed Patient: Sylvia Nicole MR#: [id number] : 1960 Acct:[id number] Age/Sex: 63 / F ADM Date: 03/28/24 Loc: JARON Attending Dr: Jane Zarate MD Ordering Physician: Jane Zarate MD Results: 2Benign F indings Date of Service: 03/28/24 Follow Up: 1 Year From Orig ina Mammogram Procedure(s): MM tomosynthesis diagnostic BI Accession Number(s): [id number] cc: Jane Zarate MD EXAMINATION: MM DIAGNOSTIC [...] 03/28/24 1341 DD/ 1300 TD/TT: 03/28/24 1320 Soda Tester: Procedure Note Donotuseinterpreter, Image - 03/28/2024 [facility] [address] [place], [place] [address] Mammography Report Signed Patient: Sylvia NicoleMR#: [id number] : 1960Acct:[id number] Age/Sex: 63 / FADM Date: 03/28/24 Loc: HO.MAMMO Attending Dr: Jane Zarate MD Ordering Physician: Jane Zartae MDResults: 2Benign F indings Date of Service: 03/28/24Follow Up: 1 Year From [facility] Mammogram Procedure(s): MM tomosynthesis diagnostic BI Accession Number(s): [id number] cc: Jane Zarate MD EXAMINATION: MM DIAGNOSTIC [...] 03/28/24 1341 DD/ 1300 TD/TT: 03/28/24 1320 Soda Tester: Jane Zarate MD IM BI PROCEDURES Edited Result - Final * Lipid Panel with Reflex to Direct LDL (03/25/2024 9:05 AM EDT) Triglycerides 131 <150 mg/dL [facility] Comment:Desirable Triglyceri de: less than 150 mg/dLBorderline High Triglyceride 150-199 mg/dLHigh Triglyceride: 200-499 mg/dLVery High Triglyceride: greater than or equal to 5OO mg/dL Cholesterol 164 <200 mg/dL [facility] Comment:Desirable Cholestero l: less than 200 mg/dLBorderline High Cholesterol: 200-239 mg/dLHigh Cholesterol: greater than 239 mg/dL LDL Cholesterol Calculated 81 <100 mg/dL [facility] Comment:Desirable LDL: less than 100 mg/dLNear Optimal/Above Optimal LDL: 110- 129 mg/dLBorderline High LDL: 130-159 mg/dLHigh LDL: 160-189 mg/dLVery High LDL: greater than or equal to 190 mg/dL HDL Cholesterol 57 >40 mg/dL [facility] Comment:Desirable HDL: great er than 40 mg/dL Note: This HDL assay may give artificially low results in patients with liver disease. Blood 03/25/2024 9:05 AM EDT 03/25/2024 11:48 AM EDT Jane Zarate MD LAB BLOOD ORDERABLES Final Resul t [facility] [address] [place] [phone] [phone] * Hm Colonoscopy (01/21/2022) Colonoscopy Normal Normal Comment:tubular adenoma 01/21/2022 Historical Provider HEALTH MAINTENANCE Final Result * HEPATITIS C AB W/REFL TO HCV RNA, QN, PCR (02/05/2021 8:50 AM EDT) HEPATITIS C ANTIBODY NON-REACT JULIA NON-REACT JULIA [facility] INDEX 0.01 <1.00 [facility] Comment: HCV antibody was non-reactive. There is no laboratory evidence of HCV infection. In most cases, no further action is required. However, if recent HCV exposure is suspected, a test for HCV RNA (test code 19280) is suggested. For additional information please refer to http://education.[employer].com/faq/KDB32c7 (This link is being provided for informational/ educational purposes only.) 02/05/2021 8:50 AM EDT Jane Zarate MD HISTORICAL/NON ORDERABLE LABS Fi nal Result [facility] [address] * HIV 1/2 ANTIGEN/ANTIBODY,FOURTH GENERATION W/RFL (02/05/2021 8:50 AM EDT) HIV-1/2 ANTIGEN AND ANTIBODIES, 4TH GENERATION W/ REFLEX NON-REACT JULIA NON-REACT [facility] Comment: HIV-1 antigen and HIV-1/HIV-2 [...] purpose. For additional information please refer to http://education.[employer].com/faq/QSU975 (This link is being provided for informational/ educational purposes only.) The performance of this assay has not been clinically validated in patients less than 2 years old. 02/05/2021 8:50 AM EDT us Jane Zarate MD LAB BLOOD ORDERABLES Final Resul t [facility] [address] from Last 3 Months or Most Recently Relevant to Health Maintenance Insurance [address] [address] 2 DENTAL - HSN PARTIAL (MEDICAID) [facility] [address] [place] [id number] [place] [address] [place] [phone] Care Teams Solaris Administrator Relationship Specialty Start Date End Date Jane Zarate MD [address] [place] [address] PCP - General Family Medicine 06/24/12 Mikey Johnson, Bakari [address] [place] [address] Pharmacist Internal Medicine 10/17/24
--- OUTSIDE RECORDS SUMMARY | 2025-03-09 15:31 | XMS_ITS | Encounter Summary ---
Author Organization [employer] Address [address] [place] [address] 7t [place] [address] Care Team Providers Care Prefabricated Houses Trimmer Name Role Phone Jane Zarate MD Primary Care Provider [phone] Mikey Johnson PharmD Unavailable [phone] Encounter Details Date Type Department Care Team ([facility] st Contact Info) Description 03/09/2025 Results Follow-Up [facility] [address] [place], [place] [phone] Thania Anne MD [address] [place], [place] [phone] XR Wrist 3+ Views Left Social History Tobacco Use [...] encounter Miscellaneous Notes * Telephone Encounter - Beverley Hull RN - 03/09/2025 1:04 PM EDT TC placed to pt to discuss message below, she had no further questions and is aware that she is on cancellation list from Ortho ----- Message from Thania Anne MD sent at 03/09/2025 12:41 PM EDT ----- Please inform Sylvia her urine culture was negative and her wrist x-ray did not show any fractures but there was some arthritis. I called the [facility] office and asked them to move up her mid-April appointment there with Dr. Wan. They told me the doctor was already overbooked, but they put Sylvia on the cancellation list. ----- Message ----- From: Iván Ris Results In Sent: 03/07/2025 10:30 AM EDT To: Thania Anne MD documented in this encounter Plan of Treatment Upcoming Encounters Date Type Department Care Team (Late st Contact Info) Description 03/22/2025 3:00 PM EDT Medication Management [facility] [address] [place] [address] Mikey Johnson, PharmD [address] [place] [address] documented as of this encounter Visit Diagnoses Not on filedocumented in this encounter Additional Health Concerns Assessment Noted Time PHQ-9 Depression Total Score: 8 11/23/19 4:13 PM EDT documented as of this encounter Care Teams Prefabricated Houses Trimmer Relationship Specialty Start Date End Date Jane Zarate MD [address] [place] [phone] PCP - General Family Medicine 06/24/12 Mikey Johnson, Bakari [address] [place] [phone] Pharmacist Internal Medicine 10/17/24 documented as of this encounter
--- OUTSIDE RECORDS SUMMARY | 2025-03-09 15:31 | XMS_ITS | Encounter Summary ---
Author Organization [employer] Address [address] [place] [address] [address] [place] [address] Care Team Providers Care Vat Tender Name Role Phone Jane Zarate MD Primary Care Provider [phone] Mikey Johnson PharmD Unavailable [phone] Encounter Details Date Type Department Care Team (Late st Contact Info) Description 01/19/2023 Orders Only [facility] [address] [place], [place] [phone] Jane Zarate MD [address] [place], [place] [phone] Degenerative disc disease, cervical (Primary Dx); VANDANA [...] 03/22/2025 3:00 PM EDT Medication Management [facility] [address] [place] [address] Mikey Johnson, PharmD [address] [place] [address] documented as of this encounter Visit Diagnoses Diagnosis Degenerative disc disease, cervical- Primary VANDANA (obstructive sleep apnea) Obstructive sleep apnea (adult) (pediatric) documented in this encounter Additional Health Concerns Assessment Noted Time PHQ-9 Depression Total Score: 9 06/30/20 22 3:13 PM EST documented as of this encounter Care Teams Vat Tender Relationship Specialty Start Date End Date Jane Zarate MD [address] [place] [address] PCP - General Family Medicine 06/24/12 Mikey Johnson, PharmD [address] [place] [phone] Pharmacist Internal Medicine 10/17/24 documented as of this encounter
--- OUTSIDE RECORDS SUMMARY | 2025-03-09 15:31 | XMS_ITS | Encounter Summary ---
Author Organization [employer] Address [address] [place] [address] [place] [address] Care Team Providers Care Review Assistant Name Role Phone Jane Zarate MD Primary Care Provider [phone] Mikey Johnson PharmD Unavailable [phone] Encounter Details Date Type Department Care Team (Late Contact Info) Description 09/17/2022 Orders Only [facility] [address] [place] [address] [phone] Jane Zarate MD [address] [place] [address] [phone] Asymmetrical sensorineural hearing loss (Primary Dx) Social [...] 3:00 PM EDT Medication Management [facility] [address] [place] [address] [phone] Mikey Johnson, PharmD [address] [place] [address] documented as of this encounter Visit Diagnoses Diagnosis Asymmetrical sensorineural hearing loss- Primary Sensorineural hearing loss, asymmetrical documented in this encounter Additional Health Concerns Assessment Noted Time PHQ-9 Depression Total Score: 9 06/30/20 22 3:13 PM EST documented as of this encounter Care Teams Review Assistant Relationship Specialty Start Date End Date Jane Zarate MD [address] [place] [address] PCP - General Family Medicine 06/24/12 Mikey Johnson, Bakari [address] [place] [address] Pharmacist Internal Medicine 10/17/24 documented as of this encounter
--- OUTSIDE RECORDS SUMMARY | 2025-03-09 15:31 | XMS_ITS | Encounter Summary ---
Author Organization [employer] Address [address] [place] [address] Care Team Providers Care Senior Energy Market Coordinator Name Role Phone Physician, No Pcp Primary Care Provider Unavaila ble Encounter Details Date Type Department Care Team (Late st Contact Info) Description 10/04/2024 Lab Requisition [facility] - Main Lab 299 [facility] [place] [phone] Lennie Qiu NP 3640 [facility] 103 [place] [address] Frequency of micturition Social History Tobacco Use [...] Escherichia coli(A) WILLIAM 10/05/2024 10:25 AM EDT [facility] Other Urine specimen from urethra [...] WILLIAM <=20 ug/ml: Susceptible us Lennie Qiu MAIL FORWARDING SYSTEM MARKUP CLERK LAB MICROBIOLOGY - GENERA L ORDERABLES Final Result [facility] 299 [place] [address], documented in this encounter Visit Diagnoses Diagnosis Frequency of micturition Urinary frequency documented in this encounter Care Teams Senior Energy Market Coordinator Relationship Specialty Start Date End Date Physician, No Pcp PCP - General 05/31/24 documented as of this encounter
--- OUTSIDE RECORDS SUMMARY | 2025-03-09 15:31 | XMS_ITS | Clinical Summary ---
Author Organization [facility] Address [address] [place] [address] Phone Care Team Providers Care Navigation Teacher Name Role Phone Physician, No Pcp Primary Care Provider Unavaila ble Surgical History Surgery Date Site/Laterality Comments OTHER SURGICAL HISTORY 11/01/2020 N/A PROCEDURE: [place] LAPAROSCOPIC APPENDECTOMY; COMMENT: By Dr. Perico Pressley [facility] HYSTERECTOMY 04/16/1999 PROCEDURE: HISTORICAL HYSTERECTOMY; COMMENT: [...] complete this topic Insurance MEDICAID - [place] [facility] Nonpareil PLAN Advance Directives Documents on File Type Date Recorded Patient Promotions Firm Accounts Manager Expl anation Health Care Decision (hx) 10/27/2016 AD [employer]NOLD DIRECTIVE Health Care Decision (hx) 10/27/2016 AD ARNOLD DIRECTIVE Health Care Decision (hx) 10/27/2016 AD ARNOLD DIRECTIVE Health Care Decision (hx) 10/27/2016 AD ARNOLD DIRECTIVE Health Care Decision (hx) 10/27/2016 AD ARNOLD DIRECTIVE Care Teams Navigation Teacher Relationship Specialty Start Date End Date Physician, No Pcp PCP - General 05/31/24
--- OUTSIDE RECORDS SUMMARY | 2025-03-09 15:31 | XMS_ITS | Encounter Summary ---
Author Organization [employer] Address [address] [place] [address] Care Team Providers Care Paper Goods Machine Operator Name Role Phone Jane Zarate MD Primary Care Provider [phone] Mikey Johnson PharmD Unavailable [phone] Encounter Details Date Type Department Care Team (Late Contact Info) Description 06/12/[address] [facility] [address] [place] [address] Jane Zarate MD [address] [place] [address] Social History Tobacco Use Types Packs/Day Years [...] 03/22/2025 3:00 PM EDT Medication Management [facility] [address] [place] [address] Mikey Johnson, PharmD [address] [place] [address] documented as of this encounter Visit Diagnoses Not on filedocumented in this encounter Care Teams Paper Goods Machine Operator Relationship Specialty Start Date End Date Jane Zarate MD 230 [place] [address] PCP - General Family Medicine 06/24/12 Mikey Johnson, FarhanaD [address] [place] [address] Pharmacist Internal Medicine 10/17/24 documented as of this encounter
--- OUTSIDE RECORDS SUMMARY | 2025-03-09 15:31 | XMS_ITS | Encounter Summary ---
Author Organization [facility] Address [address] [place] [address] [place], [place] [address] Care Team Providers Care Geological Aide Name Role Phone Jane Zarate MD Primary Care Provider Mikey Johnson PharmD Unavailable [phone] Encounter Details Date Type Department Care Team (Late Contact Info) Description 09/05/2022 Abstract [facility] MEDICINE [address] [place] [address] [phone] Provider, MD Baltazar Social History Tobacco Use [...] Upcoming Encounters Date Type Department Care Team ([facility] Contact Info) Description 03/22/2025 3:00 PM EDT Medication Management [facility] 230 [place], [place] [phone] Mikey Johnson, PharmD 230 [place] [address] documented as of this encounter Visit Diagnoses Not on filedocumented in this encounter Additional Health Concerns Assessment Noted Time PHQ-9 Depression Total Score: 9 06/30/20 22 3:13 PM EST documented as of this encounter Care Teams Geological Aide Relationship Specialty Start Date End Date Jane Zarate MD 230 [place] [address] PCP - General Family Medicine 06/24/12 Mikey Johnson PharmD [address] [place] [address] Pharmacist Internal Medicine 10/17/24 documented as of this encounter
--- OUTSIDE RECORDS SUMMARY | 2025-03-09 15:31 | XMS_ITS | Encounter Summary ---
Author Organization [employer] Address [address] [place] [address] 7 [place] [address] Care Team Providers Care Material Specialist Name Role Phone Jane Zarate MD Primary Care Provider [phone] Mikey Johnson PharmD Unavailable [phone] Encounter Details Date Type Department Care Team (Late st Contact Info) Description 01/07/2024 Orders Only [facility]INE 230 [place], [place] [phone] Jane Zarate MD 230 [place], [place] [phone] Social History Tobacco Use Types Packs/Day Years [...] Description 03/22/2025 3:00 PM EDT Medication Management [facility] [address] [place] [address] Mikey Johnson, PharmD [address] [place] [address] documented as of this encounter Visit Diagnoses Not on filedocumented in this encounter Additional Health Concerns Assessment Noted Time PHQ-9 Depression Total Score: 0 10/13/19 24 1:55 PM EDT documented as of this encounter Care Teams Material Specialist Relationship Specialty Start Date End Date Jane Zarate MD [address] [place] [address] PCP - General Family Medicine 06/24/12 Mikey Johnson, PharmD [address] [place] [address] Pharmacist Internal Medicine 10/17/24 documented as of this encounter
--- OUTSIDE RECORDS SUMMARY | 2025-03-09 15:31 | XMS_ITS | Encounter Summary ---
Author Organization [employer] Address [address] [place] [address] Care Team Providers Care Chopped Strand Operator Name Role Phone Jane Zarate MD Primary Care Provider [phone] Mikey Johnson PharmD Unavailable [phone] Reason for Visit * Reason Comments Med Refill Encounter Details Date Type Department Care Team (Late Contact Info) Description 09/20/2022 Refill [facility]INE [address] [place], [place] [phone] Jane Zarate MD 230 [place], [place] [phone] Gastroesophageal reflux disease, unspecified whether esophagitis present [...] Description 03/22/2025 3:00 PM EDT Medication Management [facility] [address] [place], [place] [phone] Mikey Johnson, PharmD 230 [place] [address] documented as of this encounter Visit Diagnoses Diagnosis Gastroesophageal reflux disease, unspecified whether esophagitis present documented in this encounter Additional Health Concerns Assessment Noted Time PHQ-9 Depression Total Score: 9 06/30/20 22 3:13 PM EST documented as of this encounter Care Teams Chopped Strand Operator Relationship Specialty Start Date End Date Jane Zarate MD 230 [place] [address] PCP - General Family Medicine 06/24/12 Mikey Johnson, Bakari [address] [place] [address] Pharmacist Internal Medicine 10/17/24 documented as of this encounter
--- OUTSIDE RECORDS SUMMARY | 2025-03-09 15:31 | XMS_ITS | Encounter Summary ---
Author Organization [employer] Address [address] [place] [address] 7 [place] [address] Care Team Providers Care Paper Mill Supervisor Name Role Phone Jane Zarate MD Primary Care Provider [phone] Mikey Johnson PharmD Unavailable [phone] Encounter Details Date Type Department Care Team (Late st Contact Info) Description 01/08/2024 Orders Only [facility] 230 [place], [place] [phone] Jane Zarate MD 230 [place], [place] [phone] Social History Tobacco Use Types Packs/Day Years [...] Description 03/22/2025 3:00 PM EDT Medication Management [facility] [address] [place] [address] Mikey Johnson, PharmD [address] [place] [address] documented as of this encounter Visit Diagnoses Not on filedocumented in this encounter Additional Health Concerns Assessment Noted Time PHQ-9 Depression Total Score: 0 10/13/19 24 1:55 PM EDT documented as of this encounter Care Teams Paper Mill Supervisor Relationship Specialty Start Date End Date Jane Zarate MD [address] [place] [address] PCP - General Family Medicine 06/24/12 Mikey Johnson, PharmD [address] [place] [address] Pharmacist Internal Medicine 10/17/24 documented as of this encounter
--- OUTSIDE RECORDS SUMMARY | 2025-03-09 15:31 | XMS_ITS | Encounter Summary ---
Author Organization [employer] Address [address] [place] [address] 7 [place] [address] Care Team Providers Care Hot Walker Name Role Phone Jane Zarate MD Primary Care Provider [phone] Mikey Johnson PharmD Unavailable Reason for Visit * Reason Onset Date Comments Medication Question 11/05/2023 Encounter Details Date Type Department Care Team (Late st Contact Info) Description 11/05/2023 Telephone [facility] MEDICINE 230 [place], [place] [phone] Jane Zarate MD 230 [place], [place] [phone] Medication Question Social History Tobacco Use Types [...] Description 03/22/2025 3:00 PM EDT Medication Management [facility]INE 230 [place] [address] Mikey Johnson, PharmD 230 [place] [address] documented as of this encounter Visit Diagnoses Not on filedocumented in this encounter Additional Health Concerns Assessment Noted Time PHQ-9 Depression Total Score: 0 10/13/19 24 1:55 PM EDT documented as of this encounter Care Teams Hot Walker Relationship Specialty Start Date End Date Jane Zarate MD [address] [place], [place] [phone] PCP - General Family Medicine 06/24/12 Mikey Johnson, FarhanaD [address] [place] [address] Pharmacist Internal Medicine 10/17/24 documented as of this encounter
--- OUTSIDE RECORDS SUMMARY | 2025-03-09 15:31 | XMS_ITS | Encounter Summary ---
Author Organization [employer] Address [address] [place] [address] [address] Care Team Providers Care Entry Level Buyer Name Role Phone Jane Zarate MD Primary Care Provider [phone] Mikey Johnson PharmD Unavailable [phone] Encounter Details Date Type Department Care Team (Late Contact Info) Description 03/31/2023 Abstract [facility] MED[facility]INE [address] [place] [address] [phone] Jane Zarate MD [address] [place] [address] Social History Tobacco Use Types Packs/Day Years [...] 03/22/2025 3:00 PM EDT Medication Management [facility] [address] [place] [address] [phone] Mikey Johnson, PharmD 230 [place], [place] [phone] documented as of this encounter Procedures Procedure [...] documented as of this encounter Care Teams Entry Level Buyer Relationship Specialty Start Date End Date Jane Zarate MD 230 [place] [address] PCP - General Family Medicine 06/24/12 Mikey Johnson, Bakari 230 [place] [address] Pharmacist Internal Medicine 10/17/24 documented as of this encounter
--- OUTSIDE RECORDS SUMMARY | 2025-03-09 15:32 | XMS_ITS | Encounter Summary ---
Author Organization [employer] Address [address] [place] [address] 7 [place] [address] Care Team Providers Care Financial Project Manager Name Role Phone Jane Zarate MD Primary Care Provider Mikey Johnson PharmD Unavailable [phone] Encounter Details Date Type Department Care Team (Late st Contact Info) Description 05/23/2024 Abstract [facility] MEDICINE 230 [place] [address] Leyda [place] Social History Tobacco Use [...] [facility]INE 230 [place] [address] Mikey Johnson, PharmD 230 [place] [address] documented as of this encounter Procedures Procedure Name Priority Date/Time Associated Diagnosis Comments DIABETES EYE EXAM Routine 04/16/2024 documented in this encounter Results * Diabetes Eye Exam (04/16/2024) [facility] Signature Eye Exam Normal Normal 04/16/2024 us Historical Provider HEALTH MAINTENANCE Final Result documented in this encounter Visit Diagnoses Not on filedocumented in this encounter Additional Health Concerns Assessment Noted Time PHQ-9 Depression Total Score: 7 05/10/20 24 1:16 PM EDT documented as of this encounter Care Teams Financial Project Manager Relationship Specialty Start Date End Date Jane Zarate MD 230 [place] [address] PCP - General Family Medicine 12/13/12 Mikey Johnson, PharmD [address] [place] [address] Pharmacist Internal Medicine 10/17/24 documented as of this encounter
--- OUTSIDE RECORDS SUMMARY | 2025-03-09 15:32 | XMS_ITS | Encounter Summary ---
Author Organization [email or web address] Address [address] [place] [address] 7 [place] [address] Care Team Providers Care Yard Pipe Grader Name Role Phone Jane Zarate MD Primary Care Provider [phone] Mikey Johnson PharmD Unavailable [phone] Reason for Visit * Reason Comments Med Refill Encounter Details Date Type Department Care Team ([facility] st Contact Info) Description 03/06/2025 Refill [facility] MEDICINE 230 [place], [place] [phone] Jane Zarate MD 230 [place], [place] [phone] Social History Tobacco Use Types Packs/Day Years [...] Description 03/22/2025 3:00 PM EDT Medication Management [facility] MEDICINE 230 [place] [address] Mikey Johnson, PharmD 230 [place] [address] documented as of this encounter Visit Diagnoses Not on filedocumented in this encounter Additional Health Concerns Assessment Noted Time PHQ-9 Depression Total Score: 8 11/23/19 25 4:13 PM EDT documented as of this encounter Care Teams Yard Pipe Grader Relationship Specialty Start Date End Date Jane Zarate MD [address] [place] [address] PCP - General Family Medicine 06/24/12 Mikey Johnson, PharmD [address] [place] [address] Pharmacist Internal Medicine 10/17/24 documented as of this encounter
--- OUTSIDE RECORDS SUMMARY | 2025-03-09 15:32 | XMS_ITS | Encounter Summary ---
Author Organization [employer] Address [address] [place] [address] 7 [place] [address] Care Team Providers Care Manager Forms Name Role Phone Jane Zarate MD Primary Care Provider Mikey Johnson PharmD Unavailable [phone] Reason for Visit * Reason Comments Med Refill Encounter Details Date Type Department Care Team ([facility] st Contact Info) Description 01/23/2025 Refill [facility] MEDICINE 230 [place], [place] [phone] Jane Zarate MD 230 [place], [place] [phone] Social History Tobacco Use Types Packs/Day Years [...] Description 03/22/2025 3:00 PM EDT Medication Management [facility] MEDICINE [address] [place] [address] Mikey Johnson, PharmD [address] [place] [address] documented as of this encounter Visit Diagnoses Not on filedocumented in this encounter Additional Health Concerns Assessment Noted Time PHQ-9 Depression Total Score: 8 11/23/19 25 4:13 PM EDT documented as of this encounter Care Teams Manager Forms Relationship Specialty Start Date End Date Jane Zarate MD [address] [place] [address] PCP - General Family Medicine 06/24/12 Mikey Johnson, PharmD [address] [place] [address] Pharmacist Internal Medicine 10/17/24 documented as of this encounter
--- OUTSIDE RECORDS SUMMARY | 2025-03-09 15:32 | XMS_ITS | Encounter Summary ---
Author Organization [employer] Address [address] [place] [address] 7 [place] [address] Care Team Providers Care Office Worker Name Role Phone Jane Zarate MD Primary Care Provider [phone] Mikey Johnson PharmD Unavailable [phone] Reason for Visit * Reason Onset Date Comments Call Back Request 02/23/2025 Encounter Details Date Type Department Care Team (Late st Contact Info) Description 02/23/2025 Results Follow-Up [facility] MEDICINE 230 [place], [place] [phone] Jane Zarate MD 230 [place], [place] [phone] XR Elbow 3+ Views Left Social History [...] seen in XR. Informed referral placed to [facility]. Pt reports hasn't heard from them. Provided her with their erinn number to call. Pt states will call them to make an appt. * Telephone Encounter - Daniel August - 03/06/2025 9:28 AM EDT Tc from pt requesting a call back regarding prior message Contact pt at [phone] (bermudian) documented in this encounter Plan of Treatment Upcoming Encounters Date Type Department Care Team (Late st Contact Info) Description 03/22/2025 3:00 PM EDT Medication Management [facility] MEDICINE 230 [place] [address] Mikey Johnson, PharmD 230 [place] [address] documented as of this encounter Visit Diagnoses Not on filedocumented in this encounter Additional Health Concerns Assessment Noted Time PHQ-9 Depression Total Score: 8 11/23/19 25 4:13 PM EDT documented as of this encounter Care Teams Office Worker Relationship Specialty Start Date End Date Jane Zarate MD 230 [place] [address] PCP - General Family Medicine 06/24/12 Mikey Johnson, PharmD [address] [place] [address] Pharmacist Internal Medicine 10/17/24 documented as of this encounter
--- OUTSIDE RECORDS SUMMARY | 2025-03-09 15:32 | XMS_ITS | Encounter Summary ---
Author Organization [employer] Address [address] [place] [address] 7 [place] [address] Care Team Providers Care Supervisor Record Press Name Role Phone Jane Zarate MD Primary Care Provider [phone] Mikey Johnson PharmD Unavailable [phone] Reason for Visit * Reason Onset Date Comments Nurse Triage 07/04/2024 Encounter Details Date Type Department Care Team (Late st Contact Info) Description 07/04/2024 Telephone [facility] MEDICINE 230 [place], [place] [phone] Jane Zarate MD 230 [place], [place] [phone] Nurse Triage Social History Tobacco Use Types [...] Pt is advised to seek evaluation at [facility]. Pt agrees with disposition and will [...] 03/22/2025 3:00 PM EDT Medication Management [facility] MED[facility]INE 230 [place] [address] Mikey Johnson, PharmD 230 [place] [address] documented as of this encounter Visit Diagnoses Not on filedocumented in this encounter Additional Health Concerns Assessment Noted Time PHQ-9 Depression Total Score: 7 05/10/20 24 1:16 PM EDT documented as of this encounter Care Teams Supervisor Record Press Relationship Specialty Start Date End Date Jane Zarate MD [address] [place] [address] PCP - General Family Medicine 06/24/12 Mikey Johnson, PharmD [address] [place] [address] Pharmacist Internal Medicine 10/17/24 documented as of this encounter
--- OUTSIDE RECORDS SUMMARY | 2025-03-09 15:32 | XMS_ITS | Encounter Summary ---
Author Organization [employer] Address [address] [place] [address] 7 [place] [address] Care Team Providers Care Battery Tester And Repairer Name Role Phone Jane Zarate MD Primary Care Provider [phone] Mikey Johnson PharmD Unavailable [phone] Encounter Details Date Type Department Care Team [...] Description 03/22/2025 3:00 PM EDT Medication Management [facility] MEDICINE 230 [place] [address] Mikey Johnson, PharmD 230 [place] [address] documented as of this encounter Visit Diagnoses Not on filedocumented in this encounter Additional Health Concerns Assessment Noted Time PHQ-9 Depression Total Score: 8 11/23/19 25 4:13 PM EDT documented as of this encounter Care Teams Battery Tester And Repairer Relationship Specialty Start Date End Date Jane Zarate MD [address] [place] [address] PCP - General Family Medicine 06/24/12 Mikey Johnson, PharmD [address] [place] [address] Pharmacist Internal Medicine 10/17/24 documented as of this encounter
--- OUTSIDE RECORDS SUMMARY | 2025-03-09 15:32 | XMS_ITS | Encounter Summary ---
Author Organization [employer] Address [address] [place] [address] Care Team Providers Care Stone Polisher Name Role Phone Physician, No Pcp Primary Care Provider Unavaila ble Encounter Details Date Type Department Care Team (Late st Contact Info) Description 11/17/2024 Lab Requisition [facility] - Main Lab [address] [facility] [place] [phone] Lennie Qiu NP 3640 [facility] [address] [place] [address] Frequency of micturition Social History Tobacco Use [...] if clinically indicated. 11/17/2024 11:12 AM EDT [facility] Other Urine specimen from urethra / Unknown 11/16/2024 11/17/2024 10:46 AM EDT us Lennie Qiu NP LAB MICROBIOLOGY - GENERA L ORDERABLES Final Result [facility] [address] [place] [address], documented in this encounter Visit Diagnoses Diagnosis Frequency of micturition Urinary frequency documented in this encounter Care Teams Stone Polisher Relationship Specialty Start Date End Date Physician, No Pcp PCP - General 05/31/24 documented as of this encounter
--- OUTSIDE RECORDS SUMMARY | 2025-03-09 15:32 | XMS_ITS | Encounter Summary ---
Author Organization [employer] Address [address] [place] [address] [address] [place] [address] Care Team Providers Care Building Guard Deputy Sheriff Name Role Phone Jane Zarate MD Primary Care Provider [phone] Mikey Johnson PharmD Unavailable [phone] Reason for Visit * Reason Onset Date Comments Referral 12/19/2024 Encounter Details Date Type Department Care Team (Late st Contact Info) Description 12/19/2024 Telephone [facility] [address] [place], [place] [phone] Jane Zarate MD [address] [place], [place] [phone] Referral Social History Tobacco Use Types Packs/Day [...] pt requesting change referral facility. New Location: [address] [place] [id number] - [facility] Referral: [facility]ICINE documented in this encounter Plan of Treatment Upcoming Encounters Date Type Department Care Team (Late st Contact Info) Description 03/22/2025 3:00 PM EDT Medication Management [facility] [address] [place] [address] Mikey Johnson, PharmD [address] [place] [address] documented as of this encounter Visit Diagnoses Not on filedocumented in this encounter Additional Health Concerns Assessment Noted Time PHQ-9 Depression Total Score: 8 11/23/19 25 4:13 PM EDT documented as of this encounter Care Teams Building Guard Deputy Sheriff Relationship Specialty Start Date End Date Jane Zarate MD [address] [place] [address] PCP - General Family Medicine 06/24/12 Mikey Johnson, FarhanaD [address] [place] [address] Pharmacist Internal Medicine 10/17/24 documented as of this encounter
== END 2025-03-09 15:24 | disposition home or self-care (01) ==
LOC: HO.HGI 14:52
PROVIDERS: PCP Family Medicine; Visit Provider Nurse Practitioner Family
DX: Z01.818 Encounter for other preprocedural examination (principal); Z12.11 Encounter for screening for malignant neoplasm of colon; K21.9 Gastro-esophageal reflux disease without esophagitis; K31.84 Gastroparesis; R35.0 Frequency of micturition
CPT/HCPCS: 99213

== ENCOUNTER → 2025-03-09 14:52 | Outpatient (BNVA) | payer OTHER, SELFPAY | PROVIDERS: PCP Family Medicine; Visit Provider Nurse Practitioner Family | DX: Z01.818 Encounter for other preprocedural examination (principal); K21.9 Gastro-esophageal reflux disease without esophagitis; R35.0 Frequency of micturition; K31.84 Gastroparesis | CPT/HCPCS: 99212 ==

== ENCOUNTER 2025-03-17 10:53 | Day surgery (SDC) | payer OTHER, SELFPAY ==
--- OUTSIDE RECORDS SUMMARY | 2025-02-23 07:54 | XMS_ITS | Encounter Summary ---
Author Organization [employer] Address [address] [place] [address] 7 [place] [address] Care Team Providers Care Reverse Engineer Name Role Phone Jane Zarate MD Primary Care Provider [phone] Mikey Johnson PharmD Unavailable [phone] Encounter Details Date Type Department Care Team (Late st Contact Info) Description 01/08/2024 Orders Only [facility] MEDICINE 230 [place], [place] [phone] Jane Zarate MD 230 [place], [place] [phone] Social History Tobacco Use Types Packs/Day Years [...] Care Team (Late st Contact Info) Description 02/23/2025 9:15 AM EDT Office Visit [facility] MEDICINE [address] [place] [address] Jane Zarate MD [address] [place] [address] 03/22/2025 3:00 PM EDT Medication Management [facility] [address] [place] [address] Mikey Johnson PharmD [address] [place] [address] documented as of this encounter Visit Diagnoses Not on filedocumented in this encounter Additional Health Concerns Assessment Noted Time PHQ-9 Depression Total Score: 0 10/13/19 24 1:55 PM EDT documented as of this encounter Care Teams Reverse Engineer Relationship Specialty Start Date End Date Jane Zarate MD [address] [place] [address] PCP - General Family Medicine 06/24/12 Mikey Johnson, PharmD [address] [place] [address] [phone] Pharmacist Internal Medicine 10/17/24 documented as of this encounter
--- OUTSIDE RECORDS SUMMARY | 2025-02-23 07:54 | XMS_ITS | Clinical Summary ---
Author Organization [facility] Address [address] [place] [address] Phone Care Team Providers Care Local Company Intermodal Truck Driver Name Role Phone Physician, No Pcp Primary Care Provider Unavaila ble Surgical History Surgery Date Site/Laterality Comments OTHER SURGICAL HISTORY 11/01/2020 N/A PROCEDURE: [place] LAPAROSCOPIC APPENDECTOMY; COMMENT: By Dr. Perico Pressley [facility] HYSTERECTOMY 04/16/1999 PROCEDURE: HISTORICAL HYSTERECTOMY; COMMENT: [...] Diabetes: Annual Urine Albumin-Creatinine Ratio (uACR) 06/02/2024 Depression Screening 07/13/2024 Diabetes: Blood Sugar Control Test (HGBA1C) 11/08/2024 05/10/2024, 03/25/2024 Influenza Vaccine (#1) 2025 , 03/31/2023, 04/23/2022, Additional history exists Diabetes: Annual GFR (Glomerular Filtration Rate) 03/25/2025 03/25/2024 Hypertension/CHF/CAD Annual BMP Blood Test 03/25/2025 03/25/2024 DTaP,Tdap,and Td Vaccines (4 - Td or [...] Vaccine: 50+ Years Completed 07/07/2023, 06/20/2014, 01/27/2002 HIB Vaccines Aged Out No longer eligi [...] complete this topic Insurance MEDICAID - [place] [facility] Total-trax PLAN Advance Directives Documents on File Type Date Recorded Patient Cabinet Abrasive Sandblaster Expl anation Health Care Decision (hx) 10/27/2016 AD ARNOLD DIRECTIVE Health Care Decision (hx) 10/27/2016 AD ARNOLD DIRECTIVE Health Care Decision (hx) 10/27/2016 AD ARNOLD DIRECTIVE Health Care Decision (hx) 10/27/2016 AD ARNOLD DIRECTIVE Health Care Decision (hx) 10/27/2016 AD ARNOLD DIRECTIVE Care Teams Local Company Intermodal Truck Driver Relationship Specialty Start Date End Date Physician, No Pcp PCP - General 05/31/24
--- NOTE | 2025-03-17 12:19 | MHC.SHP ---
Pre-Procedural Eval Section A - 24 Hr Update-Section A only Date of Service: 03/17/25 The patient is an INPATIENT: No Changes since office visit: Yes Patient answered all questions; No Cold of Flu in the past 2 weeks, No New Medical Problems and No Changes in Medication The patient has been examined within 24 hours of the surgical procedure. The History & Physical has been completed within 30 days and I have reviewed it.: Yes Section B - Complete if H&P > 30 days Chief Complaint: Personal history of colon polyps, unspecified Allergies: Allergies Allergy/AdvReac Type Severity Reaction Status Date / Time cat dander (CATS) Allergy Unknown SNEEZING Verified 03/17/25 12:12 DUST Allergy Unknown ITCHY Uncoded 03/17/25 12:12 EYES, SNEEZING FRUIT Allergy Unknown ITCHY Uncoded 03/17/25 12:12 THROAT RAGWEED Allergy Unknown SNEEZING/ Uncoded 03/17/25 12:12 ITCHY EYES Exam Surgical H&P Exam: Normal: Heart, Normal: Lungs, Normal: Extremities and Normal: Abdomen Plan Diagnosis/Plan: Unchanged I have reviewed the history and physical and performed a pertinent physical examination on my patient. No changes have occurred unless specified. Time Spent With Patient Time: Total time managing care of this patient today ____ minutes.
[2025-03-17] MEDS: Lactated Ringers 1,000 ML 100 ML IVCONT (12:26)
[2025-03-17 12:31] VITALS: BMI 32.8
--- NOTE | 2025-03-17 12:35 | HO.ANESPROP2 ---
Documented by User: Mary Green NP 03/15/25 13:22 HPI - Anesthesia Eval Consult details Narrative: 64 yr old female for upper endoscopy, colonoscopy [place] [facility] [place]: negative work up, Exercise stress echocardiogram was negative at 7 METS exercise capacity without any angina or EKG/echocardiographic evidence of ischemia. Type 2 DM Anesthesia Pre-Procedure Meds Is the patient on any of the following meds?: GLP1/DPP4 PMFSH Active Problems Active Problems: All Active Problems (Updated 03/09/25 @ 15:52 by Maribeth Marino CNP) Urinary frequency (Acute) Gastroparesis (Acute) Trigger thumb, right thumb (Acute) Ganglion cyst of volar aspect of left wrist (Acute) Early satiety (Acute) Bloating (Acute) Abnormal echocardiogram findings without diagnosis (Acute) Diabetes (Acute) Precordial chest pain (Acute) Carpal tunnel syndrome of left wrist (Acute) Trigger middle finger of left hand (Acute) Trigger ring finger of left hand (Acute) Encounter for screening colonoscopy (Acute) Acid reflux (Acute) Past Medical History Medical History Urinary frequency Gastroparesis VANDANA (obstructive sleep apnea) High cholesterol Diabetes Family History Family History Father Liver disease Alcoholic Mother Diabetes Kidney disease Family history of problems with anesthesia: No Surgical History Surgical History History of back surgery Hx of appendectomy History of hysterectomy with bilateral oophorectomy Hx of cholecystectomy Hx of tonsillectomy History of Problems with Anesthesia: Yes Social History Social History Household Members: Family Are you a primary career resource technician to a significant other at home: No Do you presently have visiting nurse or other home services: No Alcohol intake: current Alcohol intake frequency: holidays/special occasions only Patient Tobacco Use Status: Former Tobacco user Have you been hit, kicked, punched, or otherwise hurt by someone within the past year? 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 Allergies Allergy/AdvReac Type Severity Reaction Status Date / Time cat dander (CATS) Allergy Unknown SNEEZING Verified 03/17/25 12:12 DUST Allergy Unknown ITCHY Uncoded 03/17/25 12:12 EYES, SNEEZING FRUIT Allergy Unknown ITCHY Uncoded 03/17/25 12:12 THROAT RAGWEED Allergy Unknown SNEEZING/ Uncoded 03/17/25 12:12 ITCHY EYES Home Medications ?Medication ?Instructions ?Recorded ?Confirmed ?Last Taken ?Type bupropion HCl 200 mg tablet,12 hr 200 mg PO BID 01/06/22 03/17/25 03/17/25 History sustained-release cholecalciferol (vitamin D3) 25 25 mcg PO DAILY 01/06/22 03/17/25 Unknown History mcg (1,000 unit) capsule enalapril maleate 5 mg tablet 5 mg PO DAILY 01/06/22 03/17/25 Unknown History loratadine 10 mg tablet 10 mg PO DAILY 01/06/22 03/17/25 Unknown History metformin 500 mg tablet,extended 1,000 mg PO BID 01/06/22 03/17/25 Unknown History release 24 hr oxybutynin chloride 15 mg 15 mg PO DAILY 01/06/22 03/17/25 Unknown History tablet,extended release 24 hr pravastatin 40 mg tablet 40 mg PO DAILY 01/06/22 03/17/25 03/17/25 History glipizide 10 mg tablet, extended 10 mg PO BID 04/29/22 03/17/25 Unknown History release 24 hr methenamine hippurate 1 gram tablet 1 g PO BID 08/24/23 03/17/25 Unknown History cephalexin 250 mg capsule 250 mg PO DAILY 02/22/24 03/17/25 Unknown History estradiol 0.01% (0.1 mg/gram) vaginal 02/22/24 03/09/25 Unknown History vaginal cream fluconazole 100 mg tablet mg PO 02/22/24 03/09/25 Unknown History dulaglutide 0.75 mg/0.5 mL 1.5 mg subcut QWEEK 03/09/25 03/17/25 03/09/25 History subcutaneous pen injector (Trulicity) pioglitazone 45 mg tablet (Actos) 45 mg PO DAILY 03/09/25 03/17/25 Unknown History Exam Narrative Narrative: EKG 2023 Normal sinus, no ST-T wave changes, rate 71 Echo 01/2023 Conclusions: - 1. Normal LV ejection fraction at 55-60% with impaired relaxation filling pattern with suggestion of wall motion abnormality in the RCA territory 2. Normal cardiac valvular Doppler 3. No gross pericardial effusion Exercise Stress Test 2022 Exercise stress test exercise 5 min 16 sec of [place] protocool achieving 99% MPHR, without anginal symptoms, without arrhythmias, with normotensive response to exercise, without EKG changes. Echo imags obtained by tech at rest and immediately post peak exercise. Definity contrast used. Test reviewed with Dr. Wong Assessment and Plan Final Anesthetic Review Family History of Problems with Anesthesia: No History of Problems with Anesthesia: Yes Documented by User: Katie Juárez DO 03/17/25 12:49 HPI - Anesthesia Eval Anesthesia Pre-Procedure Meds Is the patient on any of the following meds?: GLP1/DPP4 [facility] Past Medical History Medical History Urinary frequency Gastroparesis VANDANA (obstructive sleep apnea) High cholesterol Diabetes Family History Family History Father Liver disease Alcoholic Mother Diabetes Kidney disease Family history of problems with anesthesia: No Surgical History Surgical History History of back surgery Hx of appendectomy History of hysterectomy with bilateral oophorectomy Hx of cholecystectomy Hx of tonsillectomy History of Problems with Anesthesia: No Social History Social History Household Members: Family Are you a primary career resource technician to a significant other at home: No Do you presently have visiting nurse or other home services: No Alcohol intake: current Alcohol intake frequency: holidays/special occasions only Patient Tobacco Use Status: Former Tobacco user Have you been hit, kicked, punched, or otherwise hurt by someone within the past year? 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 Allergies Allergy/AdvReac Type Severity Reaction Status Date / Time cat dander (CATS) Allergy Unknown SNEEZING Verified 03/17/25 12:12 DUST Allergy Unknown ITCHY Uncoded 03/17/25 12:12 EYES, SNEEZING FRUIT Allergy Unknown ITCHY Uncoded 03/17/25 12:12 THROAT RAGWEED Allergy Unknown SNEEZING/ Uncoded 03/17/25 12:12 ITCHY EYES Home Medications ?Medication ?Instructions ?Recorded ?Confirmed ?Last Taken ?Type bupropion HCl 200 mg tablet,12 hr 200 mg PO BID 01/06/22 03/17/25 03/17/25 History sustained-release cholecalciferol (vitamin D3) 25 25 mcg PO DAILY 01/06/22 03/17/25 Unknown History mcg (1,000 unit) capsule enalapril maleate 5 mg tablet 5 mg PO DAILY 01/06/22 03/17/25 Unknown History loratadine 10 mg tablet 10 mg PO DAILY 01/06/22 03/17/25 Unknown History metformin 500 mg tablet,extended 1,000 mg PO BID 01/06/22 03/17/25 Unknown History release 24 hr oxybutynin chloride 15 mg 15 mg PO DAILY 01/06/22 03/17/25 Unknown History tablet,extended release 24 hr pravastatin 40 mg tablet 40 mg PO DAILY 01/06/22 03/17/25 03/17/25 History glipizide 10 mg tablet, extended 10 mg PO BID 04/29/22 03/17/25 Unknown History release 24 hr methenamine hippurate 1 gram tablet 1 g PO BID 08/24/23 03/17/25 Unknown History cephalexin 250 mg capsule 250 mg PO DAILY 02/22/24 03/17/25 Unknown History estradiol 0.01% (0.1 mg/gram) vaginal 02/22/24 03/09/25 Unknown History vaginal cream fluconazole 100 mg tablet mg PO 02/22/24 03/09/25 Unknown History dulaglutide 0.75 mg/0.5 mL 1.5 mg subcut QWEEK 03/09/25 03/17/25 03/09/25 History subcutaneous pen injector (Trulicity) pioglitazone 45 mg tablet (Actos) 45 mg PO DAILY 03/09/25 03/17/25 Unknown History Exam Exam Date and Time: 03/17/25 1240 Height,Weight and Vital Signs: Height 5 ft 4 in Weight 86.7 kg Vital Signs Temperature 98.1 F 03/17/25 12:37 Pulse Rate 67 03/17/25 12:37 Respiratory Rate 18 03/17/25 12:37 Blood Pressure 130/53 L 03/17/25 12:37 Pulse Oximetry 96 03/17/25 12:37 Oxygen Delivery Method Room Air 03/17/25 12:37 Temperature 98.1 F 03/17/25 12:37 Pulse Rate 67 03/17/25 12:37 Respiratory Rate 18 03/17/25 12:37 Blood Pressure 130/53 L 03/17/25 12:37 Pulse Oximetry 96 03/17/25 12:37 Oxygen Delivery Method Room Air 03/17/25 12:37 Airway Mallampati Class: III TM Dist: <=3cm Neck ROM: Full Loose/Missing/Broken Teeth: No (patient denies any loose or broken teeth) Heart: S1S2 Lungs: CTAB Assessment and Plan Assessment Anesthesia Assessment: Anesthesia Plan Discussed and Chart Reviewed Final Anesthetic Review Family History of Problems with Anesthesia: No History of Problems with Anesthesia: No NPO: Yes ASA Class: II Final Preanesthetic Review: No Changes in Pt Med Stat, Meds/Allgs Chart Reviewed, Consent Obtained/Reviewed and Anes Risks/Benef Reviewed Patient Risk: Low Procedure Risk: Low Anesthetic Plan Anesthetic Plan: MAC: and Agree w/ Assess. and Plan Disposition: Standard PACU
[2025-03-17 12:37] VITALS: BP 130/53; PULSE 67; RESP 18; TEMP 36.7; O2SAT 96
[2025-03-17 12:42] LABS: Glucose, Whole Blood 130 mg/dL (60-115)
--- NOTE | 2025-03-17 13:20 | P.OPN-COLO_ITS ---
Colonoscopy Operative Note Operative Note Date of Service: 03/17/25 Narrative: FLEXIBLE TRANSORAL UPPER GASTROINTESTINAL ENDOSCOPY WITH BIOPSIES AND COLONOSCOPY TILL CECUM Pre-op diagnosis: Surveillance for colon polyps, GERD Post-op diagnosis: GERD, Gastritis, gastric polyps, Diverticulosis Endoscopist:? Lion Bernal MD Anesthesia:?MAC UPPER ENDOSCOPY Consent: Indications for the procedure and potential complications of bleeding, perforation, reaction to medications and missed diagnosis were discussed with the patient and informed consent was obtained. Instrument: Olympus GIF H 190 mid size upper endoscope Monitoring: Vital signs and clinical assessment, continuous EKG monitoring, Pulse oximetry, Carbon Dioxide monitoring and blood pressure monitoring were done throughout the procedure. Procedure: The patient was placed in the left lateral decubitis position and pre-procedure medications were administered and a bite block was placed. The endoscope was inserted into the mouth and advanced under direct vision to the third part of duodenum. A careful inspection was made as the upper endoscope was withdrawn including a retroflexed examination of the proximal stomach; Findings and interventions are described below. Findings: Larynx: Normal Esophagus: GE junction at 36 cms. No esophagitis or Almendarez's. Tortuous esophagus with increased tertiary contractions without stricture or ring.? Stomach: A few 3=5 mm benign appearing polyps in the gastric fundus - biopsied. Moderate diffuse gastric erythema - biopsies were obtained from the antrum. Grade 2 flap valve on retroflexed examination of the cardia. Duodenum: Normal bulb and descending duodenum Biopsies were obtained from descending duodenum to check for celiac sprue Intervention: Biopsies as noted above COLONOSCOPY PROCEDURE NOTE Instrument: Olympus PCF H 190 L variable stiffness pediatric colonoscope Monitoring: Vital signs and clinical assessment, intermittent blood pressure monitoring, continuous EKG monitoring, Pulse oximetry and Carbon Dioxide monitoring were done throughout the procedure. Please see anesthesia flowsheet. Colon withdrawl time was 12 minutes. Procedure: The patient was placed in the left lateral decubitis position and pre-procedure medications were administered. After a digital rectal examination of the ano-rectum, the video colonoscope was inserted into the rectum and advanced through the colon to the cecum. The colonoscope was slowly withdrawn in a retrograde panoramic fashion and the colon mucosa was carefully examined including a retroflexed view of the rectum. Findings and interventions are described below. Procedure Difficulty: without difficulty Findings: Terminal Ileum: Not evaluated Cecum: Normal Ascending Colon: Normal Transverse Colon: Normal Descending Colon: Normal Sigmoid Colon: Moderate diverticulosis Rectum: Normal Ano-rectum: Normal Colon preparation: Excellent, after some irrigation. [facility] Bowel Preparation Scale Right colon; 3 Transverse colon: 3 Left colon; 3 (0 = Unprepared colon segment with mucosa not seen due to solid stool that c annot be cleared. 1 = Portion of mucosa of the colon segment seen, but other areas of the colon segment not well seen due to staining, residual stool and/or opaque liquid. 2 = Minor amount of residual staining, small fragments of stool and/or opaque liquid, but mucosa of colon segment seen well. 3 = Entire mucosa of colon segment seen well with no residual staining, small fragments of stool or opaque liquid) Impression and Post Procedure Diagnosis: Endoscopy Findings: ESOPHAGUS: Tortuous esophagus with increased tertiary contractions without stricture or ring.? STOMACH: Diffuse gastritis and benign appearing gastric polyps DUODENUM: Normal - biopsied to check for celiac sprue Colonoscopy Findings: No polyps were detected Moderate diverticulosis seen in the sigmoid colon Plan: Pt has a FU appointment on 04/06/25 with Maribeth Marino NP Repeat Colonoscopy in 5 years due to history of adenomatous colon polyps A summary of above findings and relevant handouts were given to the patient. BIOPSIES SHOWED: A. Small bowel, biopsy: Small bowel mucosa within normal limits; preserved villous architecture and no increase in intraepithelial lymphocytes seen. B. Stomach, antrum, biopsy: Gastric antral mucosa with mild chronic inactive gastritis and features of reactive gastropathy; negative for Helicobacter pylori, intestinal metaplasia and dysplasia. C. Stomach, polyp, biopsy: Polypoid gastric body mucosa with mild PPI effect; negative for Helicobacter pylori, intestinal metaplasia and dysplasia Letter sent with biopsy results. Patient was placed on the colonoscopy recall list for repeat colonoscopy in 5 years.
[2025-03-17 13:47] VITALS: BP 115/60; PULSE 68; RESP 16; TEMP 36.6; O2SAT 98
[2025-03-17 14:02] VITALS: BP 141/75; PULSE 69; RESP 18; TEMP 36.1; O2SAT 99
== END 2025-03-17 15:32 | disposition home or self-care (01) ==
PROVIDERS: PCP Family Medicine; Visit Provider Internal Medicine Gastroenterology
PROC: (CPT 45378; principal; 2025-03-17 13:10)
DX: Z12.11 Encounter for screening for malignant neoplasm of colon (principal); Z86.0101 Personal history of adenomatous and serrated colon polyps; K57.30 Diverticulosis of large intestine without perforation or abscess without bleeding; K21.9 Gastro-esophageal reflux disease without esophagitis; K22.89 Other specified disease of esophagus; K29.50 Unspecified chronic gastritis without bleeding; K31.7 Polyp of stomach and duodenum; K31.84 Gastroparesis; E78.00 Pure hypercholesterolemia, unspecified; G47.33 Obstructive sleep apnea (adult) (pediatric); R35.0 Frequency of micturition; E11.9 Type 2 diabetes mellitus without complications; Z79.84 Long term (current) use of oral hypoglycemic drugs; Z79.85 Long-term (current) use of injectable non-insulin antidiabetic drugs; Z79.899 Other long term (current) drug therapy; Z90.49 Acquired absence of other specified parts of digestive tract; Z98.890 Other specified postprocedural states
CPT/HCPCS: 45378; 43239; 82947; 88305; 88313; 88342; J2704

== ENCOUNTER → 2025-03-17 10:53 | Outpatient (BNV) | payer OTHER, SELFPAY | PROVIDERS: PCP Family Medicine; Visit Provider Internal Medicine Gastroenterology | DX: Z12.11 Encounter for screening for malignant neoplasm of colon (principal); K57.90 Diverticulosis of intestine, part unspecified, without perforation or abscess without bleeding; K21.9 Gastro-esophageal reflux disease without esophagitis; K29.70 Gastritis, unspecified, without bleeding; K31.7 Polyp of stomach and duodenum | CPT/HCPCS: 43239; 45378 ==

== ENCOUNTER 2025-04-06 15:30 | Outpatient (AMB) | payer OTHER, SELFPAY ==
--- NOTE | 2025-04-06 15:34 | A.OFFVIS_ITS ---
Vital Signs 04/06/25 15:35 Height 5 ft 4 in Weight 198 lb BMI 34.0 BP 111/57 L Blood Pressure Location Lt brachial Position Sitting Pulse 79 Pulse Oximetry (%) 98 Oxygen Delivery Method Room Air Intake Visit Reasons: follow up Intake Note: Patient follow up for acid reflux and EGD/Colonoscopy results. Patient denies any GI issues for today. Officer Captain Required: No Accompanied by: Self / Same As Patient Allergies cat dander (CATS) Allergy (Unknown, Verified 04/06/25 15:34) SNEEZING DUST Allergy (Unknown, Uncoded 03/17/25 12:12) ITCHY EYES, SNEEZING FRUIT Allergy (Unknown, Uncoded 03/17/25 12:12) ITCHY THROAT RAGWEED Allergy (Unknown, Uncoded 03/17/25 12:12) SNEEZING/ ITCHY EYES HPI HPI follow up: Details: Patient is a 64-year-old female with PMH of VANDANA, hyperlipidemia and diabetes. Sylvia presents for FU after EGD and colonoscopy on 03-17-25 for GERD hx and routine CRC screening. Pt continues to experience intermittent reflux sx, which are primarily managed on omeprazole 40 mg QD. No significant changes in sx frequency or severity since last visit. Pt denies new abd pain, change in bowel habits, GI bleeding, or wt loss. Reports transient fatigue post-procedure, resolved the next day. States overall improvement and stability with current regimen. No recent hospitalizations, urgent care visits, or acute GI flares. Pt has remained compliant with PPI and dietary measures. No significant barriers noted to current management. [facility] Medical History (Updated 04/06/25 @ 16:52 by Maribeth Marino CNP) Diverticulosis Urinary frequency Gastroparesis VANDANA (obstructive sleep apnea) High cholesterol Diabetes Surgical History History of esophagogastroduodenoscopy (EGD) Hx of colonoscopy History of back surgery Hx of appendectomy History of hysterectomy with bilateral oophorectomy Hx of cholecystectomy Hx of tonsillectomy Family History Father Liver disease Alcoholic Mother Diabetes Kidney disease Social History Household Members: Family Are you a primary childcare provider to a significant other at home: No Do you presently have visiting nurse or other home services: No Alcohol intake: current Alcohol intake frequency: holidays/special occasions only Patient Tobacco Use Status: Former Tobacco user Current occupational status: employed 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 Review of Systems Const Reports as per [facility] ENT Reports as per HPI Card Reports as per HPI Resp Reports as per HPI GI Reports as per HPI Reports as per HPI Physical Exam Vital Signs: Last Vital Signs Pulse 79 04/06/25 15:35 BP 111/57 L 04/06/25 15:35 Pulse Ox 98 04/06/25 15:35 Oxygen Delivery Method Room Air 04/06/25 15:35 BMI result Body Mass Index 34.0 Const General: healthy appearing, no acute distress and well developed Nutritional Appearance: average body habitus Orientation/consciousness: patient oriented x3 HEENT Head: Yes normal to inspection, Yes normocephalic and Yes atraumatic Face and sinus: Yes normal facial exam Eyes General: appearance normal, both eyes and all related structures Neck Neck: Yes normal visual inspection Resp Effort & Inspection: normal respiratory effort, able to speak in complete sentences, no tracheal deviation and symmetric chest movement Cardio Jugular venous distension: no JVD Neuro General: patient oriented x3 Gait exam (Neuro): Normal gait present Psych Appearance: grossly normal Mental Status: mental status grossly normal Speech and movement: Normal speech and movement present Affect: normal affect Attitude: cooperative Thought process: Normal thought process present Thought content: Normal thought content present Insight: Good insight present (Psych) Judgement: Good judgement present (Psych) Assessment & Plan Assessment & Plan (1) Acid reflux: Comment: 01/21/22 EGD- GERD, gastritis, gastric erosion, No H. pylori. 03/17/25 EGD- Gastritis, Polypoid, GERD Code(s): K21.9 - Gastro-esophageal reflux disease without esophagitis Category: Medical Qualifiers: Esophagitis presence: without esophagitis Qualified Code(s): K21.9 - Gastro-esophageal reflux disease without esophagitis Plan: - Symptom control adequate. Inflammation on EGD supports continued PPI. Dis cussed possible dose reduction in future if stable, but will continue current regimen for now. Additional testing: - None indicated at this time unless sx worsen. Medications: - Continue omeprazole 40 mg PO QD. - Monitor for long-term PPI SEs (e.g., B12, Mg, renal fn). Lifestyle Recommendations: - Reinforce avoidance of reflux triggers: spicy, acidic, fatty/fried foods. - Encourage hydration, wt loss as adjunctive measures. - Provided education on dietary modification and lifestyle. Referrals / Coordination of Care: - None indicated currently. Follow-Up Plan: - RTC in 6 mos for GERD reassessment and consideration of PPI dose adjustment depending on sx. (2) Diverticulosis: Comment: 03/17/25 colonoscopy complete with Excellent prep after some irrigation- diverticulosis, otherwise normal. recommendation for repeat in 5 years due to previous TA (Due 2029). Code(s): K57.90 - Diverticulosis of intestine, part unspecified, without perforation or abscess without bleeding Category: Medical Plan: Evident on 03/2025 colonoscopy. Remains asx. No new sx, no acute episodes since last exam. No polyps found. Additional testing: - None needed unless new GI sx develop. Medications: - No specific therapy. Lifestyle Recommendations: - Continue high-fiber diet as tolerated, adequate hydration. Referrals / Coordination of Care: - None currently. Follow-Up Plan: - CRC screening colonoscopy 2029 barring interim indications. - Monitor for diverticulitis sx; instruct to call if abd pain, fever, GI bleeding. Plan Follow-up in 6 months or sooner as needed Time: I spent a total of 15 minutes on the date of encounter which includes: Preparing to see the patient (reviewed previous documentation, test results and medical history) Performing a medically appropriate exam and/or evaluation Ordering medications, tests, and procedures Documenting clinical information in the health record Coding Level of Care Code Established Pt Est Pt Level 2 (55711) Patient Type Established Diagnoses Gastroesophageal reflux disease without esophagitis K21.9 Esophagitis presence: without esophagitis Diverticulosis K57.90
[2025-04-06 15:35] VITALS: BP 111/57; PULSE 79; O2SAT 98; BMI 34.0
--- OUTSIDE RECORDS SUMMARY | 2025-04-06 19:36 | XMS_ITS | Encounter Summary ---
Author Organization [employer] Address [address] [place] [address] 7 [place] [address] Care Team Providers Care Model Technician Name Role Phone Jane Zarate MD Primary Care Provider [phone] Mikey Johnson PharmD Unavailable [phone] Encounter Details Date Type Department Care Team ([facility] st Contact Info) Description 03/22/2025 Telephone Visit [facility] MEDICINE [address] [place], [place] [phone] Jane Zarate MD [address] [place], [place] [phone] Social History Tobacco Use Types Packs/Day Years [...] Care Team (Late st Contact Info) Description 04/19/2025 10:00 AM EDT Medication Management [facility] MEDICINE [address] [place] [address] Mikey Johnson, PharmD [address] [place] [address] 05/25/2025 10:00 AM EST Office Visit [facility] MEDICINE [address] [place] [phone] Jane Zarate MD [address] [place] [address] documented as of this encounter Visit Diagnoses Not on filedocumented in this encounter Additional Health Concerns Assessment Noted Time PHQ-9 Depression Total Score: 8 11/23/19 25 4:13 PM EDT documented as of this encounter Care Teams Model Technician Relationship Specialty Start Date End Date Jane Zarate MD [address] [place] [phone] PCP - General Family Medicine 06/24/12 Mikey Johnson, PharmD [address] [place] [address] Pharmacist Internal Medicine 10/17/24 documented as of this encounter
--- OUTSIDE RECORDS SUMMARY | 2025-04-06 19:36 | XMS_ITS | Encounter Summary ---
Author Organization [employer] Address [address] [place] [address] 7 [place] [address] Care Team Providers Care Pattern Developer Name Role Phone Jane Zarate MD Primary Care Provider [phone] Mikey Johnson PharmD Unavailable [phone] Encounter Details Date Type Department Care Team (Latest Contact Info) Description 04/05/2025 Travel Social History Tobacco Use Types Packs/Day [...] Description 04/19/2025 10:00 AM EDT Medication Management [facility] MEDICINE [address] [place] [address] Mikey Johnson, Bakari [address] [place] [address] 05/25/2025 10:00 AM EST Office Visit [facility] [address] [place] [address] Jane Zarate MD [address] [place] [address] documented as of this encounter Visit Diagnoses Not on filedocumented in this encounter Additional Health Concerns Assessment Noted Time PHQ-9 Depression Total Score: 8 11/23/19 25 4:13 PM EDT documented as of this encounter Care Teams Pattern Developer Relationship Specialty Start Date End Date Jane Zarate MD [address] [place] [phone] PCP - General Family Medicine 06/24/12 Mikey Johnson, FarhanaD [address] [place] [phone] Pharmacist Internal Medicine 10/17/24 documented as of this encounter
--- OUTSIDE RECORDS SUMMARY | 2025-04-06 19:36 | XMS_ITS | Encounter Summary ---
Author Organization [facility] Address [address] [place] [address] 7 [place] [address] Care Team Providers Care Special Investigator Name Role Phone Jane Zarate MD Primary Care Provider [phone] Mikey Johnson PharmD Unavailable [phone] Encounter Details Date Type Department Care Team (Latest Contact Info) Description 09/09/2021 Abstract [facility] CONVERSIONS Dental, Provider, DDS Social [...] Care Team ( st Contact Info) Description 04/19/2025 10:00 AM EDT Medication Management [facility] MEDICINE [address] [place] [phone] Mikey Johnson, PharmD [address] [place] [address] 05/25/2025 10:00 AM EST Office Visit [facility] MEDICINE [address] [place] [address] Jane Zarate MD [address] [place] [address] documented as of this encounter Visit Diagnoses Not on filedocumented in this encounter Care Teams Special Investigator Relationship Specialty Start Date End Date Jane Zarate MD [address] [place], [place] [phone] PCP - General Family Medicine 06/24/12 Mikey Johnson, Bakari [address] [place] [address] Pharmacist Internal Medicine 10/17/24 documented as of this encounter
--- OUTSIDE RECORDS SUMMARY | 2025-04-06 19:36 | XMS_ITS | Encounter Summary ---
Author Organization [employer] Address [address] [place] [address] 7 [place] [address] Care Team Providers Care Tool And Die Inspector Name Role Phone Jane Zarate MD Primary Care Provider [phone] Mikey Johnson PharmD Unavailable [phone] Encounter Details Date Type Department Care Team (Late st Contact Info) Description 01/08/2024 Orders Only [facility] MEDICINE [address] [place], [place] [phone] Jane Zarate MD [address] [place], [place] [phone] Social History Tobacco Use Types Packs/Day Years [...] Description 04/19/2025 10:00 AM EDT Medication Management [facility] MEDICINE [address] [place] [address] Mikey Johnson, PharmRaymundo [address] [place] [address] 05/25/2025 10:00 AM EST Office Visit [facility] MEDICINE [address] [place] [phone] Jane Zarate MD [address] [place] [address] documented as of this encounter Visit Diagnoses Not on filedocumented in this encounter Additional Health Concerns Assessment Noted Time PHQ-9 Depression Total Score: 0 10/13/19 24 1:55 PM EDT documented as of this encounter Care Teams Tool And Die Inspector Relationship Specialty Start Date End Date Jane Zarate MD [address] [place] [address] PCP - General Family Medicine 06/24/12 Mikey Johnson, PharmD [address] [place] [address] Pharmacist Internal Medicine 10/17/24 documented as of this encounter
--- OUTSIDE RECORDS SUMMARY | 2025-04-06 19:36 | XMS_ITS | Encounter Summary ---
Author Organization [employer] Address [address] [place] [address] [address] [place] [address] Care Team Providers Care Sales Order Coordinator Name Role Phone Jane Zarate MD Primary Care Provider [phone] Mikey Johnson PharmD Unavailable [phone] Reason for Visit * Reason Onset Date Comments Appointment Request 02/16/2025 Encounter Details Date Type Department Care Team (Late st Contact Info) Description 02/16/2025 Telephone [facility] MEDICINE [address] [place], [place] [phone] Jane Zarate MD [address] [place], [place] [phone] Appointment Request Social History Tobacco Use Types [...] 02/17 due to transportation. Contact pt at [phone] documented in this encounter Plan of Treatment Upcoming Encounters Date Type Department Care Team (Late st Contact Info) Description 04/19/2025 10:00 AM EDT Medication Management [facility] MEDICINE [address] [place] [phone] Mikey Johnson, PharmD [address] [place] [address] 05/25/2025 10:00 AM EST Office Visit [facility] MEDICINE [address] [place] [address] Jane Zarate MD [address] [place] [address] documented as of this encounter Visit Diagnoses Not on filedocumented in this encounter Additional Health Concerns Assessment Noted Time PHQ-9 Depression Total Score: 8 11/23/19 25 4:13 PM EDT documented as of this encounter Care Teams Sales Order Coordinator Relationship Specialty Start Date End Date Jane Zarate MD [address] [place] [address] PCP - General Family Medicine 06/24/12 Mikey Johnson, FarhanaD [address] [place] [address] Pharmacist Internal Medicine 10/17/24 documented as of this encounter
--- OUTSIDE RECORDS SUMMARY | 2025-04-06 19:36 | XMS_ITS | Encounter Summary ---
Author Organization [employer] Address [address] [place] [address] [address] [place] [address] Care Team Providers Care Railroad Inspector Name Role Phone Jane Zarate MD Primary Care Provider Mikey Johnson PharmD Unavailable [phone] Encounter Details Date Type Department Care Team (Late st Contact Info) Description 04/05/2025 Telephone [facility] MEDICINE [address] [place], [place] [phone] Jane Zarate MD [address] [place], [place] [phone] Social History Tobacco Use Types Packs/Day Years [...] * Telephone Encounter - Payal Anguiano - 04/05/2025 1:38 PM EDT Pharmacy [facility] attempted outreach call on 04/05/25 for CDTM - Diabetes appointment; however, unable to reach patient. LVM for patient to contact Payal Anguiano at [phone]. documented in this encounter Plan of Treatment Upcoming Encounters Date Type Department Care Team (Late st Contact Info) Description 04/19/2025 10:00 AM EDT Medication Management [facility] MEDICINE [address] [place] [phone] Mikey Johnson, PharmD [address] [place] [address] 05/25/2025 10:00 AM EST Office Visit [facility] [address] [place] [address] Jane Zarate MD [address] [place] [address] documented as of this encounter Visit Diagnoses Not on filedocumented in this encounter Additional Health Concerns Assessment Noted Time PHQ-9 Depression Total Score: 8 11/23/19 25 4:13 PM EDT documented as of this encounter Care Teams Railroad Inspector Relationship Specialty Start Date End Date Jane Zarate MD [address] [place] [address] PCP - General Family Medicine 06/24/12 Mikey Johnson, Bakari [address] [place] [address] Pharmacist Internal Medicine 10/17/24 documented as of this encounter
--- OUTSIDE RECORDS SUMMARY | 2025-04-06 19:36 | XMS_ITS | Clinical Summary ---
Author Organization [employer] Address [address] [place] [address] 7 [place] [address] Care Team Providers Care Fireman Helper Name Role Phone Jane Henry MD Primary Care Provider Mikey Johnson PharmD Unavailable [phone] Allergies Active Allergy Reactions Criticality Noted Date [...] , without long-term current use of insulin ([facility]) Use to test blood sugar two times daily 100 each 5 10/18/19 25 026 Active Lancets miscIndication s:Type 2 diabetes mellitus with diabetic polyneuropathy , without long-term current use of insulin ([facility]) Use to test blood sugar two times daily 100 each 5 10/18/19 25 Active Alcohol Swabs 70 % padsIndication s:Type 2 diabetes mellitus with diabetic polyneuropathy , without long-term current use of insulin ([facility]) Use to test blood sugar two times daily 100 each 5 10/18/19 25 Active Cyanocobalamin (Vitamin B12) [address] under the tongue. Take 1 tablet daily (Purchases OTC) Active MAGNESIUM GLUCONATE PO Take by mouth. Take 1 tablet daily (Purchases OTC- unknown strength) Active aspirin 81 MG EC tabletIndicati ons:Type 2 diabetes mellitus with diabetic polyneuropathy , without long-term current use of insulin ([facility]) Take 1 tablet (81 mg) by mouth Once per day. 90 tablet 11/15/19 25 Active enalapril (Vasotec) 10 MG tabletIndicati ons:Type 2 diabetes mellitus with diabetic polyneuropathy , without long-term current use of insulin ([facility]) Take 1 tablet by mouth daily 30 tablet 11/15/19 25 Active pioglitazone (Actos) 45 MG tabletIndicati ons:Type 2 diabetes mellitus with diabetic polyneuropathy , without long-term current use of insulin ([facility]) Take 1 tablet (45 mg) by mouth Once per day. 30 tablet 11/15/19 25 026 Active Dulaglutide 1.5 MG/0.5ML solution auto-injectorI ndications:Typ e 2 diabetes mellitus with diabetic polyneuropathy , without long-term current use of insulin ([facility]) Inject 1.5 mg under the skin 1 (one) time per week. 2 mL 11/23/19 25 Active Allergy Relief 10 MG tablet TAKE 1 TABLET BY MOUTH ONCE A DAY NEEDED 30 tablet 9 02/18/20 25 Active pravastatin (Pravachol) 40 MG tablet Take 1 tablet (40 mg) by mouth at bedtime. 30 tablet 02/24/20 25 Active metFORMIN XR (Glucophage-XR ) 500 MG 24 hr tablet TAKE 2 TABLETS BY MOUTH TWICE A DAY WITH MORNING AND EVENING MEAL 120 tablet 03/01/20 25 Active cholecalcifero l (Vitamin D-3) 25 MCG (1000 UT) capsule TAKE 1 CAPSULE BY MOUTH EVERY DAY 30 capsule 1 03/07/20 25 Active ibuprofen 600 MG tablet Take 1 tablet (600 mg) by mouth if needed in the morning, at noon, and at bedtime for mild pain. 60 tablet 1 03/06/20 25 Active buPROPion SR (Wellbutrin SR) 200 MG 12 hr tablet TAKE 1 TABLET BY MOUTH TWICE A DAY 60 tablet 11 03/22/20 25 Active Blood Glucose Monitoring Suppl (FreeStyle [place] Lite) w/Device kit Use to test blood sugar 2 times daily 1 kit 03/22/20 Active Blood Glucose Monitoring Suppl (FreeStyle [place] Lite) w/Device kitIndications :Type 2 diabetes mellitus with diabetic polyneuropathy , without long-term current use of insulin ([facility]) Use to test blood sugar two times daily 1 kit 10/18/19 025 Discontinued(Du plicate order (will not trigger notification to Pharmacy)) buPROPion SR (Wellbutrin SR) 200 MG 12 hr tablet TAKE 1 TABLET BY MOUTH TWICE A DAY 60 tablet 02/15/20 025 Discontinued Active Problems Problem Noted Date [...] specialist - she requests a referral to [address] [place] [address] in [place] GERD (gastroesophageal reflux disease) Assessment & Plan (02/10/2024 6:00 AM EDT): - following with [facility] - EGD in January 2022 showed inflammatory changes - omeprazole was ineffective - currently prescribed pantoprazole 40 mg daily, famotidine 20mg bid, and sucralfate 1 g bid - continue current treatment plan - Assessment & Plan (10/25/2023 3:40 PM EDT): - following with [facility] - omeprazole was ineffective - currently [...] WRITTEN ON 04/04/2023 5:40 PM BY JANE HENRY MD -Hx positive TP-PA, RPR non-reactive - [...] WRITTEN ON 12/02/2024 10:08 AM BY JANE HENRY MD >>ASSESSMENT AND PLAN FOR TUBULAR ADENOMA WRITTEN ON 07/08/2023 5:33 PM BY JANE HENRY MD - tubular adenoma seen in last [...] Plan (11/22/2024 9:27 AM EDT): -Following with [facility], last seen in April 2024 -Tried mirabegron, which was ineffective -Continue oxybutynin XL 15 mg daily Assessment & Plan (08/24/2024 12:51 PM EST): -Following with [facility], last seen in April 2024 -Tried mirabegron, which was ineffective -Continue oxybutynin XL 15 mg daily Assessment & Plan (05/10/2024 2:50 PM EDT): -Following with [facility], last seen in April 2024 -Tried mirabegron, which was ineffective -Continue oxybutynin XL 15 mg daily Assessment & Plan (02/10/2024 6:00 AM EDT): -Following with [facility], last seen in October [...] diabetes care guideline. Last eye exam: 03/08/24, [facility]. No diabetic retinopathy Last foot [...] diabetes care guideline. Last eye exam: 03/08/24, [facility]. No diabetic retinopathy Last foot [...] diabetes care guideline. Last eye exam: 03/08/24, [facility]. No diabetic retinopathy Last foot [...] diabetes care guideline. Last eye exam: 03/08/24, [facility]. No diabetic retinopathy Last foot [...] diabetes care guideline. Last eye exam: 03/05/23, [facility]. No diabetic retinopathy Last foot [...] diabetes care guideline. Last eye exam: 03/05/23, [facility]. No diabetic retinopathy Last foot [...] diabetes care guideline. Last eye exam: 03/05/23, [facility]. No diabetic retinopathy Last foot [...] diabetes care guideline. Last eye exam: 03/05/23, [facility]. No diabetic retinopathy Last foot [...] diabetes care guideline. Last eye exam: 03/04/22, [facility]. No diabetic retinopathy Last foot exam: 03/13/22 Last microalbumin test: 11/07/21 UACR 5 Last lipid profile: 02/05/21 Last dental exam: Discussed regular dental care. Dermoid cyst of scalp 03/22/2015 Recurrent urinary tract infection 12/20/2014 Assessment & Plan (11/22/2024 9:27 AM EDT): -Following with [facility], last seen in [...] Plan (08/24/2024 12:51 PM EST): -[facility] April 2024 -UTI [...] Plan (05/20/2024 12:26 PM EST): -[facility] April 2024 -UTI [...] Plan (02/10/2024 6:05 AM EDT): -Following with [facility], last seen in October [...] Encounters Date Type Department Care Team Description 04/06/2025 Travel 04/05/2025 Travel 04/05/2025 Telephone [facility] [address] [place] [phone] Jane Henry MD 03/23/2025 [place]phone [place] [address] Jane Henry MD Lab Orders; Results 03/22/2025 Telephone Visit [facility] [place] [address] Jane Henry MD 03/22/2025 Travel 03/21/2025 Refill [facility] [place] [address] Shakira Pendleton MD 03/17/2025 Orders Only GENERIC EXTERNAL DATA DEPARTMENT Provider, Generic External Data 03/15/2025 Travel 03/09/2025 Results Follow-Up [facility] [address] [place], [place] [phone] Thania Anne MD XR Wrist 3+ Views Left 03/06/2025 4:00 PM EDT Office Visit [facility] [place] [address] Thania Anne MD Acute pain of left wrist (Primary Dx); UTI symptoms 03/06/2025 Travel 03/06/2025 Refill [facility] [place] [address] Jane Henry MD 02/28/2025 Refill [facility] [place] [address] Jane Henry MD 02/23/2025 9:15 AM EDT Office Visit [facility] [place] [address] Jane Henry MD Type 2 diabetes mellitus with diabetic polyneuropathy, without long-term current use of insulin ([facility]) (Primary Dx); Primary hypertension; Dyslipidemia; Vitamin D deficiency; Left elbow pain; Degeneration of 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 02/23/2025 Results Follow-Up [facility] [place] [address] Jane Henry MD XR Elbow 3+ Views Left 02/23/2025 Travel 02/22/2025 Telephone [facility] [address] [facility] [place] [address] Jane Henry MD 02/22/2025 Telephone [facility] [place] [address] Jane Henry MD chart prep 02/21/2025 Telephone [facility] [place] [address] Jane Henry MD Appointment Request 02/17/2025 Refill [facility] [address] Jane Henry MD 02/16/2025 Telephone [facility] [place] [address] Jane Henry MD Appointment Request 02/16/2025 Patient Outreach [facility] [place] [address] Jane Henry MD Pre-visit Planning (SDOH screening completed on 11/15/2024) 02/13/2025 Refill [facility] [place] [address] Jane Henry MD 01/23/2025 [place]ill [place] [address] Jane Henry MD from Last 3 Months Immunizations Immunization Administration Dates Next Due Hep A, Adult 06/20/2014,06/23/2003 Hep B, adult 06/20/2014,02/14/2014,06/01/2013 Influenza injectable quadriv alent IIV4 with preservative 05/18/2018,06/30/2017,05/05/2016,07/10 Influenza injectable quadriv alent preservative free 03/31/2023,04/23/2022,04/17/2021,04/16,04/20/2019 Influenza, IIV3, injectable 06/20/2014, 1 Influenza, Injectable, MDCK, preservative free 04/06/2025 Influenza, Split (incl. toya fied surface antigen) [...] Description 04/19/2025 10:00 AM EDT Medication Management [facility] [address] [place] [phone] Mikey Johnson, PharmD [address] [place] [phone] 05/25/2025 10:00 AM EST Office Visit [facility] [address] [place] [phone] Jane Henry MD [address] [place] [address] Health Maintenance Due Date Last Done Comments [...] 11/22/2025 11/22/2024 Depression Screening 11/22/2025 11/22/2024, 11/23/19 Tobacco Screening 03/06/2026 03/06/2025 Disability Screening 04/05/2026 04/05/2025 Eye Exam 04/16/2026 04/16/2024 Colonoscopy 01/21/2027 01/21/2022, 01/21/2022 Colorectal Cancer Screening 01/21/2027 DTaP/Tdap/Td Vaccines (3 - Td or Tdap) 07/07/2033 07/07/2023, 06/01/2013, 01/03/1999 Hepatitis A Vaccines Aged Out 06/20/2014, 06/23/20 03 No longer eligible based on patient's age to complete this topic Hepatitis B Vaccines Completed 06/20/2014, 02/14/2014, 06/01/2013 Zoster Vaccines Completed 12/18/2020, 04/16/2020 HIV Screening Completed 02/05/2021 Hepatitis C Screening Completed 02/05/2021 Pneumococcal Vaccine: 50+ Years Completed 07/07/2023, 06/20/2014, 01/27/2002 COVID-19 Vaccine Completed 11/22/2024, , 04/23/2022, Additional history exists Influenza Vaccine Completed 04/06/2025, , 03/31/2023, Additional history exists RSV Patients and Patients Aged 60 years or older Completed 04/06/2025 HIB Vaccines Aged Out No longer eligi [...] Procedure Name Priority Date/Time Associated Diagnosis Comments HEMATOXYLIN AND EOSIN STAIN Routine 03/17/2025 1:24 PM EDT GLUCOSE, WHOLE BLOOD Routine 03/17/2025 12:24 PM EDT XR WRIST 3+ VIEWS LEFT Routine 9:07 [...] without long-term current use of insulin (CMS/HCC) POCT GLUCOSE Routine 02/23/2025 9:35 AM EDT [...] RADIOGRAPHIC IMAGES Routine 02/29/2024 8:00 AM EDT COLONOSCOPY Routine 01/21/2022 INTRAORAL - COMPLETE SERIES OF RADIOGRAPHIC IMAGES Routine 09/09/2021 12:00 AM EST ZZZ HISTORICAL HEPATITIS C AB W/REFL TO HCV RNA, QN, PCR Routine 02/05/2021 8:50 AM EDT HIV 1/2 ANTIGEN/ANTIBODY, FOURTH GENERATION W/RFL Routine 02/05/2021 8:50 AM EDT from Last 3 Months or Most Recently Relevant to Health Maintenance Results * Hematoxylin and Eosin Stain (03/17/2025 1:24 PM EDT) 03/17/2025 1:24 PM EDT 03/17/2025 1:55 PM EDT [facility] - 03/20/2025 2:38 PM EDT ----- ------- Name: Sylvia Nicole Age/Sex: 64/F : 1960 Unit#: [id number] Attend Dr: Lion Bernal MD Re03/17/25 Status: [facility] Location: [facility] Disch: ----- ------- SPEC : [id number] RECD: 03/17/25-1355 STATUS: KENDELL [facility] NUM: [id number] DANTE: 03/17/25-1324 [facility] DR: Lion Bernal MD ENTERED: 03/17/25-1407 SP TYPE: Surgical OTHR DR: Jane Henry MD ORDERED: HE Stain/9, Gross Micro L4/3, IHC, Special st. 2/3, H. pylori, AB/PAS/3 Diagnosis A. Small bowel, biopsy: Small bowel mucosa within normal limits; preserved villous architecture and no increase in intraepithelial lymphocytes seen. B. Stomach, antrum, biopsy: Gastric antral mucosa with mild chronic inactive gastritis and features of reactive gastropathy; negative for Helicobacter pylori, intestinal metaplasia and dysplasia. C. Stomach, polyp, biopsy: Polypoid gastric body mucosa with mild PPI effect; negative for Helicobacter pylori, intestinal metaplasia and dysplasia. Clinical History Pre-Op Dx: Personal history of colon polyps, unspecified Post-Op Dx: Gastritis, gastric polyps, GERD, diverticulosis Microscopic Description A-C. Microscopic sections examined. No metaplastic changes are seen, supported by AB/PAS stains (A-C); no Helicobacter organisms are seen, supported by H. pylori immunostain (B). Material Received A. Small bowel bx's - r/o Celiac disease B. Gastric antrum bx's - r/o H. pylori C. Gastric polyp Gross Description Received in 3 parts. A. Received in formalin labeled small bowel biopsies R/0 celiac disease are 3 fragments of pink white soft tissue measuring 0.2-0.4 cm in greatest dimension which are wrapped in lens paper and entirely submitted for microscopic examination, 3 pieces in cassette A. B. Received in formalin labeled gastric antrum biopsies R/O H. pylori are 2 fragments of pink white soft tissue measuring 0.3 and 0.5 cm in greatest dimension which are wrapped in lens paper and entirely submitted for microscopic examination, 2 pieces in cassette B. C. Received in formalin labeled gastric polyp is a fragment of pink white soft tissue measuring 0.4 cm in greatest dimension which is wrapped in lens paper and entirely submitted for microscopic examination, 1 piece in cassette C. ([facility]) CONTINUED ON NEXT PAGE ----- ------- Name: Sylvia Nicole Age/Sex: 64/F : 1960 Unit#: [id number] Attend Dr: Lion Bernal MD Re03/17/25 Status: [facility] Location: [facility] Disch: ----- ------- SPEC : [id number] RECD: 03/17/25-4703 STATUS: KENDELL [facility] NUM: [id number] DANTE: 03/17/25-1324 [facility] DR: Lion Bernal MD ENTERED: 03/17/25-3282 SP TYPE: Surgical OTHR DR: Jane Henry MD ORDERED: HE Stain/9, Gross Micro L4/3, IHC, Special st. 2/3, H. pylori, AB/PAS/3 Gross Description (Continued) Special stains ordered and performed: AB/PAS on A-C; immunostain for H. pylori on B. IHC S/NG Disclaimer NOTE: Unless otherwise stated, all tissue is formalin-fixed and paraffin-embedded. Some or all of the immunohistochemical tests reported herein may have been developed and their performance characteristics determined by [facility]. They have not been cleared or approved by the U.S. Food and Drug Administration (FDA). However, the FDA has determined that such clearance or approval is not necessary. This laboratory is certified under the Clinical Laboratory Improvement Amendments of 1988 (CLIA) as qualified to perform high complexity clinical laboratory testing. Copies To: Lion Bernal MD [facility] [address] [place] [address] [phone] [place] [address] ----- ------- Signed (signature on file) Mihaela Cassidy MD 03/20/25 1438 ----- ------- END OF REPORT us Generic External Data Provider LAB BLOOD ORDERAB LES Final Result Performing Organization Address City/[facility]/ZIP Co de Phone Number [facility] [address] [place] [phone] * (ABNORMAL) Glucose, Whole Blood (03/17/2025 12:24 PM EDT) Glucose, Whole Blood 130(H) 60 - 115 mg/dL [facility] Comment:METER #: [id number] 03/17/2025 12:2 4 PM EDT 03/17/2025 12:42 PM EDT Generic External Data Provider LAB BLOOD ORDERAB LES Final Result Performing Organization Address [facility] Co de Phone Number [facility] [address] [place] [phone] * XR Wrist 3+ Views Left (03/07/2025 9:07 AM EDT) Anatomical Region Laterality Modality Upper Extremities, Wrist Left Radiogr aphic Imaging 03/07/2025 9:07 AM EDT Narrative 03/07/2025 10:29 AM EDT [address] [address] XRay Report Signed Patient: Sylvia Nicole MR#: [id number] : 1960 Acct:[id number] Age/Sex: 64 / F ADM Date: 03/07/25 Loc: HO.HHCX Attending Dr: Thania Anne MD Ordering Physician: Thania Anne MD Date of Service: 03/07/25 Procedure(s): XR wrist LT min 3V Accession Number(s): [id number] cc: Thania Anne MD; Jane Henry MD EXAMINATION: XR WRIST, LEFT CLINICAL INFORMATION: [...] 03/07/25 1027 DD/ 0907 TD/TT: 03/07/25 0915 Reserves Clerk: Procedure Note Donotuseinterpreter, Image - 03/07/2025 [place] [address] XRay Report Signed Patient: Sylvia NicoleMR#: [id number] : 1960Acct:[id number] Age/Sex: 64 / FADM Date: 03/07/25 Loc: HO.HHCX Attending Dr: Thania Anne MD Ordering Physician: Thania Anne MD Date of Service: 03/07/25 Procedure(s): XR wrist LT min 3V Accession Number(s): [id number] cc: Thania Anne MD; Jane Henry MD EXAMINATION: XR WRIST, LEFT CLINICAL INFORMATION: [...] 03/07/25 1027 DD/ 0907 TD/TT: 03/07/25 0915 Reserves Clerk: us Thania Anne MD IMG XR PROCEDURES Final Resul t * Urinalysis, Complete, with Reflex to Culture (03/06/2025 4:20 PM EDT) Color Urine Yellow [facility] Appearance Urine Clear [facility] PH 6.0 5.0 - 9.0 [facility] Glucose Urine UA Negative Negative mg/dL [facility] Urine Blood Negative Negative [facility] Specific [place] - Urine 1.020 1.005 - 1.025 [facility] Urine Protein Negative Neg-Trace mg/dL [facility] Urine Ketones Negative Negative mg/dL [facility] Nitrite Urine Negative Negative [facility] Leukocyte Esterase Urine Negative Negative [facility] RBC Urine 0-2 0 - 2 /HPF [facility] Urine WBC 0-5 0 - 5 /HPF [facility] Urine Squamous Epithelial Cell 0-2 0 - 2 /HPF [facility] Urine Bacteria None Seen None Seen [facility] Hyaline Casts, Urine 0-2 0 - 2 /LPF [facility] Urine 03/06/2025 4:20 PM EDT 03/07/2025 11:47 AM EDT Narrative [facility] - 03/07/2025 11:54 AM EDT Urine, Clean Catch us Thania Anne MD LAB URINE ORDERABLES Final Re sult [facility] [address] [place] [phone] * Culture, Urine, Routine (03/06/2025 4:20 PM EDT) Urine Urine specimen obtained by clean catch procedure / Unknown 03/06/2025 4:20 PM EDT 03/07/2025 11:47 AM EDT Comment:UACC Narrative [facility] - 03/08/2025 12:07 PM EDT Urine Culture Report Result Urine Culture < 10,000 cfu/ml Specimen Source: Urine clean catch Thania Anne MD LAB MICROBIOLOGY - GENERAL OR DERABLES Final Result Performing Organization Address City/State/[facility] Co de Phone Number [facility] [address] [place] [phone] * POCT urinalysis dipstick manually resulted [...] AM EDT Narrative 02/23/2025 11:57 AM EDT [facility] [address] [place] [address] XRay Report Signed Patient: Sylvia Nicole MR#: [id number] : 1960 Acct:[id number] Age/Sex: 64 / F ADM Date: 02/23/25 Loc: HO.HHCX Attending Dr: Jane Henry MD Ordering Physician: Jane Henry MD Date of Service: 02/23/25 Procedure(s): XR elbow LT min 3V Accession Number(s): [id number] cc: Jane Henry MD EXAMINATION: XR ELBOW 3 VIEWS LEFT [...] 02/23/25 1154 DD/ 0957 TD/TT: 02/23/25 1000 Reserves Clerk: Procedure Note Donotuseinterpreter, Image - 02/23/2025 [place] [address] XRay Report Signed Patient: Sylvia NicoleMR#: [id number] : 1960Acct:[id number] Age/Sex: 64 / FADM Date: 02/23/25 Loc: HO.HHCX Attending Dr: Jane Henry MD Ordering Physician: Jane Henry MD Date of Service: 02/23/25 Procedure(s): XR elbow LT min 3V Accession Number(s): [id number] cc: Jane Henry MD EXAMINATION: XR ELBOW 3 VIEWS LEFT [...] 02/23/25 1154 DD/ 0957 TD/TT: 02/23/25 1000 Reserves Clerk: Jane Henry MD IMG XR PROCEDURES Final Result * (ABNORMAL) POCT glycosylated hemoglobin (Hgb A1c) (02/23/2025 9:35 AM EDT) Hemoglobin A1C 7.6(A) 4.0 - 5.7 % QC Media Lot # [id number] Lot# Expiration Date Blood Capillary blood specimen / Unknown 02/23/2025 9:35 AM EDT Jane Henry MD POINT OF CARE TEST ENTER/EDIT OR DERABLES Final Result * POCT glucose manually resulted (02/23/2025 9:35 AM EDT) Glucose Blood, POC 174 60 - 200 mg/dL QC Media Lot # [id number] Lot# Expiration Date Blood Capillary blood specimen / Unknown 02/23/2025 9:35 AM EDT Jane Henry MD POINT OF CARE TEST ENTER/EDIT OR DERABLES Final Result * (ABNORMAL) Albumin, Random Urine W/Creatinine (10/21/2024 8:57 AM EDT) Creatinine, Urine 35.23 mg/dL [facility] Microalbumin Urine 12.0 mg/L [facility] Microalbum Creatinine Ratio Ur 34.0(H) <30 ug/mg cr [facility] Comment:Albumin/Creatinine R at Reference Ranges: Normal: < 30 ug/mg creatinine Microalbuminuria: 30 - 300 ug/mg creatinineClinical Albuminuria: > 300 ug/mg creatinine 10/21/2024 8:57 AM EDT 10/21/2024 11:42 AM EDT Jane Henry MD LAB URINE ORDERABLES Final Resul t [facility] [address] [place] [phone] * Hm Diabetes Eye Exam (04/16/2024) Eye Exam Normal Normal 04/16/2024 Historical Provider HEALTH MAINTENANCE Final Result * BI Mammogram Diagnostic Tomosynthesis Bilateral (03/28/2024 1:00 PM EDT) Anatomical Region Laterality Modality Breast Bilateral Mammography 03/28/2024 1:00 PM EDT Narrative 03/28/2024 1:[address]T [address] [place] [address] Mammography Report Signed Patient: Sylvia Nicole MR#: [id number] : 1960 Acct:[id number] Age/Sex: 63 / F ADM Date: 03/28/24 Loc: HO.MAMMO Attending Dr: Jane Henry MD Ordering Physician: Jane Henry MD Results: 2Benign F indings Date of Service: 03/28/24 Follow Up: 1 Year From Orig ina Mammogram Procedure(s): MM tomosynthesis diagnostic BI Accession Number(s): [id number] cc: Jane Henry MD EXAMINATION: MM DIAGNOSTIC DIGITAL BREAST TOMOSYNTHESIS, [...] 03/28/24 1341 DD/ 1300 TD/TT: 03/28/24 1320 Reserves Clerk: Procedure Note Donotuseinterpreter, Image - 03/28/2024 [facility] [address] [place] [address] [place] [address] Mammography Report Signed Patient: Sylvia NicoleMR#: [id number] : 1960Acct:[id number] Age/Sex: 63 / FADM Date: 03/28/24 Loc: JARON Attending Dr: Jane Henry MD Ordering Physician: Jane Henry MDResults: 2Benign F indings Date of Service: 03/28/24Follow Up: 1 Year From Orig inal Mammogram Procedure(s): MM tomosynthesis diagnostic BI Accession Number(s): [id number] cc: Jane Henry MD EXAMINATION: MM DIAGNOSTIC DIGITAL BREAST TOMOSYNTHESIS, [...] their next mammogram. Electronically signed by: Ho uTcker MD 03/28/2024 01:41 PM EDT Dictated By: Ho Tucker MD Signed By: <Electronically signed by Ho Tucker MD in OV> 03/28/24 1341 DD/ 1300 TD/TT: 03/28/24 1320 Reserves Clerk: Jane Henry MD IMG BI PROCEDURES Edited Result - Final * Lipid Panel with Reflex to Direct LDL (03/25/2024 9:05 AM EDT) Triglycerides 131 <150 mg/dL [facility] Comment:Desirable Triglyceri de: less than 150 mg/dLBorderline High Triglyceride 150-199 mg/dLHigh Triglyceride: 200-499 mg/dLVery High Triglyceride: greater than or equal to 5OO mg/dL Cholesterol 164 <200 mg/dL [facility] Comment:Desirable Cholestero l: less than 200 mg/dLBorderline High Cholesterol: 200-239 mg/dLHigh Cholesterol: greater than 239 mg/dL LDL Cholesterol Calculated 81 <100 mg/dL [facility] Comment:Desirable LDL: less than 100 mg/dLNear Optimal/Above Optimal LDL: 110- 129 mg/dLBorderline High LDL: 130-159 mg/dLHigh LDL: 160-189 mg/dLVery High LDL: greater than or equal to 190 mg/dL HDL Cholesterol 57 >40 mg/dL [facility] Comment:Desirable HDL: great er than 40 mg/dL Note: This HDL assay may give artificially low results in patients with liver disease. Blood 03/25/2024 9:05 AM EDT 03/25/2024 11:48 AM EDT Jane Henry MD LAB BLOOD ORDERABLES Final Resul t [facility] [address] [place] [address] [phone] * Hm Colonoscopy (01/21/2022) Colonoscopy Normal Normal Comment:tubular adenoma 01/21/2022 Historical Provider HEALTH MAINTENANCE Final Result * HEPATITIS C AB W/REFL TO HCV RNA, QN, PCR (02/05/2021 8:50 AM EDT) HEPATITIS C ANTIBODY NON-REACT JULIA NON-REACT JULIA [facility] INDEX 0.01 <1.00 [facility] Comment: HCV antibody was non-reactive. There is no laboratory evidence of HCV infection. In most cases, no further action is required. However, if recent HCV exposure is suspected, a test for HCV RNA (test code 19091) is suggested. For additional information please refer to http://Tengrade.Synchro/faq/AMW32b2 (This link is being provided for informational/ educational purposes only.) 02/05/2021 8:50 AM EDT us Jane Henry MD HISTORICAL/NON ORDERABLE LABS Fi nal Result [facility] [address] * HIV 1/2 ANTIGEN/ANTIBODY,FOURTH GENERATION W/RFL (02/05/2021 8:50 AM EDT) HIV-1/2 ANTIGEN AND ANTIBODIES, 4TH GENERATION W/ REFLEX NON-REACT JULIA NON-REACT JULIA [facility] Comment: HIV-1 antigen and HIV-1/HIV-2 [...] purpose. For additional information please refer to http://Tengrade.LessonLab.[employer]/faq/WZU699 (This link is being provided for informational/ educational purposes only.) The performance of this assay has not been clinically validated in patients less than 2 years old. 02/05/2021 8:50 AM EDT us Jane Henry MD LAB BLOOD ORDERABLES Final Resul t [facility] [address] from Last 3 Months or Most Recently Relevant to Health Maintenance [place] [address] [place] [address] 2 DENTAL - HSN PARTIAL (MEDICAID) [facility] Care Teams Fireman Helper Relationship Specialty Start Date End Date Jane Henry MD [address] [place] [address] PCP - General Family Medicine 06/24/12 Mikey Johnson, FarhanaD [address] [place] [address] Pharmacist Internal Medicine 10/17/24
--- OUTSIDE RECORDS SUMMARY | 2025-04-06 19:36 | XMS_ITS | Encounter Summary ---
Author Organization [employer] [facility] Address [address] [place] [address] 7 [place] [address] Care Team Providers Care Turn Supervisor Name Role Phone Jane Zarate MD Primary Care Provider [phone] Mikey Johnson PharmD Unavailable [phone] Encounter Details Date Type Department Care Team (Latest Contact Info) Description 07/25/2019 Abstract [facility] CONVERSIONS Dental, Provider, DDS Social History [...] Description 04/19/2025 10:00 AM EDT Medication Management [facility] MEDICINE [address] [place] [address] Mikey Johnson, PharmD [address] [place] [address] 05/25/2025 10:00 AM EST Office Visit [facility] MED[facility]INE [address] [place] [address] Jane Zarate MD [address] [place] [address] documented as of this encounter Visit Diagnoses Not on filedocumented in this encounter Care Teams Turn Supervisor Relationship Specialty Start Date End Date Jane Zarate MD [address] [place] [address] PCP - General Family Medicine 06/24/12 Mikey Johnson, Bakari [address] [place] [address] Pharmacist Internal Medicine 10/17/24 documented as of this encounter
--- OUTSIDE RECORDS SUMMARY | 2025-04-06 19:36 | XMS_ITS | Encounter Summary ---
Author Organization [employer] Address [address] [place] [address] 7 [place] [address] Care Team Providers Care Police Aide Name Role Phone Jane Zarate MD Primary Care Provider [phone] Mikey Johnson PharmD Unavailable [phone] Reason for Visit * Reason Onset Date Comments Appointment Request 02/21/2025 Encounter Details Date Type Department Care Team (Late st Contact Info) Description 02/21/2025 Telephone [facility] MEDICINE [address] [place], [place] [phone] Jane Zarate MD [address] [place], [place] [phone] Appointment Request Social History Tobacco Use Types [...] Description 04/19/2025 10:00 AM EDT Medication Management [facility] MEDICINE [address] [place] [address] Mikey Johnson, FarhanaD [address] [place] [address] 05/25/2025 10:00 AM EST Office Visit [facility] MEDICINE [address] [place] [address] Jane Zarate MD [address] [place] [address] documented as of this encounter Visit Diagnoses Not on filedocumented in this encounter Additional Health Concerns Assessment Noted Time PHQ-9 Depression Total Score: 8 11/23/19 25 4:13 PM EDT documented as of this encounter Care Teams Police Aide Relationship Specialty Start Date End Date Jane Zarate MD [address] [place] [address] PCP - General Family Medicine 06/24/12 Mikey Johnson, FarhanaD [address] [place] [address] Pharmacist Internal Medicine 10/17/24 documented as of this encounter
--- OUTSIDE RECORDS SUMMARY | 2025-04-06 19:36 | XMS_ITS | Encounter Summary ---
Author Organization [email or web address] Address [address] [place] [address] [place], [place] [address] Care Team Providers Care Chemist Organic Name Role Phone Jane Zarate MD Primary Care Provider [phone] Mikey Johnson PharmD Unavailable [phone] Encounter Details Date Type Department Care Team (Late Contact Info) Description 09/17/2022 Orders Only [facility] MEDICINE [address] [place] [address] [phone] Jane Zarate MD [address] [place] [address] [phone] Asymmetrical sensorineural hearing loss (Primary Dx) Social [...] Department Care Team (Late Contact Info) Description 04/19/2025 10:00 AM EDT Medication Management [facility] MEDICINE [address] [place] [address] [phone] Mikey Johnson, PharmD [address] [place] [address] 05/25/2025 10:00 AM EST Office Visit [facility] MED[facility]INE [address] [place] [address] Jane Zarate MD [address] [place] [address] documented as of this encounter Visit Diagnoses Diagnosis Asymmetrical sensorineural hearing loss- Primary Sensorineural hearing loss, asymmetrical documented in this encounter Additional Health Concerns Assessment Noted Time PHQ-9 Depression Total Score: 9 06/30/20 22 3:13 PM EST documented as of this encounter Care Teams Chemist Organic Relationship Specialty Start Date End Date Jane Zarate MD [address] [place] [address] PCP - General Family Medicine 06/24/12 Mikey Johnson, PharmD [address] [place] [address] Pharmacist Internal Medicine 10/17/24 documented as of this encounter
--- OUTSIDE RECORDS SUMMARY | 2025-04-06 19:36 | XMS_ITS | Encounter Summary ---
Author Organization [employer] Address [address] [place] [address] 7 [place] [address] Care Team Providers Care Guest Relations Manager Name Role Phone Jane Zarate MD Primary Care Provider [phone] Mikey Johnson PharmD Unavailable [phone] Reason for Visit * Reason Onset Date Comments Referral 12/19/2024 Encounter Details Date Type Department Care Team (Late st Contact Info) Description 12/19/2024 Telephone [facility] MEDICINE [address] [place], [place] [phone] Jane Zarate MD [address] [place], [place] [phone] Referral Social History Tobacco Use Types Packs/Day [...] pt requesting change referral facility. New Location: [address] [place] [phone] [facility] Referral: [facility] documented in this encounter Plan of Treatment Upcoming Encounters Date Type Department Care Team (Late st Contact Info) Description 04/19/2025 10:00 AM EDT Medication Management [facility] MEDICINE [address] [place] [phone] Mikey Johnson, PharmD [address] [place] [address] 05/25/2025 10:00 AM EST Office Visit [facility] MEDICINE [address] [place] [address] Jane Zarate MD [address] [place] [address] documented as of this encounter Visit Diagnoses Not on filedocumented in this encounter Additional Health Concerns Assessment Noted Time PHQ-9 Depression Total Score: 8 11/23/19 25 4:13 PM EDT documented as of this encounter Care Teams Guest Relations Manager Relationship Specialty Start Date End Date Jane Zarate MD [address] [place] [address] PCP - General Family Medicine 06/24/12 Mikey Johnson, FarhanaD [address] [place] [address] Pharmacist Internal Medicine 10/17/24 documented as of this encounter
--- OUTSIDE RECORDS SUMMARY | 2025-04-06 19:36 | XMS_ITS | Encounter Summary ---
Author Organization [employer] Address [address] [place] [address] 7 [place] [address] Care Team Providers Care Community Development Worker Name Role Phone Jane Zarate MD Primary Care Provider Mikey Johnson PharmD Unavailable [phone] Encounter Details Date Type Department Care Team (Late st Contact Info) Description 05/23/2024 Abstract [facility] MEDICINE [address] [place] [address] Leyda Pendleton [place] Social History Tobacco Use [...] Description 04/19/2025 10:00 AM EDT Medication Management [facility] MEDICINE [address] [place] [address] Mikey Johnson, FarhanaD [address] [place] [address] 05/25/2025 10:00 AM EST Office Visit [address] [address] Jane Zarate MD [address] [place] [address] documented as of this encounter Procedures Procedure [...] documented as of this encounter Care Teams Community Development Worker Relationship Specialty Start Date End Date Jane Zarate MD [address] [place] [address] PCP - General Family Medicine 06/24/12 Mikey Johnson PharmD [address] [place] [address] Pharmacist Internal Medicine 10/17/24 documented as of this encounter
--- OUTSIDE RECORDS SUMMARY | 2025-04-06 19:36 | XMS_ITS | Encounter Summary ---
Author Organization [employer] Address [address] [place] [address] Care Team Providers Care Water Project Engineer Name Role Phone Jane Zarate MD Primary Care Provider [phone] Mikey Johnson PharmD Unavailable [phone] Encounter Details Date Type Department Care Team (Late Contact Info) Description 03/31/2023 Abstract [facility] MEDICINE [address] [place] [address] [phone] Jane Zarate MD [address] [place] [address] Social History Tobacco Use Types Packs/Day Years [...] Description 04/19/2025 10:00 AM EDT Medication Management [facility] MEDICINE [address] [place] [address] [phone] Mikey Johnson, PharmD [address] [place], [place] [phone] 05/25/2025 10:00 AM EST Office Visit [facility] MEDICINE [address] [place] [address] Jane Zarate MD [address] [place] [address] documented as of this encounter Procedures Procedure [...] as of this encounter Care Teams Water Project Engineer Relationship Specialty Start Date End Date Jane Zarate MD [address] [place] [address] PCP - General Family Medicine 06/24/12 Mikey Johnson, PharmD [address] [place] [address] Pharmacist Internal Medicine 10/17/24 documented as of this encounter
--- OUTSIDE RECORDS SUMMARY | 2025-04-06 19:36 | XMS_ITS | Encounter Summary ---
Author Organization [employer] Address [address] [place] [address] 7 [place] [address] Care Team Providers Care Reception Name Role Phone Jane Zarate MD Primary Care Provider [phone] Mikey Johnson PharmD Unavailable [phone] Reason for Visit * Reason Onset Date Comments Nurse Triage 07/04/2024 Encounter Details Date Type Department Care Team (Late st Contact Info) Description 07/04/2024 Telephone [facility] MEDICINE [address] [place], [place] [phone] Jane Zarate MD [address] [place], [place] [phone] Nurse Triage Social History Tobacco Use Types [...] Miscellaneous Notes * Telephone Encounter - Caren Joes RN - 07/04/2024 11:31 AM EST Triage [...] Description 04/19/2025 10:00 AM EDT Medication Management [facility] MEDICINE [address] [place] [phone] Mikey Johnson, PharmD [address] [place] [address] 05/25/2025 10:00 AM EST Office Visit [facility] MEDICINE [address] [place] [address] [phone] Jane Zarate MD [address] [place] [address] documented as of this encounter Visit Diagnoses Not on filedocumented in this encounter Additional Health Concerns Assessment Noted Time PHQ-9 Depression Total Score: 7 05/10/20 24 1:16 PM EDT documented as of this encounter Care Teams Reception Relationship Specialty Start Date End Date Jane Zarate MD [address] [place] [address] PCP - General Family Medicine 06/24/12 Mikey Johnson, PharmD [address] [place] [address] [phone] Pharmacist Internal Medicine 10/17/24 documented as of this encounter
--- OUTSIDE RECORDS SUMMARY | 2025-04-06 19:36 | XMS_ITS | Encounter Summary ---
Author Organization [employer] Address [address] [place] [address] 7 [place] [address] Care Team Providers Care Car Seat Maker Name Role Phone Jane Zarate MD Primary Care Provider [phone] Mikey Johnson PharmD Unavailable [phone] Encounter Details Date Type Department Care Team (Late st Contact Info) Description 09/17/[address] [facility] MEDICINE [address] [place], [place] [phone] Jane Zarate MD [address] [place], [place] [phone] Type 2 diabetes mellitus with diabetic polyneuropathy, without long-term current use of insulin ([facility]) Social History Tobacco Use Types [...] Description 04/19/2025 10:00 AM EDT Medication Management [facility] MED[facility] [address] [place] [address] [phone] Mikey Johnson, PharmD [address] [place] [address] [phone] 05/25/2025 10:00 AM EST Office Visit [facility] MEDICINE [address] [place] [address] [phone] Jane Zarate MD [address] [place] [address] [phone] documented as of this encounter Procedures Procedure Name Priority Date/Time Associated Diagnosis Comments NM GASTRIC EMPTYING SOLID Routine 09/30/2023 12:15 PM EDT documented in this encounter Results * NM Gastric Emptying Solid (09/30/2023 12:15 PM EDT) Anatomical Region Laterality Modality Body Nuclear Medicine 09/30/2023 12:1 5 PM EDT Narrative 10/05/2023 11:33 AM EDT [address] [address] Nuclear Medicine Report Signed Patient: Sylvia Nicole MR#: [id number] : 1960 Acct:[id number] Age/Sex: 63 / F ADM Date: 09/30/23 Loc: [facility] Attending Dr: Luba Yeager PA-C Ordering Physician: Luba Yeager PA-C Date of Service: 09/30/23 Procedure(s): WA gastric emptying study Accession Number(s): [id number] cc: Luba Yeager PA-C; Jane Zarate MD EXAMINATION: WA RADIONUCLIDE SOLID FOOD GASTRIC EMPTYING 4-HOUR STUDY [...] hours 40% 4 hours 31% (normal 0%-10%) WA/WA gastric emptying study IMPRESSION: Abnormal study. There [...] in OV> 10/05/23 1129 DD/ 1215 TD/TT: Loading Manager: ALEXANDRA Procedure Note Donotuseinterpreter, Image - 10/05/[address] [address] Nuclear Medicine Report Signed Patient: Sylvia NicoleMR#: [id number] : 1960Acct:[id number] Age/Sex: 63 / FADM Date: 09/30/23 Loc: [facility] Attending Dr: Luba Yeager PA-C Ordering Physician: Luba Yeager PA-C Date of Service: 09/30/23 Procedure(s): NM gastric emptying study Accession Number(s): [id number] cc: Luba Yeager PA-C; Jane Zarate MD EXAMINATION: WA RADIONUCLIDE SOLID FOOD GASTRIC EMPTYING 4-HOUR STUDY [...] hours 40% 4 hours 31% (normal 0%-10%) WA/WA gastric emptying study IMPRESSION: Abnormal study. There [...] MD inOV> 10/05/23 1129 DD/ 1215 TD/TT: Loading Manager: ALEXANDRA [facility] External Provider IMG NM PROCEDURES Edited Result - Final documented in this encounter Visit Diagnoses Diagnosis Type 2 diabetes mellitus with diabetic polyneuropathy, without long-term current use of insulin ([facility]) documented in this encounter Additional Health Concerns Assessment Noted Time PHQ-9 Depression Total Score: 9 06/30/20 22 3:13 PM EST documented as of this encounter Care Teams Car Seat Maker Relationship Specialty Start Date End Date Jane Zarate MD [address] [place] [address] PCP - General Family Medicine 06/24/12 Mikey Johnson, FarhanaD [address] [place] [address] Pharmacist Internal Medicine 10/17/24 documented as of this encounter
--- OUTSIDE RECORDS SUMMARY | 2025-04-06 19:36 | XMS_ITS | Encounter Summary ---
Author Organization [employer] Address [address] [place] [address] 7 [place] [address] Care Team Providers Care Manager Assisted Living Name Role Phone Jane Zarate MD Primary Care Provider [phone] Mikey Johnson PharmD Unavailable Reason for Visit * Reason Comments Med Refill Encounter Details Date Type Department Care Team ([facility] st Contact Info) Description 01/23/2025 Refill [facility] MEDICINE [address] [place], [place] [phone] Jane Zarate MD [address] [place], [place] [phone] Social History Tobacco Use Types Packs/Day Years [...] Description 04/19/2025 10:00 AM EDT Medication Management [facility] MEDICINE [address] [place] [address] Mikey Johnson, PharmD [address] [place] [address] 05/25/2025 10:00 AM EST Office Visit [facility] MEDICINE [address] [place] [address] Jane Zarate MD [address] [place] [address] documented as of this encounter Visit Diagnoses Not on filedocumented in this encounter Additional Health Concerns Assessment Noted Time PHQ-9 Depression Total Score: 8 11/23/19 25 4:13 PM EDT documented as of this encounter Care Teams Manager Assisted Living Relationship Specialty Start Date End Date Jane Zarate MD [address] [place] [address] PCP - General Family Medicine 06/24/12 Mikey Johnson, PharmD [address] [place] [address] Pharmacist Internal Medicine 10/17/24 documented as of this encounter
--- OUTSIDE RECORDS SUMMARY | 2025-04-06 19:36 | XMS_ITS | Encounter Summary ---
Author Organization [employer] Address [address] [place] [address] Care Team Providers Care Biller Name Role Phone Jane Zarate MD Primary Care Provider [phone] Mikey Johnson PharmD Unavailable [phone] Encounter Details Date Type Department Care Team (Late Contact Info) Description 06/12/2022 Telephone [facility] MEDICINE [address] [place] [address] Jane Zarate MD [address] [place] [phone] Social History Tobacco Use Types Packs/Day Years [...] Description 04/19/2025 10:00 AM EDT Medication Management [facility] MEDICINE [address] [place] [phone] Mikey Johnson PharmD [address] [place] [address] 05/25/2025 10:00 AM EST Office Visit [facility] MEDICINE [address] [place] [address] Jane Zarate MD [address] [place] [address] documented as of this encounter Visit Diagnoses Not on filedocumented in this encounter Care Teams Biller Relationship Specialty Start Date End Date Jane Zarate MD [address] [place] [address] PCP - General Family Medicine 06/24/12 Mikey Johnson, FarhanaD [address] [place] [address] Pharmacist Internal Medicine 10/17/24 documented as of this encounter
--- OUTSIDE RECORDS SUMMARY | 2025-04-06 19:36 | XMS_ITS | Encounter Summary ---
Author Organization [employer] Address [address] [place] [address] 7 [place] [address] Care Team Providers Care Chocolate Molder Name Role Phone Jane Zarate MD Primary Care Provider [phone] Mikey Johnson PharmD Unavailable [phone] Encounter Details Date Type Department Care Team (Late st Contact Info) Description 06/27/2022 Orders Only [facility] MEDICINE [address] [place] [address] Rosalind Suarez, RN Social History Tobacco Use [...] Description 04/19/2025 10:00 AM EDT Medication Management [facility] MEDICINE [address] [place] [address] Mikey Johnson, FarhanaD [address] [place] [address] 05/25/2025 10:00 AM EST Office Visit [facility] MEDICINE [address] [place] [address] Jane Zarate MD [address] [place] [address] documented as of this encounter Visit Diagnoses Not on filedocumented in this encounter Care Teams Chocolate Molder Relationship Specialty Start Date End Date Jane Zarate MD [address] [place] [address] PCP - General Family Medicine 06/24/12 Mikey Johnson, PharmD [address] [place] [address] Pharmacist Internal Medicine 10/17/24 documented as of this encounter
--- OUTSIDE RECORDS SUMMARY | 2025-04-06 19:36 | XMS_ITS | Encounter Summary ---
Author Organization [employer] Address [address] [place] [address] [place] [address] Care Team Providers Care Recorder Of Deeds Name Role Phone Jane Zarate MD Primary Care Provider Mikey Johnson PharmD Unavailable [phone] Reason for Visit * Reason Onset Date Comments Medication Question 11/05/2023 Encounter Details Date Type Department Care Team (Late st Contact Info) Description 11/05/2023 Telephone [facility] MEDICINE [address] [place], [place] [phone] Jane Zarate MD [address] [place], [place] [phone] Medication Question Social History Tobacco Use Types [...] 10:00 AM EDT Medication Management [facility] MEDICINE [address] [place] [address] Mikey Johnson, FarhanaD [address] [place] [address] 05/25/2025 10:00 AM EST Office Visit [facility] MEDICINE [address] [place] [address] Jane Zarate MD [address] [place] [address] documented as of this encounter Visit Diagnoses Not on filedocumented in this encounter Additional Health Concerns Assessment Noted Time PHQ-9 Depression Total Score: 0 10/13/19 24 1:55 PM EDT documented as of this encounter Care Teams Recorder Of Deeds Relationship Specialty Start Date End Date Jane Zarate MD [address] [place] [address] PCP - General Family Medicine 06/24/12 Mikey Johnson, FarhanaD [address] [place] [address] Pharmacist Internal Medicine 10/17/24 documented as of this encounter
--- OUTSIDE RECORDS SUMMARY | 2025-04-06 19:36 | XMS_ITS | Encounter Summary ---
Author Organization [employer] Address [address] [place] [address] 7 [place] [address] Care Team Providers Care Platen Press Operator Name Role Phone Jane Zarate MD Primary Care Provider [phone] Mikey Johnson PharmD Unavailable [phone] Encounter Details Date Type Department Care Team (Latest Contact Info) Description 04/06/2025 Travel Social History Tobacco Use Types Packs/Day [...] Description 04/19/2025 10:00 AM EDT Medication Management [facility] [address] [place] [phone] Mikey Johnson, Bakari [address] [place] [phone] 05/25/2025 10:00 AM EST Office Visit [facility] [address] [place] [phone] Jane Zarate MD [address] [place] [phone] documented as of this encounter Visit Diagnoses Not on filedocumented in this encounter Additional Health Concerns Assessment Noted Time PHQ-9 Depression Total Score: 8 11/23/19 25 4:13 PM EDT documented as of this encounter Care Teams Platen Press Operator Relationship Specialty Start Date End Date Jane Zarate MD [address] [place] [phone] PCP - General Family Medicine 06/24/12 Mikey Johnson, FarhanaD [address] [place] [phone] Pharmacist Internal Medicine 10/17/24 documented as of this encounter
--- OUTSIDE RECORDS SUMMARY | 2025-04-06 19:36 | XMS_ITS | Encounter Summary ---
Author Organization [employer] Address [address] [place] [address] [place], [place] [address] Care Team Providers Care Fitness Assistant Name Role Phone Jane Zarate MD Primary Care Provider [phone] Mikey Johnson PharmD Unavailable [phone] Encounter Details Date Type Department Care Team ([facility] [place] [facility] Contact Info) Description 09/05/2022 Abstract [facility] [address] [place] [phone] Provider, MD Baltazar Social History Tobacco Use [...] Upcoming Encounters Date Type Department Care Team ([facility] [place] [facility] Contact Info) Description 04/19/2025 10:00 AM EDT Medication Management [facility] [address] [place] [address] [phone] Mikey Johnson, PharmD [address] [place] [address] 05/25/2025 10:00 AM EST Office Visit [facility] [address] [place] [address] [phone] Jane Zarate MD [address] [place] [phone] documented as of this encounter Visit Diagnoses Not on filedocumented in this encounter Additional Health Concerns Assessment Noted Time PHQ-9 Depression Total Score: 9 06/30/20 22 3:13 PM EST documented as of this encounter Care Teams Fitness Assistant Relationship Specialty Start Date End Date Jane Zarate MD [address] [place] [phone] PCP - General Family Medicine 06/24/12 Mikey Johnson, FarhanaD [address] [place] [phone] Pharmacist Internal Medicine 10/17/24 documented as of this encounter
--- OUTSIDE RECORDS SUMMARY | 2025-04-06 19:36 | XMS_ITS | Encounter Summary ---
Author Organization [employer] Address [address] [place] [address] 7 [place] [address] Care Team Providers Care Software Build Engineer Name Role Phone Jane Zarate MD Primary Care Provider [phone] Mikey Johnson PharmD Unavailable [phone] Encounter Details Date Type Department Care Team (Late st Contact Info) Description 01/19/2023 Orders Only [facility] [address] [place], [place] [phone] Jane Zarate MD [address] [place], [place] [phone] Degenerative disc disease, cervical (Primary Dx); VANDANA [...] 04/19/2025 10:00 AM EDT Medication Management [facility] [address] [place] [phone] Mikey Johnson, [place] [address] 05/25/2025 10:00 AM EST Office Visit [facility] [address] [place] [phone] Jane Zarate MD [address] [place] [address] documented as of this encounter Visit Diagnoses Diagnosis Degenerative disc disease, cervical- Primary VANDANA (obstructive sleep apnea) Obstructive sleep apnea (adult) (pediatric) documented in this encounter Additional Health Concerns Assessment Noted Time PHQ-9 Depression Total Score: 9 06/30/20 22 3:13 PM EST documented as of this encounter Care Teams Software Build Engineer Relationship Specialty Start Date End Date Jane Zarate MD [address] [place] [phone] PCP - General Family Medicine 06/24/12 Mikey Johnson, Bakari [address] [place] [address] Pharmacist Internal Medicine 10/17/24 documented as of this encounter
--- OUTSIDE RECORDS SUMMARY | 2025-04-06 19:36 | XMS_ITS | Encounter Summary ---
Author Organization [employer] Address [address] [place] [phone] Care Team Providers Care Hand Shaper Name Role Phone Jane Zarate MD Primary Care Provider [phone] Mikey Johnson PharmD Unavailable [phone] Reason for Visit * Reason Comments Med Refill Encounter Details Date Type Department Care Team (Late Contact Info) Description 09/20/2022 Refill [facility] [address] [place], [place] [phone] Jane Zarate MD [address] [place], [place] [phone] Gastroesophageal reflux disease, unspecified whether esophagitis present [...] Description 04/19/2025 10:00 AM EDT Medication Management [facility] [address] [place], [place] [phone] Mikey Johnson, PharmD [address] [place] [address] 05/25/2025 10:00 AM EST Office Visit [facility] [address] [place] [address] Jane Zarate MD [address] [place] [address] documented as of this encounter Visit Diagnoses Diagnosis Gastroesophageal reflux disease, unspecified whether esophagitis present documented in this encounter Additional Health Concerns Assessment Noted Time PHQ-9 Depression Total Score: 9 06/30/20 22 3:13 PM EST documented as of this encounter Care Teams Hand Shaper Relationship Specialty Start Date End Date Jane Zarate MD [address] [place] [phone] PCP - General Family Medicine 06/24/12 Mikey Johnson, FarhanaD [address] [place] [phone] Pharmacist Internal Medicine 10/17/24 documented as of this encounter
--- OUTSIDE RECORDS SUMMARY | 2025-04-06 19:36 | XMS_ITS | Encounter Summary ---
Author Organization [employer] Address [address] [place] [address] 7 [place] [address] Care Team Providers Care Equipment Installation Professional Name Role Phone Jane Zarate MD Primary Care Provider [phone] Mikey Johnson PharmD Unavailable [phone] Encounter Details Date Type Department Care Team (Late st Contact Info) Description 01/07/2024 Orders Only [facility] [address] [place], [place] [phone] Jane Zarate MD [address] [place], [place] [phone] Social History Tobacco Use Types Packs/Day Years [...] Description 04/19/2025 10:00 AM EDT Medication Management [facility] [address] [place] [phone] Mikey Johnson, PharmRaymundo [address] [place] [phone] 05/25/2025 10:00 AM EST Office Visit [facility] [address] [place] [phone] Jane Zarate MD [address] [place] [phone] documented as of this encounter Visit Diagnoses Not on filedocumented in this encounter Additional Health Concerns Assessment Noted Time PHQ-9 Depression Total Score: 0 10/13/19 24 1:55 PM EDT documented as of this encounter Care Teams Equipment Installation Professional Relationship Specialty Start Date End Date Jane Zarate MD [address] [place] [phone] PCP - General Family Medicine 06/24/12 Mikey Johnson, PharmD [address] [place] [phone] Pharmacist Internal Medicine 10/17/24 documented as of this encounter
== END 2025-04-06 16:10 | disposition home or self-care (01) ==
LOC: HO.HGI 15:30
PROVIDERS: PCP Family Medicine; Visit Provider Nurse Practitioner Family
DX: K21.9 Gastro-esophageal reflux disease without esophagitis (principal); K57.90 Diverticulosis of intestine, part unspecified, without perforation or abscess without bleeding
CPT/HCPCS: 99212

== ENCOUNTER → 2025-04-06 15:30 | Outpatient (BNVA) | payer OTHER, SELFPAY | PROVIDERS: PCP Family Medicine; Visit Provider Nurse Practitioner Family | DX: K21.9 Gastro-esophageal reflux disease without esophagitis (principal); K57.90 Diverticulosis of intestine, part unspecified, without perforation or abscess without bleeding | CPT/HCPCS: 99212 ==

== ENCOUNTER 2025-04-19 08:22 | Outpatient (REF) | payer OTHER, SELFPAY ==
--- NOTE | ~2025-04-19 | XR_ITS ---
EXAMINATION: XR CHEST 2 VIEWS HISTORY: cough leading to SOB COMPARISON: There are no prior studies available for comparison. FINDINGS: PA and lateral views of the chest are submitted. The lungs are expanded and clear. There is no pleural effusion, pneumothorax, or pulmonary vascular congestion. The heart is normal in size. There is degenerative disc disease of the spine. XR/XR chest 2V IMPRESSION: Clear lungs. Electronically signed by: Kvng Ivey MD 04/19/2025 08:44 AM EDT
== END 2025-04-19 08:23 | disposition home or self-care (01) ==
LOC: HO.HHCX 08:22
PROVIDERS: PCP Family Medicine; Visit Provider Nurse Practitioner Family
DX: R06.00 Dyspnea, unspecified (principal)
CPT/HCPCS: 71046

== ENCOUNTER → 2025-04-19 08:30 | Outpatient (BNV) | payer OTHER, SELFPAY | PROVIDERS: PCP Family Medicine; Visit Provider Radiology Diagnostic Radiology | DX: R05.9 Cough, unspecified (principal); R06.02 Shortness of breath | CPT/HCPCS: 71046 ==